=== PATIENT | male | born 1965 | race Caucasian/White ===

== ENCOUNTER → 2017-08-14 | Outpatient (REF) ==
[~2017-08-14] MED LIST: ALBU8.5H12 IH; AMO500 PO; ASPI-1471 PO; AUG875 PO; CHOL10005 PO; CIPR-214 PO; CLIN-75 PO; CLIN300C99 PO; GLY25 PO; GLY5 PO; LIDO20SO21 MM; LISI-362 PO; LISI5TAB25 PO; LOR5 PO; MET500 PO; METF-1 PO; NYST100040 PO; PEN250 PO; PENI-22 PO; SIMV-54 PO; SITA100T PO; SITA1TBM PO
--- NOTE | 2017-08-14 14:19 | RADIOLOGY IMAGING REPORT ---
FACILITY: PATIENT NAME: Leobardo Russell : 1965 MR: [id number] V: [id number] EXAM DATE: ORDERING PHYSICIAN: JOAQUÍN CAR TECHNOLOGIST: Location: [facility] - [place] Patient: Leobardo Russell : 1965 Visit/Account:[id number] Date of Sevice: 08/14/2017 Exam type: LUMBAR SPINE 2 OR 3 VIEW History: Low back pain Comparison: None. Findings: There are five nonrib-bearing lumbar-type vertebral bodies present. There is no evidence of acute fr acture or subluxation in the lumbar spine. The disc spaces are well-preserved. There is a very gent le levoconvex scoliosis with the curvature centered about L3-4. IMPRESSION: 1. There gentle levoconvex scoliosis of the lumbar spine Lumbar spine series otherwise appears unremarkable Report Dictated By: Keily Burch MD at 08/14/2017 2:14 PM Report E-Signed By: Keily Burch MD at 08/14/2017 2:15 PM WSN:[email or web address]
== END ==
LOC: RAD 11:25
PROVIDERS: ATTEND Orthopaedic Surgery Orthopaedic Surgery of the Spine
DX: M54.5 Low back pain (principal)
CPT/HCPCS: 72100

== ENCOUNTER 2017-08-19 14:48 | Inpatient (IN) | payer SELFPAY ==
[~2017-08-19] VITALS: Ht 152.4 cm; Wt 78.5 kg
--- NOTE | 2017-08-19 14:52 | ER Report ---
History and Physical Time Seen By MD: 14:51 Hx. of Stated Complaint: diabetic left foot ulcer HPI/ROS 51 year old with left foot ulcer x 1 month on 2 courses of abx . keflex and augmentin, worsening redness drainage red streak up left foot Allergies: Coded Allergies: No Known Allergies (Verified Allergy, Mild, 08/19/17) Home Meds Reported Medications Insulin Detemir (LEVEMIR) 100 Unit/Ml Injs, 70 UNIT SUBQ 08/19/17 Insulin Lispro (HUMALOG) 100 Unit/1 Ml Vial, 100 UNIT SQ, VIAL 08/19/17 Famotidine (FAMOTIDINE) 20 Mg Tablet, 20 MG PO QDAY, TAB 08/19/17 Hctz/Bisoprolol (ZIAC 10-6.25 MG TABLET) 1 Ea Tab, 25 MG PO QDAY, TAB 08/19/17 Amoxicillin/Potassium Clav (AUGMENTIN 250-62.5 MG/5 ML) 250 Mg/5 Ml Susp.recon, 1 TSP PO Q8H for 5 Days, ML 08/19/17 Aspirin (ASPIR 81) 81 Mg Tablet.dr, 81 MG PO QDAY, TAB 08/03/16 Cholecalciferol (Vitamin D3) (VITAMIN D3) 1,000 Unit Tablet, 1000 UNIT PO QDAY, TAB 08/03/16 Simvastatin (SIMVASTATIN) 40 Mg Tablet, PO HS, TAB 12/18/15 Metformin Hcl (GLUCOPHAGE) 500 Mg Tablet, 1 TAB PO BID, #60 With Food 01/17/13 Discontinued Reported Medications Sitagliptin Phosphate (JANUVIA) 100 Mg Tablet, 100 MG PO QDAY 08/03/16 Lisinopril (LISINOPRIL) 10 Mg Tablet, 10 MG PO QDAY, TAB 08/03/16 Past Medical/Surgical History History headaches, hypertension, asthma, type II diabetes, depression, Reviewed Nurses Notes: Yes Old Medical Records Reviewed: Yes Hx Smoking: No Smoking Status: Never Smoker Exposure to Second Hand Smoke?: No Hx Substance Use Disorder: No Hx Alcohol Use: Yes Constitutional Vital Sign - Last 24 Hours 08/19/17 14:55 Temp 98.0 Pulse 92 Resp 19 B/P (MAP) 132/101 Pulse Ox 95 O2 Delivery Room Air Physical Exam 51 year old male identifies as a female and asks to called she. alert anxious, cathy tm non reddened, throat non reddened mucous membranes dry, hrr, lungs cta, and soft, open ulcer left foot 3x2 medial side of great toe, 2 plus edema left leg, right foot dry pressure ulcer to the bottom of the foot , no edema right leg Medical Decision Making Data Points Result Diagram: 08/19/17 1520 08/19/17 1520 Laboratory Hematology Test 08/19/17 15:20 08/19/17 19:14 Red Blood Count 4.86 M/uL (4.00-5.60) Mean Corpuscular Volume 85.9 fL (80.0-96.0) Mean Corpuscular Hemoglobin 29.2 pg (26.0-33.0) Mean Corpuscular Hemoglobin Concent 34.0 g/dL (32.0-36.0) Red Cell Distribution Width 12.8 % (11.5-14.5) Mean Platelet Volume 8.1 fL (7.2-11.1) Neutrophils (%) (Auto) 81.8 % (39.4-72.5) Lymphocytes (%) (Auto) 8.7 % (17.6-49.6) Monocytes (%) (Auto) 8.3 % (4.1-12.4) Eosinophils (%) (Auto) 0.5 % (0.4-6.7) Basophils (%) (Auto) 0.7 % (0.3-1.4) Nucleated RBC Relative Count (auto) 0.1 /100WBC Neutrophils # (Auto) 9.8 K/uL (2.0-7.4) Lymphocytes # (Auto) 1.0 K/uL (1.3-3.6) Monocytes # (Auto) 1.0 K/uL (0.3-1.0) Eosinophils # (Auto) 0.1 K/uL (0.0-0.5) Basophils # (Auto) 0.1 K/uL (0.0-0.1) Nucleated RBC Absolute Count (auto) 0.01 K/uL Erythrocyte Sedimentation Rate 62 mm/HOUR (0-15) Prothrombin Time 12.7 seconds (12.0-14.4) Prothromb Time International Ratio 0.96 Activated Partial Thromboplast Time 26 seconds (23-35) D-Dimer Quantitative (PE/DVT) 0.87 ug/ml (0-0.50) Sodium Level 132 mmol/L (137-145) Potassium Level 5.7 mmol/L (3.5-5.0) Chloride Level 99 mmol/L (98-107) Carbon Dioxide Level 26 mmol/L (22-30) Blood Urea Nitrogen 45 mg/dl (9-21) Creatinine 2.60 mg/dl (0.66-1.25) Glomerular Filtration Rate Calc 26.4 Random Glucose 201 mg/dl (75-110) Lactate 1.5 mmol/L (0.7-2.1) Calcium Level 9.1 mg/dl (8.4-10.2) Magnesium Level 2.6 mg/dl (1.7-2.2) Total Bilirubin 0.6 mg/dl (0.2-1.3) Aspartate Amino Transf (AST/SGOT) 22 U/L (0-35) Alanine Aminotransferase (ALT/SGPT) 43 U/L (0-56) Alkaline Phosphatase 155 U/L (0-126) C-Reactive Protein 3.7 mg/dl (<1.0) Total Protein 7.6 gm/dl (6.3-8.2) Albumin 3.7 g/dl (3.5-5.0) Urine Color Yellow Urine Clarity Cloudy Urine pH 5.0 pH (4.8-9.5) Urine Specific [place] 1.017 Urine Protein 500 mg/dL (NEGATIVE) Urine Glucose (UA) 500 mg/dL (NEGATIVE) Urine Ketones Negative mg/dL (NEGATIVE) Urine Blood Small (NEGATIVE) Urine Nitrite Negative (NEGATIVE) Urine Bilirubin Negative (NEGATIVE) Urine Urobilinogen Negative mg/dL (0.2-1.9) Urine Leukocyte Esterase Negative (NEGATIVE) Urine RBC 25 /HPF (0-2/HPF) Urine WBC 2 /HPF (0-5/HPF) Urine Squamous Epithelial Cells Few /LPF (</=FEW) Urine Bacteria Negative /HPF (NONE-FEW) Urine Mucus Few /HPF (NONE-FEW) Chemistry Test 08/19/17 15:20 08/19/17 19:14 White Blood Count 11.9 k/uL (4.5-11.0) Red Blood Count 4.86 M/uL (4.00-5.60) Hemoglobin 14.2 g/dL (14.0-18.0) Hematocrit 41.7 % (42.0-52.0) Mean Corpuscular Volume 85.9 fL (80.0-96.0) Mean Corpuscular Hemoglobin 29.2 pg (26.0-33.0) Mean Corpuscular Hemoglobin Concent 34.0 g/dL (32.0-36.0) Red Cell Distribution Width 12.8 % (11.5-14.5) Platelet Count 298 K/uL (150-450) Mean Platelet Volume 8.1 fL (7.2-11.1) Neutrophils (%) (Auto) 81.8 % (39.4-72.5) Lymphocytes (%) (Auto) 8.7 % (17.6-49.6) Monocytes (%) (Auto) 8.3 % (4.1-12.4) Eosinophils (%) (Auto) 0.5 % (0.4-6.7) Basophils (%) (Auto) 0.7 % (0.3-1.4) Nucleated RBC Relative Count (auto) 0.1 /100WBC Neutrophils # (Auto) 9.8 K/uL (2.0-7.4) Lymphocytes # (Auto) 1.0 K/uL (1.3-3.6) Monocytes # (Auto) 1.0 K/uL (0.3-1.0) Eosinophils # (Auto) 0.1 K/uL (0.0-0.5) Basophils # (Auto) 0.1 K/uL (0.0-0.1) Nucleated RBC Absolute Count (auto) 0.01 K/uL Erythrocyte Sedimentation Rate 62 mm/HOUR (0-15) Prothrombin Time 12.7 seconds (12.0-14.4) Prothromb Time International Ratio 0.96 Activated Partial Thromboplast Time 26 seconds (23-35) D-Dimer Quantitative (PE/DVT) 0.87 ug/ml (0-0.50) Glomerular Filtration Rate Calc 26.4 Lactate 1.5 mmol/L (0.7-2.1) Calcium Level 9.1 mg/dl (8.4-10.2) Magnesium Level 2.6 mg/dl (1.7-2.2) Total Bilirubin 0.6 mg/dl (0.2-1.3) Aspartate Amino Transf (AST/SGOT) 22 U/L (0-35) Alanine Aminotransferase (ALT/SGPT) 43 U/L (0-56) Alkaline Phosphatase 155 U/L (0-126) C-Reactive Protein 3.7 mg/dl (<1.0) Total Protein 7.6 gm/dl (6.3-8.2) Albumin 3.7 g/dl (3.5-5.0) Urine Color Yellow Urine Clarity Cloudy Urine pH 5.0 pH (4.8-9.5) Urine Specific [place] 1.017 Urine Protein 500 mg/dL (NEGATIVE) Urine Glucose (UA) 500 mg/dL (NEGATIVE) Urine Ketones Negative mg/dL (NEGATIVE) Urine Blood Small (NEGATIVE) Urine Nitrite Negative (NEGATIVE) Urine Bilirubin Negative (NEGATIVE) Urine Urobilinogen Negative mg/dL (0.2-1.9) Urine Leukocyte Esterase Negative (NEGATIVE) Urine RBC 25 /HPF (0-2/HPF) Urine WBC 2 /HPF (0-5/HPF) Urine Squamous Epithelial Cells Few /LPF (</=FEW) Urine Bacteria Negative /HPF (NONE-FEW) Urine Mucus Few /HPF (NONE-FEW) Coagulation Test 08/19/17 15:20 Prothrombin Time 12.7 seconds Prothromb Time International Ratio 0.96 Activated Partial Thromboplast Time 26 seconds D-Dimer Quantitative (PE/DVT) 0.87 ug/ml Urinalysis Test 08/19/17 19:14 Urine Color Yellow Urine Clarity Cloudy Urine pH 5.0 pH (4.8-9.5) Urine Specific [place] 1.017 Urine Protein 500 mg/dL (NEGATIVE) Urine Glucose (UA) 500 mg/dL (NEGATIVE) Urine Ketones Negative mg/dL (NEGATIVE) Urine Blood Small (NEGATIVE) Urine Nitrite Negative (NEGATIVE) Urine Bilirubin Negative (NEGATIVE) Urine Urobilinogen Negative mg/dL (0.2-1.9) Urine Leukocyte Esterase Negative (NEGATIVE) Urine RBC 25 /HPF (0-2/HPF) Urine WBC 2 /HPF (0-5/HPF) Urine Squamous Epithelial Cells Few /LPF (</=FEW) Urine Bacteria Negative /HPF (NONE-FEW) Urine Mucus Few /HPF (NONE-FEW) EKG/Imaging Imaging FACILITY: [facility] PATIENT NAME: Leobardo Russell : 1965 MR: [id number] V: [id number] EXAM DATE: ORDERING PHYSICIAN: SHAHID DOWNING TECHNOLOGIST: Location: [facility] Patient: Leobardo Russell : 1965 Visit/Account:[id number] Date of Sevice: 08/19/2017 EXAMINATION: Left Lower Extremity Venous Ultrasound HISTORY: Left foot infection. TECHNIQUE: Ultrasound evaluation of the left lower extremity veins was performed with color and spectral Doppler and compression views. COMPARISON: None. FINDINGS: The left common femoral, femoral, proximal deep femoral, popliteal, and segmentally visualized deep calf veins are patent and compressible, without evidence of intraluminal thrombus. The visualized upper greater saphenous vein is patent. Mildly enlarged left inguinal lymph nodes are likely reactive. IMPRESSION: No evidence of DVT in the left leg. Report Dictated By: Mike Rajan MD at 08/19/2017 7:11 PM Report E-Signed By: Mike Rajan MD at 08/19/2017 7:14 PM WSN:[id number] ED Course/Re-evaluation ED Course Call from the radiologist MRI of his left foot is showing soft tissue edema and there is no abscess no osteomyelitis Re-evaluation Talk to Dr. Mary Ann Becerra she will admit patient for diabetic foot ulcer and cellulitis of the left foot we have started antibiotics of vancomycin in the emergency room she will add antibiotics upstairs Decision to Disposition Date: Aug 19, 2017 Decision to Disposition Time: 19:49 Depart Departure Latest Vital Signs Vital Signs Date Time Temp Pulse Resp B/P (MAP) Pulse Ox O2 Delivery O2 Flow Rate FiO2 08/19/17 14:55 98.0 92 19 132/101 95 Room Air Impression: Primary Impression: Diabetes Additional Impressions: Cellulitis of foot Diabetic ulcer of foot associated with diabetes mellitus due to underlying condition, limited to breakdown of skin Condition: Improved Disposition: Admitted from ER Problem Qualifiers SHAHID DOWNING APRN-C Aug 19, 2017 14:52
[2017-08-19] MEDS ORDERED: ZIA10 PO (15:07)
[2017-08-19] MEDS ORDERED: AMOX250S91 PO (15:07)
[2017-08-19] MEDS ORDERED: FAMO-67 PO (15:07)
[2017-08-19] MEDS ORDERED: INSU100V24 SQ (15:07)
[2017-08-19] MEDS ORDERED: LEVI SUBQ (15:07)
--- NOTE | 2017-08-19 15:25 | EKG ---
FACILITY: [facility] PATIENT NAME: JUAN F MCCABE : [id number] MR: [id number] V: [id number] EXAM DATE: ORDERING PHYSICIAN: SHAHID DOWNING TECHNOLOGIST: PRUDENCIO Meier Reason : FOOT INFECTION Blood Pressure : / mmHG Vent. Rate : 085 BPM Atrial Rate : 085 BPM P-R Int : 122 ms QRS Dur : 092 ms QT Int : 338 ms P-R-T Axes : 076 031 075 degrees QTc Int : 402 ms Normal sinus rhythm RSR' or QR pattern in V1 suggests right ventricular conduction delay Query right atrial enlargement. When compared with ECG of 03-AUG-2016 11:10, No significant change was found Confirmed by VIKTOR HARDING ([id number]) on 08/19/2017 5:32:55 PM Referred By: SALINA Confirmed By:VIKTOR HARDING
[2017-08-19 15:35] LABS: PLATELET COUNT, AUTOMATED 298 K/uL (150-450)
[2017-08-19 15:43] LABS: INR 0.96
--- NOTE | 2017-08-19 15:58 | RADIOLOGY IMAGING REPORT ---
FACILITY: [facility] [place] PATIENT NAME: Leobardo Russell : 1965 MR: [id number] V: [id number] EXAM DATE: ORDERING PHYSICIAN: SHAHID DOWNING TECHNOLOGIST: Location: [facility] Patient: Leobardo Russell : 1965 Visit/Account:[id number] Date of Sevice: 08/19/2017 CHEST SINGLE AP INDICATION: foot infection dm COMPARISON: August 03, 2016 FINDINGS: Heart size within normal limits. There is no focal infiltrate or lobar consolidation. There is no pneumothorax or pleural effusion. IMPRESSION: 1. No acute cardiopulmonary process. Report Dictated By: Iggy Winston at 08/19/2017 3:54 PM Report E-Signed By: Iggy Winston at 08/19/2017 3:54 PM WSN:[id number]
[2017-08-19] MEDS ORDERED: VANCOMYCIN 1 GM ADDVIAL 1 GM in NS(*) 0.9% 250 ML ADDVAN BAG 250 ML IVPB ONE (16:50)
--- NOTE | 2017-08-19 19:17 | RADIOLOGY IMAGING REPORT ---
FACILITY: [facility] - [place] PATIENT NAME: Leobardo Russell : 1965 MR: [id number] V: [id number] EXAM DATE: ORDERING PHYSICIAN: SHAHID DOWNING TECHNOLOGIST: Location: [facility] [place] Patient: Leobardo Russell : 1965 Visit/Account:[id number] Date of Sevice: 08/19/2017 EXAMINATION: Left Lower Extremity Venous Ultrasound HISTORY: Left foot infection. TECHNIQUE: Ultrasound evaluation of the left lower extremity veins was performed with color and spec tral Doppler and compression views. COMPARISON: None. FINDINGS: The left common femoral, femoral, proximal deep femoral, popliteal, and segmentally visualized deep c jail veins are patent and compressible, without evidence of intraluminal thrombus. The visualized upp er greater saphenous vein is patent. Mildly enlarged left inguinal lymph nodes are likely reactive. IMPRESSION: No evidence of DVT in the left leg. Report Dictated By: Mike Rajan MD at 08/19/2017 7:11 PM Report E-Signed By: Mike Rajan MD at 08/19/2017 7:14 PM WSN:[id number]
[2017-08-19] MEDS ORDERED: NS(*) 0.9% 1000 ML BAG 1,000 ML IV PRN (20:03)
[2017-08-19] MEDS ORDERED: ACETAMINOPHEN 325 MG TAB PO PRN (20:05)
[2017-08-19 20:41] VITALS: BP 186/122
[2017-08-19] MEDS ORDERED: AMOX-559 PO (20:47)
[2017-08-19] MEDS ORDERED: LISI20TA29 PO (20:49)
[2017-08-19] MEDS ORDERED: HYDR-2966 PO (20:49)
[2017-08-19] MEDS ORDERED: SIMV-49 PO (20:50)
[2017-08-19] MEDS ORDERED: AMPICILLIN/SULBACTAM 3 GM VIAL ONE (21:40)
[2017-08-19] MEDS ORDERED: NS(*) 0.9% 100 ML BAG 200 ML ONE (21:43)
--- NOTE | 2017-08-19 22:05 | History & Physical ---
History of Present Illness Chief Complaint Redness, swelling and drainage of L foot. History of Present Illness The patient is a 51 year old genetic male who identifies as a female. She goes by "Anabel". She notes that about 3 weeks ago she removed a "skin tag" from the medial aspect of the left foot. The foot became infected and she was seen at the [facility]. She was started on Keflex but did not take it right away. Wound care was performed and the area scabbed over. The patient states she pulled off the scab because it was "ready". The wound worsened and she was placed on Augmentin 875mg bid. She then developed a crescent shaped defect on the pad below the great toe. Today she noticed increased redness and drainage with red streaking up the foot to the lower leg. The left leg was also swollen. The patient denies fever or chills. She has diabetic neuropathy and has not had pain. She states she was hospitalized in 2012 with a similar infection. Her diabetes has not been well controlled. She has been on Levemir 70 u at midnight. Her sugars have been 200s to 300s with an occasional "crash". In the ER, MRI was done with report of no abscess and no osteomyelitis. Sed rate and CRP were elevated. WBC was also elevated to 11.9. The patient was recommended for admission for further evaluation and treatment. Blood cultures were performed in ER and the patient was given a dose of Vancomycin 1g. 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), managed as type 1 Status: Chronic (7) History of appendectomy (8) History of eye surgery Home Meds Reported Medications Simvastatin (SIMVASTATIN) 20 Mg Tablet, 20 MG PO HS, TAB 08/19/17 Hydrochlorothiazide (HYDROCHLOROTHIAZIDE) 25 Mg Tablet, 1 TAB PO BID, TAB 08/19/17 Lisinopril (LISINOPRIL) 20 Mg Tablet, 20 MG PO BID, TAB 08/19/17 Amoxicillin/Pot Clav 875-125 Mg Tab (AUGMENTIN 875-125 TABLET) 1 Each Tablet, 1 TAB PO Q12H, TAB 08/19/17 Insulin Detemir (LEVEMIR) 100 Unit/Ml Injs, 70 UNIT SUBQ 08/19/17 Insulin Lispro (HUMALOG) 100 Unit/1 Ml Vial, 100 UNIT SQ, VIAL 08/19/17 Famotidine (FAMOTIDINE) 20 Mg Tablet, 20 MG PO QDAY, TAB 08/19/17 Aspirin (ASPIR 81) 81 Mg Tablet.dr, 81 MG PO QDAY, TAB 08/03/16 Cholecalciferol (Vitamin D3) (VITAMIN D3) 1,000 Unit Tablet, 1000 UNIT PO QDAY, TAB 08/03/16 Metformin Hcl (GLUCOPHAGE) 500 Mg Tablet, 2 TAB PO BID, #60 With Food 01/17/13 Discontinued Reported Medications Sitagliptin Phosphate (JANUVIA) 100 Mg Tablet, 100 MG PO QDAY 08/03/16 Lisinopril (LISINOPRIL) 10 Mg Tablet, 10 MG PO QDAY, TAB 08/03/16 Allergies: Coded Allergies: No Known Allergies (Verified Allergy, Mild, 08/19/17) Patient History: Diabetes mellitus (DM) GM FH: lung cancer GM FHx: chronic disabling diseases BROTHER OR SISTER Other Social/Family Hx The patient lives alone in [place]. She has 2 cats. She works at [employer] and also for [employer]. Hx Smoking: No Smoking Status: Never Smoker Exposure to Second Hand Smoke?: No Caffeine Intake: Tea Hx Alcohol Use: Yes Alcohol Use: Occassional Hx Substance Use Disorder: Yes Social Drug Use: Former Social Drugs: Marijuana History of IV Drug Use: No Review of Systems Constitutional: No Fever, No Chills Neurological: Other (Occasional headache. Diabetic neuropathy with decreased sensation in his feet.) Eyes: No Vision Change ENT: Other (Most teeth are broken off at the gumline. No pain currently.), No Hearing Loss Cardiovascular: Chest Pain (Occasional chest pain.) Respiratory: No Shortness of Breath, No Cough Gastrointestinal: No Nausea, No Vomiting, Diarrhea (Intermittent bouts of diarrhea since the 1980s. Uses antidiarrheal medication at home prn.) Genitourinary: No Dysuria Musculoskeletal: Pain (Denies pain with his current ulcer, L foot.) Psychiatric: Depression (Hx of depression. Not on meds now.) Exam Vital Signs Vital Signs Date Time Temp Pulse Resp B/P (MAP) Pulse Ox O2 Delivery O2 Flow Rate FiO2 08/19/17 20:41 98.5 92 18 186/122 (143) 16 Room Air General Appearance: Alert, Awake, No Acute Distress, Afebrile, Other (Wearing a wig.) Neuro: No Gross deficits Eyes: PERRLA ENT: Other (All remaining teeth are broken off at the gum. Two teeth missing, R lower molars.) Neck: No Masses Cardiovascular: Regular Rate and Rhythm Respiratory: Clear to Auscultation GI: Abd Soft and Non-Tender, Other (Small ventral hernia.) Lymph: Cervical Nodes Benign Extremities: Warm, Perfused, Edema (Left leg swollen to the knee.) Integumentary: Other (L foot with swelling and redness top of foot with streaking up lower leg. Open wound on plantar surface below great toe with crescent shaped defect, some drainage and redness. R foot with callous on pad of foot.) Psych: Alert & Oriented X3, Appropriate Mood & Affect Medical Decision Making Data Points Result Diagram: 08/19/17 1520 08/19/17 1520 Item Value Date Time Erythrocyte Sedimentation Rate 62 mm/HOUR H 08/19/17 1520 Neutrophils (%) (Auto) 81.8 % H 08/19/17 1520 Prothrombin Time 12.7 seconds 08/19/17 1520 Prothromb Time International Ratio 0.96 08/19/17 1520 Activated Partial Thromboplast Time 26 seconds 08/19/17 1520 D-Dimer Quantitative (PE/DVT) 0.87 ug/ml H 08/19/17 1520 Random Glucose 201 mg/dl H 08/19/17 1520 Calcium Level 9.1 mg/dl 08/19/17 1520 Total Bilirubin 0.6 mg/dl 08/19/17 1520 Aspartate Amino Transf (AST/SGOT) 22 U/L 08/19/17 1520 Alanine Aminotransferase (ALT/SGPT) 43 U/L 08/19/17 1520 Alkaline Phosphatase 155 U/L H 08/19/17 1520 C-Reactive Protein 3.7 mg/dl H 08/19/17 1520 Total Protein 7.6 gm/dl 08/19/17 1520 Albumin 3.7 g/dl 08/19/17 1520 Magnesium Level 2.6 mg/dl H 08/19/17 1520 Lactate 1.5 mmol/L 08/19/17 1520 Urine Color Yellow 08/19/171913 Urine Clarity Cloudy 08/19/171913 Urine pH 5.0 pH 08/19/171913 Urine Specific Stewart 1.017 08/19/171913 Urine Protein 500 mg/dL 08/19/171913 Urine Glucose (UA) 500 mg/dL 08/19/171913 Urine Ketones Negative mg/dL 08/19/171913 Urine Blood Small 08/19/171913 Urine Nitrite Negative 08/19/171913 Urine Bilirubin Negative 08/19/171913 Urine Urobilinogen Negative mg/dL 08/19/171913 Urine Leukocyte Esterase Negative 08/19/171913 Urine RBC 25 /HPF 08/19/171913 Urine WBC 2 /HPF 08/19/171913 Urine Squamous Epithelial Cells Few /LPF 08/19/171913 Urine Bacteria Negative /HPF 08/19/171913 Urine Mucus Few /HPF 08/19/171913 Blood cultures pending. EKG / Imaging EKG Interpretation FACILITY: [facility] - [place] PATIENT NAME: JUAN F MCCABE : [id number] MR: [id number] V: [id number] EXAM DATE: ORDERING PHYSICIAN: SHAHID DOWNING TECHNOLOGIST: PRUDENCIO Meier Reason : FOOT INFECTION Blood Pressure : / mmHG Vent. Rate : 085 BPM Atrial Rate : 085 BPM P-R Int : 122 ms QRS Dur : 092 ms QT Int : 338 ms P-R-T Axes : 076 031 075 degrees QTc Int : 402 ms Normal sinus rhythm RSR' or QR pattern in V1 suggests right ventricular conduction delay Query right atrial enlargement. When compared with ECG of 03-AUG-2016 11:10, No significant change was found Confirmed by VIKTOR HARDING ([id number]) on 08/19/2017 5:32:55 PM Referred By: SALINA Confirmed By:VIKTOR HARDING 1515 T: JENNY/ Imaging FACILITY: [facility] [place] PATIENT NAME: Juan F Mccabe : 1965 MR: [id number] V: [id number] EXAM DATE: ORDERING PHYSICIAN: SHAHID DOWNING TECHNOLOGIST: [place] [facility] [place] Patient: Juan F Mccabe : 1965 Visit/Account:[id number] Date of Sevice: 08/19/2017 EXAMINATION: Left Lower Extremity Venous Ultrasound HISTORY: Left foot infection. TECHNIQUE: Ultrasound evaluation of the left lower extremity veins was performed with color and spectral Doppler and compression views. COMPARISON: None. FINDINGS: The left common femoral, femoral, proximal deep femoral, popliteal, and segmentally visualized deep calf veins are patent and compressible, without evidence of intraluminal thrombus. The visualized upper greater saphenous vein is patent. Mildly enlarged left inguinal lymph nodes are likely reactive. IMPRESSION: No evidence of DVT in the left leg. Report Dictated By: Mike Rajan MD at 08/19/2017 7:11 PM Report E-Signed By: Mike Rajan MD at 08/19/2017 7:14 PM WSN:[id number] FACILITY: [facility] [place] PATIENT NAME: Juan F Mccabe : 1965 MR: [id number] V: [id number] EXAM DATE: [id number] ORDERING PHYSICIAN: SHAHID DOWNING TECHNOLOGIST: [place] [facility] [place] Patient: Juan F Mccabe : 1965 Visit/Account:[id number] Date of Sevice: 08/19/2017 CHEST SINGLE AP INDICATION: foot infection dm COMPARISON: August 03, 2016 FINDINGS: Heart size within normal limits. There is no focal infiltrate or lobar consolidation. There is no pneumothorax or pleural effusion. IMPRESSION: 1. No acute cardiopulmonary process. Report Dictated By: Iggy Winston at 08/19/2017 3:54 PM Report E-Signed By: Iggy Winston at 08/19/2017 3:54 PM WSN:[id number] Pre-Admit Course ED Medications Vancomycin 1g. Medical Record Review: Yes Assessment and Plan Problems: (1) Cellulitis of foot Status: Acute Assessment & Plan: The patient has been on antibiotics through the [facility], first Keflex, then Augmentin 875 bid. Started on Vanco in ER at 1g q 24. Will continue and add Unasyn 3g IV q 6 hours. No dosage adjustment needed for Unasyn with CrCl greater than 30. The patient's CrCl is 38. PT wound care ordered. Follow CRP periodically. MRI negative for abscess or osteomyelitis per report from ER provider. Recheck WBC in am. Control blood sugars. (2) Diabetic foot ulcer Status: Acute Assessment & Plan: PT wound care ordered. IV antibiotics as above. (3) Acute renal failure Status: Acute Assessment & Plan: The patient has a creatinine of 2.7. The last creatinine was a year ago and was 2.0. Creatinine was normal in 2013. Will stop lisinopril and HCTZ and hydrate. BP very high. Suspect she likely has chronic renal failure as well due to uncontrolled HTN and DM. Will follow labs. (4) Hyperkalemia Status: Acute Assessment & Plan: Mild. Likely due to renal failure as above and MANAS-I. Stop lisinopril and HCTZ. Hydrate. Recheck labs in am. 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 Blood sugars have not been well controlled. She has also been on metformin 1000mg bid. She has significant renal failure. Will stop metformin and divide the Levemir into 35u bid. Monitor BS AC/HS and adjust dose as needed. HgA1c ordered. (6) Hyperlipidemia associated with type 2 diabetes mellitus Status: Chronic Assessment & Plan: Continue simvastatin 20mg at HS. (7) HTN (hypertension) Status: Chronic Assessment & Plan: Blood pressure is elevated here at 180s/120s. Stop lisinopril and HCTZ. Start metoprolol 25mg bid. Monitor BPs and adjust meds as needed. (8) GERD (gastroesophageal reflux disease) Status: Chronic Assessment & Plan: Continue famotidine 20mg daily. (9) Yyif-ac-nixyil transgender person Status: Chronic Time Spent on Plan of Care: < 30 min Copies to: [facility] Venous Thromboembolism VTE Risk Physician Assess for VTE Risk: Yes Patient's VTE Risk: Low VTE Diagnostic Test 2 Days Prior to Admit: Yes (US L leg negative for DVT) Antithrombotics Is Pt On Any Antithrombotics?: Yes Exam Sepsis Risk: No Definite Risk Problem Qualifiers (1) HTN (hypertension): Hypertension type: essential hypertension Qualified Codes: I10 - Essential ( primary) hypertension (2) GERD (gastroesophageal reflux disease): Esophagitis presence: esophagitis presence not specified Qualified Codes: K21.9 - Gastro-esophageal reflux disease without esophagitis MEAGAN PAK MD Aug 19, 2017 22:05
[2017-08-19] MEDS: METOPROLOL TART 50 MG TAB PO SCH (22:10)
[2017-08-19] MEDS: INSULIN DETEMIR 100 UN/ML VIAL SUBQ SCH (22:18)
[2017-08-19] MEDS: INSULIN HUM LISPRO 100 UN/ML 3 ML VIAL SUBQ PRN (22:19)
[2017-08-19] MEDS: NS(*) 0.9% 1000 ML BAG 1,000 ML IV PRN (22:24)
[2017-08-19] MEDS: AMPICILLIN/SULBACT (*) 3 GM VL 3 GM in NS(*) 0.9% 100 ML BAG 100 ML IVPB SCH (22:30)
[2017-08-19 22:39] VITALS: BP 185/95
[2017-08-20 00:16] VITALS: BP 177/82
[2017-08-20] MEDS: AMPICILLIN/SULBACT (*) 3 GM VL 3 GM in NS(*) 0.9% 100 ML BAG 100 ML IVPB SCH ×4 (03:56→21:48)
[2017-08-20 03:58] VITALS: BP 127/68
[2017-08-20] MEDS: NS(*) 0.9% 1000 ML BAG 1,000 ML IV PRN (06:20)
[2017-08-20 06:38] LABS: PLATELET COUNT, AUTOMATED 264 K/uL (150-450)
[2017-08-20 07:20] VITALS: BP 176/96
--- NOTE | 2017-08-20 08:18 | RADIOLOGY IMAGING REPORT ---
FACILITY: [facility] PATIENT NAME: Leobardo Russell : 1965 MR: [id number] V: [id number] EXAM DATE: ORDERING PHYSICIAN: SHAHID DOWNING TECHNOLOGIST: Location: [facility] [place] Patient: Leobardo Russell : 1965 Visit/Account:[id number] Date of Sevice: 08/19/2017 MRI LEFT FOOT W/O CONTRAST HISTORY: Cellulitis COMPARISON: None TECHNIQUE: Multiplanar/multisequence was obtained through the left foot without contrast. CONTRAST: None FINDINGS: Soft tissues: Diffuse soft tissue edema especially at the dorsum of the foot. No fluid collection. Fo cus of susceptibility within the soft tissues at the plantar aspect of the first metatarsal head whic h may be an ulcer. Bones: Minimal plantar bone marrow edema at the first metatarsal head without bone marrow replacement on T1-weighted images.. Joint effusion: Tiny effusion at the first MTP joint. Plantar fascia: Negative. Ligaments: Normal Tendons: Normal Sinus tarsi and hindfoot: Normal Lisfranc ligament: Normal Other findings: None significant IMPRESSION: 1. Probable plantar soft tissue ulcer at the first MTP joint. Diffuse soft tissue edema likely from c ellulitis. No fluid collection indicate abscess. No bone marrow replacement to indicate osteomyelitis . 2. Small effusion at the first MTP joint. Report Dictated By: Andres Hines MD at 08/20/2017 8:09 AM Report E-Signed By: Andres Hines MD at 08/20/2017 8:13 AM WSN:[id number]
[2017-08-20] MEDS ORDERED: NS(*) 0.9% 1000 ML BAG 1,000 ML IV PRN (09:30)
[2017-08-20] MEDS: ENOXAPARIN 30 MG/0.3 ML SYR SC SCH (09:44)
[2017-08-20] MEDS: METOPROLOL TART 50 MG TAB PO SCH ×2 (09:44→21:42)
[2017-08-20] MEDS: FAMOTIDINE 20 MG TAB PO SCH (09:44)
[2017-08-20] MEDS: INSULIN DETEMIR 100 UN/ML VIAL SUBQ SCH ×2 (09:45→21:42)
--- NOTE | 2017-08-20 10:50 | Hospitalist Progress Note ---
Subjective Progress Notes Subjective Patient reports improvement in symptoms. No fevers. Physical Exam Vital Signs Date Time Temp Pulse Resp B/P (MAP) Pulse Ox O2 Delivery O2 Flow Rate FiO2 08/20/17 07:45 95 08/20/17 07:45 Room Air 08/20/17 07:20 99.1 18 176/96 (122) 08/20/17 03:58 84 Intake and Output 08/21/17 07:00 Intake Total 100 ml Balance 100 ml Intake Oral 100 ml General Appearance: Alert, Awake Integumentary: Other (left foot with decreased erythema based on perimeter orozco/still some edema/open area fairly clean with minimal drainage) Result Diagram: 08/20/1755708/20/17557 Assessment and Plan Problems: (1) Cellulitis of foot Status: Acute Assessment & Plan: The patient has been on antibiotics through the [facility], first Keflex, then Augmentin. Started on Vancomycin in ER at 1gm [id number]. Will continue and add Unasyn 3gm IV q6 hours. PT wound care ordered. Follow CRP periodically. MRI negative for abscess or osteomyelitis. Control blood sugars. Watch labs. (2) Diabetic foot ulcer Status: Acute Assessment & Plan: PT wound care ordered. IV antibiotics as above. (3) Acute renal failure Status: Acute Assessment & Plan: Improved. The patient had an elevated creatinine at admission (2.6). We did stop lisinopril and HCTZ. Continue IV fluids. Suspect patient likely has chronic renal failure as well due to uncontrolled HTN and DM. Will follow labs. (4) Hyperkalemia Status: Acute Assessment & Plan: Improved. Mild (5.3). Likely due to renal failure as above and MANAS inhibitor. Stopped lisinopril and HCTZ. Continue IV fluids. Watch labs. 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 We did stop metformin and divided the Levemir into 35u BID. Monitor BS AC/HS and adjust dose as needed. HgA1c is 9.0. (6) Hyperlipidemia associated with type 2 diabetes mellitus Status: Chronic Assessment & Plan: Continue simvastatin 20mg at HS. (7) HTN (hypertension) Status: Chronic Assessment & Plan: Blood pressure is elevated. Stopped lisinopril and HCTZ. Started metoprolol 25mg BID. Monitor BPs and adjust meds as needed. (8) GERD (gastroesophageal reflux disease) Status: Chronic Assessment & Plan: Continue famotidine 20mg daily. (9) Ijtz-se-sepnga transgender person Status: Chronic Exam Sepsis Risk: No Definite Risk Problem Qualifiers (1) HTN (hypertension): Hypertension type: essential hypertension Qualified Codes: I10 - Essential ( primary) hypertension (2) GERD (gastroesophageal reflux disease): Esophagitis presence: esophagitis presence not specified Qualified Codes: K21.9 - Gastro-esophageal reflux disease without esophagitis BOBBY PAK MD Aug 20, 2017 10:50
[2017-08-20] MEDS: INSULIN HUM LISPRO 100 UN/ML 3 ML VIAL SUBQ PRN (12:02)
[2017-08-20 12:12] VITALS: BP 159/85
--- NOTE | 2017-08-20 14:42 | Medical Nutrition Therapy ---
Nutrition Anthropometrics Height (Inches): 60.00 Height (Calculated Centimeters: 152.063492 Weight (Pounds): 173 Weight (Calculated Kilograms): 78.471 Vickey Nutrition Score: Adequate Vickey Nutrition Risk Score: 20 Dietary Referral Nutrition Risk Factors: Nutrition Risk Comment: Physical Findings Physical Appearance: Obese BMI 30-39 Skin Appearance Skin Appearance: Edema Edema Location Modifier: Left Edema Location: Foot Type of Edema: Degree of Edema: 1+ Gastrointestinal Symptoms GI Symtoms: Tube Present: Bowel Sounds: Recent Bowel Pattern: Stool Characteristics: Nutritional Diagnosis Nutritional Acuity: 2-Moderate Nutrition Problem/Etiology/Sym: Inappropriate carb intake related to nutrition knowledge deficit as evidenced by diabetic foot ulcer. Energy Requirement: 2340 (30kcal/kg) Protein Requirement: 62 (.8g/kg) Fluid Requirement: 1950 (25mL/kg) Nutrition Intervention: Cont diet as ordered, Encourage intake Nutritional Education Nutrition Education Topic: Diabetic Nutrition Learning Readiness: Interested Teaching Methods: Discussion, Handout Teaching Recipient: Patient Nutrition Counseling: Provided pt with diabetes meal plan, tips for planning meals and how to read nutrition labels. Discussed carb counting. Discussed monitoring BS and appropriate food choices when they are high and low. Nutrition Monitoring & Eval Nutrition Goals: Eat 50-100% Meal RD Patient Assessment Time: [address] Assessment Type: RD Assessment Patient Nutrition Acuity: 2-Moderate Follow Up Date: Aug 23, 2017 Nutritional Comment: Pt admitted with cellulitis of foot, diabetic foot ulcer. Hx. acute renal failure, hyperkalemia, ZECHARIAH, hyperlipemia, HTN, GERD, [id number] transgendered person. Labs: BS 83, Na 131, K 5.3, BUN 40, Cre 2.20, Ca 7.8, Alb 2.5, A1C 9.Provided pt with diabetes meal plan, tips for planning meals and how to read nutrition labels. Discussed carb counting. Discussed monitoring BS and appropriate food choices when they are high and low. Monitor labs, weight, po intake NIEVES WHITAKER Aug 20, 2017 14:04
[2017-08-20] MEDS ORDERED: VANCOMYCIN 1 GM ADDVIAL 1 GM in NS(*) 0.9% 250 ML ADDVAN BAG 250 ML IVPB SCH (19:00)
[2017-08-20 19:30] VITALS: BP 166/92
[2017-08-20] MEDS ORDERED: SIMVASTATIN 20 MG TAB PO SCH (21:00)
[2017-08-20] MEDS ORDERED: AMPICILLIN/SULBACT (*) 3 GM VL 3 GM in NS(*) 0.9% 100 ML BAG 100 ML IVPB SCH (22:00)
[2017-08-21 00:57] VITALS: BP 170/93
[2017-08-21] MEDS: AMPICILLIN/SULBACT (*) 3 GM VL 3 GM in NS(*) 0.9% 100 ML BAG 100 ML IVPB SCH (03:53)
[2017-08-21 06:11] LABS: PLATELET COUNT, AUTOMATED 239 K/uL (150-450)
[2017-08-21 08:09] VITALS: BP 192/98
[2017-08-21] MEDS ORDERED: amLODIPine BESYL(*) 5 MG TAB PO ONE (08:25)
[2017-08-21] MEDS: FAMOTIDINE 20 MG TAB PO SCH (09:02)
[2017-08-21] MEDS: METOPROLOL TART 50 MG TAB PO SCH (09:02)
[2017-08-21] MEDS: ENOXAPARIN 30 MG/0.3 ML SYR SC SCH (09:04)
[2017-08-21] MEDS: INSULIN HUM LISPRO 100 UN/ML 3 ML VIAL SUBQ PRN ×2 (09:09→12:21)
[2017-08-21] MEDS ORDERED: INSULIN DETEMIR 100 U/ML 3 ML PEN SUBQ SCH (09:40)
[2017-08-21] MEDS ORDERED: INSU100I5 SUBQ (10:14)
--- NOTE | 2017-08-21 10:22 | Hospitalist Depart ---
Discharge Summary Reason for Hosp/Final Diag: (1) Cellulitis of foot Status: Acute Hospital Course & Plan: He was admitted for cellulitis of the left foot. His WBC was elevated at admission. He also had an elevated CRP. He was initially placed on empiric treatment with Unasyn and vancomycin. Blood cultures have been negative. He will convert back to oral Augmentin at discharge. (2) Diabetic foot ulcer Status: Acute Hospital Course & Plan: Physical therapy did evaluate the wound on his foot. They will place a dressing prior to discharge and will provide him with wound care instructions. (3) Acute renal failure Status: Acute Hospital Course & Plan: He did have an elevated creatinine at admission. It has improved with IV fluids and discontinuing his diuretic. However, it is still above normal and will require outpatient monitoring. (4) Hyperkalemia Status: Acute Hospital Course & Plan: Resolved after stopping his MANAS inhibitor. 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 We have discontinued his metformin and scheduled his Levemir dosing to twice daily. (6) HTN (hypertension) Status: Chronic Hospital Course & Plan: We did stop his chronic lisinopril and hydrochlorothiazide as above. He will discharge on amlodipine. (7) GERD (gastroesophageal reflux disease) Status: Chronic Hospital Course & Plan: He is on chronic treatment with famotidine. (8) [id number] transgender person Status: Chronic (9) Hyperlipidemia associated with type 2 diabetes mellitus Status: Chronic Hospital Course & Plan: He is on chronic treatment with simvastatin. Departure Latest Vital Signs Laboratory Tests Test 08/20/17 11:57 08/20/17 16:16 08/20/17 20:54 08/21/17 05:48 Whole Blood Glucose 151 mg/DL 94 mg/DL 148 mg/DL White Blood Count 9.1 k/uL Red Blood Count 4.02 M/uL Hemoglobin 12.0 g/dL Hematocrit 34.4 % Mean Corpuscular Volume 85.5 fL Mean Corpuscular Hemoglobin 29.8 pg Mean Corpuscular Hemoglobin Concent 34.9 g/dL Red Cell Distribution Width 12.6 % Platelet Count 239 K/uL Mean Platelet Volume 8.2 fL Neutrophils (%) (Auto) 73.1 % Lymphocytes (%) (Auto) 12.7 % Monocytes (%) (Auto) 11.7 % Eosinophils (%) (Auto) 1.6 % Basophils (%) (Auto) 0.9 % Nucleated RBC Relative Count (auto) 0.0 /100WBC Neutrophils # (Auto) 6.6 K/uL Lymphocytes # (Auto) 1.2 K/uL Monocytes # (Auto) 1.1 K/uL Eosinophils # (Auto) 0.1 K/uL Basophils # (Auto) 0.1 K/uL Nucleated RBC Absolute Count (auto) 0.00 K/uL Sodium Level 134 mmol/L Potassium Level 4.7 mmol/L Chloride Level 104 mmol/L Carbon Dioxide Level 22 mmol/L Blood Urea Nitrogen 31 mg/dl Creatinine 1.90 mg/dl Glomerular Filtration Rate Calc 37.9 Random Glucose 91 mg/dl Calcium Level 8.0 mg/dl Total Bilirubin 0.2 mg/dl Aspartate Amino Transf (AST/SGOT) 26 U/L Alanine Aminotransferase (ALT/SGPT) 41 U/L Alkaline Phosphatase 111 U/L Total Protein 5.3 gm/dl Albumin 2.4 g/dl Current Medications Medications (Trade) Dose Ordered Sig/Magen Route PRN Reason Start Time Stop Time Status Last Admin Dose Admin Vancomycin HCl 1 gm/Sodium Chloride 250 ml @ 250 mls/hr ONCE ONCE IVPB 08/19/17 16:50 08/19/17 17:49 DC 08/19/17 19:03 Insulin Human Lispro (HumaLOG 100 UN/ ML 3 ML VIAL (OR EQUIV)) 2-10 UNITS SS PRN SUBQ SLIDING SCALE INSULIN 08/19/17 20:05 09/18/17 20:04 08/20/17 12:02 Sodium Chloride 1,000 ml @ 100 mls/hr Q10H PRN IV RUN CONTINUOUSLY FOR HYDRATION 08/19/17 20:03 08/20/17 09:31 DC Acetaminophen (Tylenol(*)325 Mg Tab (Or Equiv)) 650 mg Q6H PRN PO PAIN OR FEVER 100 OR GREATER 08/19/17 20:05 09/18/17 20:04 Influenza Virus Vaccine (Flu Vac (1592-7018 Formula)) 0.5 ml ONCE ONCE IM ONLY 08/22/17 09:00 08/22/17 09:01 Vancomycin HCl 1 gm/Sodium Chloride 250 ml @ 250 mls/hr Q24H@1900 IVPB 08/20/17 19:00 09/03/17 18:59 08/20/17 19:37 Ampicillin Sodium/ Sulbactam Sodium 3 gm/Sodium Chloride 100 ml @ 200 mls/hr 0400,1000,1600,2200 IVPB 08/20/17 22:00 08/20/17 22:00 DC Sodium Chloride 1,000 ml @ 125 mls/hr Q8H PRN IV RUN CONTINUOUSLY FOR HYDRATION 08/19/17 20:25 08/20/17 17:30 DC 08/20/17 06:20 Metoprolol Tartrate (Lopressor(*) 50 Mg Tab (Or Equiv)) 25 mg BID PO 08/19/17 21:20 09/18/17 21:19 08/21/17 09:02 Insulin Detemir (Levemir 100 Un/ ml 1 ml Vial (Or Equiv)) 35 unit BID SUBQ 08/19/17 21:20 08/21/17 09:40 DC 08/20/17 21:42 Ampicillin Sodium/ Sulbactam Sodium (Unasyn(*) 3 Gm Vial (Or Equiv)) 6 gm STK-MED ONCE .ROUTE 08/19/17 21:40 08/19/17 21:42 DC Sodium Chloride 200 ml @ As Directed STK-MED ONCE .ROUTE 08/19/17 21:43 08/19/17 21:44 DC Ampicillin Sodium/ Sulbactam Sodium 3 gm/Sodium Chloride 100 ml @ 200 mls/hr 0400,1000,1600,2200 IVPB 08/19/17 22:00 08/21/17 08:23 DC 08/21/17 03:53 Famotidine (Pepcid(*) 20 Mg Tab (Or Equiv)) 20 mg QDAY PO 08/20/17 09:00 09/19/17 08:59 08/21/17 09:02 Simvastatin (Zocor 20 Mg Tab (Or Equiv)) 20 mg HS PO 08/20/17 21:00 09/19/17 20:59 08/20/17 21:42 Enoxaparin Sodium (Lovenox 30 Mg/ 0.3 ml Syr (Or Equiv)) 30 mg QDAY SC 08/20/17 09:00 09/19/17 08:59 08/21/17 09:04 Sodium Chloride 1,000 ml @ 50 mls/hr Q20H PRN IV RUN CONTINUOUSLY FOR HYDRATION 08/20/17 09:30 09/19/17 09:29 Amlodipine Besylate (Norvasc(*) 5 Mg Tab (Or Equiv)) 5 mg ONCE ONCE PO 08/21/17 08:25 08/21/17 08:28 DC 08/21/17 09:02 Insulin Detemir (Levemir Flextouch 100 U/ ml 3 ml Pen) 35 unit BID SUBQ 08/21/17 09:40 09/20/17 09:39 08/21/17 09:42 Weight (Pounds): 173 Result Diagram: 08/21/1754708/21/17547 Condition: Improved Discharge: Home, Self Care Discharge Instructions Home Meds Active Scripts Amlodipine Besylate (AMLODIPINE BESYLATE) 5 Mg Tablet, 1 TAB PO QDAY, #30 TAB Prov:JUAN F MCLEAN DO 08/21/17 Insulin Detemir (Levemir Flextouch) 100 Unit/1 Ml Insuln.pen, 35 UNIT SUBQ BID, #10 ML Prov:JUAN F MCLEAN DO 08/21/17 Reported Medications Simvastatin (SIMVASTATIN) 20 Mg Tablet, 20 MG PO HS, TAB 08/19/17 Amoxicillin/Pot Clav 875-125 Mg Tab (AUGMENTIN 875-125 TABLET) 1 Each Tablet, 1 TAB PO Q12H, TAB 08/19/17 Insulin Lispro (HUMALOG) 100 Unit/1 Ml Vial, 0 SQ per sliding scale, VIAL 1 unit for every 50 point increase in blood sugar above normal. 08/19/17 Famotidine (FAMOTIDINE) 20 Mg Tablet, 20 MG PO QDAY, TAB 08/19/17 Aspirin (ASPIR 81) 81 Mg Tablet.dr, 81 MG PO QDAY, TAB 08/03/16 Cholecalciferol (Vitamin D3) (VITAMIN D3) 1,000 Unit Tablet, 1000 UNIT PO QDAY, TAB 08/03/16 Discontinued Reported Medications Hydrochlorothiazide (HYDROCHLOROTHIAZIDE) 25 Mg Tablet, 1 TAB PO BID, TAB 08/19/17 Lisinopril (LISINOPRIL) 20 Mg Tablet, 20 MG PO BID, TAB 08/19/17 Insulin Detemir (LEVEMIR) 100 Unit/Ml Injs, 70 UNIT SUBQ QHS 08/19/17 Metformin Hcl (GLUCOPHAGE) 500 Mg Tablet, 2 TAB PO BID, #60 With Food 01/17/13 Sitagliptin Phosphate (JANUVIA) 100 Mg Tablet, 100 MG PO QDAY 08/03/16 Lisinopril (LISINOPRIL) 10 Mg Tablet, 10 MG PO QDAY, TAB 08/03/16 Diet: Diabetic Activity: As Tolerated Copies to: [facility] Venous Thromboembolism Antithrombotics Is Pt On Any Antithrombotics?: Yes Problem Qualifiers (1) HTN (hypertension): Hypertension type: essential hypertension Qualified Codes: I10 - Essential ( primary) hypertension (2) GERD (gastroesophageal reflux disease): Esophagitis presence: esophagitis presence not specified Qualified Codes: K21.9 - Gastro-esophageal reflux disease without esophagitis JUAN F MCLEAN DO Aug 21, 2017 10:22
[2017-08-21] MEDS ORDERED: AMLO-96 PO (10:23)
[2017-08-21 11:44] VITALS: BP 187/105
[2017-08-22] MEDS ORDERED: INFLUENZA VIRUS VAC 0.5 ML SYR IM ONLY ONE (09:00)
== END 2017-08-21 12:50 | disposition home or self-care (01) | DRG 603 ==
LOC: ER 14:53 → MED 19:59
PROVIDERS: ADMIT Internal Medicine; ATTEND Internal Medicine
DX: L03.116 Cellulitis of left lower limb (principal); N17.9 Acute kidney failure, unspecified; E11.621 Type 2 diabetes mellitus with foot ulcer; E87.5 Hyperkalemia; I10 Essential (primary) hypertension; K21.9 Gastro-esophageal reflux disease without esophagitis; T46.4X5A Adverse effect of angiotensin-converting-enzyme inhibitors, initial encounter; E78.4 Other hyperlipidemia; J45.909 Unspecified asthma, uncomplicated; F32.9 Major depressive disorder, single episode, unspecified; E11.40 Type 2 diabetes mellitus with diabetic neuropathy, unspecified; E11.65 Type 2 diabetes mellitus with hyperglycemia; F64.0 Transsexualism; Z79.4 Long term (current) use of insulin
CPT/HCPCS: 36415; 36416; 71045; 73718; 81001; 82040; 82247; 82310; 82374; 82435; 82565; 82947; 82948; 83036; 83605; 83735; 84075; 84132; 84155; 84295; 84443; 84450; 84460; 84520; 85025; 85379; 85610; 85651; 85730; 86140; 87040; 93005; 96365; 97162; 99285; J0295; J1650; J1815; J3370; J7030; J7050

== ENCOUNTER 2017-09-03 11:30 | Emergency (ER) | payer SELFPAY ==
[~2017-09-03 11:30] MED LIST changes: +AMLO-96 PO; +AMOX-559 PO; +AMOX250S91 PO; +FAMO-67 PO; +HYDR-2966 PO; +INSU100I5 SUBQ; +INSU100V24 SQ; +LEVI SUBQ; +LISI20TA29 PO; +SIMV-49 PO; +ZIA10 PO
--- NOTE | 2017-09-03 11:48 | ER Report ---
History and Physical Time Seen By MD: 11:44 HPI/ROS CHIEF COMPLAINT: Foot ulcer HISTORY OF PRESENT ILLNESS: 51-year-old male comes emergency Department again for evaluation of a foot ulcer he's been seen here before for this he was actually followed up at [facility] was managing as an outpatient presedation they can do for him recommending him to go to a wound care center patient went to an outpatient clinic today and referred in to the ER for possible transfer to her evaluation patient says his sugars been a 2-300 poorly controlled patient denies any trauma this is been going on for several months now patient has no additional complaints noted REVIEW OF SYSTEMS: Respiratory: No cough, no dyspnea. Cardiovascular: No chest pain, no palpitations. Gastrointestinal: No vomiting, no abdominal pain. Musculoskeletal: No back pain. Remainder of the 14 system rev: Yes Allergies: Coded Allergies: No Known Allergies (Verified Allergy, Mild, 08/19/17) Home Meds Active Scripts Amlodipine Besylate (AMLODIPINE BESYLATE) 5 Mg Tablet, 1 TAB PO QDAY, #30 TAB Prov:JUAN F MCLEAN DO 08/21/17 Reported Medications Insulin Detemir (LEVEMIR) 100 Unit/Ml Injs, 40 UNIT SUBQ TID 09/03/17 Simvastatin (SIMVASTATIN) 20 Mg Tablet, 20 MG PO HS, TAB 08/19/17 Amoxicillin/Pot Clav 875-125 Mg Tab (AUGMENTIN 875-125 TABLET) 1 Each Tablet, 1 TAB PO Q12H, TAB 08/19/17 Insulin Lispro (HUMALOG) 100 Unit/1 Ml Vial, 0 SQ per sliding scale, VIAL 1 unit for every 50 point increase in blood sugar above normal. 08/19/17 Famotidine (FAMOTIDINE) 20 Mg Tablet, 20 MG PO QDAY, TAB 08/19/17 Aspirin (ASPIR 81) 81 Mg Tablet.dr, 81 MG PO QDAY, TAB 08/03/16 Cholecalciferol (Vitamin D3) (VITAMIN D3) 1,000 Unit Tablet, 1000 UNIT PO QDAY, TAB 08/03/16 Discontinued Scripts Insulin Detemir (Levemir Flextouch) 100 Unit/1 Ml Insuln.pen, 35 UNIT SUBQ BID, #10 ML Prov:JUAN F MCLEAN DO 08/21/17 Reviewed Nurses Notes: Yes Old Medical Records Reviewed: Yes Hx Smoking: No Smoking Status: Never Smoker Exposure to Second Hand Smoke?: No Hx Substance Use Disorder: No Hx Alcohol Use: Yes Constitutional Vital Sign - Last 24 Hours 09/03/17 09/03/17 09/03/17 09/03/17 11:37 11:40 11:41 11:45 Temp 98.4 Pulse 97 88 91 Resp 20 B/P (MAP) 182/95 (124) 182/95 Pulse Ox 97 96 O2 Delivery Room Air 09/03/17 09/03/17 09/03/17 09/03/17 11:55 12:00 12:10 12:15 Pulse 91 90 86 B/P (MAP) 167/92 (117) Pulse Ox 97 97 97 96 09/03/17 09/03/17 12:30 12:45 Pulse 92 B/P (MAP) 181/107 (131) Pulse Ox 96 96 Physical Exam General Appearance: The patient is alert, has no immediate need for airway protection and no current signs of toxicity. [ ] Eyes: Pupils equal and round no injection. Respiratory: Chest is non tender, lungs are clear to auscultation. Cardiac: regular rate and rhythm [ ] Gastrointestinal: Abdomen is soft and non tender, no masses, bowel sounds normal. Musculoskeletal: Neck: Neck is supple and non tender. Extremities have full range of motion and are non tender. Skin: Examination of the left foot shows a stage II decubital pressure ulcer to the medial aspect of the 1st metatarsal with possible palpable bone involvement neurovascular intact he's had some redness swelling and erythema consistent with a probable waste chopper component to it and some lower 70+1+2 pitting edema [ ] DIFFERENTIAL DIAGNOSIS: After history and physical exam differential diagnosis was considered for cellulitis ulcer osteomyelitis Medical Decision Making Data Points Result Diagram: 09/03/17 1152 09/03/17 1152 Laboratory Hematology Test 09/03/17 11:52 Red Blood Count 4.44 M/uL (4.00-5.60) Mean Corpuscular Volume 86.3 fL (80.0-96.0) Mean Corpuscular Hemoglobin 29.5 pg (26.0-33.0) Mean Corpuscular Hemoglobin Concent 34.2 g/dL (32.0-36.0) Red Cell Distribution Width 13.0 % (11.5-14.5) Mean Platelet Volume 8.1 fL (7.2-11.1) Neutrophils (%) (Auto) 72.0 % (39.4-72.5) Lymphocytes (%) (Auto) 18.5 % (17.6-49.6) Monocytes (%) (Auto) 6.6 % (4.1-12.4) Eosinophils (%) (Auto) 1.9 % (0.4-6.7) Basophils (%) (Auto) 1.0 % (0.3-1.4) Nucleated RBC Relative Count (auto) 0.0 /100WBC Neutrophils # (Auto) 5.4 K/uL (2.0-7.4) Lymphocytes # (Auto) 1.4 K/uL (1.3-3.6) Monocytes # (Auto) 0.5 K/uL (0.3-1.0) Eosinophils # (Auto) 0.1 K/uL (0.0-0.5) Basophils # (Auto) 0.1 K/uL (0.0-0.1) Nucleated RBC Absolute Count (auto) 0.00 K/uL Prothrombin Time 12.3 seconds (12.0-14.4) Prothromb Time International Ratio 0.92 Activated Partial Thromboplast Time 27 seconds (23-35) Sodium Level 139 mmol/L (137-145) Potassium Level 5.6 mmol/L (3.5-5.0) Chloride Level 106 mmol/L (98-107) Carbon Dioxide Level 22 mmol/L (22-30) Blood Urea Nitrogen 31 mg/dl (9-21) Creatinine 2.10 mg/dl (0.66-1.25) Glomerular Filtration Rate Calc 33.7 Random Glucose 160 mg/dl (75-110) Calcium Level 8.9 mg/dl (8.4-10.2) Total Bilirubin 0.3 mg/dl (0.2-1.3) Aspartate Amino Transf (AST/SGOT) 72 U/L (0-35) Alanine Aminotransferase (ALT/SGPT) 76 U/L (0-56) Alkaline Phosphatase 160 U/L (0-126) Total Protein 7.3 gm/dl (6.3-8.2) Albumin 3.5 g/dl (3.5-5.0) Chemistry Test 09/03/17 11:52 White Blood Count 7.4 k/uL (4.5-11.0) Red Blood Count 4.44 M/uL (4.00-5.60) Hemoglobin 13.1 g/dL (14.0-18.0) Hematocrit 38.3 % (42.0-52.0) Mean Corpuscular Volume 86.3 fL (80.0-96.0) Mean Corpuscular Hemoglobin 29.5 pg (26.0-33.0) Mean Corpuscular Hemoglobin Concent 34.2 g/dL (32.0-36.0) Red Cell Distribution Width 13.0 % (11.5-14.5) Platelet Count 242 K/uL (150-450) Mean Platelet Volume 8.1 fL (7.2-11.1) Neutrophils (%) (Auto) 72.0 % (39.4-72.5) Lymphocytes (%) (Auto) 18.5 % (17.6-49.6) Monocytes (%) (Auto) 6.6 % (4.1-12.4) Eosinophils (%) (Auto) 1.9 % (0.4-6.7) Basophils (%) (Auto) 1.0 % (0.3-1.4) Nucleated RBC Relative Count (auto) 0.0 /100WBC Neutrophils # (Auto) 5.4 K/uL (2.0-7.4) Lymphocytes # (Auto) 1.4 K/uL (1.3-3.6) Monocytes # (Auto) 0.5 K/uL (0.3-1.0) Eosinophils # (Auto) 0.1 K/uL (0.0-0.5) Basophils # (Auto) 0.1 K/uL (0.0-0.1) Nucleated RBC Absolute Count (auto) 0.00 K/uL Prothrombin Time 12.3 seconds (12.0-14.4) Prothromb Time International Ratio 0.92 Activated Partial Thromboplast Time 27 seconds (23-35) Glomerular Filtration Rate Calc 33.7 Calcium Level 8.9 mg/dl (8.4-10.2) Total Bilirubin 0.3 mg/dl (0.2-1.3) Aspartate Amino Transf (AST/SGOT) 72 U/L (0-35) Alanine Aminotransferase (ALT/SGPT) 76 U/L (0-56) Alkaline Phosphatase 160 U/L (0-126) Total Protein 7.3 gm/dl (6.3-8.2) Albumin 3.5 g/dl (3.5-5.0) Coagulation Test 09/03/17 11:52 Prothrombin Time 12.3 seconds Prothromb Time International Ratio 0.92 Activated Partial Thromboplast Time 27 seconds ED Course/Re-evaluation ED Course Patient seen and evaluated bedside and Gen. surgery and wound care he'll be dressed with his wound evaluated and be referred back to our [facility]. we feel that this is appropriate patient's couple that plan Decision to Disposition Date: Sep 03, 2017 Decision to Disposition Time: 13:33 Depart Departure Latest Vital Signs Vital Signs Date Time Temp Pulse Resp B/P (MAP) Pulse Ox O2 Delivery O2 Flow Rate FiO2 09/03/17 12:45 96 09/03/17 12:30 92 181/107 (131) 09/03/17 11:41 98.4 20 Room Air Impression: Primary Impression: Diabetic foot ulcer Condition: Improved Disposition: HOME OR SELF-CARE Referrals: JUAN F PIRES MD 5 Days Patient Instructions: Acute Wound Care (DC) JOANN CROSS MD Sep 03, 2017 11:48
[2017-09-03] MEDS ORDERED: LEVI SUBQ (11:50)
[2017-09-03 12:05] LABS: PLATELET COUNT, AUTOMATED 242 K/uL (150-450)
[2017-09-03 12:10] LABS: INR 0.92
--- NOTE | 2017-09-03 12:23 | RADIOLOGY IMAGING REPORT ---
FACILITY: [facility] [place] PATIENT NAME: Leobardo Russell : 1965 MR: [id number] V: [id number] EXAM DATE: ORDERING PHYSICIAN: JOANN CROSS TECHNOLOGIST: Location: [facility] [place] Patient: Leobardo Russell : 1965 Visit/Account:[id number] Date of Sevice: 09/03/2017 Exam type: FOOT 3 VIEW LEFT History: Ulcer on the bottom medial aspect of the foot, patient diabetic Comparison: MR left foot August 19, 2017. Findings: There is a soft tissue ulceration seen along the medial plantar surface of the left foot adjacent to the distal left first metatarsal. Soft tissue swelling also noted about the left first MTP joint. N o bony erosion is seen. IMPRESSION: 1. Soft tissue ulceration identified along the medial plantar surface of the left foot adjacent to t he distal left first metatarsal although no bony erosion seen Soft tissue swelling about the left first MTP joint Report Dictated By: Keily Burch MD at 09/03/2017 12:17 PM Report E-Signed By: Keily Burch MD at 09/03/2017 12:19 PM WSN:[email or web address]
[2017-09-03 12:30] VITALS: BP 181/107
--- NOTE | 2017-09-03 16:23 | General Surgery Consultation ---
History of Present Illness Requesting Physician Dr. Metz, emergency room Reason for Consult Diabetic left foot ulcer Chief Complaint Same as above History of Present Illness 51-year-old diabetic reports having an ulcer on the medial aspect of his left foot over the MTP joint that's been present for several months. He has had recurring episodes of cellulitis treated with various antibiotics. He even required a hospitalization a couple weeks ago. He was due to follow up with me next week but apparently was sent into the emergency room because there was concern of worsening infection. The patient has no sensation in this area. No fevers or chills. 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), managed as type 1 Status: Chronic (4) Hyperlipidemia associated with type 2 diabetes mellitus Status: Chronic (5) History of eye surgery (6) History of appendectomy (7) Gcin-fi-eiucgh transgender person Status: Chronic Home Meds Active Scripts Amlodipine Besylate (AMLODIPINE BESYLATE) 5 Mg Tablet, 1 TAB PO QDAY, #30 TAB Prov:JUAN F MCLEAN DO 08/21/17 Reported Medications Insulin Detemir (LEVEMIR) 100 Unit/Ml Injs, 40 UNIT SUBQ TID 09/03/17 Simvastatin (SIMVASTATIN) 20 Mg Tablet, 20 MG PO HS, TAB 08/19/17 Amoxicillin/Pot Clav 875-125 Mg Tab (AUGMENTIN 875-125 TABLET) 1 Each Tablet, 1 TAB PO Q12H, TAB 08/19/17 Insulin Lispro (HUMALOG) 100 Unit/1 Ml Vial, 0 SQ per sliding scale, VIAL 1 unit for every 50 point increase in blood sugar above normal. 08/19/17 Famotidine (FAMOTIDINE) 20 Mg Tablet, 20 MG PO QDAY, TAB 08/19/17 Aspirin (ASPIR 81) 81 Mg Tablet.dr, 81 MG PO QDAY, TAB 08/03/16 Cholecalciferol (Vitamin D3) (VITAMIN D3) 1,000 Unit Tablet, 1000 UNIT PO QDAY, TAB 08/03/16 Discontinued Scripts Insulin Detemir (Levemir Flextouch) 100 Unit/1 Ml Insuln.pen, 35 UNIT SUBQ BID, #10 ML Prov:JUAN F MCLEAN DO 08/21/17 Allergies: Coded Allergies: No Known Allergies (Verified Allergy, Mild, 08/19/17) Family History: Diabetes mellitus (DM) GM FH: lung cancer GM FHx: chronic disabling diseases BROTHER OR SISTER Review of Systems All Systems Reviewed/Normal: Yes, Except as Noted Exam Vital Signs Vital Signs Date Time Temp Pulse Resp B/P (MAP) Pulse Ox O2 Delivery O2 Flow Rate FiO2 09/03/17 12:45 96 09/03/17 12:30 92 181/107 (131) 09/03/17 11:41 98.4 20 Room Air General Appearance: Alert, Awake, No Acute Distress, Afebrile Extremities: Other (on his left foot, on the medial aspect over the MTP joint, is a 2 and a centimeter long by 1-1/2 cm wide full thickness ulcer with several tracts tunneling down deeper in one is tunneling more proximally on the foot for several millimeters. I do not feel any exposed bone. There is some edema in his foot. There is mild erythema immediately around the ulcer.) Medical Decision Making Data Points Result Diagram: 09/03/17 1152 09/03/17 1152 Assessment and Plan Problems: (1) Diabetic foot ulcer Status: Acute Assessment & Plan: I have contacted the wound care team and Alisia came over and dress the wound. We set up a wound clinic follow-up for Friday. I have an appointment scheduled to see him back this next week in my office. We will continue wound care and monitor for infection. I will get an MRI of his foot to rule out osteomyelitis. He is agreeable with this plan. Condition Stable Time Spent: < 30 min Venous Thromboembolism VTE Risk Physician Assess for VTE Risk: Yes Patient's VTE Risk: Low VTE Diagnostic Test 2 Days Prior to Admit: No Antithrombotics Is Pt On Any Antithrombotics?: No Problem Qualifiers (1) Diabetic foot ulcer: Diabetic foot ulcer location: midfoot Diabetes mellitus type: type 2 Laterality: left Non-pressure ulcer stage: with necrosis of muscle Qualified Codes: E11.621 - Type 2 diabetes mellitus with foot ulcer; L97.423 - Non-pressure chronic ulcer of left heel and midfoot with necrosis of muscle JUAN F PIRES MD Sep 03, 2017 16:23
== END 2017-09-03 13:40 | disposition home or self-care (01) ==
LOC: ER 11:39
DX: E11.621 Type 2 diabetes mellitus with foot ulcer (principal)
CPT/HCPCS: 36415; 82040; 82247; 82310; 82374; 82435; 82565; 82947; 84075; 84132; 84155; 84295; 84450; 84460; 84520; 85025; 85610; 85730; 97161; 99284

== ENCOUNTER → 2017-09-05 | Outpatient (REF) ==
--- NOTE | 2017-09-05 19:28 | PT INITIAL EVALUATION ---
MEDICAL DIAGNOSIS: L) Great toe; medial aspect of MTP joint- neuropathic, diabetic ulcer TREATMENT DIAGNOSIS: same DATE OF ONSET: SUBJECTIVE: Pt familiar to this PT from previous hospital admission for IV antibiotics related to this wound. Pt notes that she did not take the oral antibiotics originally as prescribed due to concern regarding a "stomach ulcer ". Upon today's visit, pt notes appropriate use of medication. Staff member from [facility] is present for today's visit and discusses blood sugar management as an adjunct to improved wound healing. Pt is apparently taking this medication now in a way that was not prescribed and this will be addressed by [facility] staff. Dressing from previous ER visit, when pt was seen by Dr. Salgado, is still intact. Outer sock was slightly wet from walking in the snow, however, the dressing was still dry. REHAB PROBLEM LIST: Open wound and inconsistent compliance with medications PREVIOUS MEDICAL HISTORY: Diabetes OBJECTIVE: Wound located at L) foot, medial aspect of great toe MTP joint, extending towards plantar surface, measures: 1.4cm L x 4.8cm W x 0.7cm D with an additional pit at 6 o'clock that measures 0.4cm in depth. ASSESSMENT: Pt has demonstrated non-compliance with medication management in the past and currently is working with [facility] to ensure closer management of infection and blood sugars. Pt notes that walking is a primary mode of travel and is unlikely to modify that activity. Pt arrived in dress shoes, despite deep, heavy, wet snow today and notes no snow shoes available, and socks were wet. Pt was instructed that dressing can not get wet, as this will compromise the wound healing. Pt states that tub bathing with the leg hanging over the edge of the tub will be effective and declines to obtain a cast sleeve for showers. [facility] staff member might be able to address more appropriate foot wear. Pt would benefit from further PT to address debridement of non-viable tissue and moisture management with advanced wound care products to optimize wound healing to decrease risk of further infection. Short Term Goals 1. Pt to maintain a clean, dry and intact dressing between visits 2. Wound bed to granulate in with no sinus tracts palpable. 3. Edges of wound bed to gradually migrate inward with total epithelialization over healthy wound bed. 4. No further signs or symptoms of infection to be noted. Patient's Goals Wound to close without significant change in functional activities. PLAN: Patient to be seen for non-excisional debridement to address slough and non-viable tissue as indicated, in conjunction with selection of advanced wound care products to optimize drainage management and facilitate efficient wound healing to reduce risk of further infection. 2x/Week for up to 3 months Thank you for this referral. If you have any questions, comments, or concerns about this report or plan, please contact me at . H. Nancy Platt, PT, MPT [facility]
== END ==
LOC: PT 11:15
PROVIDERS: ATTEND Surgery
DX: L97.521 Non-pressure chronic ulcer of other part of left foot limited to breakdown of skin (principal); E11.9 Type 2 diabetes mellitus without complications
CPT/HCPCS: 97162

== ENCOUNTER → 2017-09-08 | Outpatient (REF) | LOC: PT 08:25 | PROVIDERS: ATTEND Surgery | DX: L97.521 Non-pressure chronic ulcer of other part of left foot limited to breakdown of skin (principal); E11.9 Type 2 diabetes mellitus without complications; Z91.14 Patient's other noncompliance with medication regimen ==

== ENCOUNTER → 2017-09-11 | Outpatient (REF) | LOC: PT 10:30 | PROVIDERS: ATTEND Surgery | DX: L97.521 Non-pressure chronic ulcer of other part of left foot limited to breakdown of skin (principal) ==

== ENCOUNTER → 2017-09-15 | Outpatient (REF) | LOC: PT 10:10 | PROVIDERS: ATTEND Surgery | DX: L97.521 Non-pressure chronic ulcer of other part of left foot limited to breakdown of skin (principal) ==

== ENCOUNTER → 2017-09-18 | Outpatient (REF) | LOC: PT 10:22 | PROVIDERS: ATTEND Surgery | DX: L97.521 Non-pressure chronic ulcer of other part of left foot limited to breakdown of skin (principal) ==

== ENCOUNTER → 2017-09-22 | Outpatient (REF) | LOC: PT 10:11 | PROVIDERS: ATTEND Surgery | DX: L97.521 Non-pressure chronic ulcer of other part of left foot limited to breakdown of skin (principal) ==

== ENCOUNTER → 2017-09-25 | Outpatient (REF) | LOC: PT 10:24 | PROVIDERS: ATTEND Surgery | DX: L97.521 Non-pressure chronic ulcer of other part of left foot limited to breakdown of skin (principal) ==

== ENCOUNTER → 2017-09-29 | Outpatient (REF) | LOC: PT 11:02 | PROVIDERS: ATTEND Surgery | DX: L97.521 Non-pressure chronic ulcer of other part of left foot limited to breakdown of skin (principal) ==

== ENCOUNTER → 2017-10-02 | Outpatient (REF) | LOC: PT 10:14 | PROVIDERS: ATTEND Surgery | DX: L97.521 Non-pressure chronic ulcer of other part of left foot limited to breakdown of skin (principal) ==

== ENCOUNTER → 2017-10-06 | Outpatient (REF) | LOC: PT 09:00 | PROVIDERS: ATTEND Surgery | DX: L97.521 Non-pressure chronic ulcer of other part of left foot limited to breakdown of skin (principal) | CPT/HCPCS: 97161 ==

== ENCOUNTER 2017-10-08 11:11 | Inpatient (IN) | payer SELFPAY ==
[~2017-10-08] VITALS: Ht 175.3 cm; Wt 85.7 kg
[~2017-10-08 11:11] MED LIST changes: -LOPE-147 PO
[2017-10-08] MEDS ORDERED: LISI20TA29 PO (11:22)
--- NOTE | 2017-10-08 11:35 | ER Report ---
History and Physical Time Seen By MD: 11:35 Hx. of Stated Complaint: POST OP FOOT INFECTION HPI/ROS CHIEF COMPLAINT: Wound to left foot HISTORY OF PRESENT ILLNESS: 51-year-old female patient presents to emergency room with complaint of wound to her left foot. Patient states that she was going to see physical therapy. She went today, they noted that the discharge and wound appeared to be worse than previously. I did refer her to the emergency room for further evaluation. Patient states that she was told that she had a fever of 101 in the physical therapy. Patient denies feeling febrile, however has noted that she has felt chilled. She denies taking any medications for this. She states that she's not had any nausea or vomiting. Patient states that she is unable to feel any pain in that foot secondary to diabetic neuropathy. REVIEW OF SYSTEMS: Respiratory: No cough, no dyspnea. Cardiovascular: No chest pain, no palpitations. Gastrointestinal: No vomiting, no abdominal pain. Musculoskeletal: No back pain. Allergies: Coded Allergies: No Known Allergies (Verified Allergy, Mild, 10/08/17) Home Meds Active Scripts Amlodipine Besylate (AMLODIPINE BESYLATE) 5 Mg Tablet, 1 TAB PO QDAY, #30 TAB Prov:JUAN F MCLEAN DO 08/21/17 Reported Medications Lisinopril (LISINOPRIL) 20 Mg Tablet, 20 MG PO QDAY, TAB 10/08/17 Insulin Detemir (LEVEMIR) 100 Unit/Ml Injs, 40 UNIT SUBQ TID 09/03/17 Simvastatin (SIMVASTATIN) 20 Mg Tablet, 20 MG PO HS, TAB 08/19/17 Insulin Lispro 100 Un/Ml Vial (HUMALOG 100 U/ML VIAL) 100 Unit/1 Ml Vial, 0 SQ per sliding scale, VIAL 1 unit for every 50 point increase in blood sugar above normal. 08/19/17 Famotidine (FAMOTIDINE) 20 Mg Tablet, 20 MG PO QDAY, TAB 08/19/17 Aspirin (ASPIR 81) 81 Mg Tablet.dr, 81 MG PO QDAY, TAB 08/03/16 Cholecalciferol (Vitamin D3) (VITAMIN D3) 1,000 Unit Tablet, 1000 UNIT PO QDAY, TAB 08/03/16 Discontinued Reported Medications Amoxicillin/Pot Clav 875-125 Mg Tab (AUGMENTIN 875-125 TABLET) 1 Each Tablet, 1 TAB PO Q12H, TAB 08/19/17 Past Medical/Surgical History Patient has past medical history of migraines, hypertension, hyperlipidemia, asthma, type 2 diabetes, depression, alcohol use. Patient has surgical history of appendectomy, eye surgery as a child. Reviewed Nurses Notes: Yes Hx Smoking: No Smoking Status: Never Smoker Exposure to Second Hand Smoke?: No Hx Substance Use Disorder: No Hx Alcohol Use: Yes Constitutional Vital Sign - Last 24 Hours 10/08/17 10/08/17 10/08/17 10/08/17 11:11 11:17 11:18 11:26 Temp 98.7 Pulse ??? 96 90 Resp 16 B/P (MAP) 186/93 (124) 186/93 Pulse Ox 93 92 O2 Delivery Room Air 10/08/17 10/08/17 10/08/17 10/08/17 11:30 11:41 11:56 12:00 Pulse 90 90 B/P (MAP) 167/90 (115) 157/93 (114) Pulse Ox 90 90 10/08/17 10/08/17 10/08/17 10/08/17 12:11 12:26 12:30 12:41 Pulse 89 93 92 B/P (MAP) ???/??? (9305) Pulse Ox 92 90 94 10/08/17 10/08/17 10/08/17 10/08/17 12:46 13:00 13:01 13:16 Pulse 95 95 88 B/P (MAP) ???/??? (2085) Pulse Ox 91 94 92 10/08/17 10/08/17 10/08/17 10/08/17 13:30 13:31 13:46 13:51 Pulse 84 88 88 B/P (MAP) ???/??? (4125) Pulse Ox 87 94 89 10/08/17 10/08/17 14:06 14:21 Pulse 93 95 Pulse Ox 92 95 Physical Exam General Appearance: The patient is alert, has no immediate need for airway protection and no current signs of toxicity Respiratory: Chest is non tender, lungs are clear to auscultation. Cardiac: regular rate and rhythm Gastrointestinal: Abdomen is soft and non tender, no masses, bowel sounds normal. Musculoskeletal: Neck: Neck is supple and non tender. Extremities have full range of motion and are non tender. Skin: No rashes or lesions. Patient has large to the left medial foot, there is some erythema around it, a serous discharge. Is nontender to palpation. DIFFERENTIAL DIAGNOSIS: After history and physical exam differential diagnosis was considered for osteomyelitis, abscess, Medical Decision Making Data Points Result Diagram: 10/08/17 1240 10/08/17 1240 Laboratory Hematology Test 10/08/17 12:40 Red Blood Count 4.18 M/uL (4.00-5.60) Mean Corpuscular Volume 85.1 fL (80.0-96.0) Mean Corpuscular Hemoglobin 29.4 pg (26.0-33.0) Mean Corpuscular Hemoglobin Concent 34.6 g/dL (32.0-36.0) Red Cell Distribution Width 13.5 % (11.5-14.5) Mean Platelet Volume 8.7 fL (7.2-11.1) Neutrophils (%) (Auto) 85.2 % (39.4-72.5) Lymphocytes (%) (Auto) 3.9 % (17.6-49.6) Monocytes (%) (Auto) 10.3 % (4.1-12.4) Eosinophils (%) (Auto) 0.3 % (0.4-6.7) Basophils (%) (Auto) 0.3 % (0.3-1.4) Nucleated RBC Relative Count (auto) 0.0 /100WBC Neutrophils # (Auto) 12.2 K/uL (2.0-7.4) Lymphocytes # (Auto) 0.6 K/uL (1.3-3.6) Monocytes # (Auto) 1.5 K/uL (0.3-1.0) Eosinophils # (Auto) 0.0 K/uL (0.0-0.5) Basophils # (Auto) 0.0 K/uL (0.0-0.1) Nucleated RBC Absolute Count (auto) 0.00 K/uL Erythrocyte Sedimentation Rate 91 mm/HOUR (0-15) Sodium Level 131 mmol/L (137-145) Potassium Level 5.7 mmol/L (3.5-5.0) Chloride Level 100 mmol/L (98-107) Carbon Dioxide Level 20 mmol/L (22-30) Blood Urea Nitrogen 39 mg/dl (9-21) Creatinine 2.50 mg/dl (0.66-1.25) Glomerular Filtration Rate Calc 27.6 Random Glucose 174 mg/dl (75-110) Lactate 0.9 mmol/L (0.7-2.1) Calcium Level 8.4 mg/dl (8.4-10.2) Total Bilirubin 1.0 mg/dl (0.2-1.3) Aspartate Amino Transf (AST/SGOT) 26 U/L (0-35) Alanine Aminotransferase (ALT/SGPT) 33 U/L (0-56) Alkaline Phosphatase 199 U/L (0-126) C-Reactive Protein > 9.0 mg/dl (<1.0) Total Protein 6.4 gm/dl (6.3-8.2) Albumin 3.0 g/dl (3.5-5.0) Chemistry Test 10/08/17 12:40 White Blood Count 14.3 k/uL (4.5-11.0) Red Blood Count 4.18 M/uL (4.00-5.60) Hemoglobin 12.3 g/dL (14.0-18.0) Hematocrit 35.5 % (42.0-52.0) Mean Corpuscular Volume 85.1 fL (80.0-96.0) Mean Corpuscular Hemoglobin 29.4 pg (26.0-33.0) Mean Corpuscular Hemoglobin Concent 34.6 g/dL (32.0-36.0) Red Cell Distribution Width 13.5 % (11.5-14.5) Platelet Count 243 K/uL (150-450) Mean Platelet Volume 8.7 fL (7.2-11.1) Neutrophils (%) (Auto) 85.2 % (39.4-72.5) Lymphocytes (%) (Auto) 3.9 % (17.6-49.6) Monocytes (%) (Auto) 10.3 % (4.1-12.4) Eosinophils (%) (Auto) 0.3 % (0.4-6.7) Basophils (%) (Auto) 0.3 % (0.3-1.4) Nucleated RBC Relative Count (auto) 0.0 /100WBC Neutrophils # (Auto) 12.2 K/uL (2.0-7.4) Lymphocytes # (Auto) 0.6 K/uL (1.3-3.6) Monocytes # (Auto) 1.5 K/uL (0.3-1.0) Eosinophils # (Auto) 0.0 K/uL (0.0-0.5) Basophils # (Auto) 0.0 K/uL (0.0-0.1) Nucleated RBC Absolute Count (auto) 0.00 K/uL Erythrocyte Sedimentation Rate 91 mm/HOUR (0-15) Glomerular Filtration Rate Calc 27.6 Lactate 0.9 mmol/L (0.7-2.1) Calcium Level 8.4 mg/dl (8.4-10.2) Total Bilirubin 1.0 mg/dl (0.2-1.3) Aspartate Amino Transf (AST/SGOT) 26 U/L (0-35) Alanine Aminotransferase (ALT/SGPT) 33 U/L (0-56) Alkaline Phosphatase 199 U/L (0-126) C-Reactive Protein > 9.0 mg/dl (<1.0) Total Protein 6.4 gm/dl (6.3-8.2) Albumin 3.0 g/dl (3.5-5.0) EKG/Imaging Imaging Study: FOOT 3 VIEW LEFT Indication: Left foot wound Comparison study: September 03, 2017 Findings: AP lateral and oblique views of the left foot demonstrates the presence of soft tissue disruption medial to the first metatarsal phalangeal joint. The soft tissue disruption is worsened as compared to the previous study. There is no evidence of gas within the subcutaneous soft tissues. There is no evidence of adjacent bony abnormality. There is no evidence of acute fracture. The phalanges, metatarsals, and tarsal bones are unremarkable. The visualized joint spaces are unremarkable. IMPRESSION: Soft tissue disruption medial to the first metatarsal phalangeal joint. There is no evidence of acute bony abnormality. Report Dictated By: Lanre Garber at 10/08/2017 12:35 PM Report E-Signed By: Lanre Garber at 10/08/2017 12:37 PM ED Course/Re-evaluation ED Course Patient was admitted to exam room, history and physical for pain. Differential diagnoses were considered. On examination patient has a large wound to the medial aspect of the left foot, patient has erythema across the top of his foot , he has have a serous drainage coming from it. And x-rays done of the foot, a CBC, CMP, CRP, ESR were done. Patient did have poor kidney function, with a GFR of 22, creatinine of 2.5. CBC was elevated at 14,000 with left shift. Looking at previous labs the highest that it gotten was 11.5. CRP was greater than 9 and ESR was 92. I discussed the case with Dr. Salgado, general surgeon. His recommendation was to admit to the hospitalist and he would consult. I then spoke with Dr. Bolivar, hospitalist, who came down and evaluate the patient. He did agree to accept the patient for admission with cellulitis. He anticipates doing an MRI of the foot. I discussed the plan to admit with the patient who verbalized understanding and agreement with plan. Decision to Disposition Date: Oct 08, 2017 Decision to Disposition Time: 15:03 Depart Departure Latest Vital Signs Vital Signs Date Time Temp Pulse Resp B/P (MAP) Pulse Ox O2 Delivery O2 Flow Rate FiO2 10/08/17 14:21 95 95 10/08/17 13:30 ???/??? (1665) 10/08/17 11:18 98.7 16 Room Air Impression: Primary Impression: Cellulitis of foot Additional Impression: Acute renal failure Condition: Condition Unchanged Disposition: Admitted from ER Referrals: LETI DIMAS (PCP) Problem Qualifiers Additional Impression: Acute renal failure Acute renal failure type: unspecified Qualified Codes: N17.9 - Acute kidney failure, unspecified LISA TERRELL Oct 08, 2017 11:35
--- NOTE | 2017-10-08 12:41 | RADIOLOGY IMAGING REPORT ---
FACILITY: [facility] PATIENT NAME: Leobardo Russell : 1965 MR: [id number] V: [id number] EXAM DATE: ORDERING PHYSICIAN: LISA TERRELL TECHNOLOGIST: Location: [facility] [place] Patient: Leobardo Russell : 1965 Visit/Account:[id number] Date of Sevice: 10/08/2017 Study: FOOT 3 VIEW LEFT Indication: Left foot wound Comparison study: September 03, 2017 Findings: AP lateral and oblique views of the left foot demonstrates the presence of soft tissue disr uption medial to the first metatarsal phalangeal joint. The soft tissue disruption is worsened as co mpared to the previous study. There is no evidence of gas within the subcutaneous soft tissues. There is no evidence of adjacent bony abnormality. There is no evidence of acute fracture. The phalanges, metatarsals, and tarsal bones are unremarkabl e. The visualized joint spaces are unremarkable. IMPRESSION: Soft tissue disruption medial to the first metatarsal phalangeal joint. There is no evid ence of acute bony abnormality. Report Dictated By: Lanre Garber at 10/08/2017 12:35 PM Report E-Signed By: Lanre Garber at 10/08/2017 12:37 PM WSN:[id number]
[2017-10-08 13:06] LABS: PLATELET COUNT, AUTOMATED 243 K/uL (150-450)
[2017-10-08 15:32] VITALS: BP 163/78
[2017-10-08] MEDS ORDERED: LOPE-147 PO (15:56)
--- NOTE | 2017-10-08 16:14 | History & Physical ---
History of Present Illness History of Present Illness 51yo male with a h/o T2DM and chronic diabetic foot ulcer on the left MTP who was sent to the ER for concern of cellulitis involving the ulcer. He was seen 2 days prior to admission by Dr. Pires who noted some surrounding erythema of the ulcer and some edema in the same foot. Today, he was told to go to the ER by PT wound care because it looked worse. He denies an new diarrhea, nausea. He did have chills today. He noted more tooth pain in the left upper molars a week ago, but that seems to be improving. He was given a liter of fluid in the ER. History Problems: (1) T2DM (type 2 diabetes mellitus) Status: Chronic (2) CKD (chronic kidney disease) stage 3, GFR 30-59 ml/min Status: Chronic (3) Dental caries Status: Acute (4) Diabetic ulcer of foot associated with diabetes mellitus due to underlying condition, limited to breakdown of skin Status: Acute (5) Depression (6) GERD (gastroesophageal reflux disease) Status: Chronic (7) HTN (hypertension) Status: Chronic (8) History of appendectomy (9) History of eye surgery (10) [id number] transgender person Status: Chronic Home Meds Active Scripts Amlodipine Besylate (AMLODIPINE BESYLATE) 5 Mg Tablet, 1 TAB PO QDAY, #30 TAB Prov:JUAN F MCLEAN DO 08/21/17 Reported Medications Lisinopril (LISINOPRIL) 20 Mg Tablet, 20 MG PO QDAY, TAB 10/08/17 Insulin Detemir (LEVEMIR) 100 Unit/Ml Injs, 40 UNIT SUBQ TID 09/03/17 Simvastatin (SIMVASTATIN) 20 Mg Tablet, 20 MG PO HS, TAB 08/19/17 Insulin Lispro 100 Un/Ml Vial (HUMALOG 100 U/ML VIAL) 100 Unit/1 Ml Vial, 0 SQ per sliding scale, VIAL 1 unit for every 50 point increase in blood sugar above normal. 08/19/17 Famotidine (FAMOTIDINE) 20 Mg Tablet, 20 MG PO QDAY, TAB 08/19/17 Aspirin (ASPIR 81) 81 Mg Tablet.dr 81 MG PO QDAY, TAB 08/03/16 Cholecalciferol (Vitamin D3) (VITAMIN D3) 1,000 Unit Tablet, 1000 UNIT PO QDAY, TAB 08/03/16 Discontinued Reported Medications Amoxicillin/Pot Clav 875-125 Mg Tab (AUGMENTIN 875-125 TABLET) 1 Each Tablet, 1 TAB PO Q12H, TAB 08/19/17 Allergies: Coded Allergies: No Known Allergies (Verified Allergy, Mild, 10/08/17) Patient History: Diabetes mellitus (DM) GM FH: lung cancer GM FHx: chronic disabling diseases BROTHER OR SISTER Hx Smoking: No Smoking Status: Never Smoker Exposure to Second Hand Smoke?: No Caffeine Intake: Tea Hx Alcohol Use: Yes Hx Substance Use Disorder: Yes Social Drugs: Marijuana Review of Systems All Systems Reviewed/Normal: Yes, Except as Noted Exam Vital Signs Vital Signs Date Time Temp Pulse Resp B/P (MAP) Pulse Ox O2 Delivery O2 Flow Rate FiO2 10/08/17 15:32 98.3 92 12 163/78 (106) 94 10/08/17 11:18 Room Air General Appearance: Alert, Awake, No Acute Distress Neuro: No Gross deficits Eyes: PERRLA ENT: Moist Mucous Membranes Cardiovascular: Regular Rate and Rhythm Respiratory: Clear to Auscultation GI: Abd Soft and Non-Tender Extremities: Other (Left foot has more swelling compared to the right. There is erythema on the distal foot extending into the toes 1-3 and involving the plantar aspect of the foot. The wound on the medical MTP joint is about 2x3 cm with a serous drainage.) Medical Decision Making Data Points Result Diagram: 10/08/17 1240 10/08/17 1240 Item Value Date Time Neutrophils (%) (Auto) 85.2 % H 10/08/17 1240 Lymphocytes (%) (Auto) 3.9 % L 10/08/17 1240 Monocytes (%) (Auto) 10.3 % 10/08/17 1240 Eosinophils (%) (Auto) 0.3 % L 10/08/17 1240 Basophils (%) (Auto) 0.3 % 10/08/17 1240 Nucleated RBC Relative Count (auto) 0.0 /100WBC 10/08/17 1240 Prothromb Time International Ratio 0.92 09/03/17 1152 Creatinine 1.90 mg/dl H 08/21/17 0548 Creatinine 2.10 mg/dl H 09/03/17 1152 Creatinine 2.50 mg/dl H 10/08/17 1240 Potassium Level 5.7 mmol/L H 10/08/17 1240 Potassium Level 5.6 mmol/L H 09/03/17 1152 Potassium Level 4.7 mmol/L 08/21/17 0548 Sodium Level 139 mmol/L 09/03/17 1152 Sodium Level 131 mmol/L L 10/08/17 1240 Total Bilirubin 1.0 mg/dl 10/08/17 1240 Aspartate Amino Transf (AST/SGOT) 26 U/L 10/08/17 1240 Alanine Aminotransferase (ALT/SGPT) 33 U/L 10/08/17 1240 Alkaline Phosphatase 199 U/L H 10/08/17 1240 C-Reactive Protein > 9.0 mg/dl H 10/08/17 1240 Random Glucose 174 mg/dl H 10/08/17 1240 Erythrocyte Sedimentation Rate 91 mm/HOUR H 10/08/17 1240 Erythrocyte Sedimentation Rate 62 mm/HOUR H 08/19/17 1520 C-Reactive Protein 3.7 mg/dl H 08/19/17 1520 EKG / Imaging Imaging Foot Xray - Soft tissue disruption medial to the first metatarsal phalangeal joint. There is no evidence of acute bony abnormality. Assessment and Plan Problems: (1) Cellulitis of foot Status: Acute Assessment & Plan: She presented with 2 days of worsening erythema and swelling. It is on the left foot surrounding the diabetic foot ulcer. BP and P are stable and she is afebrile. The WBC is elevated with neutrophilia and CRP /ESR are increased from July. Will start Unasyn and Vancomycin (will give a loading dose and then check a random in 12 hours). MRI of the foot. Wound care to see. Dr. Pires is aware that the patient has been admitted. He has been following the ulcer as an outpatient. (2) Diabetic foot ulcer Status: Chronic Assessment & Plan: See above. (3) Acute renal failure Status: Acute Assessment & Plan: Acute on chronic. Secondary to illness and exacerbated by lisinopril. Will hydrate, hold lisinopril and follow closely. (4) Hyperkalemia Status: Acute Assessment & Plan: Mild. Stable for the last month. Secondary to ARF and lisinopril. See above. (5) T2DM (type 2 diabetes mellitus) Status: Chronic Assessment & Plan: Continue Levemir and give SSI to cover. There is a work up ongoing for latent autoimmune diabetes. (6) CKD (chronic kidney disease) stage 3, GFR 30-59 ml/min Status: Chronic Assessment & Plan: Baseline Cr is about 1.9-2.2. See above. (7) HTN (hypertension) Status: Chronic Assessment & Plan: She is chronically on amlodipine and lisinopril. Lisinopril to be held for now. (8) GERD (gastroesophageal reflux disease) Status: Chronic Assessment & Plan: Continue famotidine. Copies to: [facility]; JUAN F PIRES MD Venous Thromboembolism Antithrombotics Is Pt On Any Antithrombotics?: No Exam Sepsis Risk: No Definite Risk Problem Qualifiers (1) Acute renal failure: Acute renal failure type: unspecified Qualified Codes: N17.9 - Acute kidney failure, unspecified ATTILA KNOWLES MD Oct 08, 2017 16:14
[2017-10-08] MEDS: AMPICILLIN/SULBACT (*) 3 GM VL 3 GM in NS(*) 0.9% 100 ML BAG 100 ML IVPB SCH ×2 (16:54→21:23)
[2017-10-08] MEDS: LACTOBACILLUS ACIDOPHILUS TAB PO SCH (16:54)
[2017-10-08] MEDS: NS(*) 0.9% 1000 ML BAG 1,000 ML IV PRN (16:56)
[2017-10-08] MEDS ORDERED: VANCOMYCIN(*) 1 GM VIAL 2.25 GM in NS(*) 0.9% 250 ML BAG 250 ML IVPB ONE (17:00)
[2017-10-08] MEDS: INSULIN HUM LISPRO 100 UN/ML 3 ML VIAL SUBQ PRN ×2 (17:48→21:22)
--- NOTE | 2017-10-08 18:00 | General Surgery Consultation ---
History of Present Illness Requesting Physician Dr. Simone Bolivar, hospitalist service Reason for Consult Left foot diabetic ulcer with worsening infection Chief Complaint Fever History of Present Illness 51-year-old male who identifies as a female who has diabetes and who has been under my care as well as the wound care clinic for a left foot diabetic ulcer over the medial aspect of his 1st MTP joint was undergoing wound care today in physical therapy when it was noted that he had a temperature of 101F and it was felt that his foot was looking worse and more infected. He was sent to the emergency department and then admitted to the hospitalist service and I have been asked to consult to help manage the wound. I just saw the patient in the office 2 days ago. He has no new complaints today other than the fever. 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), managed as type 1 Status: Chronic (2) Hyperlipidemia associated with type 2 diabetes mellitus Status: Chronic (3) GERD (gastroesophageal reflux disease) Status: Chronic (4) HTN (hypertension) Status: Chronic (5) Diabetic foot ulcer Status: Chronic (6) CKD (chronic kidney disease) stage 3, GFR 30-59 ml/min Status: Chronic (7) T2DM (type 2 diabetes mellitus) Status: Chronic (8) History of appendectomy Status: Chronic (9) History of eye surgery Status: Chronic (10) Itzb-hq-waukew transgender person Status: Chronic Home Meds Active Scripts Amlodipine Besylate (AMLODIPINE BESYLATE) 5 Mg Tablet, 1 TAB PO QDAY, #30 TAB Prov:JUAN F MCLEAN DO 08/21/17 Reported Medications Loperamide Hcl (ANTI-DIARRHEA) 2 Mg Tablet, 2 MG PO Y for DIARRHEA 10/08/17 Lisinopril (LISINOPRIL) 20 Mg Tablet, 20 MG PO QDAY, TAB 10/08/17 Insulin Detemir (LEVEMIR) 100 Unit/Ml Injs, 70 UNIT SUBQ BID 09/03/17 Simvastatin (SIMVASTATIN) 20 Mg Tablet, 20 MG PO HS, TAB 08/19/17 Insulin Lispro 100 Un/Ml Vial (HUMALOG 100 U/ML VIAL) 100 Unit/1 Ml Vial, 0 SQ per sliding scale, VIAL 1 unit for every 50 point increase in blood sugar above normal. 08/19/17 Famotidine (FAMOTIDINE) 20 Mg Tablet, 20 MG PO QDAY, TAB 08/19/17 Aspirin (ASPIR 81) 81 Mg Tablet.dr, 81 MG PO QDAY, TAB 08/03/16 Cholecalciferol (Vitamin D3) (VITAMIN D3) 1,000 Unit Tablet, 1000 UNIT PO QDAY, TAB 08/03/16 Discontinued Reported Medications Amoxicillin/Pot Clav 875-125 Mg Tab (AUGMENTIN 875-125 TABLET) 1 Each Tablet, 1 TAB PO Q12H, TAB 08/19/17 Allergies: Coded Allergies: No Known Allergies (Verified Allergy, Mild, 10/08/17) Family History: Diabetes mellitus (DM) GM FH: lung cancer GM FHx: chronic disabling diseases BROTHER OR SISTER Review of Systems All Systems Reviewed/Normal: Yes, Except as Noted Constitutional: Fever Exam Vital Signs Vital Signs Date Time Temp Pulse Resp B/P (MAP) Pulse Ox O2 Delivery O2 Flow Rate FiO2 10/08/17 15:32 98.3 92 12 163/78 (106) 94 10/08/17 11:18 Room Air General Appearance: Alert, Awake, No Acute Distress, Afebrile Eyes: PERRLA Extremities: Warm, Perfused, Other (his left foot has edema throughout basically the entire foot and there is some erythema surrounding the ulcer. The ulcer looks much the same as it did when I saw 2 days ago. There is some fibrinous exudate on the base of the ulcer.) Medical Decision Making Data Points Result Diagram: 10/08/17 1240 10/08/17 1240 Assessment and Plan Problems: (1) Diabetic foot ulcer Status: Chronic Assessment & Plan: 10/08/17: Patient is admitted to the hospitalist control and they are managing his diabetes and hypertension. Wound care consult has been placed. X-ray of his foot in the emergency room did not reveal any bony involvement. An MRI of his left foot is ordered for tomorrow morning. He is on vancomycin and Unasyn for antibiotic broad-spectrum coverage. I agree with the current plan and will follow along. He may require surgical debridement in the operating room. Will check the MRI after its completed to see if there is any evidence of osteomyelitis. We'll otherwise continue with local wound care as per the wound care team's regimen. (2) Cellulitis of foot Status: Acute (3) T2DM (type 2 diabetes mellitus) Status: Chronic Condition Stable Time Spent: < 30 min Venous Thromboembolism Antithrombotics Is Pt On Any Antithrombotics?: No Problem Qualifiers (1) Diabetic foot ulcer: Diabetic foot ulcer location: midfoot Diabetes mellitus type: type 2 Laterality: left Non-pressure ulcer stage: with necrosis of muscle Qualified Codes: E11.621 - Type 2 diabetes mellitus with foot ulcer; L97.423 - Non-pressure chronic ulcer of left heel and midfoot with necrosis of muscle (2) T2DM (type 2 diabetes mellitus): Diabetes mellitus complication status: with skin complications Diabetes mellitus complication detail: with foot ulcer JUAN F PIRES MD Oct 08, 2017 18:00
[2017-10-08 18:44] VITALS: BP 152/81
[2017-10-08] MEDS ORDERED: INSULIN DETEMIR 100 U/ML 3 ML PEN SUBQ SCH (21:00)
[2017-10-08] MEDS: FAMOTIDINE 20 MG TAB PO SCH (21:22)
[2017-10-08] MEDS: SIMVASTATIN 20 MG TAB PO SCH (21:22)
[2017-10-08] MEDS ORDERED: LOPERAMIDE HCL 2 MG CAP PO PRN (22:05)
[2017-10-08] MEDS: INSULIN DETEMIR 100 U/ML 3 ML PEN SUBQ SCH (22:12)
[2017-10-08 22:33] VITALS: BP 159/86
[2017-10-09 02:59] VITALS: BP 126/68
[2017-10-09] MEDS: AMPICILLIN/SULBACT (*) 3 GM VL 3 GM in NS(*) 0.9% 100 ML BAG 100 ML IVPB SCH ×2 (03:23→10:00)
[2017-10-09 05:50] LABS: PLATELET COUNT, AUTOMATED 219 K/uL (150-450)
[2017-10-09] MEDS: NS(*) 0.9% 1000 ML BAG 1,000 ML IV PRN (06:54)
[2017-10-09 06:55] VITALS: BP 135/81
[2017-10-09 07:53] VITALS: Ht 175.3 cm; Wt 85.7 kg
[2017-10-09] MEDS: amLODIPine BESYL(*) 5 MG TAB PO SCH (08:48)
[2017-10-09] MEDS: LACTOBACILLUS ACIDOPHILUS TAB PO SCH ×2 (08:48→16:36)
[2017-10-09] MEDS: ASPIRIN 81 MG ENTERIC COATED PO SCH (08:48)
[2017-10-09] MEDS: FAMOTIDINE 20 MG TAB PO SCH ×2 (08:48→20:37)
[2017-10-09] MEDS: INSULIN DETEMIR 100 U/ML 3 ML PEN SUBQ SCH ×2 (08:49→20:37)
--- NOTE | 2017-10-09 10:01 | RADIOLOGY IMAGING REPORT ---
FACILITY: [facility] [place] PATIENT NAME: Leobardo Russell : 1965 MR: [id number] V: [id number] EXAM DATE: ORDERING PHYSICIAN: ATTILA KNOWLES TECHNOLOGIST: [place] [facility] [place] Leobardo [place] : 1965 Visit/Account:[id number] Date of Sevice: 10/08/2017 MRI left foot Indication: Soft tissue ulcer. Cellulitis. Comparison: Plain films 10/08/2017 and prior MRI August 19, 2017 are reviewed. Technique: Sagittal STIR, coronal long axis T1-weighted and T2-weighted fat saturated, short axis axi al T2-weighted fat-saturated images were obtained through the left foot. Findings: There is a deep soft tissue ulcer along the medial margin of the first metatarsal head. This is more pronounced than on the previous study. Deep to the ulcer, there is extensive edema within the subcuta neous tissues. This extends to involve nearly the entire forefoot as well as the dorsal midfoot. Ther e is diffuse muscle edema as well. On today's study, there is lobulated T2 signal seen interposed bet ween the distal shaft of the first metatarsal and the flexor hallucis longus tendon. This is a new fi nding since the previous study. This likely tracks from the wound and is concerning for an evolving s oft tissue abscess. This measures 1.4 x 0.9 cm in cross-section and measures 1.3 cm from proximal to distal. No other fluid collection is seen. Since the previous exam, there has been development of sandra rly extensive, abnormal marrow edema within the first metatarsal head and neck. This is in close prox imity to the ulcer. Appearance would favor osteomyelitis. Subtle edema seen within the base of the pr oximal phalanx of the great toe. Early changes of osteomyelitis here cannot be excluded. There is lob ulated T2 signal within the first metatarsophalangeal joint space. Given the proximity of the joint s pace to the ulcer and the marrow edema about the joint space, an evolving septic arthropathy must be considered. The remaining metatarsals and the midfoot have a normal marrow pattern. The other included phalanges of the toes have a normal marrow pattern. There is skin thickening associated with the ulcer extending to the dorsum of the foot. This would be consistent with a history of cellulitis. IMPRESSION: 1. Deep soft tissue ulcer along the medial margin of the left first metatarsal head and first metatar sophalangeal joint. Since the prior MRI, there are new changes consistent with osteomyelitis involvin g the first metatarsal head and neck and likely the most proximal base of the proximal phalanx of the great toe. Concern is for septic arthropathy given this marrow pattern and the proximity of the ulce r to the joint space. 2. Lobulated collection of T2 signal interposed between the distal shaft of the first metatarsal and the flexor hallucis longus tendon. Given the additional findings, differential would strongly favor a n evolving soft tissue abscess. 3. Extensive forefoot and midfoot subcutaneous edema, intramuscular edema and skin thickening. Report Dictated By: Jaime Kellogg at 10/09/2017 9:41 AM Report E-Signed By: Jaime Kellogg at 10/09/2017 9:57 AM WSN:[id number]
[2017-10-09 10:51] VITALS: BP 152/87
[2017-10-09] MEDS ORDERED: VANCOMYCIN(*) 1 GM VIAL 1 GM, VANCOMYCIN (*) 0.5 GM VIAL 0.5 GM in NS(*) 0.9% 250 ML BA... IVPB SCH (11:00)
[2017-10-09] MEDS: IMIPENEM/CILASTA(*) 500MG VIAL 300 MG in NS(*) 0.9% 100 ML BAG 100 ML IVPB SCH ×2 (13:07→18:27)
--- NOTE | 2017-10-09 13:21 | Hospitalist Progress Note ---
Subjective Progress Notes Subjective He has no complaints this morning. Patient Complains of: Cardiovascular: No: Chest Pain Respiratory: No: Shortness of Breath Physical Exam Vital Signs Date Time Temp Pulse Resp B/P (MAP) Pulse Ox O2 Delivery O2 Flow Rate FiO2 10/09/17 10:51 99.1 88 16 152/87 (108) 90 Room Air Intake and Output 10/10/17 07:00 Intake Total 0 ml Balance 0 ml Intake Oral 0 ml # Voids 1 General Appearance: Alert, Awake, No Acute Distress, Afebrile Neuro: No Gross deficits Cardiovascular: Regular Rate and Rhythm Respiratory: No Respiratory Distress, Clear to Auscultation Integumentary: Other (redness extending up the great toe metatarsal past borders from yesterday, hot to the touch) Psych: Alert & Oriented X3, Appropriate Mood & Affect Result Diagram: 10/09/1752610/09/17526 Assessment and Plan Problems: (1) Cellulitis of foot Status: Acute Assessment & Plan: He presented with 2 days of worsening erythema and swelling to the left foot surrounding the diabetic foot ulcer. BP and P are stable and He is afebrile. The WBC was elevated with neutrophilia and CRP/ESR are increased from July. Will change him to Primaxin and Vancomycin to cover pseudomonas, since patient was treated two months ago with same antibiotics. MRI of the foot today shows osteomyelitis. Wound care to see patient. Dr. Salgado will be consulted about MRI results and the possible need for surgery. (2) Diabetic foot ulcer Status: Chronic Assessment & Plan: See above. (3) Acute renal failure Status: Acute Assessment & Plan: Acute on chronic. Secondary to illness and exacerbated by lisinopril. Will hydrate, hold lisinopril and follow closely. (4) Hyperkalemia Status: Acute Assessment & Plan: Mild. Stable for the last month. Secondary to ARF and lisinopril. See above. (5) T2DM (type 2 diabetes mellitus) Status: Chronic Assessment & Plan: Continue Levemir and give SSI to cover. There is a work up ongoing for latent autoimmune diabetes. (6) CKD (chronic kidney disease) stage 3, GFR 30-59 ml/min Status: Chronic Assessment & Plan: Baseline Cr is about 1.9-2.2. See above. (7) HTN (hypertension) Status: Chronic Assessment & Plan: She is chronically on amlodipine and lisinopril. Lisinopril to be held for now. (8) GERD (gastroesophageal reflux disease) Status: Chronic Assessment & Plan: Continue famotidine. Exam Sepsis Risk: No Definite Risk Problem Qualifiers (1) Diabetic foot ulcer: Diabetic foot ulcer location: midfoot Diabetes mellitus type: type 2 Laterality: left Non-pressure ulcer stage: with necrosis of muscle Qualified Codes: E11.621 - Type 2 diabetes mellitus with foot ulcer; L97.423 - Non-pressure chronic ulcer of left heel and midfoot with necrosis of muscle (2) Acute renal failure: Acute renal failure type: unspecified Qualified Codes: N17.9 - Acute kidney failure, unspecified (3) T2DM (type 2 diabetes mellitus): Diabetes mellitus complication status: with skin complications Diabetes mellitus complication detail: with foot ulcer SHARIF MAIN SENIOR TRAINING AND DEVELOPMENT REP Oct 09, 2017 13:21
[2017-10-09 14:58] VITALS: BP 163/89
[2017-10-09 20:05] VITALS: BP 177/89
[2017-10-09] MEDS: SIMVASTATIN 20 MG TAB PO SCH (20:37)
[2017-10-10 01:12] VITALS: BP 185/92
[2017-10-10] MEDS: IMIPENEM/CILASTA(*) 500MG VIAL 300 MG in NS(*) 0.9% 100 ML BAG 100 ML IVPB SCH ×4 (01:20→20:52)
[2017-10-10 06:08] LABS: PLATELET COUNT, AUTOMATED 263 K/uL (150-450)
[2017-10-10 07:18] VITALS: BP 185/89
--- NOTE | 2017-10-10 08:38 | RADIOLOGY IMAGING REPORT ---
[place] [facility] [place]IENT NAME: Juan F Russell : 1965 MR: [id number] V: [id number] EXAM DATE: ORDERING PHYSICIAN: JUAN F PIRES TECHNOLOG[place] [facility] [place] Juan F [place] : 1965 Visit/Account:[id number] Date of Sevice: 10/10/2017 Exam type: ARTERIAL LOWER EXT LEFT History: Chronic diabetic left foot ulcer, assess vascular inflo Comparison: None. Findings: Incidental note of numerous left inguinal lymph nodes largest measuring approximately 2 cm Vascular evaluation of the left lower extremity arterial tree is as follows: Common femoral artery demonstrates a triphasic waveform with a peak systolic velocity of 137 cm/s Profunda femoral artery demonstrates a triphasic waveform and a peak systolic velocity of 71.4 cm/s Proximal SFA demonstrates a triphasic waveform and a peak systolic velocity of 161 cm/s Mid SFA demonstrates a triphasic waveform and a peak systolic velocity 117 cm/s Distal SFA demonstrates a triphasic waveform and a peak systolic velocity of 120 cm/s Proximal popliteal artery demonstrates a biphasic waveform and a peak systolic velocity of 218 cm/s. Also noted is a moderate amount of plaque in the proximal left popliteal artery Distal popliteal artery demonstrates a biphasic waveform and a peak systolic velocity 157 cm/s Posterior tibial artery demonstrates a biphasic waveform and a peak systolic velocity 153 cm/s Peroneal artery biphasic waveform and a peak systolic velocity of 68 cm/s Anterior tibial artery biphasic waveform and a peak systolic velocity 144 cm/s. Dorsalis pedis artery biphasic waveform and a peak systolic velocity of 160 cm/s IMPRESSION: 1. There is triphasic waveform from the left common femoral artery to the distal left SFA. There is a pressure gradient of 98 between the distal left SFA in the proximal left popliteal artery. Also noted is a moderate amount of plaque in the proximal left popliteal artery Biphasic waveform is seen from the proximal left popliteal artery through the dorsalis pedis artery Report Dictated By: Keily Burch MD at 10/10/2017 8:27 AM Report E-Signed By: Keily Burch MD at 10/10/2017 8:34 AM WSN:[id number]
[2017-10-10] MEDS: FAMOTIDINE 20 MG TAB PO SCH ×2 (09:18→20:44)
[2017-10-10] MEDS: amLODIPine BESYL(*) 5 MG TAB PO SCH (09:19)
[2017-10-10] MEDS: LACTOBACILLUS ACIDOPHILUS TAB PO SCH ×2 (09:19→17:32)
[2017-10-10] MEDS: ASPIRIN 81 MG ENTERIC COATED PO SCH (09:19)
[2017-10-10] MEDS: INSULIN DETEMIR 100 U/ML 3 ML PEN SUBQ SCH ×2 (09:21→21:00)
--- NOTE | 2017-10-10 09:52 | Hospitalist Progress Note ---
Subjective Progress Notes Subjective He has no complaints this morning. Patient Complains of: Cardiovascular: No: Chest Pain Respiratory: No: Shortness of Breath Physical Exam Vital Signs Date Time Temp Pulse Resp B/P (MAP) Pulse Ox O2 Delivery O2 Flow Rate FiO2 10/10/17 07:20 94 Room Air 10/10/17 07:18 98.4 94 20 185/89 (121) 10/10/17 01:30 0.5 General Appearance: Alert, Awake, No Acute Distress, Afebrile Neuro: No Gross deficits Cardiovascular: Regular Rate and Rhythm Respiratory: No Respiratory Distress, Clear to Auscultation Extremities: Edema (left lower extremity has 2+ pitting edema) Integumentary: Other (Redness has decreased to the left lower extremity) Psych: Alert & Oriented X3, Appropriate Mood & Affect Result Diagram: 10/10/1754810/10/17548 Assessment and Plan Problems: (1) Cellulitis of foot Status: Acute Assessment & Plan: He presented with 2 days of worsening erythema and swelling to the left foot surrounding the diabetic foot ulcer. BP and P are stable and He is afebrile. The WBC was elevated with neutrophilia and CRP/ESR are increased from July. He is on Primaxin and Vancomycin. MRI of the foot shows osteomyelitis. PT is consulted for wound care. Dr. Salgado was consulted about MRI results and he will go to surgery this weekend for amputation. He does have increased swelling to the left lower extremity today. I will order a Venous Doppler of the left leg to assess for DVT. (2) Diabetic foot ulcer Status: Chronic Assessment & Plan: See above. (3) Acute renal failure Status: Acute Assessment & Plan: Acute on chronic. Secondary to illness and exacerbated by lisinopril. Will hydrate, hold lisinopril and follow closely. (4) Hyperkalemia Status: Acute Assessment & Plan: Mild. Stable for the last month. Secondary to ARF and lisinopril. See above. (5) T2DM (type 2 diabetes mellitus) Status: Chronic Assessment & Plan: Continue Levemir and give SSI to cover. He glucose dropped overnight into the 40's. His Levemir was decreased to 35units BID, instead of 70 units BID. There is a work up ongoing for latent autoimmune diabetes. (6) CKD (chronic kidney disease) stage 3, GFR 30-59 ml/min Status: Chronic Assessment & Plan: Baseline Cr is about 1.9-2.2. See above. (7) HTN (hypertension) Status: Chronic Assessment & Plan: He is chronically on amlodipine and lisinopril. Lisinopril to be held for now. (8) GERD (gastroesophageal reflux disease) Status: Chronic Assessment & Plan: Continue famotidine. Exam Sepsis Risk: No Definite Risk Problem Qualifiers (1) Diabetic foot ulcer: Diabetic foot ulcer location: midfoot Diabetes mellitus type: type 2 Laterality: left Non-pressure ulcer stage: with necrosis of muscle Qualified Codes: E11.621 - Type 2 diabetes mellitus with foot ulcer; L97.423 - Non-pressure chronic ulcer of left heel and midfoot with necrosis of muscle (2) Acute renal failure: Acute renal failure type: unspecified Qualified Codes: N17.9 - Acute kidney failure, unspecified (3) T2DM (type 2 diabetes mellitus): Diabetes mellitus complication status: with skin complications Diabetes mellitus complication detail: with foot ulcer SHARIF MAIN Oct 10, 2017 09:52
--- NOTE | 2017-10-10 10:01 | RADIOLOGY IMAGING REPORT ---
FACILITY: [facility] [place] PATIENT NAME: Leobardo Russell : 1965 MR: [id number] V: [id number] EXAM DATE: ORDERING PHYSICIAN: SHARIF MAIN TECHNOLOGIST: Location: [facility] [place] Patient: Leobardo Russell : 1965 Visit/Account:[id number] Date of Sevice: 10/10/2017 Exam type: VENOUS DOPP LOW LEFT EXTREMITY History: left lower extremity swelling Comparison: August 19, 2017. Findings: Left lower extremity veins were imaged including the left common femoral vein greater saphenous vein superficial femoral vein popliteal vein posterior tibial vein peroneal vein anterior tibial vein reve aling no evidence of intraluminal thrombi. The veins were compressible and demonstrated augmentation . IMPRESSION: 1. No sonographic evidence DVT involving the left lower extremity veins Report Dictated By: Keily Burch MD at 10/10/2017 9:55 AM Report E-Signed By: Keily Burch MD at 10/10/2017 9:58 AM WSN:[email or web address]
--- NOTE | 2017-10-10 11:05 | Medical Nutrition Therapy ---
Nutrition Anthropometrics Height (Inches): 69.00 Height (Calculated Centimeters: 175.273030 Weight (Pounds): 189 Weight (Calculated Kilograms): 85.729 BMI Calculated: 27.91 Vickey Nutrition Score: Adequate Vickey Nutrition Risk Score: 17 Dietary Referral Nutrition Risk Factors: Stg 2-4 Press Ulcer, Non-Healing Wound Nutrition Risk Comment: Physical Findings Physical Appearance: Overweight BMI 25-29 Skin Appearance Skin Appearance: Edema Edema Location Modifier: Both Edema Location: Lower Extremity Type of Edema: Degree of Edema: 1+ Gastrointestinal Symptoms GI Symtoms: Tube Present: Bowel Sounds: Recent Bowel Pattern: Stool Characteristics: Nutrition/Food History Non-compliant W/Diet Pt does not follow a diabetic diet at home and consumes only one meal per d Good Skipped Meals: Yes Breakfast: Skips- to busy during the day Lunch: Skips- to busy during the day Dinner: "anything and everything but I try to stay away from bread" at 6-9PM Nutritional Diagnosis Nutritional Risk Acuity 1: Acute/ES Renal Nutritional Risk Acuity 2: Abcess/Non-Healing Wound Past Medical History: T2DM, CKD stage III, GERD, HTN, depression, appendectomy, [id number] transgender person Nutritional Acuity: 1-High Nutrition Diagnosis: Increased Nutrient Needs Nutrition Etiology: Physiological Causes Nutrition Problem/Etiology/Sym: non healing diabetic foot ulcer with cellulitis. Energy Requirement: 2260 (kcal/day (26 poly/kg)- [address] [address] Tain RMR (1052) AF 1.2 IF 1.1) Protein Requirement: 134 (g/day (2.0 g/kg of IBW)) Fluid Requirement: 2140 (mL/day (25 mL/kg)) Diet Type: Diabetic Nutrition Intervention: Cont diet as ordered, Encourage intake Diet Comment To RSA: PREFERS TO BE CALLED ANABEL. OFFER SAÚL AT LUNCH AND DINNER Nutrition Monitoring & Eval Nutrition Goals: Eat 50-100% Meal RD Patient Assessment Time: [address] Assessment Type: RD Assessment Patient Nutrition Acuity: 1-High Follow Up Date: Oct 11, 2017 Nutritional Comment: 10/09 Pt admitted for cellulitis of foot, diabetic food ulcer and acute renal failure who prefers to be referenced as "Anabel". Pt on a diabetic diet order with no intakes recorded at this time. Pt wt at last visit 78.4 kg on 08/19/17 and is now 85.7 kg, a 16 lb increase. Pt reports poor PO intake typically consuming 1 meal per day around 6-9 PM. Physician Office Specialist encouraged pt to have more consistent intake of carbs at breakfast, lunch and dinner to help control blood glucose. Pt was preocupied with taking blood glucose and reports that he takes his blood glucose hourly at home. Pt expressed that he has never been provided information regarding consistent carbohydrate intake though pt's EMR references pt provided diabetic diet education at last visit on 08/19/17. Physician Office Specialist to provide pt with diet education when appropriate. Pt recieving Saúl nutrition supplement with lunch and dinner to encourage wound healing. Creat 2.5, BUN 39. Monitor appropriatness for diet education pending plan for surgery. Monitor intake and pt progress. BRUCE MAE Oct 09, 2017 08:10
[2017-10-10] MEDS ORDERED: LIDOCAINE/SOD BICARB 8.4% SYR ONE (11:56)
[2017-10-10] MEDS ORDERED: VANCOMYCIN(*) 1 GM VIAL 1 GM, VANCOMYCIN (*) 0.5 GM VIAL 0.5 GM in NS(*) 0.9% 250 ML BA... IVPB SCH (12:00)
[2017-10-10 12:02] VITALS: BP 181/92
[2017-10-10] MEDS: VANCOMYCIN(*) 1 GM VIAL 1 GM, VANCOMYCIN (*) 0.5 GM VIAL 0.5 GM in NS(*) 0.9% 250 ML BA... IVPB SCH (12:17)
[2017-10-10 15:00] VITALS: BP 175/92
--- NOTE | 2017-10-10 15:50 | Medical Nutrition Therapy ---
Nutritional Education Nutrition Education Topic: Diabetic Nutrition Learning Barriers: Hx Of Non-Compliance Learning Readiness: Little Interest Teaching Methods: Discussion, Handout Response to Teaching: Verbalize understanding Teaching Recipient: Patient Nutrition Counseling: Pt provided handout on My Food Plan for diabetes. Pt provided education on consuming 60 g of carbs at each meal, what foods contain carbohydrates and which did not. Pt reported understanding and expressed no questions or concerns. Nutrition Monitoring & Eval Nutrition Goals: Eat 50-100% Meal Nutrition Follow-Up: Good Intake RD Patient Assessment Time: [address] Assessment Type: RD Re-Assessment Patient Nutrition Acuity: 1-High Follow Up Date: Oct 11, 2017 Nutritional Comment: 10/09 Pt admitted for cellulitis of foot, diabetic food ulcer and acute renal failure who prefers to be referenced as "Anabel". Pt on a diabetic diet order with no intakes recorded at this time. Pt wt at last visit 78.4 kg on 08/19/17 and is now 85.7 kg, a 16 lb increase. Pt reports poor PO intake typically consuming 1 meal per day around 6-9 PM. Room Service Food Service Attendant encouraged pt to have more consistent intake of carbs at breakfast, lunch and dinner to help control blood glucose. Pt was preocupied with taking blood glucose and reports that he takes his blood glucose hourly at home. Pt expressed that he has never been provided information regarding consistent carbohydrate intake though pt's EMR references pt provided diabetic diet education at last visit on 08/19/17. Room Service Food Service Attendant to provide pt with diet education when appropriate. Pt recieving Michael nutrition supplement with lunch and dinner to encourage wound healing. Creat 2.5, BUN 39. Monitor appropriatness for diet education pending plan for surgery. Monitor intake and pt progress. 10/10 Room Service Food Service Attendant provided pt with diabetic diet education. Pt showed little interest in diet ed. Room Service Food Service Attendant encouraged pt to have more consistent intake consuming 60 g of carbs with breakfast, lunch and dinner. Pt reported understanding and expressed no questions or concerns. At time of visit, pt stated that she would like to get down to the cafe to get another pitcher of lemonade. Pt unable to report if lemonade was diet or regular lemonade. Room Service Food Service Attendant expressed concern to pt that lemonade would be inappropriate for pt diabetic diet order. Room Service Food Service Attendant ammenable to pt having light lemonade. Room Service Food Service Attendant provided pt with a 32 oz cup of light lemonade. Room Service Food Service Attendant remains available PRN if pt expressed interest further diet ed. Continue monitoring pt progress and intake. BRUCE MAE Oct 10, 2017 14:27
--- NOTE | 2017-10-10 16:05 | PT PLAN OF CARE ---
Physician: Dr. Salgado Patient is being seen: Leobardo Russell, patient goes by "Anabel" Therapist: Alisia Rubio Medical Diagnosis: Neuropathic ulcer of L) great toe, MTP joint Treatment Diagnosis: Neuropathic ulcer of L) great toe, MTP joint Date of Onset: Date of Initial Evaluation: 09/05/17 Date patient was last seen: 10/08/17 Number of treatments: 11 INTERVENTIONS: The patient was seen for PT conservative sharps debridement as well as advanced wound care product selection and application for 2-3x/week. The patient was fairly non-compliant with recommendations for offloading the area as well as with management of DMII. The patient is discharged from outpatient wound care d/t admission to [facility] medical/surgical floor for L) foot wound infection. The patient was last seen on 10/08/17 and referred to ER d/t s/ s of worsening infection, please see notes for details. Short Term Goals (not met) 1. Pt to maintain a clean, dry and intact dressing between visits 2. Wound bed to granulate in with no sinus tracts palpable. 3. Edges of wound bed to gradually migrate inward with total epithelialization over healthy wound bed. 4. No further signs or symptoms of infection to be noted. Patient's Goals (not met) Wound to close without significant change in functional activities. Patient Compliance: overall poor Prognosis: poor Reasons for continuing therapy: None at this time as the patient is admitted to [facility] for acute medical care for L) foot wound infection MTDD
[2017-10-10] MEDS ORDERED: IMIPENEM/CILASTA(*) 500MG VIAL 300 MG in NS(*) 0.9% 100 ML BAG 100 ML IVPB SCH (20:00)
[2017-10-10 20:40] VITALS: BP 175/89
[2017-10-10] MEDS: SIMVASTATIN 20 MG TAB PO SCH (20:45)
[2017-10-11 00:36] VITALS: BP 190/99
[2017-10-11] MEDS: IMIPENEM/CILASTA(*) 500MG VIAL 300 MG in NS(*) 0.9% 100 ML BAG 100 ML IVPB SCH ×4 (02:28→20:35)
[2017-10-11 08:04] VITALS: BP 161/90
[2017-10-11] MEDS: amLODIPine BESYL(*) 5 MG TAB PO SCH (08:20)
[2017-10-11] MEDS: ASPIRIN 81 MG ENTERIC COATED PO SCH (08:20)
[2017-10-11] MEDS: LACTOBACILLUS ACIDOPHILUS TAB PO SCH ×2 (08:20→17:00)
[2017-10-11] MEDS: FAMOTIDINE 20 MG TAB PO SCH ×2 (08:20→20:35)
[2017-10-11] MEDS ORDERED: INFLUENZA VIRUS VAC 0.5 ML SYR IM ONLY ONE (09:00)
[2017-10-11] MEDS: INSULIN DETEMIR 100 U/ML 3 ML PEN SUBQ SCH ×2 (09:14→20:46)
--- NOTE | 2017-10-11 10:32 | General Surgery Progress Note ---
Subjective Progress Notes Subjective No new complaints. Physical Exam Vital Signs Date Time Temp Pulse Resp B/P (MAP) Pulse Ox O2 Delivery O2 Flow Rate FiO2 10/11/17 08:04 98.6 86 16 161/90 (113) 90 Room Air 10/10/17 01:30 0.5 Intake and Output 10/12/17 07:00 Output Total 600 ml Balance -600 ml Output Urine Total 600 ml # Voids 1 General Appearance: Alert, Awake, No Acute Distress, Afebrile Extremities: Other (swelling and erythema are decreased on left foot. The ulcer on the medial aspect of his 1st MTP joint is essentially unchanged. It is about 2-1/2 cm in diameter.) Result Diagram: 10/10/17 0549 10/10/17 0549 Assessment and Plan Problems: (1) Diabetic foot ulcer Status: Chronic Assessment & Plan: 10/08/17: Patient is admitted to the hospitalist control and they are managing his diabetes and hypertension. Wound care consult has been placed. X-ray of his foot in the emergency room did not reveal any bony involvement. An MRI of his left foot is ordered for tomorrow morning. He is on vancomycin and Unasyn for antibiotic broad-spectrum coverage. I agree with the current plan and will follow along. He may require surgical debridement in the operating room. Will check the MRI after its completed to see if there is any evidence of osteomyelitis. We'll otherwise continue with local wound care as per the wound care team's regimen. 10/09/17: The ulcer is essentially unchanged. His foot is still edematous with erythema. Continue wound care. 10/10/17: MRI of his left foot is consistent with osteomyelitis in the distal 1st metatarsal bone and proximal portion of the proximal 1st phalanx. We'll need to proceed with surgical debridement in the next couple of days. Will continue antibiotics and let the edema and cellulitic component improved. Will have him keep his leg elevated and wrap his foot and ankle and an Alnre wrap to decrease swelling. I have explained these results and the plan to the patient to is obviously disturbed but admits that he is not completely surprised. 10/11/17: The wound looks essentially the same. The edema and erythema are improving. We'll plan on left foot 1st digit and partial metatarsal resection. I have explained the surgery to him in detail as well as the alternatives and the risks. I have emphasized the risks that the surgical wound may become infected or also exhibited poor wound healing and fall apart. I may not be able to get the whole wound closed due to the size of the ulcer. The alford will be to trim the bone back so that there is no exposed bone and then he will require continued wound care. He can have issues with instability of his foot since I am removing the ball of his foot and making his foot more narrow which can increase the risk of problems ambulating or new ulcers due to changes in gait dynamics. He could also require further amputation such as a transmetatarsal amputation or even below knee amputation if he fails to heal after this surgery. He indicates his understanding of this discussion and his questions been answered. He indicates that he would like to proceed with this procedure tomorrow morning. (2) Cellulitis of foot Status: Acute (3) T2DM (type 2 diabetes mellitus) Status: Chronic Condition Stable. Time Spent: < 30 min Exam Sepsis Risk: No Definite Risk Problem Qualifiers (1) Diabetic foot ulcer: Diabetic foot ulcer location: midfoot Diabetes mellitus type: type 2 Laterality: left Non-pressure ulcer stage: with necrosis of muscle Qualified Codes: E11.621 - Type 2 diabetes mellitus with foot ulcer; L97.423 - Non-pressure chronic ulcer of left heel and midfoot with necrosis of muscle (2) T2DM (type 2 diabetes mellitus): Diabetes mellitus complication status: with skin complications Diabetes mellitus complication detail: with foot ulcer JUAN F PIRES MD Oct 11, 2017 10:32
[2017-10-11] MEDS: VANCOMYCIN(*) 1 GM VIAL 1 GM, VANCOMYCIN (*) 0.5 GM VIAL 0.5 GM in NS(*) 0.9% 250 ML BA... IVPB SCH (11:17)
[2017-10-11] MEDS: LISINOPRIL 20 MG TAB PO SCH (11:24)
[2017-10-11 11:25] VITALS: BP 136/105
--- NOTE | 2017-10-11 11:32 | Medical Nutrition Therapy ---
Nutrition Anthropometrics Height (Inches): 69.00 Height (Calculated Centimeters: 175.424408 Weight (Pounds): 189 Weight (Calculated Kilograms): 85.729 BMI Calculated: 27.91 Vickey Nutrition Score: Adequate Vickey Nutrition Risk Score: 18 Dietary Referral Nutrition Risk Factors: Stg 2-4 Press Ulcer, Non-Healing Wound Nutrition Risk Comment: Physical Findings Physical Appearance: Overweight BMI 25-29 Skin Appearance Skin Appearance: Edema Edema Location Modifier: Both Edema Location: Lower Extremity Type of Edema: Degree of Edema: 2+ Gastrointestinal Symptoms GI Symtoms: Tube Present: Bowel Sounds: Recent Bowel Pattern: Stool Characteristics: Nutritional Diagnosis Nutritional Risk Acuity 1: Acute/ES Renal Nutritional Risk Acuity 2: Abcess/Non-Healing Wound Past Medical History: T2DM, CKD stage III, GERD, HTN, depression, appendectomy, [id number] transgender person Nutritional Acuity: 1-High Nutrition Diagnosis: Increased Nutrient Needs Nutrition Etiology: Physiological Causes Nutrition Problem/Etiology/Sym: non healing diabetic foot ulcer with cellulitis. Energy Requirement: 2260 (kcal/day (26 poly/kg)- [place] [address]. Jeor RMR (1712) AF 1.2 IF 1.1) Protein Requirement: 134 (g/day (2.0 g/kg of IBW)) Fluid Requirement: 2140 (mL/day (25 mL/kg)) Diet Type: Diabetic Nutrition Intervention: Cont diet as ordered, Encourage intake Diet Comment To RSA: PREFERS TO BE CALLED ANABEL. OFFER SA[employer] AT [employer] DIN[employer] Nutrition Monitoring & Eval RD Patient Assessment Time: [address] Assessment Type: RD Re-Assessment Patient Nutrition Acuity: 1-High Follow Up Date: Oct 14, 2017 Nutritional Comment: 10/09 Pt admitted for cellulitis of foot, diabetic food ulcer and acute renal failure who prefers to be referenced as "Anabel". Pt on a diabetic diet order with no intakes recorded at this time. Pt wt at last visit 78.4 kg on 08/19/17 and is now 85.7 kg, a 16 lb increase. Pt reports poor PO intake typically consuming 1 meal per day around 6-9 PM. Test Deck Supervisor encouraged pt to have more consistent intake of carbs at breakfast, lunch and dinner to help control blood glucose. Pt was preocupied with taking blood glucose and reports that he takes his blood glucose hourly at home. Pt expressed that he has never been provided information regarding consistent carbohydrate intake though pt's EMR references pt provided diabetic diet education at last visit on 08/19/17. Test Deck Supervisor to provide pt with diet education when appropriate. Pt recieving Sa[employer]l nutrition supplement with lunch and dinner to encourage wound healing. Creat 2.5, BUN 39. Monitor appropriatness for diet education pending plan for surgery. Monitor intake and pt progress. 10/10 Test Deck Supervisor provided pt with diabetic diet education. Pt showed little interest in diet ed. Test Deck Supervisor encouraged pt to have more consistent intake consuming 60 g of carbs with breakfast, lunch and dinner. Pt reported understanding and expressed no questions or concerns. At time of visit, pt stated that she would like to get down to the cafe to get another pitcher of lemonade. Pt unable to report if lemonade was diet or regular lemonade. Test Deck Supervisor expressed concern to pt that lemonade would be inappropriate for pt diabetic diet order. Test Deck Supervisor ammenable to pt having light lemonade. Test Deck Supervisor provided pt with a 32 oz cup of light lemonade. Test Deck Supervisor remains available PRN if pt expressed interest further diet ed. Continue monitoring pt progress and intake. 10/11 Pt consuming 75-100% of ADA diet and will be npo for surgery tomorrow. Notable labs include glc 88, Na 132, BUN 40, creatinine 2.3, alk [id number], tot pro 5.4 and alb 2.5. Will cont to monitor and encourage intake. UDAY MOORE Oct 11, 2017 11:32
--- NOTE | 2017-10-11 12:55 | Hospitalist Progress Note ---
Subjective Progress Notes Subjective Mr. Russell is a 51yo male with PMH of HTN, DM-II, CKD-III, GERD, Depression and chronic diabetic foot ulcer. He has been seen by Dr. Pires who noted some surrounding erythema of the ulcer and some edema in the same foot. He was admitted for osteomyelitis of his Toe and possible amputation. He is currently on Vancomycin and Imipenem. He is scheduled to have surgical procedure in am and I have discussed the case with Dr. Pires. Patient is afebrile with WBC 10.4, hemodynamically stable and c/o swelling of his legs. Patient Complains of: Neurological: No: Confusion, Weakness, Dizziness Cardiovascular: No: Chest Pain, Palpitations Respiratory: No: Cough, Congestion, Shortness of Breath Gastrointestinal: No Nausea, No Vomiting, No Flatus Genitourinary: No Dysuria, No Hematuria Musculoskeletal: Other (leg edema), No: Pain, Sprain, Strain Physical Exam Vital Signs Date Time Temp Pulse Resp B/P (MAP) Pulse Ox O2 Delivery O2 Flow Rate FiO2 10/11/17 11:25 98.0 93 16 136/105 (115) 92 Room Air 10/10/17 01:30 0.5 Intake and Output 10/12/17 07:00 Intake Total 360 ml Output Total 600 ml Balance -240 ml Intake Oral 360 ml Output Urine Total 600 ml # Voids 1 General Appearance: Alert, Awake, No Acute Distress, Afebrile Neuro: No Gross deficits Eyes: PERRLA ENT: Normal Cardiovascular: Normal Rhythm & Peripheral Pulses Respiratory: No Respiratory Distress GI: Soft and Non-Tender : Normal Extremities: Edema Psych: Alert & Oriented X3 Result Diagram: 10/10/17 0549 10/10/17 0549 Assessment and Plan Problems: (1) Cellulitis of foot Status: Acute Assessment & Plan: He presented with 2 days of worsening erythema and swelling to the left foot surrounding the diabetic foot ulcer. BP and P are stable and He is afebrile. The WBC was elevated with neutrophilia and CRP/ESR are increased from July. He is on Primaxin and Vancomycin. MRI of the foot shows osteomyelitis. PT is consulted for wound care. Dr. Pires was consulted about MRI results and he will go to surgery this weekend for amputation. He does have increased swelling to the left lower extremity today. I will order a Venous Doppler of the left leg to assess for DVT. 10/11: He is scheduled to have amputation in am by Dr. Pires. I will continue his present antibiotics. (2) Diabetic foot ulcer Status: Chronic Assessment & Plan: See above. (3) Acute renal failure Status: Acute Assessment & Plan: Acute on chronic. Secondary to illness and exacerbated by lisinopril. Will hydrate, hold lisinopril and follow closely. 10/11: His renal function has been fluctuating between GFR 30 to 40ml/min. I will restart his Lisinopril and watch his K level (4) Hyperkalemia Status: Resolved Assessment & Plan: Mild. Stable for the last month. Secondary to ARF and lisinopril. See above. (5) T2DM (type 2 diabetes mellitus) Status: Chronic Assessment & Plan: Continue Levemir and give SSI to cover. He glucose dropped overnight into the 40's. His Levemir was decreased to 35units BID, instead of 70 units BID. There is a work up ongoing for latent autoimmune diabetes. 10/11: His BS has been adequate after adjusting his Insulin dose. He is currently on Lantus 35units bid. Hold AM Lantus dose before surgery and use sliding scale with coverage. (6) CKD (chronic kidney disease) stage 3, GFR 30-59 ml/min Status: Chronic Assessment & Plan: Baseline Cr is about 1.9-2.2. See above. 10/11: His GFR is low 30ml/h and BUN/Cr is 40/2.3. His BP has been high and I will start him on Lisinopril 20mg po qd. I will send U/A to evaluate proteinuria (7) HTN (hypertension) Status: Chronic Assessment & Plan: He is chronically on amlodipine and lisinopril. Lisinopril to be held for now. 10/11: His BP has been high and I will start him Lisinopril 20mg po qd (8) GERD (gastroesophageal reflux disease) Status: Chronic Assessment & Plan: Continue famotidine. Condition stable Time Spent on Plan of Care: < 30 min Copies to: LETI DIMAS; JUAN F PIRES MD Exam Sepsis Risk: No Definite Risk Problem Qualifiers (1) Diabetic foot ulcer: Diabetic foot ulcer location: midfoot Diabetes mellitus type: type 2 Laterality: left Non-pressure ulcer stage: with necrosis of muscle Qualified Codes: E11.621 - Type 2 diabetes mellitus with foot ulcer; L97.423 - Non-pressure chronic ulcer of left heel and midfoot with necrosis of muscle (2) Acute renal failure: Acute renal failure type: unspecified Qualified Codes: N17.9 - Acute kidney failure, unspecified (3) T2DM (type 2 diabetes mellitus): Diabetes mellitus complication status: with skin complications Diabetes mellitus complication detail: with foot ulcer SEBASTIAN CAMACHO MD Oct 11, 2017 12:55
[2017-10-11 17:02] VITALS: BP 177/100
[2017-10-11] MEDS: ACETAMINOPHEN 325 MG TAB PO PRN (17:51)
[2017-10-11 20:34] VITALS: BP 186/100
[2017-10-11] MEDS: SIMVASTATIN 20 MG TAB PO SCH (20:35)
[2017-10-11] MEDS ORDERED: amLODIPine BESYL(*) 5 MG TAB PO ONE (21:00)
[2017-10-11 23:39] VITALS: BP 190/89
[2017-10-12] VITALS (14 sets, daily range): BP systolic 128–175; BP diastolic 61–98
[2017-10-12] MEDS: IMIPENEM/CILASTA(*) 500MG VIAL 300 MG in NS(*) 0.9% 100 ML BAG 100 ML IVPB SCH ×4 (03:53→20:03)
[2017-10-12 04:59] LABS: PLATELET COUNT, AUTOMATED 311 K/uL (150-450)
[2017-10-12] MEDS ORDERED: DEXTROSE 50% 50 ML SYR IVP ONE (05:15)
[2017-10-12] MEDS ORDERED: NORMOSOL R SOLN(*) 1000 ML BAG 1,000 ML IV ONE (05:47)
[2017-10-12] MEDS: amLODIPine BESYL(*) 5 MG TAB PO SCH (07:42)
[2017-10-12] MEDS: FAMOTIDINE 20 MG TAB PO SCH ×2 (07:42→20:45)
[2017-10-12] MEDS: LISINOPRIL 20 MG TAB PO SCH (07:42)
[2017-10-12] MEDS: LACTOBACILLUS ACIDOPHILUS TAB PO SCH ×2 (08:00→17:17)
[2017-10-12] MEDS ORDERED: BACITRACIN OINT 15 GM TUBE TP ONE (08:03)
[2017-10-12] MEDS ORDERED: ROPIVACAINE 0.5% 20 ML VIAL ONE (08:18)
[2017-10-12] MEDS ORDERED: NEOMYCIN/POLYMYX/BACITR 30 GM TP ONE (08:18)
[2017-10-12] MEDS ORDERED: fentaNYL CITR 250 MCG/5 ML AMP ONE (08:34)
[2017-10-12] MEDS ORDERED: LIDOCAINE 2% IV 100 MG/5ML SYR ONE (08:36)
[2017-10-12] MEDS ORDERED: PROPOFOL EMUL(*) 10MG/ML 20 ML 20 ML ONE (08:36)
--- NOTE | 2017-10-12 08:49 | General Surgery Progress Note ---
Subjective Progress Notes Subjective No new complaints. Physical Exam Vital Signs Date Time Temp Pulse Resp B/P (MAP) Pulse Ox O2 Delivery O2 Flow Rate FiO2 10/12/17 07:17 97.6 83 20 162/98 (119) 93 Room Air 10/10/17 01:30 0.5 General Appearance: Alert, Awake, No Acute Distress, Afebrile Extremities: Other (Dressing/LANRE wrap in place, I didn't remove this since he' s going to OR.) Result Diagram: 10/12/17 0452 10/12/17 0452 Assessment and Plan Problems: (1) Diabetic foot ulcer Status: Chronic Assessment & Plan: 10/08/17: Patient is admitted to the hospitalist [facility] and they are managing his diabetes and hypertension. Wound care consult has been placed. X-ray of his foot in the emergency room did not reveal any bony involvement. An MRI of his left foot is ordered for tomorrow morning. He is on vancomycin and Unasyn for antibiotic broad-spectrum coverage. I agree with the current plan and will follow along. He may require surgical debridement in the operating room. Will check the MRI after its completed to see if there is any evidence of osteomyelitis. We'll otherwise continue with local wound care as per the wound care team's regimen. 10/09/17: The ulcer is essentially unchanged. His foot is still edematous with erythema. Continue wound care. 10/10/17: MRI of his left foot is consistent with osteomyelitis in the distal 1st metatarsal bone and proximal portion of the proximal 1st phalanx. We'll need to proceed with surgical debridement in the next couple of days. Will continue antibiotics and let the edema and cellulitic component improved. Will have him keep his leg elevated and wrap his foot and ankle and an Lanre wrap to decrease swelling. I have explained these results and the plan to the patient to is obviously disturbed but admits that he is not completely surprised. 10/11/17: The wound looks essentially the same. The edema and erythema are improving. We'll plan on left foot 1st digit and partial metatarsal resection. I have explained the surgery to him in detail as well as the alternatives and the risks. I have emphasized the risks that the surgical wound may become infected or also exhibited poor wound healing and fall apart. I may not be able to get the whole wound closed due to the size of the ulcer. The alford will be to trim the bone back so that there is no exposed bone and then he will require continued wound care. He can have issues with instability of his foot since I am removing the ball of his foot and making his foot more narrow which can increase the risk of problems ambulating or new ulcers due to changes in gait dynamics. He could also require further amputation such as a transmetatarsal amputation or even below knee amputation if he fails to heal after this surgery. He indicates his understanding of this discussion and his questions been answered. He indicates that he would like to proceed with this procedure tomorrow morning. 10/12/17: To OR today for surgical debridement of left foot which will include amputation of left great toe and distal metatarsal bone. Pt agrees with proceeding with surgery. (2) Cellulitis of foot Status: Acute (3) T2DM (type 2 diabetes mellitus) Status: Chronic Condition Stable. Time Spent: < 30 min Exam Sepsis Risk: No Definite Risk Problem Qualifiers (1) Diabetic foot ulcer: Diabetic foot ulcer location: midfoot Diabetes mellitus type: type 2 Laterality: left Non-pressure ulcer stage: with necrosis of muscle Qualified Codes: E11.621 - Type 2 diabetes mellitus with foot ulcer; L97.423 - Non-pressure chronic ulcer of left heel and midfoot with necrosis of muscle (2) T2DM (type 2 diabetes mellitus): Diabetes mellitus complication status: with skin complications Diabetes mellitus complication detail: with foot ulcer JUAN F PIRES MD Oct 12, 2017 08:49
[2017-10-12] MEDS: INSULIN DETEMIR 100 U/ML 3 ML PEN SUBQ SCH ×2 (09:00→20:48)
[2017-10-12] MEDS ORDERED: ONDANSETRON 4 MG/2 ML VIAL ONE (09:15)
--- NOTE | 2017-10-12 10:26 | Post Operative Progress Note ---
Post Operative Progress Note Date: Oct 12, 2017 Time: 10:13 Surgeon: Naomi Dictation number: [id number] Anesthesia: LMA by Dr. Gould Pre-Op Diagnosis: Left foot diabetic ulcer with osteomyelitis affecting proximal phalanx and distal end of 1st metatarsal Post-Op Diagnosis: DWIGHT Findings: C/W dx Procedure(s): left partial foot amputation including great toe and distal 1/2 of 1st metatarsal bone Specimen Removed:(May be N/A): 1) left great toe 2) left 1st distal metatarsal bone Complications: None Total Tourniquet Time: 21 minutes Fluids: See anesthesia record Estimated Blood Loss: Minimal Date OP Note Dictated: Oct 12, 2017 Time OP Note Dictated: 10:15 JUAN F PIRES MD Oct 12, 2017 10:26
--- NOTE | 2017-10-12 11:09 | Hospitalist Progress Note ---
Subjective Progress Notes Subjective Mr. Russell is a 51yo male with PMH of HTN, DM-II, CKD-III, GERD, Depression and chronic diabetic foot ulcer. He has been seen by Dr. Pires who noted some surrounding erythema of the ulcer and some edema in the same foot. He was admitted for osteomyelitis of his Toe and possible amputation. He is currently on Vancomycin and Imipenem. He is scheduled to have surgical procedure in am and I have discussed the case with Dr. Pires. Patient is afebrile with WBC 10.4, hemodynamically stable and c/o swelling of his legs. 10/12: Patient is scheduled to have surgical procedure today by Dr. Pires. His BS was low this am and I held his Lantus this am and gave D50% 1 amp. Patient Complains of: Neurological: No: Confusion, Weakness, Dizziness Cardiovascular: No: Chest Pain, Palpitations Respiratory: No: Cough, Congestion, Shortness of Breath Gastrointestinal: No Nausea, No Vomiting Genitourinary: No Dysuria, No Hematuria Musculoskeletal: Impaired Mobility, No: Pain, Sprain, Strain Physical Exam Vital Signs Date Time Temp Pulse Resp B/P (MAP) Pulse Ox O2 Delivery O2 Flow Rate FiO2 10/12/17 10:30 72 20 97 10/12/17 07:30 Room Air 10/12/17 07:17 97.6 162/98 (119) 10/10/17 01:30 0.5 Intake and Output 10/13/17 07:00 Intake Total 550 ml Balance 550 ml IV Total 550 ml General Appearance: Alert, Awake, No Acute Distress, Afebrile Neuro: No Gross deficits Eyes: PERRLA Cardiovascular: Normal Rhythm & Peripheral Pulses GI: Soft and Non-Tender Extremities: Edema Psych: Alert & Oriented X3 Result Diagram: 10/12/17 0452 10/12/17 0452 Assessment and Plan Problems: (1) Cellulitis of foot Status: Acute Assessment & Plan: He presented with 2 days of worsening erythema and swelling to the left foot surrounding the diabetic foot ulcer. BP and P are stable and He is afebrile. The WBC was elevated with neutrophilia and CRP/ESR are increased from July. He is on Primaxin and Vancomycin. MRI of the foot shows osteomyelitis. PT is consulted for wound care. Dr. Pires was consulted about MRI results and he will go to surgery this weekend for amputation. He does have increased swelling to the left lower extremity today. I will order a Venous Doppler of the left leg to assess for DVT. 10/11: Mr. Russell is a 51yo male with PMH of HTN, DM-II, CKD-III, GERD, Depression and chronic diabetic foot ulcer. He has been seen by Dr. Pires who noted some surrounding erythema of the ulcer and some edema in the same foot. He was admitted for osteomyelitis of his Toe and possible amputation. He is currently on Vancomycin and Imipenem. He is scheduled to have surgical procedure in am and I have discussed the case with Dr. Pires. Patient is afebrile with WBC 10.4, hemodynamically stable and c/o swelling of his legs. He is scheduled to have amputation in am by Dr. Pires. I will continue his present antibiotics. 10/12: I discussed the case with anesthesiologist. Currently patient is in surgery by Dr. Pires. (2) Diabetic foot ulcer Status: Chronic Assessment & Plan: See above. (3) Acute renal failure Status: Acute Assessment & Plan: Acute on chronic. Secondary to illness and exacerbated by lisinopril. Will hydrate, hold lisinopril and follow closely. 10/11: His renal function has been fluctuating between GFR 30 to 40ml/min. I will restart his Lisinopril and watch his K level 10/12: No sig. change in his kidney function. I will continue his current management (4) Hyperkalemia Status: Resolved Assessment & Plan: Mild. Stable for the last month. Secondary to ARF and lisinopril. See above. (5) T2DM (type 2 diabetes mellitus) Status: Chronic Assessment & Plan: Continue Levemir and give SSI to cover. He glucose dropped overnight into the 40's. His Levemir was decreased to 35units BID, instead of 70 units BID. There is a work up ongoing for latent autoimmune diabetes. 10/11: His BS has been adequate after adjusting his Insulin dose. He is currently on Lantus 35units bid. Hold AM Lantus dose before surgery and use sliding scale with coverage. (6) CKD (chronic kidney disease) stage 3, GFR 30-59 ml/min Status: Chronic Assessment & Plan: Baseline Cr is about 1.9-2.2. See above. 10/11: His GFR is low 30ml/h and BUN/Cr is 40/2.3. His BP has been high and I will start him on Lisinopril 20mg po qd. I will send U/A to evaluate proteinuria (7) HTN (hypertension) Status: Chronic Assessment & Plan: He is chronically on amlodipine and lisinopril. Lisinopril to be held for now. 10/11: His BP has been high and I will start him Lisinopril 20mg po qd (8) GERD (gastroesophageal reflux disease) Status: Chronic Assessment & Plan: Continue famotidine. Condition stable Time Spent on Plan of Care: < 30 min Copies to: LETI DIMAS; JUAN F PIRES MD Exam Sepsis Risk: No Definite Risk Problem Qualifiers (1) Diabetic foot ulcer: Diabetic foot ulcer location: midfoot Diabetes mellitus type: type 2 Laterality: left Non-pressure ulcer stage: with necrosis of muscle Qualified Codes: E11.621 - Type 2 diabetes mellitus with foot ulcer; L97.423 - Non-pressure chronic ulcer of left heel and midfoot with necrosis of muscle (2) Acute renal failure: Acute renal failure type: unspecified Qualified Codes: N17.9 - Acute kidney failure, unspecified (3) T2DM (type 2 diabetes mellitus): Diabetes mellitus complication status: with skin complications Diabetes mellitus complication detail: with foot ulcer SEBASTIAN CAMACHO MD Oct 12, 2017 11:09
[2017-10-12] MEDS: VANCOMYCIN(*) 1 GM VIAL 1 GM, VANCOMYCIN (*) 0.5 GM VIAL 0.5 GM in NS(*) 0.9% 250 ML BA... IVPB SCH (11:13)
[2017-10-12] MEDS: ACETAMINOPHEN 325 MG TAB PO PRN (12:19)
[2017-10-12] MEDS: ASPIRIN 81 MG ENTERIC COATED PO SCH (12:19)
[2017-10-12] MEDS: INSULIN HUM LISPRO 100 UN/ML 3 ML VIAL SUBQ PRN ×2 (17:17→20:50)
[2017-10-12] MEDS: SIMVASTATIN 20 MG TAB PO SCH (20:45)
[2017-10-13] MEDS: IMIPENEM/CILASTA(*) 500MG VIAL 300 MG in NS(*) 0.9% 100 ML BAG 100 ML IVPB SCH ×4 (01:52→20:48)
[2017-10-13 01:53] VITALS: BP 153/82
[2017-10-13 05:54] VITALS: BP 161/104
[2017-10-13 05:54] LABS: PLATELET COUNT, AUTOMATED 328 K/uL (150-450)
--- NOTE | 2017-10-13 06:25 | OPERATIVE REPORT 1 ---
EVENT DATE: October 12, 2017 SURGEON: Leobardo Salgado MD ANESTHESIOLOGIST: Jose Gould MD ANESTHESIA: LMA PREOPERATIVE DIAGNOSIS Chronic left foot diabetic ulcer with underlying osteomyelitis involving the proximal phalanx of the first toe and the distal first metatarsal bone. POSTOPERATIVE DIAGNOSIS Chronic left foot diabetic ulcer with underlying osteomyelitis involving the proximal phalanx of the first toe and the distal first metatarsal bone. PROCEDURE PERFORMED Partial left foot amputation including the left first toe and distal half of the first metatarsal bone. COMPLICATIONS None. CONDITION Stable. BLOOD LOSS Minimal. INDICATIONS This is a 51-year-old gentleman who has poorly controlled diabetes and who was admitted to the hospital with a worsening left foot diabetic foot ulcer on the medial aspect of the first MTP joint, and an MRI has revealed osteomyelitis involving the distal first metatarsal bone and the proximal portion of the proximal first phalanx. I was consulted and patient was started on antibiotics , and the cellulitic component was improving, so he provided consent for amputation of his first toe and distal first metatarsal bone to get rid of the infected bone. DESCRIPTION OF PROCEDURE The patient was brought into the operating room, placed supine on the operating table. LMA anesthesia was administered, and his left foot and ankle were prepped and draped in sterile fashion. Time out was completed, and I placed an Esmarch wrap over his foot and ankle to squeeze the blood out, and then inflated the tourniquet on his left calf. The Esmarch wrap was removed, and I marked the skin overlying the proximal portion of the great toe and up onto the mid foot medially just anterior to the ulcer. I then injected 0.5% ropivacaine plain along the entire portion of the skin that I had marked, and then started the surgery with an incision around proximal portion of the great toe, all the way through all of the soft tissues down to the bone. I then made the incision up the medial aspect of the left foot all the way down to bone through all of the soft tissues. I then used a combination of periosteal elevator and sharp dissection to separate all soft tissues away from the proximal portion of the proximal phalanx as well as the distal two-thirds of the first metatarsal bone circumferentially. I then used a Gigli saw to saw through the shaft of the first metatarsal bone, and then remove the first toe and metatarsal bone and block and passed these off the field. I then used a rongeur and trimmed the distal portion of divided bone in the midshaft of the metatarsal bone and smoothed it out, and then I used a file and filed the bone down so there were no sharp edges. At this point, the tourniquet was let down after 21 minutes of tourniquet time, and there were small oozers, but revealed good bleeding tissue. I then trimmed around the ulcer and removed all necrotic tissue, soft tissues from the ulcer on the medial aspect where the MTP joint was. I then used the pulse lavage and cleaned out the entire wound, and was very conservative in stopping any oozing so that I did not sacrifice blood flow which would be so crucial to healing. I then used interrupted 3-0 Vicryl sutures to reapproximate the soft tissues in the wound and to cover up the distal portion of the metatarsal bone. The skin was closed with interrupted 2- 0 nylon sutures. The skin was cleaned, dried and I applied copious amounts of bacitracin antibiotic ointment over the incision followed by Xeroform gauze, 4x4 gauze, and then wrapped his foot and ankle in Kerlix and an Lanre wrap. He was awakened and the LMA removed. He was transported to the recovery room in stable condition, having tolerated the procedure without any apparent problems. ORLY
--- NOTE | 2017-10-13 07:57 | General Surgery Progress Note ---
Subjective Progress Notes Subjective No complaints. Reportedly being noncompliant and is walking on his left foot. Instructions are NWB left foot. Physical Exam Vital Signs Date Time Temp Pulse Resp B/P (MAP) Pulse Ox O2 Delivery O2 Flow Rate FiO2 10/13/17 05:54 98.4 91 16 161/104 (123) 92 Nasal Cannula 1.0 General Appearance: Alert, Awake, No Acute Distress, Afebrile Extremities: Other (LANRE wrap and dressings are in place and intact) Result Diagram: 10/13/17 0542 10/13/17 0542 Assessment and Plan Problems: (1) Diabetic foot ulcer Status: Chronic Assessment & Plan: 10/08/17: Patient is admitted to the hospitalist [facility] and they are managing his diabetes and hypertension. Wound care consult has been placed. X-ray of his foot in the emergency room did not reveal any bony involvement. An MRI of his left foot is ordered for tomorrow morning. He is on vancomycin and Unasyn for antibiotic broad-spectrum coverage. I agree with the current plan and will follow along. He may require surgical debridement in the operating room. Will check the MRI after its completed to see if there is any evidence of osteomyelitis. We'll otherwise continue with local wound care as per the wound care team's regimen. 10/09/17: The ulcer is essentially unchanged. His foot is still edematous with erythema. Continue wound care. 10/10/17: MRI of his left foot is consistent with osteomyelitis in the distal 1st metatarsal bone and proximal portion of the proximal 1st phalanx. We'll need to proceed with surgical debridement in the next couple of days. Will continue antibiotics and let the edema and cellulitic component improved. Will have him keep his leg elevated and wrap his foot and ankle and an Lanre wrap to decrease swelling. I have explained these results and the plan to the patient to is obviously disturbed but admits that he is not completely surprised. 10/11/17: The wound looks essentially the same. The edema and erythema are improving. We'll plan on left foot 1st digit and partial metatarsal resection. I have explained the surgery to him in detail as well as the alternatives and the risks. I have emphasized the risks that the surgical wound may become infected or also exhibited poor wound healing and fall apart. I may not be able to get the whole wound closed due to the size of the ulcer. The alford will be to trim the bone back so that there is no exposed bone and then he will require continued wound care. He can have issues with instability of his foot since I am removing the ball of his foot and making his foot more narrow which can increase the risk of problems ambulating or new ulcers due to changes in gait dynamics. He could also require further amputation such as a transmetatarsal amputation or even below knee amputation if he fails to heal after this surgery. He indicates his understanding of this discussion and his questions been answered. He indicates that he would like to proceed with this procedure tomorrow morning. 10/12/17: To OR today for surgical debridement of left foot which will include amputation of left great toe and distal metatarsal bone. Pt agrees with proceeding with surgery. 10/13/17: POD#1 s/p left foot great toe/distal MTP amputation. No complaints. Reinforced to patient that he should be not weight bearing on left foot to allow surgical incision to heal. Will ask PT to provide crutch training today. Will remove LANRE wrap and dressings tomorrow and inspect surgical site. (2) Cellulitis of foot Status: Acute (3) T2DM (type 2 diabetes mellitus) Status: Chronic Condition Stable. Time Spent: < 30 min Exam Sepsis Risk: No Definite Risk Problem Qualifiers (1) Diabetic foot ulcer: Diabetic foot ulcer location: midfoot Diabetes mellitus type: type 2 Laterality: left Non-pressure ulcer stage: with necrosis of muscle Qualified Codes: E11.621 - Type 2 diabetes mellitus with foot ulcer; L97.423 - Non-pressure chronic ulcer of left heel and midfoot with necrosis of muscle (2) T2DM (type 2 diabetes mellitus): Diabetes mellitus complication status: with skin complications Diabetes mellitus complication detail: with foot ulcer JUAN F PIRES MD Oct 13, 2017 07:57
[2017-10-13 07:59] VITALS: BP 192/104
[2017-10-13] MEDS: INSULIN HUM LISPRO 100 UN/ML 3 ML VIAL SUBQ PRN (08:13)
[2017-10-13] MEDS: amLODIPine BESYL(*) 5 MG TAB PO SCH (08:43)
[2017-10-13] MEDS: ASPIRIN 81 MG ENTERIC COATED PO SCH (08:43)
[2017-10-13] MEDS: FAMOTIDINE 20 MG TAB PO SCH ×2 (08:43→20:48)
[2017-10-13] MEDS: LACTOBACILLUS ACIDOPHILUS TAB PO SCH ×2 (09:06→16:53)
[2017-10-13] MEDS: INSULIN DETEMIR 100 U/ML 3 ML PEN SUBQ SCH ×2 (09:06→20:48)
[2017-10-13] MEDS ORDERED: cloNIDine HCL 0.1 MG TAB PO ONE (09:10)
[2017-10-13] MEDS: VANCOMYCIN(*) 1 GM VIAL 1 GM, VANCOMYCIN (*) 0.5 GM VIAL 0.5 GM in NS(*) 0.9% 250 ML BA... IVPB SCH (11:02)
--- NOTE | 2017-10-13 11:54 | Hospitalist Progress Note ---
Subjective Progress Notes Subjective He has no complaints this morning. Patient Complains of: Cardiovascular: No: Chest Pain Respiratory: No: Shortness of Breath Physical Exam Vital Signs Date Time Temp Pulse Resp B/P (MAP) Pulse Ox O2 Delivery O2 Flow Rate FiO2 10/13/17 08:00 90 Nasal Cannula 1.0 10/13/17 07:59 98.3 94 16 192/104 (133) Intake and Output 10/14/17 07:00 # Voids 2 General Appearance: Alert, Awake, No Acute Distress, Afebrile Cardiovascular: Regular Rate and Rhythm Respiratory: No Respiratory Distress, Clear to Auscultation Psych: Alert & Oriented X3, Appropriate Mood & Affect Result Diagram: 10/13/1754110/13/17541 Assessment and Plan Problems: (1) Cellulitis of foot Status: Acute Assessment & Plan: He presented with 2 days of worsening erythema and swelling to the left foot surrounding the diabetic foot ulcer. The WBC was elevated with neutrophilia and CRP/ESR are increased from July. He is on Primaxin and Vancomycin. MRI of the foot shows osteomyelitis. Dr. Salgado performed amputation. We will continue antibiotics. (2) Diabetic foot ulcer Status: Chronic Assessment & Plan: See above. (3) Acute renal failure Status: Acute Assessment & Plan: Acute on chronic. Secondary to illness and exacerbated by lisinopril. He was hydrated, we will hold lisinopril and follow closely. (4) Hyperkalemia Status: Resolved Assessment & Plan: Mild. Stable for the last month. Secondary to ARF and lisinopril. See above. (5) T2DM (type 2 diabetes mellitus) Status: Chronic Assessment & Plan: Continue Levemir and give SSI to cover. He glucose were decreased into the 40's. His Levemir was decreased to 35units BID, instead of 70 units BID. (6) CKD (chronic kidney disease) stage 3, GFR 30-59 ml/min Status: Chronic Assessment & Plan: Baseline Cr is about 1.9-2.2. See above. (7) HTN (hypertension) Status: Chronic Assessment & Plan: He is chronically on amlodipine and lisinopril. Lisinopril to be held for now. His blood pressures have been elevated, we will start Clonidine as needed with parameters for better control. (8) GERD (gastroesophageal reflux disease) Status: Chronic Assessment & Plan: Continue famotidine. Exam Sepsis Risk: No Definite Risk Problem Qualifiers (1) Diabetic foot ulcer: Diabetic foot ulcer location: midfoot Diabetes mellitus type: type 2 Laterality: left Non-pressure ulcer stage: with necrosis of muscle Qualified Codes: E11.621 - Type 2 diabetes mellitus with foot ulcer; L97.423 - Non-pressure chronic ulcer of left heel and midfoot with necrosis of muscle (2) Acute renal failure: Acute renal failure type: unspecified Qualified Codes: N17.9 - Acute kidney failure, unspecified (3) T2DM (type 2 diabetes mellitus): Diabetes mellitus complication status: with skin complications Diabetes mellitus complication detail: with foot ulcer SHARIF MAIN [employer] SE[employer]ER Oct 13, 2017 11:54
[2017-10-13 12:11] VITALS: BP 147/85
[2017-10-13 16:55] VITALS: BP 162/93
[2017-10-13 19:30] VITALS: BP 179/95
[2017-10-13] MEDS: SIMVASTATIN 20 MG TAB PO SCH (20:48)
[2017-10-14] VITALS (8 sets, daily range): BP systolic 140–204; BP diastolic 82–105
[2017-10-14] MEDS: IMIPENEM/CILASTA(*) 500MG VIAL 300 MG in NS(*) 0.9% 100 ML BAG 100 ML IVPB SCH ×4 (02:34→20:47)
--- NOTE | 2017-10-14 07:28 | General Surgery Progress Note ---
Subjective Progress Notes Subjective No complaints. Physical Exam Vital Signs Date Time Temp Pulse Resp B/P (MAP) Pulse Ox O2 Delivery O2 Flow Rate FiO2 10/14/17 05:55 140/82 (101) 10/14/17 00:21 97.6 79 16 96 Room Air 10/13/17 08:00 1.0 General Appearance: Alert, Awake, No Acute Distress, Afebrile Extremities: Other (LANRE wrap and dressings removed, foot cleaned. Incision looks good. It's clean and dry. Redressed with 4x4 guaze, kerlix, and new LANRE wrap.) Result Diagram: 10/13/17 0542 10/13/17 0542 Assessment and Plan Problems: (1) Diabetic foot ulcer Status: Chronic Assessment & Plan: 10/08/17: Patient is admitted to the hospitalist [facility] and they are managing his diabetes and hypertension. Wound care consult has been placed. X-ray of his foot in the emergency room did not reveal any bony involvement. An MRI of his left foot is ordered for tomorrow morning. He is on vancomycin and Unasyn for antibiotic broad-spectrum coverage. I agree with the current plan and will follow along. He may require surgical debridement in the operating room. Will check the MRI after its completed to see if there is any evidence of osteomyelitis. We'll otherwise continue with local wound care as per the wound care team's regimen. 10/09/17: The ulcer is essentially unchanged. His foot is still edematous with erythema. Continue wound care. 10/10/17: MRI of his left foot is consistent with osteomyelitis in the distal 1st metatarsal bone and proximal portion of the proximal 1st phalanx. We'll need to proceed with surgical debridement in the next couple of days. Will continue antibiotics and let the edema and cellulitic component improved. Will have him keep his leg elevated and wrap his foot and ankle and an Lanre wrap to decrease swelling. I have explained these results and the plan to the patient to is obviously disturbed but admits that he is not completely surprised. 10/11/17: The wound looks essentially the same. The edema and erythema are improving. We'll plan on left foot 1st digit and partial metatarsal resection. I have explained the surgery to him in detail as well as the alternatives and the risks. I have emphasized the risks that the surgical wound may become infected or also exhibited poor wound healing and fall apart. I may not be able to get the whole wound closed due to the size of the ulcer. The alford will be to trim the bone back so that there is no exposed bone and then he will require continued wound care. He can have issues with instability of his foot since I am removing the ball of his foot and making his foot more narrow which can increase the risk of problems ambulating or new ulcers due to changes in gait dynamics. He could also require further amputation such as a transmetatarsal amputation or even below knee amputation if he fails to heal after this surgery. He indicates his understanding of this discussion and his questions been answered. He indicates that he would like to proceed with this procedure tomorrow morning. 10/12/17: To OR today for surgical debridement of left foot which will include amputation of left great toe and distal metatarsal bone. Pt agrees with proceeding with surgery. 10/13/17: POD#1 s/p left foot great toe/distal MTP amputation. No complaints. Reinforced to patient that he should be not weight bearing on left foot to allow surgical incision to heal. Will ask PT to provide crutch training today. Will remove LANRE wrap and dressings tomorrow and inspect surgical site. 10/14/17: POD#2. Doing well. Surgical site looks good. Will change dressing daily until completely dry without any drainage then will leave open to air. Pt now looking at possibility of not working for the first couple of weeks to allow his foot to heal based on my recommendation yesterday. Last evening, he was insistent that he needs to return to work this weekend. Will talk to case management about resources for him. Will continue inpatient care for him, possibly look at [facility] for ongoing PT/OT and wound care in the next day or two. (2) Cellulitis of foot Status: Acute (3) T2DM (type 2 diabetes mellitus) Status: Chronic Condition Stable. Time Spent: < 30 min Exam Sepsis Risk: No Definite Risk Problem Qualifiers (1) Diabetic foot ulcer: Diabetic foot ulcer location: midfoot Diabetes mellitus type: type 2 Laterality: left Non-pressure ulcer stage: with necrosis of muscle Qualified Codes: E11.621 - Type 2 diabetes mellitus with foot ulcer; L97.423 - Non-pressure chronic ulcer of left heel and midfoot with necrosis of muscle (2) T2DM (type 2 diabetes mellitus): Diabetes mellitus complication status: with skin complications Diabetes mellitus complication detail: with foot ulcer JUAN F PIRES MD Oct 14, 2017 07:28
[2017-10-14] MEDS: LACTOBACILLUS ACIDOPHILUS TAB PO SCH ×2 (07:46→17:04)
[2017-10-14] MEDS: cloNIDine HCL 0.1 MG TAB PO PRN ×2 (07:47→20:47)
[2017-10-14] MEDS: FAMOTIDINE 20 MG TAB PO SCH ×2 (08:33→20:47)
[2017-10-14] MEDS: ASPIRIN 81 MG ENTERIC COATED PO SCH (08:33)
[2017-10-14] MEDS: amLODIPine BESYL(*) 5 MG TAB PO SCH (08:33)
[2017-10-14] MEDS: INSULIN DETEMIR 100 U/ML 3 ML PEN SUBQ SCH ×2 (08:41→20:47)
--- NOTE | 2017-10-14 09:19 | Hospitalist Progress Note ---
Subjective Progress Notes Subjective He has no complaints this morning. Patient Complains of: Cardiovascular: No: Chest Pain Respiratory: No: Shortness of Breath Physical Exam Vital Signs Date Time Temp Pulse Resp B/P (MAP) Pulse Ox O2 Delivery O2 Flow Rate FiO2 10/14/17 08:41 185/94 (124) 10/14/17 08:04 92 Room Air 10/14/17 07:38 98.1 90 16 10/13/17 08:00 1.0 Intake and Output 10/15/17 07:00 Output Total 550 ml Balance -550 ml Output Urine Total 550 ml General Appearance: Alert, Awake, No Acute Distress, Afebrile Neuro: No Gross deficits Cardiovascular: Regular Rate and Rhythm Respiratory: No Respiratory Distress, Clear to Auscultation GI: Soft and Non-Tender Psych: Alert & Oriented X3, Appropriate Mood & Affect Result Diagram: 10/13/1754110/13/17541 Assessment and Plan Problems: (1) Cellulitis of foot Status: Acute Assessment & Plan: He presented with 2 days of worsening erythema and swelling to the left foot surrounding the diabetic foot ulcer. The WBC was elevated with neutrophilia and CRP/ESR are increased from July. He is on Primaxin and Vancomycin. MRI of the foot showed osteomyelitis. Dr. Salgado performed amputation of his left great toe and distal metatarsal. We will continue antibiotics. He will continue to work with physical therapy. (2) Diabetic foot ulcer Status: Chronic Assessment & Plan: See above. (3) Acute renal failure Status: Acute Assessment & Plan: Acute on chronic. Secondary to illness and exacerbated by lisinopril. He was hydrated, we will hold lisinopril and follow closely. (4) Hyperkalemia Status: Resolved Assessment & Plan: Mild. Stable for the last month. Secondary to ARF and lisinopril. See above. (5) T2DM (type 2 diabetes mellitus) Status: Chronic Assessment & Plan: Continue Levemir and give SS Insulin to cover his glucoses. He glucose were decreased into the 40's. His Levemir was decreased to 35units BID. (6) CKD (chronic kidney disease) stage 3, GFR 30-59 ml/min Status: Chronic Assessment & Plan: Baseline Cr is about 1.9-2.2. See above. (7) HTN (hypertension) Status: Chronic Assessment & Plan: He is chronically on amlodipine and lisinopril. Lisinopril to be held for now. His blood pressures have been elevated, we will start Clonidine as needed with parameters for better control. (8) GERD (gastroesophageal reflux disease) Status: Chronic Assessment & Plan: Continue famotidine. Exam Sepsis Risk: No Definite Risk Problem Qualifiers (1) Diabetic foot ulcer: Diabetic foot ulcer location: midfoot Diabetes mellitus type: type 2 Laterality: left Non-pressure ulcer stage: with necrosis of muscle Qualified Codes: E11.621 - Type 2 diabetes mellitus with foot ulcer; L97.423 - Non-pressure chronic ulcer of left heel and midfoot with necrosis of muscle (2) Acute renal failure: Acute renal failure type: unspecified Qualified Codes: N17.9 - Acute kidney failure, unspecified (3) T2DM (type 2 diabetes mellitus): Diabetes mellitus complication status: with skin complications Diabetes mellitus complication detail: with foot ulcer SHARIF MAIN Oct 14, 2017 09:19
[2017-10-14] MEDS: VANCOMYCIN(*) 1 GM VIAL 1 GM, VANCOMYCIN (*) 0.5 GM VIAL 0.5 GM in NS(*) 0.9% 250 ML BA... IVPB SCH (11:26)
--- NOTE | 2017-10-14 13:13 | Medical Nutrition Therapy ---
Nutritional Diagnosis Nutritional Risk Acuity 1: Acute/ES Renal Nutritional Risk Acuity 2: Abcess/Non-Healing Wound Past Medical History: T2DM, CKD stage III, GERD, HTN, depression, appendectomy, [id number] transgender person Nutritional Acuity: 1-High Nutrition Diagnosis: Increased Nutrient Needs Nutrition Etiology: Physiological Causes Nutrition Problem/Etiology/Sym: non healing diabetic foot ulcer with cellulitis. Energy Requirement: 2260 (kcal/day (26 poly/kg)- [facility] RMR (1712) AF 1.2 IF 1.1) Protein Requirement: 134 (g/day (2.0 g/kg of IBW)) Fluid Requirement: 2140 (mL/day (25 mL/kg)) Diet Type: Diabetic Nutrition Intervention: Cont diet as ordered, Encourage intake Diet Comment To RSA: PREFERS TO BE CALLED ANABEL. OFFER SAÚL AT LUNCH AND DINNER Nutrition Monitoring & Eval Nutrition Goals: Eat 50-100% Meal Nutrition Follow-Up: Good Intake RD Patient Assessment Time: [address] Assessment Type: RD Re-Assessment Patient Nutrition Acuity: 1-High Follow Up Date: Oct 17, 2017 Nutritional Comment: 10/09 Pt admitted for cellulitis of foot, diabetic food ulcer and acute renal failure who prefers to be referenced as "Anabel". Pt on a diabetic diet order with no intakes recorded at this time. Pt wt at last visit 78.4 kg on 08/19/17 and is now 85.7 kg, a 16 lb increase. Pt reports poor PO intake typically consuming 1 meal per day around 6-9 PM. Plan Nurse encouraged pt to have more consistent intake of carbs at breakfast, lunch and dinner to help control blood glucose. Pt was preocupied with taking blood glucose and reports that he takes his blood glucose hourly at home. Pt expressed that he has never been provided information regarding consistent carbohydrate intake though pt's EMR references pt provided diabetic diet education at last visit on 08/19/17. Plan Nurse to provide pt with diet education when appropriate. Pt recieving Sa[employer]l nutrition supplement with lunch and dinner to encourage wound healing. Creat 2.5, BUN 39. Monitor appropriatness for diet education pending plan for surgery. Monitor intake and pt progress. 10/10 Plan Nurse provided pt with diabetic diet education. Pt showed little interest in diet ed. Plan Nurse encouraged pt to have more consistent intake consuming 60 g of carbs with breakfast, lunch and dinner. Pt reported understanding and expressed no questions or concerns. At time of visit, pt stated that she would like to get down to the cafe to get another pitcher of lemonade. Pt unable to report if lemonade was diet or regular lemonade. Plan Nurse expressed concern to pt that lemonade would be inappropriate for pt diabetic diet order. Plan Nurse ammenable to pt having light lemonade. Plan Nurse provided pt with a 32 oz cup of light lemonade. Plan Nurse remains available PRN if pt expressed interest further diet ed. Continue monitoring pt progress and intake. 10/11 Pt consuming 75-100% of ADA diet and will be npo for surgery tomorrow. Notable labs include glc 88, Na 132, BUN 40, creatinine 2.3, alk [id number], tot pro 5.4 and alb 2.5. Will cont to monitor and encourage intake. 10/14 Pt s/p surgical debridement of left fod with amputation of left great toe and distal metatarsal bone. Pt on a diabetic diet order consuming 100% of most meals. Pt blood sugar becoming better controlled during admit compared to pt record of blood sugars. Plan Nurse remains available PRN. Will continue to monitor pt intake and progress. BRUCE MAE Oct 14, 2017 12:13
[2017-10-14] MEDS: SIMVASTATIN 20 MG TAB PO SCH (20:47)
[2017-10-14] MEDS: INSULIN HUM LISPRO 100 UN/ML 3 ML VIAL SUBQ PRN (20:55)
[2017-10-15 01:35] VITALS: BP 165/86
[2017-10-15] MEDS: IMIPENEM/CILASTA(*) 500MG VIAL 300 MG in NS(*) 0.9% 100 ML BAG 100 ML IVPB SCH ×2 (02:08→09:22)
--- NOTE | 2017-10-15 05:43 | General Surgery Progress Note ---
Subjective Progress Notes Subjective No complaints this morning. Physical Exam Vital Signs Date Time Temp Pulse Resp B/P (MAP) Pulse Ox O2 Delivery O2 Flow Rate FiO2 10/15/17 01:35 98.0 75 18 165/86 (112) 96 Room Air 10/14/17 08:15 1.0 General Appearance: No Acute Distress, Afebrile, Other (Sleeping, easily arousable) Extremities: Other (Left foot dressing is in place and intact. I didn't remove the dressing due to time of rounds and patient sleeping) Result Diagram: 10/13/17 0542 10/15/17 0155 Assessment and Plan Problems: (1) Diabetic foot ulcer Status: Chronic Assessment & Plan: 10/08/17: Patient is admitted to the hospitalist control and they are managing his diabetes and hypertension. Wound care consult has been placed. X-ray of his foot in the emergency room did not reveal any bony involvement. An MRI of his left foot is ordered for tomorrow morning. He is on vancomycin and Unasyn for antibiotic broad-spectrum coverage. I agree with the current plan and will follow along. He may require surgical debridement in the operating room. Will check the MRI after its completed to see if there is any evidence of osteomyelitis. We'll otherwise continue with local wound care as per the wound care team's regimen. 10/09/17: The ulcer is essentially unchanged. His foot is still edematous with erythema. Continue wound care. 10/10/17: MRI of his left foot is consistent with osteomyelitis in the distal 1st metatarsal bone and proximal portion of the proximal 1st phalanx. We'll need to proceed with surgical debridement in the next couple of days. Will continue antibiotics and let the edema and cellulitic component improved. Will have him keep his leg elevated and wrap his foot and ankle and an Lanre wrap to decrease swelling. I have explained these results and the plan to the patient to is obviously disturbed but admits that he is not completely surprised. 10/11/17: The wound looks essentially the same. The edema and erythema are improving. We'll plan on left foot 1st digit and partial metatarsal resection. I have explained the surgery to him in detail as well as the alternatives and the risks. I have emphasized the risks that the surgical wound may become infected or also exhibited poor wound healing and fall apart. I may not be able to get the whole wound closed due to the size of the ulcer. The alford will be to trim the bone back so that there is no exposed bone and then he will require continued wound care. He can have issues with instability of his foot since I am removing the ball of his foot and making his foot more narrow which can increase the risk of problems ambulating or new ulcers due to changes in gait dynamics. He could also require further amputation such as a transmetatarsal amputation or even below knee amputation if he fails to heal after this surgery. He indicates his understanding of this discussion and his questions been answered. He indicates that he would like to proceed with this procedure tomorrow morning. 10/12/17: To OR today for surgical debridement of left foot which will include amputation of left great toe and distal metatarsal bone. Pt agrees with proceeding with surgery. 10/13/17: POD#1 s/p left foot great toe/distal MTP amputation. No complaints. Reinforced to patient that he should be not weight bearing on left foot to allow surgical incision to heal. Will ask PT to provide crutch training today. Will remove LANRE wrap and dressings tomorrow and inspect surgical site. 10/14/17: POD#2. Doing well. Surgical site looks good. Will change dressing daily until completely dry without any drainage then will leave open to air. Pt now looking at possibility of not working for the first couple of weeks to allow his foot to heal based on my recommendation yesterday. Last evening, he was insistent that he needs to return to work this weekend. Will talk to case management about resources for him. Will continue inpatient care for him, possibly look at [facility] for ongoing PT/OT and wound care in the next day or two. 10/15/17: POD#3. Doing well. Will change dressing later today. Possibly to [facility] today if approved; pt is agreeable at this point and he notes that he has his bills taken care of for the next month and so is no longer insisting on going back to work this weekend; he is willing to give this the time it needs to heal. Continue non-wt bearing on his left foot to allow his surgical wound to heal, continue daily dressing changes until the incision is dry without any drainage. Continue abx. (2) Cellulitis of foot Status: Resolved (3) T2DM (type 2 diabetes mellitus) Status: Chronic Condition Stable. Time Spent: < 30 min Exam Sepsis Risk: No Definite Risk Problem Qualifiers (1) Diabetic foot ulcer: Diabetic foot ulcer location: midfoot Diabetes mellitus type: type 2 Laterality: left Non-pressure ulcer stage: with necrosis of muscle Qualified Codes: E11.621 - Type 2 diabetes mellitus with foot ulcer; L97.423 - Non-pressure chronic ulcer of left heel and midfoot with necrosis of muscle (2) T2DM (type 2 diabetes mellitus): Diabetes mellitus complication status: with skin complications Diabetes mellitus complication detail: with foot ulcer JUAN F PIRES MD Oct 15, 2017 05:43
[2017-10-15 07:20] VITALS: BP 174/98
[2017-10-15] MEDS ORDERED: INSULIN DETEMIR 100 U/ML 3 ML PEN SUBQ SCH ×2 (09:00→21:00)
[2017-10-15 09:05] LABS: PLATELET COUNT, AUTOMATED 376 K/uL (150-450)
[2017-10-15] MEDS: amLODIPine BESYL(*) 5 MG TAB PO SCH (09:21)
[2017-10-15] MEDS: LACTOBACILLUS ACIDOPHILUS TAB PO SCH (09:21)
[2017-10-15] MEDS: ASPIRIN 81 MG ENTERIC COATED PO SCH (09:22)
[2017-10-15] MEDS: FAMOTIDINE 20 MG TAB PO SCH (09:24)
--- NOTE | 2017-10-15 09:41 | Antimicrobial Stewardship ---
Antimicrobial Time Out Antimicrobial Stewardship MD Service: Hospitalist Indications: Other (Osteomyelitis) Antimicrobial Used 10/10/17--10/15/17: Primaxin + Vancomycin (10/15/17- day 6 of IV antibiotics) 10/15/17: Switch to PO antibiotics: Levofloxacin + Augmentin Start Date: Oct 10, 2017 Culture Results: Yes (Foot Cx: Morganella morganii, Enterobacter cloacae, MSSA ) Eligible for PO Conversion Eligable for PO Conversion: Yes (Afebrile, normal WBCs, s/p metatarsal resection) Reviewed with Provider Reviewed w/ Provider on Rounds: Yes Date Reviewed w/ Provider: Oct 15, 2017 Comments Comments Antibiotics started on 10/10/17 for diabetic foot infection on 10/10/17, s/p resection. Afebrile, no leukocytosis. Antibiotics: Primaxin + Vancomycin (started on 10/10/17- 10/15/17), recommend de- escalation and switching to po antibiotics: Levofloxacin 750mg po q48h -- to complete a total of 10-14 days of antibiotics Augmentin 875mg po Q12h -- to complete a total of 10-14 days of antibiotics Kimberly Miller, PharmD, OP KIMBERLY MILLER Oct 15, 2017 09:41
--- NOTE | 2017-10-15 12:36 | Hospitalist Depart ---
Discharge Summary Reason for Hosp/Final Diag: (1) Cellulitis of foot Status: Resolved Hospital Course & Plan: He presented with 2 days of worsening erythema and swelling to the left foot surrounding the diabetic foot ulcer. The WBC was elevated with neutrophilia and CRP/ESR are increased from July. He was on Primaxin and Vancomycin for one week. MRI of the foot showed osteomyelitis. Dr. Salgado performed amputation of his left great toe and distal metatarsal. We will continue oral antibiotics with Augmentin and Levaquin per pharmacy recommendations based on culture results. He will continue to work with physical therapy on ECF. (2) Diabetic foot ulcer Status: Chronic Hospital Course & Plan: See above. (3) Acute renal failure Status: Acute Hospital Course & Plan: Acute on chronic. Secondary to illness and exacerbated by lisinopril. He was hydrated, we will stop lisinopril. (4) Hyperkalemia Status: Resolved Hospital Course & Plan: Mild. Stable for the last month. Secondary to ARF and lisinopril. See above. (5) T2DM (type 2 diabetes mellitus) Status: Chronic Hospital Course & Plan: Continue Levemir and give SS Insulin to cover his glucoses. His glucose levels were decreased into the 40's overnight. His Levemir was decreased to 30 units in the morning, and we discontinued his night Levemir. I spoke with the patient at length to assure he is not dosing himself with his own insulin and he has stated he is not dosing himself while admitted. (6) CKD (chronic kidney disease) stage 3, GFR 30-59 ml/min Status: Chronic Hospital Course & Plan: Baseline Cr is about 1.9-2.2. See above. (7) HTN (hypertension) Status: Chronic Hospital Course & Plan: He is chronically on amlodipine and lisinopril. Lisinopril to be held for now. His blood pressures have been elevated, we will start Clonidine as needed with parameters for better control. (8) GERD (gastroesophageal reflux disease) Status: Chronic Hospital Course & Plan: Continue famotidine. Departure Latest Vital Signs Vital Signs 10/14/17 10/15/17 10/15/17 08:15 07:20 08:34 Temp 98.0 Pulse 78 Resp 16 B/P (MAP) 174/98 (123) Pulse Ox 95 O2 Delivery Room Air O2 Flow Rate 1.0 Weight (Pounds): 189 Result Diagram: 10/15/17 0840 10/15/17 0840 Condition: Improved Discharge: H ECF Discharge Instructions Home Meds Active Scripts Amlodipine Besylate (AMLODIPINE BESYLATE) 5 Mg Tablet, 1 TAB PO QDAY, #30 TAB Prov:JUAN F MCLEAN DO 08/21/17 Reported Medications Loperamide Hcl (ANTI-DIARRHEA) 2 Mg Tablet, 2 MG PO Y for DIARRHEA 10/08/17 Lisinopril (LISINOPRIL) 20 Mg Tablet, 20 MG PO QDAY, TAB 10/08/17 Insulin Detemir (LEVEMIR) 100 Unit/Ml Injs, 70 UNIT SUBQ BID 09/03/17 Simvastatin (SIMVASTATIN) 20 Mg Tablet, 20 MG PO HS, TAB 08/19/17 Insulin Lispro 100 Un/Ml Vial (HUMALOG 100 U/ML VIAL) 100 Unit/1 Ml Vial, 0 SQ per sliding scale, VIAL 1 unit for every 50 point increase in blood sugar above normal. 08/19/17 Famotidine (FAMOTIDINE) 20 Mg Tablet, 20 MG PO QDAY, TAB 08/19/17 Aspirin (ASPIR 81) 81 Mg Tablet.dr, 81 MG PO QDAY, TAB 08/03/16 Cholecalciferol (Vitamin D3) (VITAMIN D3) 1,000 Unit Tablet, 1000 UNIT PO QDAY, TAB 08/03/16 Discontinued Reported Medications Amoxicillin/Pot Clav 875-125 Mg Tab (AUGMENTIN 875-125 TABLET) 1 Each Tablet, 1 TAB PO Q12H, TAB 08/19/17 Diet: Diabetic Special Instructions: Copies to: LETI DIMAS Venous Thromboembolism Antithrombotics Is Pt On Any Antithrombotics?: No Problem Qualifiers (1) Diabetic foot ulcer: Diabetic foot ulcer location: midfoot Diabetes mellitus type: type 2 Laterality: left Non-pressure ulcer stage: with necrosis of muscle Qualified Codes: E11.621 - Type 2 diabetes mellitus with foot ulcer; L97.423 - Non-pressure chronic ulcer of left heel and midfoot with necrosis of muscle (2) Acute renal failure: Acute renal failure type: unspecified Qualified Codes: N17.9 - Acute kidney failure, unspecified (3) T2DM (type 2 diabetes mellitus): Diabetes mellitus complication status: with skin complications Diabetes mellitus complication detail: with foot ulcer SHARIF [facility]IN [facility] Oct 15, 2017 12:36
--- NOTE | 2017-10-15 12:39 | ECF H&P BLANK ---
ECF H&P UPDATE Patient Name: Juan F Russell Unit Number: [id number] Date of : 1965 Patient Status: Discharged Inpatient Attending Doctor: Simone Bolivar MD Discharge Summary/Follow-Up Discharge Summary Reason for Hosp/Final Diag: (1) Cellulitis of foot Status: Resolved Hospital Course & Plan: He presented with 2 days of worsening erythema and swelling to the left foot surrounding the diabetic foot ulcer. The WBC was elevated with neutrophilia and CRP/ESR are increased from July. He was on Primaxin and Vancomycin for one week. MRI of the foot showed osteomyelitis. Dr. Salgado performed amputation of his left great toe and distal metatarsal. We will continue oral antibiotics with Augmentin and Levaquin per pharmacy recommendations based on culture results. He will continue to work with physical therapy on ECF. (2) Diabetic foot ulcer Status: Chronic Hospital Course & Plan: See above. (3) Acute renal failure Status: Acute Hospital Course & Plan: Acute on chronic. Secondary to illness and exacerbated by lisinopril. He was hydrated, we will stop lisinopril. (4) Hyperkalemia Status: Resolved Hospital Course & Plan: Mild. Stable for the last month. Secondary to ARF and lisinopril. See above. (5) T2DM (type 2 diabetes mellitus) Status: Chronic Hospital Course & Plan: Continue Levemir and give SS Insulin to cover his glucoses. His glucose levels were decreased into the 40's overnight. His Levemir was decreased to 30 units in the morning, and we discontinued his night Levemir. I spoke with the patient at length to assure he is not dosing himself with his own insulin and he has stated he is not dosing himself while admitted. (6) CKD (chronic kidney disease) stage 3, GFR 30-59 ml/min Status: Chronic Hospital Course & Plan: Baseline Cr is about 1.9-2.2. See above. (7) HTN (hypertension) Status: Chronic Hospital Course & Plan: He is chronically on amlodipine and lisinopril. Lisinopril to be held for now. His blood pressures have been elevated, we will start Clonidine as needed with parameters for better control. (8) GERD (gastroesophageal reflux disease) Status: Chronic Hospital Course & Plan: Continue famotidine. Departure Latest Vital Signs Vital Signs 10/14/17 10/15/17 10/15/17 08:15 07:20 08:34 Temp 98.0 Pulse 78 Resp 16 B/P (MAP) 174/98 (123) Pulse Ox 95 O2 Delivery Room Air O2 Flow Rate 1.0 Weight (Pounds): 189 Result Diagram: 10/15/17 0840 10/15/17 0840 Condition: Improved Discharge: H ECF Discharge Instructions Home Meds Active Scripts Amlodipine Besylate (AMLODIPINE BESYLATE) 5 Mg Tablet, 1 TAB PO QDAY, #30 TAB Prov:JUAN F MCLEAN DO 08/21/17 Reported Medications Loperamide Hcl (ANTI-DIARRHEA) 2 Mg Tablet, 2 MG PO Y for DIARRHEA 10/08/17 Lisinopril (LISINOPRIL) 20 Mg Tablet, 20 MG PO QDAY, TAB 10/08/17 Insulin Detemir (LEVEMIR) 100 Unit/Ml Injs, 70 UNIT SUBQ BID 09/03/17 Simvastatin (SIMVASTATIN) 20 Mg Tablet, 20 MG PO HS, TAB 08/19/17 Insulin Lispro 100 Un/Ml Vial (HUMALOG 100 U/ML VIAL) 100 Unit/1 Ml Vial, 0 SQ per sliding scale, VIAL 1 unit for every 50 point increase in blood sugar above normal. 08/19/17 Famotidine (FAMOTIDINE) 20 Mg Tablet, 20 MG PO QDAY, TAB 08/19/17 Aspirin (ASPIR 81) 81 Mg Tablet.dr, 81 MG PO QDAY, TAB 08/03/16 Cholecalciferol (Vitamin D3) (VITAMIN D3) 1,000 Unit Tablet, 1000 UNIT PO QDAY, TAB 08/03/16 Discontinued Reported Medications Amoxicillin/Pot Clav 875-125 Mg Tab (AUGMENTIN 875-125 TABLET) 1 Each Tablet, 1 TAB PO Q12H, TAB 08/19/17 Diet: Diabetic Special Instructions: Copies to: LETI DIMAS VTE Venous Thromboembolism Antithrombotics Is Pt On Any Antithrombotics?: No CVA Documentation CVA Documentation Heart Failure Documentation Heart Failure [id number] Certification Problem Qualifiers (1) Diabetic foot ulcer: Diabetic foot ulcer location: midfoot Diabetes mellitus type: type 2 Laterality: left Non-pressure ulcer stage: with necrosis of muscle Qualified Codes: E11.621 - Type 2 diabetes mellitus with foot ulcer; L97.423 - Non-pressure chronic ulcer of left heel and midfoot with necrosis of muscle (2) Acute renal failure: Acute renal failure type: unspecified Qualified Codes: N17.9 - Acute kidney failure, unspecified (3) T2DM (type 2 diabetes mellitus): Diabetes mellitus complication status: with skin complications Diabetes mellitus complication detail: with foot ulcer [facility] Oct 15, 2017 12:36 SH[facility] Oct 15, 2017 12:39
== END 2017-10-15 10:40 | DRG 617 ==
LOC: ER 11:28 → MED 15:07
PROVIDERS: ADMIT Internal Medicine; ATTEND Internal Medicine
PROC: 0JDR3ZZ Extraction of Left Foot Subcutaneous Tissue and Fascia, Percutaneous Approach (ICD-10-PCS; 2017-10-08)
PROC: 0Y6N0Z9 Detachment at Left Foot, Partial 1st Ray, Open Approach (ICD-10-PCS; principal; 2017-10-12 08:52)
DX: E11.628 Type 2 diabetes mellitus with other skin complications (principal); L03.116 Cellulitis of left lower limb; L97.423 Non-pressure chronic ulcer of left heel and midfoot with necrosis of muscle; M86.9 Osteomyelitis, unspecified; N17.9 Acute kidney failure, unspecified; E11.69 Type 2 diabetes mellitus with other specified complication; E11.621 Type 2 diabetes mellitus with foot ulcer; T46.4X5A Adverse effect of angiotensin-converting-enzyme inhibitors, initial encounter; E87.5 Hyperkalemia; K21.9 Gastro-esophageal reflux disease without esophagitis; E11.22 Type 2 diabetes mellitus with diabetic chronic kidney disease; I12.9 Hypertensive chronic kidney disease with stage 1 through stage 4 chronic kidney disease, or unspecified chronic kidney disease; N18.3 Chronic kidney disease, stage 3 (moderate); K02.9 Dental caries, unspecified; F32.9 Major depressive disorder, single episode, unspecified; E11.40 Type 2 diabetes mellitus with diabetic neuropathy, unspecified; E78.5 Hyperlipidemia, unspecified; J45.909 Unspecified asthma, uncomplicated; E11.65 Type 2 diabetes mellitus with hyperglycemia; Z79.4 Long term (current) use of insulin
CPT/HCPCS: 36415; 36416; 80202; 81001; 82040; 82247; 82310; 82374; 82435; 82565; 82570; 82947; 82948; 83605; 84075; 84132; 84155; 84156; 84295; 84450; 84460; 84520; 85025; 85651; 86140; 87040; 87070; 87073; 87077; 87186; 88305; 97161; 99285; J0295; J0743; J1815; J2001; J2405; J2704; J2795; J3010; J3370; J7030; J7050

== ENCOUNTER → 2017-10-08 | Outpatient (REF) ==
[~2017-10-08] MED LIST changes: +LOPE-147 PO
== END ==
LOC: PT 10:27
PROVIDERS: ATTEND Surgery
DX: L97.521 Non-pressure chronic ulcer of other part of left foot limited to breakdown of skin (principal)

== ENCOUNTER 2017-10-15 10:40 | Inpatient (IN) | payer SELFPAY ==
[2017-10-09 07:53] VITALS: Ht 175.3 cm; Wt 84.8 kg
[~2017-10-15] VITALS: Ht 175.3 cm; Wt 84.8 kg
[~2017-10-15 10:40] MED LIST changes: +LOPE-147 PO
[2017-10-15 11:24] VITALS: BP 190/91
[2017-10-15] MEDS ORDERED: cloNIDine HCL 0.1 MG TAB PO PRN (11:45)
[2017-10-15] MEDS ORDERED: amLODIPine BESYL(*) 5 MG TAB PO SCH (11:45)
[2017-10-15] MEDS: LEVOFLOXACIN 750 MG TAB PO SCH (14:28)
--- NOTE | 2017-10-15 15:17 | Consultant Pharmacy Review ---
Manager Imaging Review Medication Review Do All Mecications have a Diag: Yes Beers Criteria Medication 2014 Central Alpha Blockers: Clonidine (Patient takes 0.1 mg po as needed for SBP > 180 or DBP >100. Monitor for Orthostatic hypotension) Sliding Scale Insulin: Slidin Scale Insulin (patient on sliding scale level 2. Monitor for increased risk of hypoglycemia) Other General Cautions Loperamide, Levaquin,, and famotidine have some risks at increasing QT interval. Monitor. Pneumococcal Vaccine HX Pneumo Vac ([id number]): No HX Pneumo Vac (Pneumovax): No KHURRAM BLANKENSHIP V Oct 15, 2017 15:17
--- NOTE | 2017-10-15 15:28 | OT ECF NOTE ---
Type of Note: Initial Eval/ Discharge Note Primary Medical Diagnosis: Left great toe amputation Occupational Therapy Evaluation Date: 10-15-17 SUBJECTIVE: Prior Hospitalization: [facility] medical floor Prior Level of Function: Independent Prior Living Status: Apartment Community Services: Support adequate Home Accessibility: Stairs with rails Tub/shower combination Equipment Owned: None(PT to address acquiring DME). Medical Complications/Past Medical History: Please refer to chart for details. 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 Pain Scale (0-10): None stated at time of evaluation OBJECTIVE: Strength: WFL MMT: Right Left Shoulder Flexion [*] [*] Elbow Flexion [*] [*] Wrist Extension [*] [*] Mushroom Growing Supervisor [*] [*] (5= normal, 4= good, 3= fair, 2= poor, 1= trace) ROM: Both upper extremities WFL Functional Transfer: Assistive Device: FWW Transfer Ability: [facility] ADL: Upper body dressing: Assistive device: Upper body dressing ability: Independent Lower body dressing: Assistive device: Lower body dressing ability: Independent Toileting: Assistive device: Raised toilet seat Toileting ability: SBA Grooming/hygiene: Standing Assistive device: Grooming ability: Independent Bathing: Assistive device: Bathing ability: Pt. participated in tub/shower transfer with no DME with [facility]. Pt. states that she feels comfortable completing this transfer at home independently in order to take bathes at home. PLAN: Pt. is ready for d/c to home when cleared medically and by PT services. Pt. does not need OT services at this time due to her level of independence in ADL activities. Thank you for this referral. If you have any questions, concerns, or comments about this report or plan, please contact me at . Tiffani Bolivar, OTR/L Occupational Therapist ORLY
[2017-10-15 15:55] VITALS: BP 170/88
[2017-10-15] MEDS: LACTOBACILLUS ACIDOPHILUS TAB PO SCH (17:17)
[2017-10-15] MEDS: AMOX/CLAV 875 MG TAB PO SCH (17:17)
--- NOTE | 2017-10-15 18:16 | General Surgery Progress Note ---
Subjective Progress Notes Subjective Patient without complaints today. He moved up to the [facility] from [facility] today. Physical Exam Vital Signs Date Time Temp Pulse Resp B/P (MAP) Pulse Ox O2 Delivery O2 Flow Rate FiO2 10/15/17 11:24 98.1 85 84 190/91 (124) 95 Intake and Output 10/16/17 07:00 Intake Total 240 ml Balance 240 ml Intake Oral 240 ml # Voids 1 General Appearance: Alert, Awake, No Acute Distress, Afebrile Extremities: Other (removed the Lanre wrap and dressing from his left foot and inspected the surgical incision. It is intact without erythema. There is some serosanguineous drainage on the dressing but no active drainage during my exam.) Assessment and Plan Problems: (1) Amputated great toe of left foot Status: Acute Assessment & Plan: 10/15/17: Patient seems to be healing well so far. We'll continue changing the dressing daily until it is completely dry and show signs that the skin edges will remain approximated and are healing. (2) T2DM (type 2 diabetes mellitus) Status: Chronic Condition Stable Time Spent: < 30 min Problem Qualifiers (1) T2DM (type 2 diabetes mellitus): Diabetes mellitus salvage determiner insulin use: with half-way use Diabetes mellitus complication status: with neurologic complications Diabetes mellitus complication detail: with unspecified neuropathy Qualified Codes: E11.40 - Type 2 diabetes mellitus with diabetic neuropathy, unspecified; Z79.4 - manager intermediate (current) use of insulin JUAN F PIRES MD Oct 15, 2017 18:16
[2017-10-15] MEDS: SIMVASTATIN 20 MG TAB PO SCH (21:05)
[2017-10-15] MEDS: FAMOTIDINE 20 MG TAB PO SCH (21:05)
[2017-10-16 08:00] VITALS: BP 164/94
[2017-10-16] MEDS: ASPIRIN 81 MG ENTERIC COATED PO SCH (09:10)
[2017-10-16] MEDS: AMOX/CLAV 875 MG TAB PO SCH ×2 (09:10→16:42)
[2017-10-16] MEDS: FAMOTIDINE 20 MG TAB PO SCH ×2 (09:11→20:52)
[2017-10-16] MEDS: LACTOBACILLUS ACIDOPHILUS TAB PO SCH ×2 (09:11→16:42)
[2017-10-16] MEDS: amLODIPine BESYL(*) 5 MG TAB PO SCH (09:11)
[2017-10-16] MEDS: ENOXAPARIN 30 MG/0.3 ML SYR SC SCH (09:11)
[2017-10-16] MEDS: INSULIN DETEMIR 100 U/ML 3 ML PEN SUBQ SCH (09:12)
--- NOTE | 2017-10-16 13:04 | Medical Nutrition Therapy ---
Nutrition Anthropometrics Weight (Pounds): 193 Weight (Calculated Kilograms): 87.713 BMI Calculated: 27.91 Vickey Nutrition Score: Probably Inadequate Vickey Nutrition Risk Score: 16 Dietary Referral Nutrition Risk Factors: Non-Healing Wound Nutrition Risk Comment: Nutritional Diagnosis Nutritional Risk Acuity 4: Good Appetite, Modified Diet Past Medical History: T2DM, CKD stage III, GERD, HTN, depression, appendectomy, [id number] transgender person Nutritional Acuity: 3-Mild (amputation of left great toe/wound healing) Nutrition Diagnosis: Increased Nutrient Needs Nutrition Etiology: Physiological Causes Nutrition Problem/Etiology/Sym: Increased nutrient need related to increased need for healing as evidence by left great toe amputation/ wound. Energy Requirement: 2260 (kcal/day (26 kcal/kg)- Sac St Jeor RMR (8282) AF 1.2 IF 1.1) Protein Requirement: 105 (g/day (1.2 g/kg)) Fluid Requirement: 2140 (mL/day (25 mL/kg)) Diet Type: Diabetic Nutrition Intervention: Cont diet as ordered Diet Comment To RSA: PREFERS TO BE CALLED MARIA [facility]. PROTEIN IN APPROPRIATE FOODS. Nutrition Monitoring & Eval Nutrition Goals: Eat 50-100% Meal Nutrition Follow-Up: Good Intake RD Patient Assessment Time: [address] Assessment Type: RD Assessment Patient Nutrition Acuity: 3-Mild Follow Up Date: October 22, 2017 Nutritional Comment: 10/16 Pt admitted for amputated great toe of left food with T2DM. Pt currently on a diabetic diet order consuming 100% of all meals since admit. Pt is consuming more carbs with each meal than recommended by diabetic diet order. RD provided pt with explanation of carb count and benefit of staying within dietary parameters. Pt given the opportunity to make dietary decision about amount of carbs consumed at each meal. Pt consumed 0% x 2 Michael. Blood glucose within normal limits. Monitor pt intake and progress. BRUCE MAE Oct 16, 2017 12:35
--- NOTE | 2017-10-16 14:31 | HISTORY AND PHYSICAL ---
ECF H&P UPDATE Patient Name: Juan F Russell Unit Number: [id number] Date of : 1965 Patient Status: Discharged Inpatient Attending Doctor: Simone Bolivar MD Discharge Summary/Follow-Up Discharge Summary Reason for Hosp/Final Diag: (1) Cellulitis of foot Status: Resolved Hospital Course & Plan: He presented with 2 days of worsening erythema and swelling to the left foot surrounding the diabetic foot ulcer. The WBC was elevated with neutrophilia and CRP/ESR are increased from July. He was on Primaxin and Vancomycin for one week. MRI of the foot showed osteomyelitis. Dr. Salgado performed amputation of his left great toe and distal metatarsal. We will continue oral antibiotics with Augmentin and Levaquin per pharmacy recommendations based on culture results. He will continue to work with physical therapy on ECF. (2) Diabetic foot ulcer Status: Chronic Hospital Course & Plan: See above. (3) Acute renal failure Status: Acute Hospital Course & Plan: Acute on chronic. Secondary to illness and exacerbated by lisinopril. He was hydrated, we will stop lisinopril. (4) Hyperkalemia Status: Resolved Hospital Course & Plan: Mild. Stable for the last month. Secondary to ARF and lisinopril. See above. (5) T2DM (type 2 diabetes mellitus) Status: Chronic Hospital Course & Plan: Continue Levemir and give SS Insulin to cover his glucoses. His glucose levels were decreased into the 40's overnight. His Levemir was decreased to 30 units in the morning, and we discontinued his night Levemir. I spoke with the patient at length to assure he is not dosing himself with his own insulin and he has stated he is not dosing himself while admitted. (6) CKD (chronic kidney disease) stage 3, GFR 30-59 ml/min Status: Chronic Hospital Course & Plan: Baseline Cr is about 1.9-2.2. See above. (7) HTN (hypertension) Status: Chronic Hospital Course & Plan: He is chronically on amlodipine and lisinopril. Lisinopril to be held for now. His blood pressures have been elevated, we will start Clonidine as needed with parameters for better control. (8) GERD (gastroesophageal reflux disease) Status: Chronic Hospital Course & Plan: Continue famotidine. Departure Latest Vital Signs Vital Signs 10/14/17 10/15/17 10/15/17 08:15 07:20 08:34 Temp 98.0 Pulse 78 Resp 16 B/P (MAP) 174/98 (123) Pulse Ox 95 O2 Delivery Room Air O2 Flow Rate 1.0 Weight (Pounds): 189 Result Diagram: 10/15/17 0840 10/15/17 0840 Condition: Improved Discharge: H ECF Discharge Instructions Home Meds Active Scripts Amlodipine Besylate (AMLODIPINE BESYLATE) 5 Mg Tablet, 1 TAB PO QDAY, #30 TAB Prov:JUAN F MCLEAN DO 08/21/17 Reported Medications Loperamide Hcl (ANTI-DIARRHEA) 2 Mg Tablet, 2 MG PO Y for DIARRHEA 10/08/17 Lisinopril (LISINOPRIL) 20 Mg Tablet, 20 MG PO QDAY, TAB 10/08/17 Insulin Detemir (LEVEMIR) 100 Unit/Ml Injs, 70 UNIT SUBQ BID 09/03/17 Simvastatin (SIMVASTATIN) 20 Mg Tablet, 20 MG PO HS, TAB 08/19/17 Insulin Lispro 100 Un/Ml Vial (HUMALOG 100 U/ML VIAL) 100 Unit/1 Ml Vial, 0 SQ per sliding scale, VIAL 1 unit for every 50 point increase in blood sugar above normal. 08/19/17 Famotidine (FAMOTIDINE) 20 Mg Tablet, 20 MG PO QDAY, TAB 08/19/17 Aspirin (ASPIR 81) 81 Mg Tablet.dr, 81 MG PO QDAY, TAB 08/03/16 Cholecalciferol (Vitamin D3) (VITAMIN D3) 1,000 Unit Tablet, 1000 UNIT PO QDAY, TAB 08/03/16 Discontinued Reported Medications Amoxicillin/Pot Clav 875-125 Mg Tab (AUGMENTIN 875-125 TABLET) 1 Each Tablet, 1 TAB PO Q12H, TAB 08/19/17 Diet: Diabetic Special Instructions: Copies to: LETI DIMAS VTE Venous Thromboembolism Antithrombotics Is Pt On Any Antithrombotics?: No CVA Documentation CVA Documentation Heart Failure Documentation Heart Failure [id number]-gu-[id number] [id number]-[id number] Certification Problem Qualifiers (1) Diabetic foot ulcer: Diabetic foot ulcer location: midfoot Diabetes mellitus type: type 2 Laterality: left Non-pressure ulcer stage: with necrosis of muscle Qualified Codes: E11.621 - Type 2 diabetes mellitus with foot ulcer; L97.423 - Non-pressure chronic ulcer of left heel and midfoot with necrosis of muscle (2) Acute renal failure: Acute renal failure type: unspecified Qualified Codes: N17.9 - Acute kidney failure, unspecified (3) T2DM (type 2 diabetes mellitus): Diabetes mellitus complication status: with skin complications Diabetes mellitus complication detail: with foot ulcer SHARIF MAIN Oct 15, 2017 12:36 SHARIF MAIN Oct 15, 2017 12:39 <Electronically signed by DANII AHUMADA> D/ [id number] VAMSI/ALEXIS CC: ORLY
[2017-10-16 16:40] VITALS: BP 158/89
[2017-10-16] MEDS: SIMVASTATIN 20 MG TAB PO SCH (20:52)
[2017-10-16] MEDS: INSULIN HUM LISPRO 100 UN/ML 3 ML VIAL SUBQ PRN (20:53)
--- NOTE | 2017-10-17 07:13 | General Surgery Progress Note ---
Subjective Progress Notes Subjective No complaints. Physical Exam Vital Signs Date Time Temp Pulse Resp B/P (MAP) Pulse Ox O2 Delivery O2 Flow Rate FiO2 10/17/17 01:20 Room Air 10/16/17 16:40 97.0 83 12 158/89 (112) 94 General Appearance: Alert, Awake, No Acute Distress, Afebrile Extremities: Other (Left foot amputation site appears to be healing well. No erythema. Decreasing drainage.) Assessment and Plan Problems: (1) Amputated great toe of left foot Status: Acute Assessment & Plan: 10/15/17: Patient seems to be healing well so far. We'll continue changing the dressing daily until it is completely dry and show signs that the skin edges will remain approximated and are healing. 10/17/17: Doing well. Continue dressings changes. Continue to keep foot elevated. He can go home when he can either ambulate with crutches and avoid putting weight on the operative site or it's healed adequately that he can start putting weight on it; no sooner than 2 weeks after surgery; the week of October 27. (2) T2DM (type 2 diabetes mellitus) Status: Chronic Condition Stable. Time Spent: < 30 min Problem Qualifiers (1) T2DM (type 2 diabetes mellitus): Diabetes mellitus watermaster insulin use: with watermaster use Diabetes mellitus complication status: with neurologic complications Diabetes mellitus complication detail: with unspecified neuropathy Qualified Codes: E11.40 - Type 2 diabetes mellitus with diabetic neuropathy, unspecified; Z79.4 - residential (current) use of insulin JUAN F PIRES MD Oct 17, 2017 07:13
[2017-10-17 08:00] VITALS: BP 183/92
[2017-10-17] MEDS: ASPIRIN 81 MG ENTERIC COATED PO SCH (08:50)
[2017-10-17] MEDS: FAMOTIDINE 20 MG TAB PO SCH ×2 (08:50→20:36)
[2017-10-17] MEDS: amLODIPine BESYL(*) 5 MG TAB PO SCH (08:50)
[2017-10-17] MEDS: ENOXAPARIN 30 MG/0.3 ML SYR SC SCH (08:50)
[2017-10-17] MEDS: LACTOBACILLUS ACIDOPHILUS TAB PO SCH ×2 (08:50→17:46)
[2017-10-17] MEDS: LEVOFLOXACIN 750 MG TAB PO SCH (08:50)
[2017-10-17] MEDS: INSULIN DETEMIR 100 U/ML 3 ML PEN SUBQ SCH (08:50)
[2017-10-17] MEDS: AMOX/CLAV 875 MG TAB PO SCH ×2 (08:50→17:46)
[2017-10-17] MEDS: INSULIN HUM LISPRO 100 UN/ML 3 ML VIAL SUBQ PRN ×2 (12:24→20:41)
[2017-10-17 17:30] VITALS: BP 154/84
--- NOTE | 2017-10-17 18:18 | PT ECF NOTE ---
Type of Note: Initial Note Primary Medical Diagnosis: Great toe and 1/2 of 1st metatarsal resected with amputation on 10/12/17 Physical Therapy Evaluation Date: 10/15/17 SUBJECTIVE: Prior Hospitalization: 10/08/17-10/15/17 Prior Level of Function: Pt was indep in home environment and was ambulating to/from bus stop for transportation, despite being instructed to minimize weight bearing while previous wound was healing. Pt will need increased support for transportation to/from work after this surgery. Prior Living Status: Apartment on lower level of building. 2 steps to enter building and then 6 steps down with rail to apartment. Community Services: Pt will need increased assistance for transportation to avoid excessive weight bearing through foot. Pt will also need financial assistance for diabetic shoes to fit properly and prevent further skin breakdown. Home Accessibility: Stairs with rails; Tub/shower combination Equipment Owned: None Medical Complications/Past Medical History: Pt has had unstable blood sugars with poor management. Pt is being seen through [facility] for care and also through out pt wound care with minimal progress prior to this significant exacerbation and infection. 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 Assistive device: Bed rail Transfers: Minimum assistance, Verbal cues, SBA, CGA Assistive Device: Front wheeled walker Gait: Minimum assistance, Verbal cues, SBA, CGA Assistive device: Front wheeled walker Stairs: Maximum assistance; Total assistance Assistive device: Right railing/Left Railing Timed Up and Go (>12 seconds indicated increased risk for falls): 24 seconds with impulsive and unsafe pattern with FWW 10 meter walk test (0.6m/second cannot function independently): N/A Other Objective Measures: n/a ASSESSMENT: Pt demos non-compliance with maintaining NWB status through L) LE and requires repeated reminders regarding the importance of maintaining NWB while wound is healing. While ambulating initially, pt was stepping on lateral border of the foot and assumed this was not placing weight through the wound. Pt has been counseled repeatedly regarding avoidance of weight bearing through foot while scooting up in bed. Pt has also been encouraged to sit for toileting for safety. Pt chooses to stand and places weight through heel during this activity for safety with balance. Problem List/Current Limitations: Decreased WB, Decreased activity james, Decreased strength, Generalized weakness, Poor safety awareness Decreased problem solving, decreased awareness of NWB application for all ADL's Short Term Goals: 1. Pt to be safe with FWW ambulation x 150' and compliant with NWB on L) LE, with SBA/Modified indep 2. Pt to demo safe indep with bed mobility, not using L) LE to push up in bed and indep with supine to/from sit transfers 3. Pt to demo indep with sit to/from stand transfers from a variety of surfaces 4. Pt to james up/down stairs with rail and least restrictive device with appropriate weight bearing per orders. 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 Patient Goals: Pt to return to work and prior level of mobility without restrictions. Rehabilitation Prognosis: Fair Barriers for Discharge: Pt's level of understanding and application of NWB orders to all ADL's and IADL's; pt's level of compliance for BS management. PLAN: The patient will benefit from skilled physical therapy services 5 times per week for 2 weeks including: Therapeutic Exercise, Therapeutic Activities Transfer Training, Gait Training, Stair Training, ADL's, Safety Training, Pt/ Caregiver Training, Bed Mobility Thank you for this referral. If you have any questions, concerns, or comments about this report or plan, please contact me at . H. Nancy Platt, PT, MPT MTDD
[2017-10-17] MEDS: SIMVASTATIN 20 MG TAB PO SCH (20:36)
[2017-10-18 07:25] VITALS: BP 160/96
[2017-10-18] MEDS: amLODIPine BESYL(*) 5 MG TAB PO SCH (08:32)
[2017-10-18] MEDS: LACTOBACILLUS ACIDOPHILUS TAB PO SCH ×2 (08:32→17:39)
[2017-10-18] MEDS: AMOX/CLAV 875 MG TAB PO SCH ×2 (08:32→17:39)
[2017-10-18] MEDS: ASPIRIN 81 MG ENTERIC COATED PO SCH (08:33)
[2017-10-18] MEDS: FAMOTIDINE 20 MG TAB PO SCH ×2 (08:33→20:49)
[2017-10-18] MEDS: INSULIN DETEMIR 100 U/ML 3 ML PEN SUBQ SCH (08:34)
[2017-10-18] MEDS: ENOXAPARIN 30 MG/0.3 ML SYR SC SCH (08:34)
[2017-10-18 17:00] VITALS: BP 167/91
[2017-10-18] MEDS: INSULIN HUM LISPRO 100 UN/ML 3 ML VIAL SUBQ PRN (17:40)
[2017-10-18] MEDS: SIMVASTATIN 20 MG TAB PO SCH (20:49)
[2017-10-19 08:30] VITALS: BP 170/92
[2017-10-19] MEDS: LACTOBACILLUS ACIDOPHILUS TAB PO SCH ×2 (08:33→17:37)
[2017-10-19] MEDS: AMOX/CLAV 875 MG TAB PO SCH ×2 (08:33→17:38)
[2017-10-19] MEDS: ASPIRIN 81 MG ENTERIC COATED PO SCH (08:35)
[2017-10-19] MEDS: amLODIPine BESYL(*) 5 MG TAB PO SCH (08:35)
[2017-10-19] MEDS: LEVOFLOXACIN 750 MG TAB PO SCH (08:35)
[2017-10-19] MEDS: FAMOTIDINE 20 MG TAB PO SCH ×2 (08:35→21:44)
[2017-10-19] MEDS: ENOXAPARIN 30 MG/0.3 ML SYR SC SCH (08:36)
[2017-10-19] MEDS: INSULIN DETEMIR 100 U/ML 3 ML PEN SUBQ SCH (08:39)
[2017-10-19] MEDS: LOPERAMIDE HCL 2 MG CAP PO PRN (08:47)
[2017-10-19 16:00] VITALS: BP 166/85
[2017-10-19] MEDS: SIMVASTATIN 20 MG TAB PO SCH (21:44)
[2017-10-19] MEDS: INSULIN HUM LISPRO 100 UN/ML 3 ML VIAL SUBQ PRN (21:48)
[2017-10-20] MEDS: LOPERAMIDE HCL 2 MG CAP PO PRN ×4 (02:27→21:14)
[2017-10-20 07:40] VITALS: BP 149/79
[2017-10-20] MEDS: ASPIRIN 81 MG ENTERIC COATED PO SCH (08:35)
[2017-10-20] MEDS: FAMOTIDINE 20 MG TAB PO SCH ×2 (08:36→21:04)
[2017-10-20] MEDS: amLODIPine BESYL(*) 5 MG TAB PO SCH (08:36)
[2017-10-20] MEDS: ENOXAPARIN 30 MG/0.3 ML SYR SC SCH (08:36)
[2017-10-20] MEDS: AMOX/CLAV 875 MG TAB PO SCH ×2 (08:36→17:48)
[2017-10-20] MEDS: LACTOBACILLUS ACIDOPHILUS TAB PO SCH ×2 (08:36→17:48)
[2017-10-20] MEDS: INSULIN DETEMIR 100 U/ML 3 ML PEN SUBQ SCH (08:37)
--- NOTE | 2017-10-20 15:54 | General Surgery Progress Note ---
Subjective Progress Notes Subjective No complaints. Physical Exam Vital Signs Date Time Temp Pulse Resp B/P (MAP) Pulse Ox O2 Delivery O2 Flow Rate FiO2 10/20/17 07:40 98.8 72 15 149/79 (102) 93 Room Air Intake and Output 10/21/17 07:00 Intake Total 480 ml Balance 480 ml Intake Oral 480 ml # Voids 4 # Bowel Movements 2 General Appearance: Alert, Awake, No Acute Distress, Afebrile Extremities: Other (Left foot dressing removed and incision inspected. Sutures removed from central portion of incision as they weren't doing any good at this point. Minimal drainage. No erythema.) Assessment and Plan Problems: (1) Amputated great toe of left foot Status: Acute Assessment & Plan: 10/15/17: Patient seems to be healing well so far. We'll continue changing the dressing daily until it is completely dry and show signs that the skin edges will remain approximated and are healing. 10/17/17: Doing well. Continue dressings changes. Continue to keep foot elevated. He can go home when he can either ambulate with crutches and avoid putting weight on the operative site or it's healed adequately that he can start putting weight on it; no sooner than 2 weeks after surgery; the week of October 27. 10/20/17: Doing well. Continue dressing changes. Avoid pressure on left foot. Will reinspect later this week and if continues to do well will let him start ambulating on his left foot. (2) T2DM (type 2 diabetes mellitus) Status: Chronic Condition Stable. 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
[2017-10-20 16:55] VITALS: BP 149/78
[2017-10-20] MEDS: SIMVASTATIN 20 MG TAB PO SCH (21:04)
[2017-10-21] MEDS: LOPERAMIDE HCL 2 MG CAP PO PRN ×3 (02:17→05:04)
[2017-10-21] MEDS: ACETAMINOPHEN 325 MG TAB PO PRN ×3 (02:43→21:23)
[2017-10-21 07:40] VITALS: BP 156/85
--- NOTE | 2017-10-21 08:40 | Medical Nutrition Therapy ---
Nutrition Anthropometrics Height (Inches): 69 (from med unit) Weight (Pounds): 193 Weight (Calculated Kilograms): 87.713 BMI Calculated: 27.91 Vickey Nutrition Score: Probably Inadequate Vickey Nutrition Risk Score: 16 Dietary Referral Nutrition Risk Factors: Non-Healing Wound Nutrition Risk Comment: Nutritional Diagnosis Nutritional Risk Acuity 4: Good Appetite, Modified Diet Past Medical History: T2DM, CKD stage III, GERD, HTN, depression, appendectomy, [id number] transgender person Nutritional Acuity: 3-Mild (amputation of left great toe/wound healing) Nutrition Diagnosis: Increased Nutrient Needs Nutrition Etiology: Physiological Causes Nutrition Problem/Etiology/Sym: Increased nutrient need related to increased need for healing as evidence by left great toe amputation/ wound. Energy Requirement: 2260 (kcal/day (26 kcal/kg)- [place] St Jeor RMR (171) AF 1.2 IF 1.1) Protein Requirement: 105 (g/day (1.2 g/kg)) Fluid Requirement: 2140 (mL/day (25 mL/kg)) Diet Type: Diabetic Nutrition Intervention: Cont diet as ordered, Encourage intake, HS snack Food Likes: minute maid lemon aid light ok Additional Diet Restrictions: PROTEIN POWDER IN APPROPRIATE FOODS. Diet Comment To [facility]: PREFERS TO BE CALLED MARIA LUZ. Nutrition Monitoring & Eval Nutrition Goals: Eat 75-100% Meal RD Patient Assessment Time: [address] Assessment Type: RD Re-Assessment Patient Nutrition Acuity: 3-Mild Follow Up Date: October 28, 2017 Nutritional Comment: 10/16 Pt admitted for amputated great toe of left food with T2DM. Pt currently on a diabetic diet order consuming 100% of all meals since admit. Pt is consuming more carbs with each meal than recommended by diabetic diet order. RD provided pt with explanation of carb count and benefit of staying within dietary parameters. Pt given the opportunity to make dietary decision about amount of carbs consumed at each meal. Pt consumed 0% x 2 Michael. Blood glucose within normal limits. Monitor pt intake and progress. NIGEL 10/21 Pt on diabetic diet and eaitng 100% of meals. Pt refused Michael. Will cont to put protein powder in appropriate foods to encouragage high protein intake. BG mildly elevated up to 150 with occasional spikes to 200. Pt occasionally orders more CHO than recommended on his current diet order. Pt also keeps additional servings of fruit in his room. Pt has been reminded when he orders more CHO but is given the right to have items upon his informed consent. No new wt. Will cont to monitor and encourage healthy intake. RJ GARCIA October 21, 2017 08:40
[2017-10-21] MEDS: ASPIRIN 81 MG ENTERIC COATED PO SCH (08:55)
[2017-10-21] MEDS: FAMOTIDINE 20 MG TAB PO SCH ×2 (08:55→21:23)
[2017-10-21] MEDS: LEVOFLOXACIN 750 MG TAB PO SCH (08:56)
[2017-10-21] MEDS: amLODIPine BESYL(*) 5 MG TAB PO SCH (08:56)
[2017-10-21] MEDS: ENOXAPARIN 30 MG/0.3 ML SYR SC SCH (08:56)
[2017-10-21] MEDS: INSULIN DETEMIR 100 U/ML 3 ML PEN SUBQ SCH (08:56)
[2017-10-21] MEDS: AMOX/CLAV 875 MG TAB PO SCH ×2 (08:57→17:15)
[2017-10-21] MEDS: LACTOBACILLUS ACIDOPHILUS TAB PO SCH ×2 (08:57→17:15)
[2017-10-21 16:45] VITALS: BP 174/88
[2017-10-21] MEDS: SIMVASTATIN 20 MG TAB PO SCH (21:23)
[2017-10-22] MEDS: LOPERAMIDE HCL 2 MG CAP PO PRN (01:42)
[2017-10-22 08:00] VITALS: BP 139/85
[2017-10-22] MEDS: amLODIPine BESYL(*) 5 MG TAB PO SCH (08:45)
[2017-10-22] MEDS: LACTOBACILLUS ACIDOPHILUS TAB PO SCH ×2 (08:45→16:55)
[2017-10-22] MEDS: AMOX/CLAV 875 MG TAB PO SCH ×2 (08:45→16:55)
[2017-10-22] MEDS: ASPIRIN 81 MG ENTERIC COATED PO SCH (08:45)
[2017-10-22] MEDS: FAMOTIDINE 20 MG TAB PO SCH ×2 (08:45→20:21)
[2017-10-22] MEDS: ENOXAPARIN 30 MG/0.3 ML SYR SC SCH (08:46)
[2017-10-22] MEDS: INSULIN DETEMIR 100 U/ML 3 ML PEN SUBQ SCH (08:47)
[2017-10-22] MEDS: ACETAMINOPHEN 325 MG TAB PO PRN (08:57)
--- NOTE | 2017-10-22 15:48 | Hospitalist Progress Note ---
Subjective Progress Notes Subjective She has no complaints today. Patient Complains of: Cardiovascular: No: Chest Pain Respiratory: No: Shortness of Breath Physical Exam Vital Signs Date Time Temp Pulse Resp B/P (MAP) Pulse Ox O2 Delivery O2 Flow Rate FiO2 10/22/17 11:35 92 Room Air 10/22/17 08:00 98.0 83 18 139/85 (103) Intake and Output 10/23/17 07:00 Intake Total 360 ml Balance 360 ml Intake Oral 360 ml # Voids 1 General Appearance: Alert, Awake, No Acute Distress, Afebrile Neuro: No Gross deficits Cardiovascular: Regular Rate and Rhythm Respiratory: No Respiratory Distress, Clear to Auscultation GI: Soft and Non-Tender Psych: Alert & Oriented X3, Appropriate Mood & Affect Assessment and Plan Problems: (1) Amputated great toe of left foot Status: Acute Assessment & Plan: He presented with worsening erythema and swelling to the left foot surrounding the diabetic foot ulcer. The WBC was elevated with neutrophilia and CRP/ESR are increased from July. He was on Primaxin and Vancomycin for one week. MRI of the foot showed osteomyelitis. Dr. Salgado performed amputation of his left great toe and distal metatarsal. We will continue oral antibiotics with Augmentin and Levaquin per pharmacy recommendations based on culture results. He will continue to work with physical therapy on ECF. (2) CKD (chronic kidney disease) stage 3, GFR 30-59 ml/min Status: Chronic Assessment & Plan: Baseline Cr is about 1.9-2.2. We will check CMP tomorrow. Medications have been renally dosed. (3) HTN (hypertension) Status: Chronic Assessment & Plan: He is on chronic treatment with Amlodipine. Lisinopril was stopped secondary to hyperkalemia. He prefers he be started on Verapamil if further medication is required, because the [facility] carries this medication. (4) GERD (gastroesophageal reflux disease) Status: Chronic Assessment & Plan: He is on chronic treatment with Famotidine. (5) T2DM (type 2 diabetes mellitus) Status: Chronic Assessment & Plan: Continue Levemir and give SS Insulin to cover his glucoses. AC/HS blood glucoses. Problem Qualifiers (1) T2DM (type 2 diabetes mellitus): Diabetes mellitus snf insulin use: with manager long term care use Diabetes mellitus complication status: with neurologic complications Diabetes mellitus complication detail: with unspecified neuropathy Qualified Codes: E11.40 - Type 2 diabetes mellitus with diabetic neuropathy, unspecified; Z79.4 - skilled nursing (current) use of insulin SHARIF MAIN October 22, 2017 15:48
[2017-10-22 16:05] VITALS: BP 143/85
[2017-10-22] MEDS: INSULIN HUM LISPRO 100 UN/ML 3 ML VIAL SUBQ PRN (20:20)
[2017-10-22] MEDS: SIMVASTATIN 20 MG TAB PO SCH (20:21)
[2017-10-23] MEDS: ACETAMINOPHEN 325 MG TAB PO PRN ×2 (05:25→22:33)
[2017-10-23 06:03] LABS: PLATELET COUNT, AUTOMATED 263 K/uL (150-450)
[2017-10-23 08:00] VITALS: BP 143/86
[2017-10-23] MEDS: amLODIPine BESYL(*) 5 MG TAB PO SCH (08:25)
[2017-10-23] MEDS: FAMOTIDINE 20 MG TAB PO SCH ×2 (08:25→20:42)
[2017-10-23] MEDS: LACTOBACILLUS ACIDOPHILUS TAB PO SCH ×2 (08:25→16:45)
[2017-10-23] MEDS: LEVOFLOXACIN 750 MG TAB PO SCH (08:25)
[2017-10-23] MEDS: ASPIRIN 81 MG ENTERIC COATED PO SCH (08:25)
[2017-10-23] MEDS: AMOX/CLAV 875 MG TAB PO SCH (08:25)
[2017-10-23] MEDS: INSULIN DETEMIR 100 U/ML 3 ML PEN SUBQ SCH (08:26)
[2017-10-23] MEDS: ENOXAPARIN 30 MG/0.3 ML SYR SC SCH (08:26)
[2017-10-23] MEDS: INSULIN HUM LISPRO 100 UN/ML 3 ML VIAL SUBQ PRN (08:27)
[2017-10-23] MEDS ORDERED: SODIUM POLYST SULF 15 GM/60 ML PO ONE (08:30)
[2017-10-23 16:20] VITALS: BP_SYST 137; BP_SYST 164; BP_DIAS 68; BP_DIAS 83
[2017-10-23] MEDS: SIMVASTATIN 20 MG TAB PO SCH (20:42)
[2017-10-24 08:18] VITALS: BP 167/83
--- NOTE | 2017-10-24 08:18 | General Surgery Progress Note ---
Subjective Progress Notes Subjective No complaints. Physical Exam Vital Signs Date Time Temp Pulse Resp B/P (MAP) Pulse Ox O2 Delivery O2 Flow Rate FiO2 10/24/17 03:19 Room Air 10/23/17 16:20 97.6 85 20 164/83 (110) 94 2.0 General Appearance: Alert, Awake, No Acute Distress, Afebrile Extremities: Other (Left foot surgical site is healing fairly well. There is some dry necrotic skin. Sutures removed. Minimal drainage. No erythema or purulence.) Result Diagram: 10/23/17 0530 10/24/17 0610 Assessment and Plan Problems: (1) Amputated great toe of left foot Status: Acute Assessment & Plan: 10/15/17: Patient seems to be healing well so far. We'll continue changing the dressing daily until it is completely dry and show signs that the skin edges will remain approximated and are healing. 10/17/17: Doing well. Continue dressings changes. Continue to keep foot elevated. He can go home when he can either ambulate with crutches and avoid putting weight on the operative site or it's healed adequately that he can start putting weight on it; no sooner than 2 weeks after surgery; the week of October 27. 10/20/17: Doing well. Continue dressing changes. Avoid pressure on left foot. Will reinspect later this week and if continues to do well will let him start ambulating on his left foot. 10/24/17: Doing well. Sutures removed. Will have to keep an eye on the incision. I am hopeful that as new skin grows in under the eschar that it will slough off. Will start increasing mobilization, WBAT, will keep the incision open to air at this point and will reapply MANAS wraps if his foot edema returns. Possible d/c to home next week. (2) T2DM (type 2 diabetes mellitus) Status: Chronic Condition Stable. 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
[2017-10-24] MEDS: NS(*) 0.9% 1000 ML BAG 1,000 ML IV PRN (08:23)
[2017-10-24] MEDS: ENOXAPARIN 30 MG/0.3 ML SYR SC SCH (08:24)
[2017-10-24] MEDS: INSULIN DETEMIR 100 U/ML 3 ML PEN SUBQ SCH (08:24)
[2017-10-24] MEDS: amLODIPine BESYL(*) 5 MG TAB PO SCH (08:24)
[2017-10-24] MEDS: ASPIRIN 81 MG ENTERIC COATED PO SCH (08:24)
[2017-10-24] MEDS: FAMOTIDINE 20 MG TAB PO SCH ×2 (08:24→20:41)
[2017-10-24] MEDS: LACTOBACILLUS ACIDOPHILUS TAB PO SCH ×2 (08:24→16:29)
[2017-10-24 16:33] VITALS: BP 151/82
[2017-10-24] MEDS: SIMVASTATIN 20 MG TAB PO SCH (20:41)
[2017-10-24] MEDS: INSULIN HUM LISPRO 100 UN/ML 3 ML VIAL SUBQ PRN (20:42)
[2017-10-25] MEDS: NS(*) 0.9% 1000 ML BAG 1,000 ML IV PRN (01:30)
[2017-10-25 07:57] VITALS: BP 129/77
[2017-10-25] MEDS: ENOXAPARIN 30 MG/0.3 ML SYR SC SCH (08:30)
[2017-10-25] MEDS: LACTOBACILLUS ACIDOPHILUS TAB PO SCH ×2 (08:30→17:23)
[2017-10-25] MEDS: amLODIPine BESYL(*) 5 MG TAB PO SCH (08:31)
[2017-10-25] MEDS: FAMOTIDINE 20 MG TAB PO SCH ×2 (08:31→21:39)
[2017-10-25] MEDS: ASPIRIN 81 MG ENTERIC COATED PO SCH (08:31)
[2017-10-25] MEDS: INSULIN DETEMIR 100 U/ML 3 ML PEN SUBQ SCH (08:31)
[2017-10-25 17:00] VITALS: BP 137/68
[2017-10-25] MEDS: INSULIN HUM LISPRO 100 UN/ML 3 ML VIAL SUBQ PRN ×2 (17:30→21:40)
[2017-10-25] MEDS: SIMVASTATIN 20 MG TAB PO SCH (21:39)
[2017-10-26 08:29] VITALS: BP 139/80
[2017-10-26] MEDS: ASPIRIN 81 MG ENTERIC COATED PO SCH (08:36)
[2017-10-26] MEDS: FAMOTIDINE 20 MG TAB PO SCH ×2 (08:36→21:10)
[2017-10-26] MEDS: LACTOBACILLUS ACIDOPHILUS TAB PO SCH ×2 (08:37→17:21)
[2017-10-26] MEDS: INSULIN DETEMIR 100 U/ML 3 ML PEN SUBQ SCH (08:37)
[2017-10-26] MEDS: amLODIPine BESYL(*) 5 MG TAB PO SCH (08:37)
[2017-10-26] MEDS: ENOXAPARIN 30 MG/0.3 ML SYR SC SCH (08:37)
[2017-10-26] MEDS: INSULIN HUM LISPRO 100 UN/ML 3 ML VIAL SUBQ PRN ×2 (17:21→21:11)
[2017-10-26 17:25] VITALS: BP 154/85
[2017-10-26] MEDS: SIMVASTATIN 20 MG TAB PO SCH (21:10)
[2017-10-27 07:45] VITALS: BP 169/85
[2017-10-27] MEDS: ACETAMINOPHEN 325 MG TAB PO PRN (07:55)
[2017-10-27] MEDS: LACTOBACILLUS ACIDOPHILUS TAB PO SCH ×2 (07:55→17:10)
[2017-10-27] MEDS: INSULIN HUM LISPRO 100 UN/ML 3 ML VIAL SUBQ PRN ×4 (07:56→20:47)
[2017-10-27] MEDS: ENOXAPARIN 30 MG/0.3 ML SYR SC SCH (08:53)
[2017-10-27] MEDS: ASPIRIN 81 MG ENTERIC COATED PO SCH (08:53)
[2017-10-27] MEDS: amLODIPine BESYL(*) 5 MG TAB PO SCH (08:53)
[2017-10-27] MEDS: FAMOTIDINE 20 MG TAB PO SCH ×2 (08:53→20:43)
[2017-10-27] MEDS: INSULIN DETEMIR 100 U/ML 3 ML PEN SUBQ SCH (08:53)
--- NOTE | 2017-10-27 09:03 | General Surgery Progress Note ---
Subjective Progress Notes Subjective No complaints. Physical Exam Vital Signs Date Time Temp Pulse Resp B/P (MAP) Pulse Ox O2 Delivery O2 Flow Rate FiO2 10/26/17 21:10 92 Room Air 10/26/17 17:25 97.0 76 20 154/85 (108) 10/23/17 16:20 2.0 General Appearance: Alert, Awake, No Acute Distress, Afebrile Extremities: Other (Left foot amputation site is healing well for the most part. There is a superficial wound on the medial aspect but not tracts going deeper. No erythema but small amount of serous drainage.) Result Diagram: 10/23/17 0530 10/26/17 0530 Assessment and Plan Problems: (1) Amputated great toe of left foot Status: Acute Assessment & Plan: 10/15/17: Patient seems to be healing well so far. We'll continue changing the dressing daily until it is completely dry and show signs that the skin edges will remain approximated and are healing. 10/17/17: Doing well. Continue dressings changes. Continue to keep foot elevated. He can go home when he can either ambulate with crutches and avoid putting weight on the operative site or it's healed adequately that he can start putting weight on it; no sooner than 2 weeks after surgery; the week of October 27. 10/20/17: Doing well. Continue dressing changes. Avoid pressure on left foot. Will reinspect later this week and if continues to do well will let him start ambulating on his left foot. 10/24/17: Doing well. Sutures removed. Will have to keep an eye on the incision. I am hopeful that as new skin grows in under the eschar that it will slough off. Will start increasing mobilization, WBAT, will keep the incision open to air at this point and will reapply MANAS wraps if his foot edema returns. Possible d/c to home next week. 10/27/17: Doing well. Removed some dry skin and eschar to reveal healing tissue underneath. Will ask Wound Care Service to dress superficial wound with moisture regulating dressing. Continue wound care. Will d/c when wound is healing and pt able to ambulate without problems. (2) T2DM (type 2 diabetes mellitus) Status: Chronic Condition Stable. 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
[2017-10-27 15:17] VITALS: BP 164/91
[2017-10-27] MEDS: SIMVASTATIN 20 MG TAB PO SCH (20:43)
[2017-10-28 07:05] VITALS: BP 135/77
[2017-10-28] MEDS: LACTOBACILLUS ACIDOPHILUS TAB PO SCH ×2 (08:23→16:21)
[2017-10-28] MEDS: FAMOTIDINE 20 MG TAB PO SCH ×2 (08:23→20:47)
[2017-10-28] MEDS: ENOXAPARIN 30 MG/0.3 ML SYR SC SCH (08:23)
[2017-10-28] MEDS: INSULIN DETEMIR 100 U/ML 3 ML PEN SUBQ SCH (08:23)
[2017-10-28] MEDS: ASPIRIN 81 MG ENTERIC COATED PO SCH (08:24)
[2017-10-28] MEDS: amLODIPine BESYL(*) 5 MG TAB PO SCH (08:24)
[2017-10-28 16:15] VITALS: BP 140/80
[2017-10-28] MEDS: INSULIN HUM LISPRO 100 UN/ML 3 ML VIAL SUBQ PRN (16:24)
[2017-10-28] MEDS: SIMVASTATIN 20 MG TAB PO SCH (20:46)
[2017-10-29 07:25] VITALS: BP 129/79
--- NOTE | 2017-10-29 07:55 | Hospitalist Progress Note ---
Subjective Progress Notes Subjective This patient was admitted for a wound on the foot. There have been no significant changes over the last several days. Patient Complains of: Cardiovascular: No: Chest Pain Respiratory: No: Shortness of Breath Physical Exam Vital Signs Date Time Temp Pulse Resp B/P (MAP) Pulse Ox O2 Delivery O2 Flow Rate FiO2 10/29/17 07:25 97.9 72 12 129/79 (96) 94 Room Air Cardiovascular: Regular Rate and Rhythm Respiratory: Clear to Auscultation Result Diagram: 10/26/17 0530 Assessment and Plan Problems: (1) Amputated great toe of left foot Status: Acute Assessment & Plan: He presented with worsening erythema and swelling to the left foot surrounding the diabetic foot ulcer. The WBC was elevated with neutrophilia and CRP/ESR are increased from July. He was on Primaxin and Vancomycin for one week. MRI of the foot showed osteomyelitis. Dr. Salgado performed amputation of his left great toe and distal metatarsal. He has now completed all antibiotics. Dr. Salgado has recommended further observation of his wound prior to discharge. (2) CKD (chronic kidney disease) stage 3, GFR 30-59 ml/min Status: Chronic Assessment & Plan: A chemistry has been ordered for later this week. (3) HTN (hypertension) Status: Chronic Assessment & Plan: He is on chronic treatment with Amlodipine. Lisinopril was stopped secondary to hyperkalemia. He prefers he be started on Verapamil if further medication is required, because the [facility] carries this medication. (4) GERD (gastroesophageal reflux disease) Status: Chronic Assessment & Plan: He is on chronic treatment with Famotidine. (5) T2DM (type 2 diabetes mellitus) Status: Chronic Assessment & Plan: Continue Levemir and give SS Insulin to cover his glucoses. AC/HS blood glucoses. Problem Qualifiers (1) T2DM (type 2 diabetes mellitus): Diabetes mellitus intermediate insulin use: with intermediate use Diabetes mellitus complication status: with neurologic complications Diabetes mellitus complication detail: with unspecified neuropathy Qualified Codes: E11.40 - Type 2 diabetes mellitus with diabetic neuropathy, unspecified; Z79.4 - [facility] (current) use of insulin JUAN F MCLEAN DO October 29, 2017 07:55
[2017-10-29 08:17] VITALS: BP 157/87
[2017-10-29] MEDS: FAMOTIDINE 20 MG TAB PO SCH ×2 (08:23→20:35)
[2017-10-29] MEDS: LACTOBACILLUS ACIDOPHILUS TAB PO SCH ×2 (08:23→16:49)
[2017-10-29] MEDS: ACETAMINOPHEN 325 MG TAB PO PRN (08:24)
[2017-10-29] MEDS: ASPIRIN 81 MG ENTERIC COATED PO SCH (08:24)
[2017-10-29] MEDS: ENOXAPARIN 30 MG/0.3 ML SYR SC SCH (08:24)
[2017-10-29] MEDS: amLODIPine BESYL(*) 5 MG TAB PO SCH (08:24)
[2017-10-29] MEDS: INSULIN DETEMIR 100 U/ML 3 ML PEN SUBQ SCH (08:25)
--- NOTE | 2017-10-29 11:02 | Medical Nutrition Therapy ---
Nutrition Anthropometrics Height (Inches): 69 (from med unit) Weight (Pounds): 187 Weight (Calculated Kilograms): 85.162 BMI Calculated: 27.91 Vickey Nutrition Score: Probably Inadequate Vickey Nutrition Risk Score: 16 Dietary Referral Nutrition Risk Factors: Non-Healing Wound Nutrition Risk Comment: Nutritional Diagnosis Nutritional Risk Acuity 2: Chronic Renal Failure Nutritional Risk Acuity 4: Good Appetite, Modified Diet Past Medical History: T2DM, CKD stage III, GERD, HTN, depression, appendectomy, [id number] transgender person Nutritional Acuity: 2-Moderate Nutrition Diagnosis: Increased Nutrient Needs, Decreased Nutrient Needs Nutrition Etiology: Physiological Causes Nutrition Problem/Etiology/Sym: Increased nutrient need related to increased need for healing as evidence by left great toe amputation/ wound. Decreased K+, phos, Na, protein r/t CKD- satage 2 AEB creatinine 2.3. Energy Requirement: 2260 (kcal/day (26 kcal/kg)- [place] St Jeor RMR (1712) AF 1.2 IF 1.1) Protein Requirement: 105 (g/day (1.2 g/kg)) Fluid Requirement: 2140 (mL/day (25 mL/kg)) Diet Type: Diabetic, High Potassium (High K) Nutrition Intervention: Cont diet as ordered, Encourage intake, HS snack Food Likes: minute maid lemon aid light ok Additional Diet Restrictions: NO POTATOES, ORANGES, TOMATOES, MELON PER K+- UNLESS PT INFORMED CONSENT Diet Comment To RSA: PREFERS TO BE CALLED MARIA LUZ. Nutritional Education Nutrition Education Topic: Diabetic Nutrition (with low K+) Learning Readiness: Little Interest, Not Ready Teaching Methods: Discussion, Handout Response to Teaching: Verbalize understanding Teaching Recipient: Patient Nutrition Counseling: Pt has been keeping record of his BG readings. Discussed with pt his elevated BGs. Pt states he only looks at A1C. Pt states he has brougth his A1c down to 8 from 14. Pt is admitted for toe amputation possibly r/t elevated BG. Pt also has stage 3B CKD with calculated GFR earlier in the stage 4 range with elevated K+. Curretnly K+ is WNR however pt cont on low K+ diet. Discussed this with pt and provided handout of high, med and low K+ foods. Pt stated he wasn't aware he had decreased renal function. Explained how disease progression it is silent until kidneys reach a point where they are not able to efficently process waste products of digestion. Pt does order CHO in excess of his recommended CHO allowance and also asks for high K+ foods. This is given to pt per his right after he is informed that it is not recommended on diet. Encouraged pt to keep within his K+ and CHO allowance to help with better BG control and preserve kidney function. Will f/u with pt for answer any further questions or concerns. Nutrition Monitoring & Eval Nutrition Goals: Eat 75-100% Meal Nutrition Follow-Up: Good Intake RD Patient Assessment Time: [address] Assessment Type: RD Education Patient Nutrition Acuity: 2-Moderate Follow Up Date: November 03, 2017 Nutritional Comment: 10/16 Pt admitted for amputated great toe of left food with T2DM. Pt currently on a diabetic diet order consuming 100% of all meals since admit. Pt is consuming more carbs with each meal than recommended by diabetic diet order. RD provided pt with explanation of carb count and benefit of staying within dietary parameters. Pt given the opportunity to make dietary decision about amount of carbs consumed at each meal. Pt consumed 0% x 2 Michael. Blood glucose within normal limits. Monitor pt intake and progress. NIGEL 10/21 Pt on diabetic diet and eaitng 100% of meals. Pt refused Michael. Will cont to put protein powder in appropriate foods to encouragage high protein intake. BG mildly elevated up to 150 with occasional spikes to 200. Pt occasionally orders more CHO than recommended on his current diet order. Pt also keeps additional servings of fruit in his room. Pt has been reminded when he orders more CHO but is given the right to have items upon his informed consent. No new wt. Will cont to monitor and encourage healthy intake. TARIK 10/28 Provided education on diabetic and low K+ diet. Reviewed action of kidneys and encourage compliance with diet however pt is given foods not recommended per his right. Pt is eating 75- 100% of meal. BG consistently elevated up to 200's. K+ curretnly WNR at 4.7 was elevated us to 5.6. GFR currently 30, was down to 26. Wt is up to 187# (3%). Will cont to monitor and encoautge intake. RJ GARCIA October 28, 2017 12:37
[2017-10-29] MEDS: INSULIN HUM LISPRO 100 UN/ML 3 ML VIAL SUBQ PRN ×2 (12:37→20:35)
[2017-10-29 16:30] VITALS: BP 140/80
[2017-10-29] MEDS: SIMVASTATIN 20 MG TAB PO SCH (20:35)
[2017-10-30 07:59] VITALS: BP 157/82
[2017-10-30] MEDS: amLODIPine BESYL(*) 5 MG TAB PO SCH (08:26)
[2017-10-30] MEDS: LACTOBACILLUS ACIDOPHILUS TAB PO SCH ×2 (08:26→17:02)
[2017-10-30] MEDS: FAMOTIDINE 20 MG TAB PO SCH ×2 (08:27→20:28)
[2017-10-30] MEDS: INSULIN HUM LISPRO 100 UN/ML 3 ML VIAL SUBQ PRN ×2 (08:27→20:28)
[2017-10-30] MEDS: ASPIRIN 81 MG ENTERIC COATED PO SCH (08:27)
[2017-10-30] MEDS: ACETAMINOPHEN 325 MG TAB PO PRN (08:27)
[2017-10-30] MEDS: ENOXAPARIN 30 MG/0.3 ML SYR SC SCH (08:27)
[2017-10-30] MEDS: INSULIN DETEMIR 100 U/ML 3 ML PEN SUBQ SCH (08:28)
--- NOTE | 2017-10-30 09:44 | PT ECF NOTE ---
Type of Note: 2 week progress Note Primary Medical Diagnosis: Great toe and 1/2 of 1st metatarsal resected with amputation on 10/12/17 Physical Therapy Evaluation Date: 10/15/17 SUBJECTIVE: Prior Hospitalization: 10/08/17-10/15/17 Prior Level of Function: Pt was indep in home environment and was ambulating to/from bus stop for transportation, despite being instructed to minimize weight bearing while previous wound was healing. Pt will need increased support for transportation to/from work after this surgery. Prior Living Status: Apartment on lower level of building. 2 steps to enter building and then 6 steps down with rail to apartment. Community Services: Pt will need increased assistance for transportation to avoid excessive weight bearing through foot. Pt will also need financial assistance for diabetic shoes to fit properly and prevent further skin breakdown. Consult with [facility] scheduled for Friday10/31/17 and coordination of documentation with [facility] to gain reimbursement for this necessary equipment of diabetic shoes. Home Accessibility: Stairs with rails; Tub/shower combination Equipment Owned: None Medical Complications/Past Medical History: Pt has had unstable blood sugars with poor management. [facility] and also through out pt wound care with minimal progress prior to this significant exacerbation and infection. 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 Bed Mobility: Indep Assistive device: None Transfers: Indep Assistive Device: Front wheeled walker Gait: Indep for short distances in room; VC's still required for off loading during greater distance ambulation. Assistive device: Front wheeled walker Stairs: Modified indep with use of single rail and cues to prevent excessive pressure at ball of foot going up with the good and down with the bad. Assistive device: Right railing Timed Up and Go (>12 seconds indicated increased risk for falls): 20 seconds with cues for off loading of foot during turns 10 meter walk test (0.6m/second cannot function independently): N/A Other Objective Measures: n/a ASSESSMENT: Pt is progressing well with mobility and is now released for WBAT to facilitate safer stair mobility. Pt is encouraged to continue to protect wound during healing and off load as much as possible, including avoiding toe- off during gait and performing stairs with a step-to pattern. Pt has been allowed to be indep with short distance ambulation within the room, but continues to required verbal cues to maintain a safer off-loading gait during longer distance ambulation. PT now involved for wound care as well, due to increased drainage and slight dehiscence of wound with increase in activity. Wound will be closely monitored in conjunction with activity and pt to have consult visit with [facility] on Friday10/31/17 for diabetic shoes. Problem List/Current Limitations: Decreased WB, Decreased activity james, Decreased strength, Generalized weakness, Poor safety awareness; Decreased problem solving, Short Term Goals: 1. Pt to be safe with FWW ambulation x 150' and compliant with NWB on L) LE, with SBA/Modified indep- Met 2. Pt to demo safe indep with bed mobility, not using L) LE to push up in bed and indep with supine to/from sit transfers- Met 3. Pt to demo indep with sit to/from stand transfers from a variety of surfaces- Met 4. Pt to james up/down stairs with rail and least restrictive device with appropriate weight bearing per orders. 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 Patient Goals: Pt to return to work and prior level of mobility without restrictions.- Ongoing Rehabilitation Prognosis: Fair Barriers for Discharge: Proper foot wear to protect healing wound and prevent excessive pressure through dehisced post-op site. Pt's level of compliance for BS management. PLAN: The patient will benefit from skilled physical therapy services 5 times per week for 2 weeks including: Therapeutic Exercise, Therapeutic Activities, Transfer Training, Gait Training, Stair Training, ADL's, Safety Training, Pt/ Caregiver Training, Bed Mobility Thank you for this referral. If you have any questions, concerns, or comments about this report or plan, please contact me at . h. Nancy Platt, PT, MPT MTDD
[2017-10-30 15:55] VITALS: BP 171/92
[2017-10-30] MEDS: SIMVASTATIN 20 MG TAB PO SCH (20:28)
[2017-10-31 05:18] LABS: PLATELET COUNT, AUTOMATED 208 K/uL (150-450)
[2017-10-31 07:52] VITALS: BP 172/103
[2017-10-31] MEDS: ASPIRIN 81 MG ENTERIC COATED PO SCH (08:19)
[2017-10-31] MEDS: LACTOBACILLUS ACIDOPHILUS TAB PO SCH ×2 (08:19→16:46)
[2017-10-31] MEDS: amLODIPine BESYL(*) 5 MG TAB PO SCH (08:20)
[2017-10-31] MEDS: ENOXAPARIN 30 MG/0.3 ML SYR SC SCH (08:20)
[2017-10-31] MEDS: FAMOTIDINE 20 MG TAB PO SCH ×2 (08:20→20:52)
[2017-10-31] MEDS: INSULIN DETEMIR 100 U/ML 3 ML PEN SUBQ SCH (08:22)
[2017-10-31 09:18] VITALS: BP 179/85
[2017-10-31 13:06] VITALS: BP 165/81
[2017-10-31 15:05] VITALS: BP 166/88
[2017-10-31] MEDS: SIMVASTATIN 20 MG TAB PO SCH (20:52)
[2017-11-01 07:25] VITALS: BP 138/83
[2017-11-01] MEDS: LACTOBACILLUS ACIDOPHILUS TAB PO SCH ×2 (08:20→18:00)
[2017-11-01] MEDS: ACETAMINOPHEN 325 MG TAB PO PRN (08:20)
[2017-11-01] MEDS: amLODIPine BESYL(*) 5 MG TAB PO SCH (08:20)
[2017-11-01] MEDS: ASPIRIN 81 MG ENTERIC COATED PO SCH (08:20)
[2017-11-01] MEDS: FAMOTIDINE 20 MG TAB PO SCH ×2 (08:20→21:16)
[2017-11-01] MEDS: INSULIN DETEMIR 100 U/ML 3 ML PEN SUBQ SCH (08:21)
[2017-11-01] MEDS: ENOXAPARIN 30 MG/0.3 ML SYR SC SCH (08:21)
[2017-11-01] MEDS: INSULIN HUM LISPRO 100 UN/ML 3 ML VIAL SUBQ PRN ×3 (08:21→21:16)
[2017-11-01 15:00] VITALS: BP 158/88
[2017-11-01] MEDS: SIMVASTATIN 20 MG TAB PO SCH (21:16)
[2017-11-02 07:15] VITALS: BP 174/93
[2017-11-02] MEDS: LACTOBACILLUS ACIDOPHILUS TAB PO SCH ×2 (08:29→17:03)
[2017-11-02] MEDS: INSULIN DETEMIR 100 U/ML 3 ML PEN SUBQ SCH (08:29)
[2017-11-02] MEDS: ASPIRIN 81 MG ENTERIC COATED PO SCH (08:29)
[2017-11-02] MEDS: FAMOTIDINE 20 MG TAB PO SCH ×2 (08:29→20:32)
[2017-11-02] MEDS: ENOXAPARIN 30 MG/0.3 ML SYR SC SCH (08:29)
[2017-11-02] MEDS: amLODIPine BESYL(*) 5 MG TAB PO SCH (08:30)
[2017-11-02 15:16] VITALS: BP 140/78
[2017-11-02] MEDS: INSULIN HUM LISPRO 100 UN/ML 3 ML VIAL SUBQ PRN (17:03)
[2017-11-02] MEDS: SIMVASTATIN 20 MG TAB PO SCH (20:32)
[2017-11-03 07:25] VITALS: BP 154/83
[2017-11-03] MEDS: INSULIN DETEMIR 100 U/ML 3 ML PEN SUBQ SCH (08:30)
[2017-11-03] MEDS: ASPIRIN 81 MG ENTERIC COATED PO SCH (08:30)
[2017-11-03] MEDS: FAMOTIDINE 20 MG TAB PO SCH ×2 (08:30→21:43)
[2017-11-03] MEDS: ENOXAPARIN 30 MG/0.3 ML SYR SC SCH (08:30)
[2017-11-03] MEDS: LACTOBACILLUS ACIDOPHILUS TAB PO SCH ×2 (08:30→17:02)
[2017-11-03] MEDS: amLODIPine BESYL(*) 5 MG TAB PO SCH (08:31)
--- NOTE | 2017-11-03 14:07 | Medical Nutrition Therapy ---
Nutrition Anthropometrics Height (Inches): 69 (from med unit) Weight (Pounds): 187 Weight (Calculated Kilograms): 85.162 BMI Calculated: 27.91 Vickey Nutrition Score: Adequate Vickey Nutrition Risk Score: 17 Dietary Referral Nutrition Risk Factors: Non-Healing Wound Nutrition Risk Comment: Physical Findings Physical Appearance: Overweight BMI 25-29 Skin Appearance Skin Appearance: Edema Edema Location Modifier: Both Edema Location: Lower Extremity Type of Edema: Degree of Edema: 1+ Gastrointestinal Symptoms GI Symtoms: Change in Bowel Pattern Tube Present: Bowel Sounds: Recent Bowel Pattern: Stool Characteristics: Nutritional Diagnosis Nutritional Risk Acuity 2: Chronic Renal Failure Nutritional Risk Acuity 4: Good Appetite, Modified Diet Past Medical History: T2DM, CKD stage III, GERD, HTN, depression, appendectomy, [id number] transgender person Nutritional Acuity: 2-Moderate Nutrition Diagnosis: Excessive Food Intake, Increased Nutrient Needs Nutrition Etiology: Physiological Causes, Inappropriate Food Choice Nutrition Problem/Etiology/Sym: Increased nutrient need related to increased need for healing as evidence by left great toe amputation/ wound. Excessive food intake related to inapppropriate food choices AEB elevated whole blood glucose 103. Energy Requirement: 2260 (kcal/day (26 kcal/kg)- [place] St Jeor RMR (1712) AF 1.2 IF 1.1) Protein Requirement: 105 (g/day (1.2 g/kg)) Fluid Requirement: 2140 (mL/day (25 mL/kg)) Diet Type: Diabetic, Low Potassium (Low K) Nutrition Intervention: Cont diet as ordered, Encourage intake, HS snack Food Likes: minute maid lemon aid light ok Additional Diet Restrictions: NO POTATOES, ORANGES, TOMATOES, MELON PER K+- UNLESS PT INFORMED CONSENT Diet Comment To RSA: PREFERS TO BE CALLED MARIA LUZ. Nutrition Monitoring & Eval Nutrition Goals: Eat 75-100% Meal RD Patient Assessment Time: [address] Assessment Type: RD Re-Assessment Patient Nutrition Acuity: 2-Moderate Follow Up Date: November 05, 2017 Nutritional Comment: 10/16 Pt admitted for amputated great toe of left food with T2DM. Pt currently on a diabetic diet order consuming 100% of all meals since admit. Pt is consuming more carbs with each meal than recommended by diabetic diet order. RD provided pt with explanation of carb count and benefit of staying within dietary parameters. Pt given the opportunity to make dietary decision about amount of carbs consumed at each meal. Pt consumed 0% x 2 Michael. Blood glucose within normal limits. Monitor pt intake and progress. JA 10/21 Pt on diabetic diet and eaitng 100% of meals. Pt refused Michael. Will cont to put protein powder in appropriate foods to encouragage high protein intake. BG mildly elevated up to 150 with occasional spikes to 200. Pt occasionally orders more CHO than recommended on his current diet order. Pt also keeps additional servings of fruit in his room. Pt has been reminded when he orders more CHO but is given the right to have items upon his informed consent. No new wt. Will cont to monitor and encourage healthy intake. BK 10/28 Provided education on diabetic and low K+ diet. Reviewed action of kidneys and encourage compliance with diet however pt is given foods not recommended per his right. Pt is eating 75- 100% of meal. BG consistently elevated up to 200's. K+ curretnly WNR at 4.7 was elevated us to 5.6. GFR currently 30, was down to 26. Wt is up to 187# (3%). Will cont to monitor and encoautge intake. BK 11/03 Pt continues on ADA and low K+ diet. Pt is consuming 100% of her meal intake. Pt continues to choose foods that are higher in CHO, this morning she asked 4 ww toast, which can potentially continue to increase her blood glucose. Pt has educated on CHO counting and recommened CHO choice and serving sizes by Milena MEJIA, along with following a low K+ diet. Pt has verbally stated that she is aware of the consequences continuing old eating habits. There are no other lab values documented at this time. Continue to montior pt progress. CARLOS ALBERTO HANNAH RIDLEY November 03, 2017 10:29
[2017-11-03 16:40] VITALS: BP 149/77
[2017-11-03] MEDS: SIMVASTATIN 20 MG TAB PO SCH (21:43)
[2017-11-03] MEDS: INSULIN HUM LISPRO 100 UN/ML 3 ML VIAL SUBQ PRN (21:44)
[2017-11-04 07:30] VITALS: BP 164/90
[2017-11-04] MEDS: LACTOBACILLUS ACIDOPHILUS TAB PO SCH ×2 (08:24→17:00)
[2017-11-04] MEDS: FAMOTIDINE 20 MG TAB PO SCH ×2 (08:24→20:37)
[2017-11-04] MEDS: ASPIRIN 81 MG ENTERIC COATED PO SCH (08:24)
[2017-11-04] MEDS: amLODIPine BESYL(*) 5 MG TAB PO SCH (08:24)
[2017-11-04] MEDS: ENOXAPARIN 30 MG/0.3 ML SYR SC SCH (08:24)
[2017-11-04] MEDS: INSULIN DETEMIR 100 U/ML 3 ML PEN SUBQ SCH (08:24)
--- NOTE | 2017-11-04 08:28 | General Surgery Progress Note ---
Subjective Progress Notes Subjective Patient without complaints. Physical Exam Vital Signs Date Time Temp Pulse Resp B/P (MAP) Pulse Ox O2 Delivery O2 Flow Rate FiO2 11/03/17 21:43 93 Room Air 11/03/17 16:40 97.8 76 20 149/77 (101) General Appearance: Alert, Awake, No Acute Distress, Afebrile Extremities: Other (dressing removed. The amputation site is without signs of infection. There are 2 areas of skin breakdown, one on the medial aspect and one on the anterior aspect. There are no tunnels tracking more deeply. I debrided some necrotic subcutaneous fat from the anterior portion, less than a square centimeter.) Result Diagram: 10/31/17 0507 10/31/17 0507 Assessment and Plan Problems: (1) Amputated great toe of left foot Status: Acute Assessment & Plan: 10/15/17: Patient seems to be healing well so far. We'll continue changing the dressing daily until it is completely dry and show signs that the skin edges will remain approximated and are healing. 10/17/17: Doing well. Continue dressings changes. Continue to keep foot elevated. He can go home when he can either ambulate with crutches and avoid putting weight on the operative site or it's healed adequately that he can start putting weight on it; no sooner than 2 weeks after surgery; the week of October 27. 10/20/17: Doing well. Continue dressing changes. Avoid pressure on left foot. Will reinspect later this week and if continues to do well will let him start ambulating on his left foot. 10/24/17: Doing well. Sutures removed. Will have to keep an eye on the incision. I am hopeful that as new skin grows in under the eschar that it will slough off. Will start increasing mobilization, WBAT, will keep the incision open to air at this point and will reapply MANAS wraps if his foot edema returns. Possible d/c to home next week. 10/27/17: Doing well. Removed some dry skin and eschar to reveal healing tissue underneath. Will ask Wound Care Service to dress superficial wound with moisture regulating dressing. Continue wound care. Will d/c when wound is healing and pt able to ambulate without problems. 10/31/17: Doing well. Debrided some more dry skin and eschar revealing an area of breakdown on the anterior portion of the amputation site. There is no signs of infection and no deeper tunneling. Continue wound care. Possibly ready for DC next week. 11/04/17: Doing well. Debrided a small amount of necrotic subcutaneous tissue today. Otherwise looks very good. No tracking or signs of infection. Continue wound care. He can go home in the next day or 2 when we have suitable shoes, and outpatient wound care plan, and a plan for transportation between home and work to minimize his need for ambulation. (2) T2DM (type 2 diabetes mellitus) Status: Chronic Condition Stable Time Spent: < 30 min Problem Qualifiers (1) T2DM (type 2 diabetes mellitus): Diabetes mellitus fci insulin use: with long term care pharmacist use Diabetes mellitus complication status: with neurologic complications Diabetes mellitus complication detail: with unspecified neuropathy Qualified Codes: E11.40 - Type 2 diabetes mellitus with diabetic neuropathy, unspecified; Z79.4 - termite control servicer (current) use of insulin JUAN F PIRES MD November 04, 2017 08:28
--- NOTE | 2017-11-04 12:05 | Medical Nutrition Therapy ---
Nutrition Monitoring & Eval RD Patient Assessment Time: [address] Assessment Type: RD Re-Assessment Patient Nutrition Acuity: 2-Moderate Follow Up Date: November 11, 2017 Nutritional Comment: 10/16 Pt admitted for amputated great toe of left food with T2DM. Pt currently on a diabetic diet order consuming 100% of all meals since admit. Pt is consuming more carbs with each meal than recommended by diabetic diet order. RD provided pt with explanation of carb count and benefit of staying within dietary parameters. Pt given the opportunity to make dietary decision about amount of carbs consumed at each meal. Pt consumed 0% x 2 Michael. Blood glucose within normal limits. Monitor pt intake and progress. NIGEL 10/21 Pt on diabetic diet and eaitng 100% of meals. Pt refused Michael. Will cont to put protein powder in appropriate foods to encouragage high protein intake. BG mildly elevated up to 150 with occasional spikes to 200. Pt occasionally orders more CHO than recommended on his current diet order. Pt also keeps additional servings of fruit in his room. Pt has been reminded when he orders more CHO but is given the right to have items upon his informed consent. No new wt. Will cont to monitor and encourage healthy intake. BK 10/28 Provided education on diabetic and low K+ diet. Reviewed action of kidneys and encourage compliance with diet however pt is given foods not recommended per his right. Pt is eating 75- 100% of meal. BG consistently elevated up to 200's. K+ curretnly WNR at 4.7 was elevated us to 5.6. GFR currently 30, was down to 26. Wt is up to 187# (3%). Will cont to monitor and encoautge intake. BK 11/03 Pt continues on ADA and low K+ diet. Pt is consuming 100% of her meal intake. Pt continues to choose foods that are higher in CHO, this morning she asked 4 ww toast, which can potentially continue to increase her blood glucose. Pt has educated on CHO counting and recommened CHO choice and serving sizes by Rj MEJIA, along with following a low K+ diet. Pt has verbally stated that she is aware of the consequences continuing old eating habits. There are no other lab values documented at this time. Continue to montior pt progress. CARLOS ALBERTO BAILEYNIRRJ November 04, 2017 12:05
[2017-11-04 16:10] VITALS: BP 140/77
[2017-11-04] MEDS: INSULIN HUM LISPRO 100 UN/ML 3 ML VIAL SUBQ PRN (17:06)
[2017-11-04] MEDS: SIMVASTATIN 20 MG TAB PO SCH (20:37)
[2017-11-05 08:00] VITALS: BP 180/96
[2017-11-05] MEDS: INSULIN DETEMIR 100 U/ML 3 ML PEN SUBQ SCH (08:45)
[2017-11-05] MEDS: FAMOTIDINE 20 MG TAB PO SCH (08:45)
[2017-11-05] MEDS: amLODIPine BESYL(*) 5 MG TAB PO SCH (08:45)
[2017-11-05] MEDS: ASPIRIN 81 MG ENTERIC COATED PO SCH (08:45)
[2017-11-05] MEDS: LACTOBACILLUS ACIDOPHILUS TAB PO SCH (08:45)
[2017-11-05] MEDS: ENOXAPARIN 30 MG/0.3 ML SYR SC SCH (08:45)
[2017-11-05] MEDS ORDERED: INSU100I5 SUBQ (09:00)
[2017-11-05] MEDS ORDERED: AMLO-99 PO (09:00)
--- NOTE | 2017-11-05 09:04 | Hospitalist Depart ---
Discharge Summary Reason for Hosp/Final Diag: (1) Amputated great toe of left foot Status: Acute Hospital Course & Plan: He presented with worsening erythema and swelling to the left foot surrounding the diabetic foot ulcer. His WBC was elevated with neutrophilia and CRP/ESR are increased from July. He was on Primaxin and Vancomycin for one week. MRI of the foot showed osteomyelitis. Dr. Salgado performed amputation of his left great toe and distal metatarsal. He completed all antibiotics. Dr. Salgado recommended further observation of his wound prior to discharge and the patient was transferred to [facility] for rehabilitation and monitoring of his wound. (2) CKD (chronic kidney disease) stage 3, GFR 30-59 ml/min Status: Chronic Hospital Course & Plan: Creatinine remained elevated between 2.3 and 2.5. At the time of discharge his creatinine was 2.4. (3) HTN (hypertension) Status: Chronic Hospital Course & Plan: He is on chronic treatment with Amlodipine. Lisinopril was stopped secondary to hyperkalemia. He would prefer be started on Verapamil if further medication is required, because the [facility] carries this medication. (4) GERD (gastroesophageal reflux disease) Status: Chronic Hospital Course & Plan: He was continued on chronic treatment with Famotidine. (5) T2DM (type 2 diabetes mellitus) Status: Chronic Hospital Course & Plan: His Levemir dose was 30u daily while on ECF with additional SSI as needed. Departure Weight (Pounds): 187 Weight (Ounces): 12.0 Result Diagram: 10/31/17 0507 10/31/17 0507 Condition: Improved Discharge: Home, Self Care Time Spent: < 30 min Discharge Instructions Home Meds Active Scripts Insulin Detemir 100 UN/ML PEN (Levemir Flextouch) 100 Unit/1 Ml Insuln.pen, 30 UNIT SUBQ QDAY, #5 UNIT Prov:MEAGAN PAK MD 11/05/17 Amlodipine Besylate (AMLODIPINE BESYLATE) 10 Mg Tablet, 1 TAB PO QDAY, #30 TAB Prov:MEAGAN PAK MD 11/05/17 Reported Medications Loperamide Hcl (ANTI-DIARRHEA) 2 Mg Tablet, 2 MG PO Y for DIARRHEA 10/08/17 Simvastatin (SIMVASTATIN) 20 Mg Tablet, 20 MG PO HS, TAB 08/19/17 Insulin Lispro 100 Un/Ml Vial (HUMALOG 100 U/ML VIAL) 100 Unit/1 Ml Vial, 0 SQ per sliding scale, VIAL 1 unit for every 50 point increase in blood sugar above normal. 08/19/17 Famotidine (FAMOTIDINE) 20 Mg Tablet, 20 MG PO QDAY, TAB 08/19/17 Aspirin (ASPIR 81) 81 Mg Tablet.dr, 81 MG PO QDAY, TAB 08/03/16 Cholecalciferol (Vitamin D3) (VITAMIN D3) 1,000 Unit Tablet, 1000 UNIT PO QDAY, TAB 08/03/16 Discontinued Reported Medications Lisinopril (LISINOPRIL) 20 Mg Tablet, 20 MG PO QDAY, TAB 10/08/17 Insulin Detemir (LEVEMIR) 100 Unit/Ml Injs, 70 UNIT SUBQ BID 09/03/17 Discontinued Scripts Amlodipine Besylate (AMLODIPINE BESYLATE) 5 Mg Tablet, 1 TAB PO QDAY, #30 TAB Prov:JUAN F MCLEAN DO 08/21/17 Follow up Referrals: Other Referral - In One Week @ [facility] Diet: Diabetic Activity: As Tolerated Copies to: [facility] Venous Thromboembolism VTE Risk Patient's VTE Risk: Low VTE Diagnostic Test 2 Days Prior to Admit: No Antithrombotics Is Pt On Any Antithrombotics?: Yes Problem Qualifiers (1) T2DM (type 2 diabetes mellitus): Diabetes mellitus penitentiary insulin use: with penitentiary use Diabetes mellitus complication status: with neurologic complications Diabetes mellitus complication detail: with unspecified neuropathy Qualified Codes: E11.40 - Type 2 diabetes mellitus with diabetic neuropathy, unspecified; Z79.4 - residential (current) use of insulin MEAGAN PAK MD November 05, 2017 09:04
--- NOTE | 2017-11-06 18:29 | PT ECF NOTE ---
Type of Note: Discharge Note Primary Medical Diagnosis: Great toe and 1/2 of 1st metatarsal resected with amputation on 10/12/17 Physical Therapy Evaluation Date: 10/15/17 SUBJECTIVE: Prior Hospitalization: 10/08/17-10/15/17 Prior Level of Function: Pt was indep in home environment and was ambulating to/from bus stop for transportation, despite being instructed to minimize weight bearing while previous wound was healing. Pt will need increased support for transportation to/from work after this surgery. Prior Living Status: Apartment on lower level of building. 2 steps to enter building and then 6 steps down with rail to apartment. Community Services: Pt will need increased assistance for transportation to avoid excessive weight bearing through foot. Pt will also need financial assistance for diabetic shoes to fit properly and prevent further skin breakdown. Consult with [facility] scheduled for Friday10/31/17 and coordination of documentation with [facility] to gain reimbursement for this necessary equipment of diabetic shoes. Home Accessibility: Stairs with rails; Tub/shower combination Equipment Owned: None Medical Complications/Past Medical History: Pt has had unstable blood sugars with poor management. Pt is being seen through [facility] for care and also through out pt wound care with minimal progress prior to this significant exacerbation and infection. 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 Bed Mobility: Indep Assistive device: None Transfers: Indep Assistive Device: Single axillary crutch Gait: Indep with use of single axillary crutch to continue to allow for some off loading during ambulation and support during stairs. Assistive device: Single axillary crutch at R) UE Stairs: Indep with use of single rail and axillary crutch to prevent excessive pressure at ball of foot going up with the good and down with the bad. Assistive device: Right railing and single axillary crutch Timed Up and Go (>12 seconds indicated increased risk for falls): 20 seconds with cues for off loading of foot during turns 10 meter walk test (0.6m/second cannot function independently): N/A Other Objective Measures: n/a ASSESSMENT: Pt is encouraged to continue to protect wound during healing and off load as much as possible, including avoiding toe-off during gait while using axillary crutch of bear some weight, and performing stairs with a step-to pattern. Consult visit with [facility] completed on Friday10/31/17 for diabetic shoes to prevent future breakdown and allow for more efficient wound healing by off loading surgical site. Problem List/Current Limitations: Decreased WB, Decreased activity james, Decreased strength, Generalized weakness, Poor safety awareness; Decreased problem solving, Short Term Goals: 1. Pt to be safe with FWW ambulation x 150' and compliant with NWB on L) LE, with SBA/Modified indep- Met 2. Pt to demo safe indep with bed mobility, not using L) LE to push up in bed and indep with supine to/from sit transfers- Met 3. Pt to demo indep with sit to/from stand transfers from a variety of surfaces- Met 4. Pt to james up/down stairs with rail and least restrictive device with appropriate weight bearing per orders. 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 Rehabilitation Prognosis: Fair Barriers for Discharge: Proper foot wear to protect healing wound and prevent excessive pressure through dehisced post-op site. Pt has obtain an adequate pair of shoes for home use and to allow for access to out pt appointments while we await the optimal diabetic shoe option. PLAN: Discharge home with assist from supportive friends and community services as before. Pt to follow up with out pt wound care on Friday11/07/17 and follow up with surgeon as scheduled. Thank you for this referral. If you have any questions, concerns, or comments about this report or plan, please contact me at . H. Nancy Platt, PT, MPT MTDD
== END 2017-11-05 11:25 | disposition home or self-care (01) | DRG 638 ==
LOC: SWB 10:40
PROVIDERS: ADMIT Specialist; ATTEND Specialist
PROC: 0JDR3ZZ Extraction of Left Foot Subcutaneous Tissue and Fascia, Percutaneous Approach (ICD-10-PCS; 2017-10-28)
PROC: 0JDR3ZZ Extraction of Left Foot Subcutaneous Tissue and Fascia, Percutaneous Approach (ICD-10-PCS; 2017-10-31)
PROC: 0JDR3ZZ Extraction of Left Foot Subcutaneous Tissue and Fascia, Percutaneous Approach (ICD-10-PCS; principal; 2017-11-04)
PROC: 0JDR3ZZ Extraction of Left Foot Subcutaneous Tissue and Fascia, Percutaneous Approach (ICD-10-PCS; 2017-11-04)
DX: E11.621 Type 2 diabetes mellitus with foot ulcer (principal); L03.116 Cellulitis of left lower limb; E11.40 Type 2 diabetes mellitus with diabetic neuropathy, unspecified; E11.22 Type 2 diabetes mellitus with diabetic chronic kidney disease; E11.65 Type 2 diabetes mellitus with hyperglycemia; I12.9 Hypertensive chronic kidney disease with stage 1 through stage 4 chronic kidney disease, or unspecified chronic kidney disease; N18.3 Chronic kidney disease, stage 3 (moderate); L97.529 Non-pressure chronic ulcer of other part of left foot with unspecified severity; K21.9 Gastro-esophageal reflux disease without esophagitis; Z79.4 Long term (current) use of insulin; Z89.422 Acquired absence of other left toe(s)
CPT/HCPCS: 11042; 36415; 36416; 82040; 82247; 82310; 82374; 82435; 82565; 82947; 82948; 84075; 84132; 84155; 84295; 84450; 84460; 84520; 85025; 97161; 97165; J1650; J1815; J7030

== ENCOUNTER → 2017-11-07 | Outpatient (REF) ==
[2017-10-09 07:53] VITALS: BMI 27.9
[~2017-11-07] MED LIST changes: +AMLO-99 PO; +DOCU-416 PO; +MELO-205 PO
--- NOTE | 2017-11-07 15:02 | PT INITIAL EVALUATION ---
MEDICAL DIAGNOSIS: Dehisced Incision, s/p amputation of L) great toe and 1st MT TREATMENT DIAGNOSIS: Dehisced Incision, s/p amputation of L) great toe and 1st MT DATE OF ONSET: 10/12/17 (date of amputation of L) great toe and 1st MTP) SUBJECTIVE: The patient was previously seen for PT wound care for a neuropathic ulcer on the plantar surface of the L) foot (evaluation completed 09/05/17). The patient was discharged from PT wound care on 10/08/17 d/t s&s of worsening infection and was subsequently admitted to [facility]. Dr. Salgado performed an amputation of the L) great toe and 1/2 of the 1st MT on . The patient was NWB at that time and was transferred to [facility] for continued skilled care (10/15/17-11/05/17). The patient was evaluated by PT wound care team after dehiscence of the surgical incision, and treated with moist wound healing strategies. The patient was discharged on 11/[address] and instruction to maintain LE compression stockings in place to assist with LE edema. While on ECF the patient was fit for diabetic shoes from [facility]. The patient is WBAT of the L) LE with use of a single axillary crutch to assist with offloading the area. The patient presents today with dressing in place but compression stockings removed. 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 Pt presents with two wounds along surgical incision of amputated great toe on the L) foot. Entire L) LE and foot demonstrates edema without use of compression stockings. Wound bases with moderate amount of slough with evidence of granulation tissue present at wound borders. PT completed conservative, selective debridement of non-viable tissue and slough with tweezers to the depth of the subcutaneous tissue. Wound bed filled with collagen with silver, followed by xeroform gauze and a speciality absorptive pad , held in place with medipore tape. Pt's compression stockings demonstrate large amounts of cat hair on the outside surface, with inside surface relatively clean. PT requested that the pt I)ly maribel the compression stockings, the patient initially refused. PT educated pt on the importance of learning to I )ly maribel/doff stockings so that when removed at home for a shower or laundering , the patient will be able to replace stockings and prevent exacerbation of LE edema. PT demonstrated and donned L) compression stocking and then the patient donned the R) compression stocking with encouragement. PT encouraged the patient to launder stockings and re-maribel as soon as possible. The patient will benefit from further skilled PT wound care in order to facilitate wound healing , provide patient education and decrease risk of further complications. Short Term Goals 1) Pt to maintain clean, dry and intact dressing in between wound care visits. 2) Pt to independently maribel/doff compression stockings and demonstrate compliance with continued use. 3) Pt to obtain and wear diabetic shoes to prevent further complications and skin breakdown. 4) Wound to demonstrate 100% granulation tissue with no further s&s of infection 5) Wound to gradually epithelialize from the edges inward and demonstrate 100% closure. Patient's Goals: Wound healing PLAN: Patient to be seen for skilled PT wound care to include sharps debridement as well as advanced wound care product selection and application 2x/Week for up to 90 days . The patient will benefit from continued education and a multi-disciplinary approach to address co-morbidities and pt non -compliance. Thank you for this referral. If you have any questions, comments, or concerns about this report or plan, please contact me at . Alisia Pastor, PT, DPT MTDD
== END ==
LOC: PT 10:49
PROVIDERS: ATTEND Surgery
DX: T81.31XS Disruption of external operation (surgical) wound, not elsewhere classified, sequela (principal); E11.40 Type 2 diabetes mellitus with diabetic neuropathy, unspecified; Z89.422 Acquired absence of other left toe(s)
CPT/HCPCS: 97161

== ENCOUNTER 2017-11-10 06:46 | Emergency (ER) | payer SELFPAY ==
[2017-10-09 07:53] VITALS: Wt 85.2 kg
[~2017-11-10 06:46] MED LIST changes: -DOCU-416 PO; -MELO-205 PO
--- NOTE | 2017-11-10 07:07 | ER Report ---
History and Physical Time Seen By MD: 07:06 Hx. of Stated Complaint: PT REPORTS NEW MID LOWER ABDOMINAL PAIN "IT'S THE GERD"; AND LOW MID BACK PAIN THAT HE'S HAD SINCE 2007 HPI/ROS CHIEF COMPLAINT: Lower back pain, periumbilical abdominal pain. HISTORY OF PRESENT ILLNESS: Patient is a 52-year-old male who was recently hospitalized for cellulitis and subsequent amputation of his left great digit in and of September beginning of October. Patient states that he is now walking with a cane notes some lower back pain that he attributes to sleeping on a soft mattress instead of sleeping on a hard bed which she had been doing in the hospital. Also notes some periumbilical abdominal pain which is been present for years and is diagnosed with GERD for which he currently takes famotidine. Eyes any fevers or chills. He reports some nausea but no vomiting. He does report constipation with last bowel movement on Friday but denies any blood or mucus in the stools. Patient is eating well. While in the hospital patient's blood sugars were running between 100 and 150 mg/dL but since leaving the hospital he reports blood sugars running in the 250 range. Patient denies any saddle anesthesia. He is able to ambulate. Denies any incontinence of stool or urine. Denies any urinary or stool retention. REVIEW OF SYSTEMS: Constitutional: No fever, no chills. Eyes: No discharge. ENT: No sore throat. Cardiovascular: No chest pain, no palpitations. Respiratory: No cough, no shortness of breath. Gastrointestinal: Periumbilical abdominal pain, nausea without vomiting no diarrhea does report constipation. Genitourinary: No hematuria. Musculoskeletal: Lumbar and lower thoracic back pain Skin: No rashes. Neurological: No headache. Allergies: Coded Allergies: No Known Allergies (Verified Allergy, Mild, 10/08/17) Home Meds Active Scripts Docusate Sodium (COLACE) 100 Mg Capsule, 100 MG PO QDAY for 30 Days, #30 CAPSULE Prov:MABLE POTTER MD 11/10/17 Insulin Detemir 100 UN/ML PEN (Levemir Flextouch) 100 Unit/1 Ml Insuln.pen, 30 UNIT SUBQ QDAY, #5 UNIT Prov:MEAGAN PAK MD 11/05/17 Amlodipine Besylate (AMLODIPINE BESYLATE) 10 Mg Tablet, 1 TAB PO QDAY, #30 TAB Prov:MEAGAN PAK MD 11/05/17 Reported Medications Loperamide Hcl (ANTI-DIARRHEA) 2 Mg Tablet, 2 MG PO Y for DIARRHEA 10/08/17 Simvastatin (SIMVASTATIN) 20 Mg Tablet, 20 MG PO HS, TAB 08/19/17 Insulin Lispro 100 Un/Ml Vial (HUMALOG 100 U/ML VIAL) 100 Unit/1 Ml Vial, 0 SQ per sliding scale, VIAL 1 unit for every 50 point increase in blood sugar above normal. 08/19/17 Famotidine (FAMOTIDINE) 20 Mg Tablet, 20 MG PO QDAY, TAB 08/19/17 Aspirin (ASPIR 81) 81 Mg Tablet.dr, 81 MG PO QDAY, TAB 08/03/16 Cholecalciferol (Vitamin D3) (VITAMIN D3) 1,000 Unit Tablet, 1000 UNIT PO QDAY, TAB 08/03/16 Discontinued Reported Medications Lisinopril (LISINOPRIL) 20 Mg Tablet, 20 MG PO QDAY, TAB 10/08/17 Insulin Detemir (LEVEMIR) 100 Unit/Ml Injs, 70 UNIT SUBQ BID 09/03/17 Discontinued Scripts Amlodipine Besylate (AMLODIPINE BESYLATE) 5 Mg Tablet, 1 TAB PO QDAY, #30 TAB Prov:JUAN F MCLEAN DO 08/21/17 Past Medical/Surgical History Past medical history significant for GERD, history of hypercholesterolemia, history of insulin-dependent diabetes, history of hypertension. 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 History of appendectomy Hx Smoking: No Smoking Status: Never Smoker Exposure to Second Hand Smoke?: No Hx Substance Use Disorder: No Hx Alcohol Use: No Constitutional Vital Sign - Last 24 Hours 11/10/17 11/10/17 11/10/17 11/10/17 06:46 06:50 06:51 07:00 Temp 97.8 Pulse ??? 91 Resp 18 B/P (MAP) 205/97 205/97 (133) 202/100 (134) Pulse Ox 96 O2 Delivery Room Air 11/10/17 11/10/17 11/10/17 11/10/17 07:01 07:30 07:31 07:33 Pulse ??? 89 89 Resp 17 B/P (MAP) 208/108 (141) Pulse Ox 95 11/10/17 08:54 O2 Flow Rate 1.0 Physical Exam General/Constitutional: Patient is awake, alert, nontoxic and in no acute respiratory distress. Head: Normocephalic and atraumatic. Eyes: Conjunctival clear, Pupils are equal and reactive to light. Extraocular muscles are intact and symmetrical. Sclera are clear and anicteric.. Nares: No rhinorrhea or bleeding. Oropharyngeal: Mucous membranes are moist. Neck: Supple, no adenopathy. Cardiovascular: Heart is regular rate and rhythm without audible murmurs, rubs or gallops. Pulmonary: Lungs are clear to auscultation bilaterally. There are no wheezes, rales, or rhonchi. Chest rise is symmetrical Abdomen: Soft, nontender, no guarding or peritoneal signs. Extremities: No gross deformities, No peripheral cyanosis. Able to move all 4 extremities. Neuro: Alert and oriented X3, Skin: No rashes, skin is warm dry and well perfused. Amputation of Left great toe Medical Decision Making Data Points Result Diagram: 11/10/17 0737 11/10/17 0737 Laboratory Hematology Test 11/10/17 07:37 11/10/17 07:55 Red Blood Count 4.63 M/uL (4.00-5.60) Mean Corpuscular Volume 82.6 fL (80.0-96.0) Mean Corpuscular Hemoglobin 28.6 pg (26.0-33.0) Mean Corpuscular Hemoglobin Concent 34.7 g/dL (32.0-36.0) Red Cell Distribution Width 14.4 % (11.5-14.5) Mean Platelet Volume 7.6 fL (7.2-11.1) Neutrophils (%) (Auto) 72.8 % (39.4-72.5) Lymphocytes (%) (Auto) 15.4 % (17.6-49.6) Monocytes (%) (Auto) 8.0 % (4.1-12.4) Eosinophils (%) (Auto) 2.7 % (0.4-6.7) Basophils (%) (Auto) 1.1 % (0.3-1.4) Nucleated RBC Relative Count (auto) 0.1 /100WBC Neutrophils # (Auto) 4.2 K/uL (2.0-7.4) Lymphocytes # (Auto) 0.9 K/uL (1.3-3.6) Monocytes # (Auto) 0.5 K/uL (0.3-1.0) Eosinophils # (Auto) 0.2 K/uL (0.0-0.5) Basophils # (Auto) 0.1 K/uL (0.0-0.1) Nucleated RBC Absolute Count (auto) 0.00 K/uL Sodium Level 137 mmol/L (137-145) Potassium Level 4.8 mmol/L (3.5-5.0) Chloride Level 105 mmol/L (98-107) Carbon Dioxide Level 23 mmol/L (22-30) Blood Urea Nitrogen 30 mg/dl (9-21) Creatinine 2.00 mg/dl (0.66-1.25) Glomerular Filtration Rate Calc 35.5 Random Glucose 211 mg/dl (75-110) Calcium Level 9.3 mg/dl (8.4-10.2) Total Bilirubin 0.6 mg/dl (0.2-1.3) Aspartate Amino Transf (AST/SGOT) 23 U/L (0-35) Alanine Aminotransferase (ALT/SGPT) 32 U/L (0-56) Alkaline Phosphatase 140 U/L (0-126) Total Protein 6.6 gm/dl (6.3-8.2) Albumin 3.3 g/dl (3.5-5.0) Lipase 130 U/L (23-300) Urine Color Yellow Urine Clarity Slightly-cloudy Urine pH 5.0 pH (4.8-9.5) Urine Specific [place] 1.017 Urine Protein 500 mg/dL (NEGATIVE) Urine Glucose (UA) 500 mg/dL (NEGATIVE) Urine Ketones Negative mg/dL (NEGATIVE) Urine Blood Small (NEGATIVE) Urine Nitrite Negative (NEGATIVE) Urine Bilirubin Negative (NEGATIVE) Urine Urobilinogen Negative mg/dL (0.2-1.9) Urine Leukocyte Esterase Negative (NEGATIVE) Urine RBC 8 /HPF (0-2/HPF) Urine WBC 3 /HPF (0-5/HPF) Urine Squamous Epithelial Cells Few /LPF (</=FEW) Urine Bacteria Negative /HPF (NONE-FEW) Urine Hyaline Casts Few /LPF (NONE-FEW) Urine Mucus Few /HPF (NONE-FEW) Chemistry Test 11/10/17 07:37 11/10/17 07:55 White Blood Count 5.7 k/uL (4.5-11.0) Red Blood Count 4.63 M/uL (4.00-5.60) Hemoglobin 13.3 g/dL (14.0-18.0) Hematocrit 38.3 % (42.0-52.0) Mean Corpuscular Volume 82.6 fL (80.0-96.0) Mean Corpuscular Hemoglobin 28.6 pg (26.0-33.0) Mean Corpuscular Hemoglobin Concent 34.7 g/dL (32.0-36.0) Red Cell Distribution Width 14.4 % (11.5-14.5) Platelet Count 213 K/uL (150-450) Mean Platelet Volume 7.6 fL (7.2-11.1) Neutrophils (%) (Auto) 72.8 % (39.4-72.5) Lymphocytes (%) (Auto) 15.4 % (17.6-49.6) Monocytes (%) (Auto) 8.0 % (4.1-12.4) Eosinophils (%) (Auto) 2.7 % (0.4-6.7) Basophils (%) (Auto) 1.1 % (0.3-1.4) Nucleated RBC Relative Count (auto) 0.1 /100WBC Neutrophils # (Auto) 4.2 K/uL (2.0-7.4) Lymphocytes # (Auto) 0.9 K/uL (1.3-3.6) Monocytes # (Auto) 0.5 K/uL (0.3-1.0) Eosinophils # (Auto) 0.2 K/uL (0.0-0.5) Basophils # (Auto) 0.1 K/uL (0.0-0.1) Nucleated RBC Absolute Count (auto) 0.00 K/uL Glomerular Filtration Rate Calc 35.5 Calcium Level 9.3 mg/dl (8.4-10.2) Total Bilirubin 0.6 mg/dl (0.2-1.3) Aspartate Amino Transf (AST/SGOT) 23 U/L (0-35) Alanine Aminotransferase (ALT/SGPT) 32 U/L (0-56) Alkaline Phosphatase 140 U/L (0-126) Total Protein 6.6 gm/dl (6.3-8.2) Albumin 3.3 g/dl (3.5-5.0) Lipase 130 U/L (23-300) Urine Color Yellow Urine Clarity Slightly-cloudy Urine pH 5.0 pH (4.8-9.5) Urine Specific [place] 1.017 Urine Protein 500 mg/dL (NEGATIVE) Urine Glucose (UA) 500 mg/dL (NEGATIVE) Urine Ketones Negative mg/dL (NEGATIVE) Urine Blood Small (NEGATIVE) Urine Nitrite Negative (NEGATIVE) Urine Bilirubin Negative (NEGATIVE) Urine Urobilinogen Negative mg/dL (0.2-1.9) Urine Leukocyte Esterase Negative (NEGATIVE) Urine RBC 8 /HPF (0-2/HPF) Urine WBC 3 /HPF (0-5/HPF) Urine Squamous Epithelial Cells Few /LPF (</=FEW) Urine Bacteria Negative /HPF (NONE-FEW) Urine Hyaline Casts Few /LPF (NONE-FEW) Urine Mucus Few /HPF (NONE-FEW) Urinalysis Test 11/10/17 07:55 Urine Color Yellow Urine Clarity Slightly-cloudy Urine pH 5.0 pH (4.8-9.5) Urine Specific [place] 1.017 Urine Protein 500 mg/dL (NEGATIVE) Urine Glucose (UA) 500 mg/dL (NEGATIVE) Urine Ketones Negative mg/dL (NEGATIVE) Urine Blood Small (NEGATIVE) Urine Nitrite Negative (NEGATIVE) Urine Bilirubin Negative (NEGATIVE) Urine Urobilinogen Negative mg/dL (0.2-1.9) Urine Leukocyte Esterase Negative (NEGATIVE) Urine RBC 8 /HPF (0-2/HPF) Urine WBC 3 /HPF (0-5/HPF) Urine Squamous Epithelial Cells Few /LPF (</=FEW) Urine Bacteria Negative /HPF (NONE-FEW) Urine Hyaline Casts Few /LPF (NONE-FEW) Urine Mucus Few /HPF (NONE-FEW) EKG/Imaging Imaging 11/10/2017 7:19:26 am bedside ultrasound of the abdominal aorta was performed from the xiphoid to the bifurcation. The aorta has normal taper and is under 2 cm in diameter. No obvious aortic aneurysm dilatation noted. 11/10/2017 9:10:51 am FACILITY: [facility] [place] PATIENT NAME: Juan F Russell : 1965 MR: [id number] V: [id number] EXAM DATE: ORDERING PHYSICIAN: MABLE POTTER TECHNOLOGIST: Location: [facility] [place] Patient: Juan F Russell : 1965 Visit/Account:[id number] Date of Sevice: 11/10/2017 ABDOMEN/PELVIS W/O CONTRAST HISTORY:periumbilical pain TECHNIQUE: CT abdomen and pelvis without intravenous contrast. Contiguous axial images of the abdomen and pelvis was performed from the lung bases to the symphysis pubis. One of the following dose optimization techniques was utilized in the performance of this exam: Automated exposure control; adjustment of the mA and/ or kV according to the patient's size; or use of an iterative reconstruction technique. Specific details can be referenced in the facility's radiology CT exam operational policy. CONTRAST: None. COMPARISON: None. FINDINGS: Visualized lung bases: Negative. Hepatobiliary: Negative. Spleen: Negative. Adrenals: Negative. Kidneys/: No visible radiopaque renal or ureteral stones. Pancreas: Negative. GI: Patient is mildly constipated. No evidence for bowel obstruction or focal inflammation. Appendix is not visualized but there are no inflammatory changes around cecum. Vessels/spaces/nodes: Mild atherosclerotic calcification is noted. There is also calcification of the vas deferens glands. Bones/soft tissues: Subcutaneous air along the ventral abdominal wall is presumably from subcutaneous injections. Degenerative changes are noted the SI joints. Small subcutaneous nodule along the ventral abdominal wall the pelvis image 132 is likely a sebaceous cyst. IMPRESSION: 1. No acute pathology in the abdomen or pelvis. There is mild constipation but no bowel obstruction or focal inflammation. Appendix is not visualized but there are no inflammatory changes around cecum. 2. Other chronic findings are described above. Report Dictated By: Grupo Fabian MD at 11/10/2017 8:54 AM Report E-Signed By: Grupo Fabian MD at 11/10/2017 9:00 AM WSN:[id number] ED Course/Re-evaluation Clinical Indication for ER IV: IV Access ED Course 11/10/2017 7:20:08 am patient with epigastric and periumbilical abdominal pain. No focal findings on physical exam abdominal aorta was imaged with bedside ultrasound no obvious aneurysm was identified. Patient also with lumbar lower thoracic back discomfort. No obvious bony step-offs no point tenderness to any of the thoracic or lumbar vertebrae. Patient appears to have normal range of motion. Plan at this time will be to check CBC lipase and come prance metabolic panel along with urinalysis. We'll perform an IV contrast enhanced CT scan of the abdomen and pelvis we'll give some IV fluids and IV toradol as well as Protonix. 11/10/2017 8:01:29 am Review the electronic medical record says the patient's baseline creatinine is between 2 and 2.6. Creatinine today is 2.0 so we will change the CT to noncontrast study at this time Re-evaluation 11/10/2017 9:15:43 am patient feeling improved at this time blood work is unremarkable creatinine is at the better" baseline. CT scan reveals no acute process but may be some mild constipation which would be consistent with patient 's history and physical exam findings. We will place the patient on meloxicam have him continue his Pepcid and also start him on once a day Colace. Patient had no questions or concerns at time of disposition. Decision to Disposition Date: November 10, 2017 Decision to Disposition Time: 09:16 Depart Departure Latest Vital Signs Vital Signs Date Time Temp Pulse Resp B/P (MAP) Pulse Ox O2 Delivery O2 Flow Rate FiO2 11/10/17 08:54 1.0 11/10/17 07:33 89 11/10/17 07:31 17 95 11/10/17 07:30 208/108 (141) 11/10/17 06:50 97.8 Room Air Impression: Primary Impression: Back pain Additional Impression: Constipation Condition: Improved Disposition: HOME OR SELF-CARE Referrals: LETI DIMAS (PCP) 2 Days if symptoms persist New Scripts Meloxicam (MELOXICAM) 7.5 Mg Tablet 7.5 MG PO QDAY for PAIN, #30 TAB 0 Refills Prov: MABLE POTTER MD 11/10/17 Docusate Sodium (COLACE) 100 Mg Capsule 100 MG PO QDAY for 30 Days, #30 CAPSULE Prov: MABLE POTTER MD 11/10/17 Patient Instructions: Back Pain (ED), Constipation (GEN) Additional Instructions: Continue all your outpatient medications including the famotidine as directed Problem Qualifiers Primary Impression: Back pain Back pain location: low back pain Chronicity: acute Back pain laterality: bilateral Sciatica presence: without sciatica Qualified Codes: M54.5 - Low back pain Additional Impression: Constipation Constipation type: slow transit constipation Qualified Codes: K59.01 - Slow transit constipation MABLE POTTER MD November 10, 2017 07:07
[2017-11-10 07:45] LABS: PLATELET COUNT, AUTOMATED 213 K/uL (150-450)
[2017-11-10] MEDS ORDERED: ONDANSETRON 4 MG/2 ML VIAL IVP ONE (07:50)
[2017-11-10] MEDS ORDERED: IOPAMIDOL 76% 75 ML INFUS BTL 0 ML ONE (07:53)
[2017-11-10] MEDS ORDERED: NS(*) 0.9% 1000 ML BAG 1,000 ML IV ONE (08:00)
[2017-11-10] MEDS ORDERED: KETOROLAC 30 MG/ML VIAL IVP ONE (08:05)
[2017-11-10] MEDS ORDERED: PANTOPRAZOLE SOD 40 MG IV VIAL IVP ONE (08:05)
[2017-11-10 09:00] VITALS: BP 186/91
--- NOTE | 2017-11-10 09:06 | RADIOLOGY IMAGING REPORT ---
[place] [facility] [place] Leobardo Russell : 1965 MR: [id number] V: [id number] EXAM DATE: ORDERING PHYSICIAN: MABLE POTTER TECHNOLOGIST: Location: [facility] Patient: Leobardo Russell : 1965 Visit/Account:[id number] Date of Sevice: 11/10/2017 ABDOMEN/PELVIS W/O CONTRAST HISTORY:periumbilical pain TECHNIQUE: CT abdomen and pelvis without intravenous contrast. Contiguous axial images of the abdom en and pelvis was performed from the lung bases to the symphysis pubis. One of the following dose optimization techniques was utilized in the performance of this exam: Autom ated exposure control; adjustment of the mA and/or kV according to the patient's size; or use of an i terative reconstruction technique. Specific details can be referenced in the facility's radiology C T exam operational policy. CONTRAST: None. COMPARISON: None. FINDINGS: Visualized lung bases: Negative. Hepatobiliary: Negative. Spleen: Negative. Adrenals: Negative. Kidneys/: No visible radiopaque renal or ureteral stones. Pancreas: Negative. GI: Patient is mildly constipated. No evidence for bowel obstruction or focal inflammation. Append ix is not visualized but there are no inflammatory changes around cecum. Vessels/spaces/nodes: Mild atherosclerotic calcification is noted. There is also calcification of t he vas deferens glands. Bones/soft tissues: Subcutaneous air along the ventral abdominal wall is presumably from subcutaneou s injections. Degenerative changes are noted the SI joints. Small subcutaneous nodule along the ambika tral abdominal wall the pelvis image 132 is likely a sebaceous cyst. IMPRESSION: 1. No acute pathology in the abdomen or pelvis. There is mild constipation but no bowel obstruction or focal inflammation. Appendix is not visualized but there are no inflammatory changes around cecu m. 2. Other chronic findings are described above. Report Dictated By: Grupo Fabian MD at 11/10/2017 8:54 AM Report E-Signed By: Grupo Fabian MD at 11/10/2017 9:00 AM WSN:[id number]
[2017-11-10] MEDS ORDERED: DOCU-416 PO (09:12)
[2017-11-10] MEDS ORDERED: MELO-205 PO (09:15)
== END 2017-11-10 09:55 | disposition home or self-care (01) ==
LOC: ER 06:52
DX: K59.01 Slow transit constipation (principal); M54.5 Low back pain
CPT/HCPCS: 74176; 81001; 83690; 85025; 96361; 96374; 96375; 99284; C9113; J1885; J2405; J7030; 82040; 82247; 82310; 82374; 82435; 82565; 82947; 84075; 84132; 84155; 84295; 84450; 84460; 84520; Q9967

== ENCOUNTER → 2017-11-10 | Outpatient (CLI) | payer SELFPAY ==
[2017-10-09 07:53] VITALS: BMI 27.9
== END ==
LOC: AMB 06:37
PROVIDERS: ATTEND Nurse Practitioner
DX: R10.9 Unspecified abdominal pain (principal); M54.9 Dorsalgia, unspecified
CPT/HCPCS: A0425; A0427

== ENCOUNTER → 2017-11-11 | Outpatient (REF) ==
[2017-10-09 07:53] VITALS: BMI 27.9
[~2017-11-11] MED LIST changes: +DOCU-416 PO; +MELO-205 PO
== END ==
LOC: PT 11:19
PROVIDERS: ATTEND Surgery
DX: T81.30XS Disruption of wound, unspecified, sequela (principal); E11.40 Type 2 diabetes mellitus with diabetic neuropathy, unspecified; Z89.422 Acquired absence of other left toe(s)

== ENCOUNTER → 2017-11-14 | Outpatient (REF) ==
[2017-10-09 07:53] VITALS: BMI 27.9
== END ==
LOC: PT 10:47
PROVIDERS: ATTEND Surgery
DX: T81.30XS Disruption of wound, unspecified, sequela (principal); E11.40 Type 2 diabetes mellitus with diabetic neuropathy, unspecified; Z89.422 Acquired absence of other left toe(s)

== ENCOUNTER → 2017-11-18 | Outpatient (REF) ==
[2017-10-09 07:53] VITALS: BMI 27.9
== END ==
LOC: PT 10:49
PROVIDERS: ATTEND Surgery
DX: T81.30XS Disruption of wound, unspecified, sequela (principal); E11.40 Type 2 diabetes mellitus with diabetic neuropathy, unspecified; Z89.422 Acquired absence of other left toe(s)

== ENCOUNTER → 2017-11-21 | Outpatient (REF) ==
[2017-10-09 07:53] VITALS: BMI 27.9
== END ==
LOC: PT 10:41
PROVIDERS: ATTEND Surgery
DX: T81.30XS Disruption of wound, unspecified, sequela (principal); E11.40 Type 2 diabetes mellitus with diabetic neuropathy, unspecified; Z89.422 Acquired absence of other left toe(s)

== ENCOUNTER → 2017-11-25 | Outpatient (REF) ==
[2017-10-09 07:53] VITALS: BMI 27.9
== END ==
LOC: PT 11:05
PROVIDERS: ATTEND Surgery
DX: T81.30XS Disruption of wound, unspecified, sequela (principal); E11.40 Type 2 diabetes mellitus with diabetic neuropathy, unspecified; Z89.422 Acquired absence of other left toe(s)

== ENCOUNTER → 2017-11-28 | Outpatient (REF) ==
[2017-10-09 07:53] VITALS: BMI 27.9
[~2017-11-28] MED LIST changes: +VERA120T14 PO
== END ==
LOC: PT 11:14
PROVIDERS: ATTEND Surgery
DX: T81.30XS Disruption of wound, unspecified, sequela (principal); E11.40 Type 2 diabetes mellitus with diabetic neuropathy, unspecified; Z89.422 Acquired absence of other left toe(s)

== ENCOUNTER → 2017-12-05 | Outpatient (REF) ==
[2017-10-09 07:53] VITALS: BMI 27.9
== END ==
LOC: PT 11:04
PROVIDERS: ATTEND Surgery
DX: T81.30XS Disruption of wound, unspecified, sequela (principal); E11.40 Type 2 diabetes mellitus with diabetic neuropathy, unspecified; Z89.422 Acquired absence of other left toe(s)

== ENCOUNTER → 2017-12-09 | Outpatient (REF) ==
[2017-10-09 07:53] VITALS: BMI 27.9
== END ==
LOC: PT 11:17
PROVIDERS: ATTEND Surgery
DX: T81.30XS Disruption of wound, unspecified, sequela (principal); E11.40 Type 2 diabetes mellitus with diabetic neuropathy, unspecified; Z89.422 Acquired absence of other left toe(s)

== ENCOUNTER → 2017-12-12 | Outpatient (REF) ==
[2017-10-09 07:53] VITALS: BMI 27.9
== END ==
LOC: PT 11:04
PROVIDERS: ATTEND Surgery
DX: T81.30XS Disruption of wound, unspecified, sequela (principal); E11.40 Type 2 diabetes mellitus with diabetic neuropathy, unspecified; Z89.422 Acquired absence of other left toe(s)

== ENCOUNTER → 2017-12-16 | Outpatient (REF) ==
[2017-10-09 07:53] VITALS: BMI 27.9
== END ==
LOC: PT 11:07
PROVIDERS: ATTEND Surgery
DX: Z89.412 Acquired absence of left great toe (principal)

== ENCOUNTER → 2017-12-19 | Outpatient (REF) ==
[2017-10-09 07:53] VITALS: BMI 27.9
== END ==
LOC: PT 11:20
PROVIDERS: ATTEND Surgery
DX: T81.30XS Disruption of wound, unspecified, sequela (principal); E11.40 Type 2 diabetes mellitus with diabetic neuropathy, unspecified; Z89.422 Acquired absence of other left toe(s)

== ENCOUNTER → 2017-12-25 | Outpatient (REF) ==
[2017-10-09 07:53] VITALS: BMI 27.9
== END ==
LOC: PT 14:26
PROVIDERS: ATTEND Surgery
DX: T81.30XS Disruption of wound, unspecified, sequela (principal); E11.40 Type 2 diabetes mellitus with diabetic neuropathy, unspecified; Z89.412 Acquired absence of left great toe

== ENCOUNTER → 2017-12-30 | Outpatient (REF) ==
[2017-10-09 07:53] VITALS: BMI 27.9
== END ==
LOC: PT 10:50
PROVIDERS: ATTEND Surgery
DX: T81.30XS Disruption of wound, unspecified, sequela (principal); E11.40 Type 2 diabetes mellitus with diabetic neuropathy, unspecified; Z89.422 Acquired absence of other left toe(s)

== ENCOUNTER → 2018-01-02 | Outpatient (REF) ==
[2017-10-09 07:53] VITALS: BMI 27.9
== END ==
LOC: PT 10:50
PROVIDERS: ATTEND Surgery
DX: T81.30XS Disruption of wound, unspecified, sequela (principal); E11.40 Type 2 diabetes mellitus with diabetic neuropathy, unspecified; Z89.422 Acquired absence of other left toe(s)

== ENCOUNTER → 2018-01-05 | Outpatient (REF) ==
[2017-10-09 07:53] VITALS: BMI 27.9
== END ==
LOC: PT 10:49
PROVIDERS: ATTEND Surgery
DX: T81.30XS Disruption of wound, unspecified, sequela (principal); E11.40 Type 2 diabetes mellitus with diabetic neuropathy, unspecified; Z89.412 Acquired absence of left great toe

== ENCOUNTER → 2018-01-09 | Outpatient (REF) ==
[2017-10-09 07:53] VITALS: BMI 27.9
== END ==
LOC: PT 11:03
PROVIDERS: ATTEND Surgery
DX: T81.30XS Disruption of wound, unspecified, sequela (principal); E11.40 Type 2 diabetes mellitus with diabetic neuropathy, unspecified; Z89.422 Acquired absence of other left toe(s)

== ENCOUNTER → 2018-01-16 | Outpatient (REF) | payer SELFPAY ==
[2017-10-09 07:53] VITALS: BMI 27.9
== END ==
LOC: PT 01-13 10:35
PROVIDERS: ATTEND Surgery
DX: T81.30XS Disruption of wound, unspecified, sequela (principal); E11.40 Type 2 diabetes mellitus with diabetic neuropathy, unspecified; Z89.422 Acquired absence of other left toe(s)

== ENCOUNTER → 2018-01-16 | Outpatient (REF) ==
[2017-10-09 07:53] VITALS: BMI 27.9
--- NOTE | 2018-01-16 13:32 | RADIOLOGY IMAGING REPORT ---
FACILITY: [facility] PATIENT NAME: Leobardo Russell : 1965 MR: [id number] V: [id number] EXAM DATE: ORDERING PHYSICIAN: LETI DIMAS TECHNOLOGIST: Location: [facility] Patient: Leobardo Russell : 1965 Visit/Account:[id number] Date of Sevice: 01/16/2018 Renal ultrasound Indication: CKD III Comparison: CT examination from November 10, 2017 Findings: Right kidney measures 11.6 x 7.0 x 6.7 cm in cc, AP, and transverse dimensions respectively. Left kidney measures 12.1 x 6.7 x 6.7 cm in cc, AP, and transverse dimensions respectively. RI: 0.68 and 0.68 on the right and left respectively. There is normal echogenicity of the bilateral kidneys. No evidence of hydronephrosis or nephrolithiasis. Bilateral ureteral jets were seen. Urinary bladder imaging was negative and there is no significant post-void residual. Visualized abdominal aorta and IVC are unremarkable. Incidental note is made of several circular, well demarcated echogenic foci in the right lobe of the liver. These measure 1.9 and 1.7 cm. The findings are nonspecific but most consistent with hepatic hemangiomas. IMPRESSION: 1. Unremarkable renal ultrasound 2. Two, well demarcated small hepatic lesions are incidentally noted within the right lobe. The fin dings are nonspecific but the ultrasound characteristics are most consistent with a hemangiomas. Onl y recommend further evaluation with a three-phase liver study if the patient has underlying hepatic d isease or history of neoplasm Report Dictated By: Mayo Cherry MD at 01/16/2018 1:23 PM Report E-Signed By: Mayo Cherry MD at 01/16/2018 1:28 PM [id number]
== END ==
LOC: US 00:35
PROVIDERS: ATTEND Nurse Practitioner
DX: K76.89 Other specified diseases of liver (principal)
CPT/HCPCS: 76705

== ENCOUNTER → 2018-01-20 | Outpatient (REF) ==
[2017-10-09 07:53] VITALS: BMI 27.9
== END ==
LOC: PT 11:03
PROVIDERS: ATTEND Surgery
DX: S91.102A Unspecified open wound of left great toe without damage to nail, initial encounter (principal)

== ENCOUNTER → 2018-01-23 | Outpatient (REF) ==
[2017-10-09 07:53] VITALS: BMI 27.9
== END ==
LOC: PT 10:55
PROVIDERS: ATTEND Surgery
DX: T81.30XS Disruption of wound, unspecified, sequela (principal); E11.40 Type 2 diabetes mellitus with diabetic neuropathy, unspecified; Z89.422 Acquired absence of other left toe(s)

== ENCOUNTER → 2018-01-27 | Outpatient (REF) ==
[2017-10-09 07:53] VITALS: BMI 27.9
== END ==
LOC: PT 10:55
PROVIDERS: ATTEND Surgery
DX: T81.30XS Disruption of wound, unspecified, sequela (principal); E11.40 Type 2 diabetes mellitus with diabetic neuropathy, unspecified; Z89.422 Acquired absence of other left toe(s)

== ENCOUNTER → 2018-01-30 | Outpatient (REF) ==
[2017-10-09 07:53] VITALS: BMI 27.9
== END ==
LOC: PT 10:26
PROVIDERS: ATTEND Surgery
DX: T81.30XS Disruption of wound, unspecified, sequela (principal); E11.40 Type 2 diabetes mellitus with diabetic neuropathy, unspecified; Z89.422 Acquired absence of other left toe(s)

== ENCOUNTER 2018-02-02 14:32 | Emergency (ER) | payer SELFPAY ==
[2017-10-09 07:53] VITALS: Wt 85.2 kg
[~2018-02-02 14:32] MED LIST changes: +AMLO-111 PO; +AMLO-113 PO; -AMLO-96 PO; -AMLO-99 PO; -ROSU10TA5 PO
[2018-02-02] MEDS ORDERED: NS(*) 0.9% 1000 ML BAG 1,000 ML IV ONE ×2 (14:50→16:35)
[2018-02-02 14:54] LABS: PLATELET COUNT, AUTOMATED 303 K/uL (150-450)
--- NOTE | 2018-02-02 17:57 | RADIOLOGY IMAGING REPORT ---
FACILITY: [facility] PATIENT NAME: Leobardo Russell : 1965 MR: [id number] V: [id number] EXAM DATE: ORDERING PHYSICIAN: MABLE MAST TECHNOLOGIST: Location: [facility] Patient: Leobardo Russell : 1965 Visit/Account:[id number] Date of Sevice: 02/02/2018 ABDOMEN/PELVIS W/O CONTRAST HISTORY: llq abdominal pain, renal insufficiency TECHNIQUE: Axial images acquired through the abdomen/pelvis. Coronal and sagittal reformatting also performed. No IV contrast administered. Dose Lowering Technique One of the following dose optimization techniques was utilized in the performance of this exam: Autom ated exposure control; adjustment of the mA and/or kV according to the patient's size; or use of an i terative reconstruction technique. Specific details can be referenced in the facility's radiology C T exam operational policy. COMPARISON: November 10, 2017 FINDINGS: Visualized lung bases: Negative. Hepatobiliary: The liver is not ideally evaluated due to lack of contrast. The left lobe appears sl ightly heterogeneous this could represent an area of focal fatty infiltration although mass lesion ca nnot be entirely ruled out. Spleen: Borderline enlarged but unchanged Adrenals: Negative. Pancreas: Negative. Kidneys ureters and bladder: There is mild perinephric stranding bilaterally. No evidence of hydrone phrosis hydroureter or urolithiasis . Bladder is mildly distended Genitalia: Negative. GI: Negative. Vessels/spaces/nodes: There is no enlarged left external iliac lymph node measuring 2.3 x 1.5 cm. T here are multiple prominent left inguinal lymph nodes also present a customer development representative node is 1.5 x 1.3 cm. Bones/soft tissues: There is a small periumbilical hernia containing fat Additional findings: None pertinent. IMPRESSION: There is no enlarged left external iliac lymph node and multiple enlarged left inguinal lymph nodes. These may be reactive although clinical correlation needed Mild perinephric stranding bilaterally although no evidence of hydronephrosis or urolithiasis Borderline splenomegaly Left lobe of the liver appears heterogeneous although was not ideally evaluated due to lack of contra st. This could represent an area of focal fatty infiltration although mass lesion cannot be totally ruled out. If further diagnostic imaging is desired ultrasound or MR may be helpful depending upon t he degree of clinical concern Report Dictated By: Keily Burch MD at 02/02/2018 5:41 PM Report E-Signed By: Keily Burch MD at 02/02/2018 5:52 PM RACHELN:ANGELIQUE
[2018-02-02 18:22] VITALS: BP 211/105
--- NOTE | 2018-03-02 14:26 | ER Report ---
History and Physical Time Seen By MD: 14:29 (GOVIND MAST MD) Allergies: Coded Allergies: No Known Allergies (Verified Allergy, Mild, 02/02/18) Home Meds Active Scripts Insulin Detemir 100 UN/ML PEN (Levemir Flextouch) 100 Unit/1 Ml Insuln.pen, 20 UNIT SUBQ BID, #5 UNIT Prov:ATTILA KNOWLES MD 02/06/18 Reported Medications Rosuvastatin Calcium (Rosuvastatin Calcium) 10 Mg Tablet, 10 MG PO HS 02/06/18 Verapamil Hcl (VERAPAMIL ER) 120 Mg Tablet.er, 120 MG PO BID 12/02/17 Insulin Lispro 100 Un/Ml Vial (HUMALOG 100 U/ML VIAL) 100 Unit/1 Ml Vial, 0 SQ per sliding scale, VIAL 1 unit for every 50 point increase in blood sugar above normal. 08/19/17 Famotidine (FAMOTIDINE) 20 Mg Tablet, 20 MG PO BID, TAB 08/19/17 Aspirin (ASPIR 81) 81 Mg Tablet.dr, 81 MG PO QDAY, TAB 08/03/16 Cholecalciferol (Vitamin D3) (VITAMIN D3) 1,000 Unit Tablet, 1000 UNIT PO QDAY, TAB 08/03/16 Hx Smoking: No Smoking Status: Never Smoker Exposure to Second Hand Smoke?: No Hx Substance Use Disorder: No Hx Alcohol Use: No (GOVIND MAST MD) Constitutional Vital Sign - Last 24 Hours 02/02/18 02/02/18 02/02/18 02/02/18 14:32 14:36 14:39 14:47 Temp 98.9 Pulse ??? 93 89 Resp 16 B/P (MAP) 162/99 162/99 (120) Pulse Ox 95 89 O2 Delivery Room Air 02/02/18 02/02/18 02/02/18 02/02/18 15:00 15:02 15:17 15:30 Pulse 88 84 B/P (MAP) 187/96 (126) 196/96 (129) Pulse Ox 91 95 02/02/18 02/02/18 02/02/18 02/02/18 15:32 15:47 15:52 16:00 Pulse 86 86 88 B/P (MAP) 218/107 (144) Pulse Ox 94 95 95 02/02/18 02/02/18 02/02/18 02/02/18 16:07 16:22 16:30 16:37 Pulse 85 91 83 B/P (MAP) 200/101 (134) Pulse Ox 95 98 94 02/02/18 02/02/18 02/02/18 02/02/18 16:42 16:57 17:00 17:12 Pulse 85 93 89 B/P (MAP) 214/108 (143) Pulse Ox 93 95 93 02/02/18 02/02/18 02/02/18 02/02/18 17:27 17:30 17:42 17:57 Pulse 87 82 85 B/P (MAP) 202/103 (136) Pulse Ox 94 93 Intake and Output 02/02/18 02/02/18 02/03/18 14:59 22:59 06:59 Intake Total 1000 ml Balance 1000 ml (MABLE MAST MD) Medical Decision Making Data Points Laboratory Hematology Test 02/02/18 14:32 02/02/18 15:46 Red Blood Count 4.93 M/uL (4.00-5.60) Mean Corpuscular Volume 81.7 fL (80.0-96.0) Mean Corpuscular Hemoglobin 28.8 pg (26.0-33.0) Mean Corpuscular Hemoglobin Concent 35.3 g/dL (32.0-36.0) Red Cell Distribution Width 14.0 % (11.5-14.5) Mean Platelet Volume 8.7 fL (7.2-11.1) Neutrophils (%) (Auto) 86.8 % (39.4-72.5) Lymphocytes (%) (Auto) 4.4 % (17.6-49.6) Monocytes (%) (Auto) 7.7 % (4.1-12.4) Eosinophils (%) (Auto) 0.6 % (0.4-6.7) Basophils (%) (Auto) 0.5 % (0.3-1.4) Nucleated RBC Relative Count (auto) 0.0 /100WBC Neutrophils # (Auto) 14.1 K/uL (2.0-7.4) Lymphocytes # (Auto) 0.7 K/uL (1.3-3.6) Monocytes # (Auto) 1.2 K/uL (0.3-1.0) Eosinophils # (Auto) 0.1 K/uL (0.0-0.5) Basophils # (Auto) 0.1 K/uL (0.0-0.1) Nucleated RBC Absolute Count (auto) 0.00 K/uL Sodium Level 130 mmol/L (137-145) Potassium Level 4.3 mmol/L (3.5-5.0) Chloride Level 93 mmol/L (98-107) Carbon Dioxide Level 25 mmol/L (22-30) Blood Urea Nitrogen 36 mg/dl (9-21) Creatinine 2.90 mg/dl (0.66-1.25) Glomerular Filtration Rate Calc 23.1 Random Glucose 321 mg/dl (75-110) Calcium Level 8.7 mg/dl (8.4-10.2) Total Bilirubin 1.1 mg/dl (0.2-1.3) Aspartate Amino Transf (AST/SGOT) 14 U/L (0-35) Alanine Aminotransferase (ALT/SGPT) 18 U/L (0-56) Alkaline Phosphatase 148 U/L (0-126) Total Protein 7.4 g/dl (6.3-8.2) Albumin 3.6 g/dl (3.5-5.0) Urine Color Laure Urine Clarity Cloudy Urine pH 5.0 pH (4.8-9.5) Urine Specific Hus[place] 1.018 Urine Protein 500 mg/dL (NEGATIVE) Urine Glucose (UA) 500 mg/dL (NEGATIVE) Urine Ketones Trace mg/dL (NEGATIVE) Urine Blood Small (NEGATIVE) Urine Nitrite Negative (NEGATIVE) Urine Bilirubin Negative (NEGATIVE) Urine Urobilinogen Negative mg/dL (0.2-1.9) Urine Leukocyte Esterase Negative (NEGATIVE) Urine RBC 19 /HPF (0-2/HPF) Urine WBC 9 /HPF (0-5/HPF) Urine Squamous Epithelial Cells Many /LPF (</=FEW) Urine Bacteria Few /HPF (NONE-FEW) Urine Hyaline Casts Many /LPF (NONE-FEW) Urine Granular Casts Many /LPF (NONE) Urine Mucus Few /HPF (NONE-FEW) Chemistry Test 02/02/18 14:32 02/02/18 15:46 White Blood Count 16.3 k/uL (4.5-11.0) Red Blood Count 4.93 M/uL (4.00-5.60) Hemoglobin 14.2 g/dL (14.0-18.0) Hematocrit 40.3 % (42.0-52.0) Mean Corpuscular Volume 81.7 fL (80.0-96.0) Mean Corpuscular Hemoglobin 28.8 pg (26.0-33.0) Mean Corpuscular Hemoglobin Concent 35.3 g/dL (32.0-36.0) Red Cell Distribution Width 14.0 % (11.5-14.5) Platelet Count 303 K/uL (150-450) Mean Platelet Volume 8.7 fL (7.2-11.1) Neutrophils (%) (Auto) 86.8 % (39.4-72.5) Lymphocytes (%) (Auto) 4.4 % (17.6-49.6) Monocytes (%) (Auto) 7.7 % (4.1-12.4) Eosinophils (%) (Auto) 0.6 % (0.4-6.7) Basophils (%) (Auto) 0.5 % (0.3-1.4) Nucleated RBC Relative Count (auto) 0.0 /100WBC Neutrophils # (Auto) 14.1 K/uL (2.0-7.4) Lymphocytes # (Auto) 0.7 K/uL (1.3-3.6) Monocytes # (Auto) 1.2 K/uL (0.3-1.0) Eosinophils # (Auto) 0.1 K/uL (0.0-0.5) Basophils # (Auto) 0.1 K/uL (0.0-0.1) Nucleated RBC Absolute Count (auto) 0.00 K/uL Glomerular Filtration Rate Calc 23.1 Calcium Level 8.7 mg/dl (8.4-10.2) Total Bilirubin 1.1 mg/dl (0.2-1.3) Aspartate Amino Transf (AST/SGOT) 14 U/L (0-35) Alanine Aminotransferase (ALT/SGPT) 18 U/L (0-56) Alkaline Phosphatase 148 U/L (0-126) Total Protein 7.4 g/dl (6.3-8.2) Albumin 3.6 g/dl (3.5-5.0) Urine Color Laure Urine Clarity Cloudy Urine pH 5.0 pH (4.8-9.5) Urine Specific Hus[place] 1.018 Urine Protein 500 mg/dL (NEGATIVE) Urine Glucose (UA) 500 mg/dL (NEGATIVE) Urine Ketones Trace mg/dL (NEGATIVE) Urine Blood Small (NEGATIVE) Urine Nitrite Negative (NEGATIVE) Urine Bilirubin Negative (NEGATIVE) Urine Urobilinogen Negative mg/dL (0.2-1.9) Urine Leukocyte Esterase Negative (NEGATIVE) Urine RBC 19 /HPF (0-2/HPF) Urine WBC 9 /HPF (0-5/HPF) Urine Squamous Epithelial Cells Many /LPF (</=FEW) Urine Bacteria Few /HPF (NONE-FEW) Urine Hyaline Casts Many /LPF (NONE-FEW) Urine Granular Casts Many /LPF (NONE) Urine Mucus Few /HPF (NONE-FEW) Urinalysis Test 02/02/18 15:46 Urine Color Laure Urine Clarity Cloudy Urine pH 5.0 pH (4.8-9.5) Urine Specific [place] 1.018 Urine Protein 500 mg/dL (NEGATIVE) Urine Glucose (UA) 500 mg/dL (NEGATIVE) Urine Ketones Trace mg/dL (NEGATIVE) Urine Blood Small (NEGATIVE) Urine Nitrite Negative (NEGATIVE) Urine Bilirubin Negative (NEGATIVE) Urine Urobilinogen Negative mg/dL (0.2-1.9) Urine Leukocyte Esterase Negative (NEGATIVE) Urine RBC 19 /HPF (0-2/HPF) Urine WBC 9 /HPF (0-5/HPF) Urine Squamous Epithelial Cells Many /LPF (</=FEW) Urine Bacteria Few /HPF (NONE-FEW) Urine Hyaline Casts Many /LPF (NONE-FEW) Urine Granular Casts Many /LPF (NONE) Urine Mucus Few /HPF (NONE-FEW) (MABLE MAST MD) ED Course/Re-evaluation Decision to Disposition Date: Feb 02, 2018 Decision to Disposition Time: 17:59 (MABLE MAST MD) Depart Departure Latest Vital Signs Vital Signs Date Time Temp Pulse Resp B/P (MAP) Pulse Ox O2 Delivery O2 Flow Rate FiO2 02/02/18 17:57 85 93 02/02/18 17:30 202/103 (136) 02/02/18 14:36 98.9 16 Room Air (MABLE MAST MD) Impression: Primary Impression: Hyperglycemia Additional Impression: Uncontrolled hypertension Condition: Improved Disposition: HOME OR SELF-CARE Referrals: [facility] (PCP) Additional Instructions: As we discussed, it is imperative you take your blood pressure medications and diabetic mediations as prescribed. Follow up with your planned follow up tomorrow for your wound recheck but as you state this is not worse today, it is unlikely the cause of your white blood cell count. Please review the results of your CT with your primary physician; there are no findings that are clearly associated with your visit today, but lymph nodes and liver findings that should be followed up on with focused imaging. Please return if worse or for any concerns. Problem Qualifiers GOVIND MAST MD Feb 02, 2018 14:29 MABLE MAST MD Feb 02, 2018 18:02 D/T: D/T: D/T: 1429 1429 ABHIJEET/DB MTDMaia
--- NOTE | 2018-03-13 07:48 | ER Report ---
History and Physical Time Seen By MD: 13:55 Hx. of Stated Complaint: WEAK, NOT EATING/DRINKING FOR A COUPLE DAYS, BS 302, STAGE 3 RENAL DISEASE (NO DIALASYS) HPI/ROS CHIEF COMPLAINT:weakness, fatigue HISTORY OF PRESENT ILLNESS: Pt presents by ambulance with complaint of generalized weakness. This has been gradually progressive, ongoing x 2 days, moderately severe. Has had previously. No new/different symptoms than previously. Notes decreased intake. Notes chills but no fever. Has ongoing foot wound but feels this is improving and has follow up appointment tomorrow. Has not been taking his insulin. Slightly less urine output REVIEW OF SYSTEMS: Constitutional: No fever, Eyes: No discharge. ENT: No sore throat. Cardiovascular: No chest pain, no palpitations. Respiratory: No cough, no shortness of breath. Gastrointestinal: No abdominal pain, no vomiting. Genitourinary: No hematuria. Musculoskeletal: No back pain. Skin: no new/different rashes Neurological: No headache. Remainder of the 14 system rev: Yes Allergies: Coded Allergies: No Known Allergies (Verified Allergy, Mild, 02/02/18) Home Meds Active Scripts Insulin Detemir 100 UN/ML PEN (Levemir Flextouch) 100 Unit/1 Ml Insuln.pen, 20 UNIT SUBQ BID, #5 UNIT Prov:ATTILA KNOWLES MD 02/06/18 Reported Medications Rosuvastatin Calcium (Rosuvastatin Calcium) 10 Mg Tablet, 10 MG PO HS 02/06/18 Verapamil Hcl (VERAPAMIL ER) 120 Mg Tablet.er, 120 MG PO BID 12/02/17 Insulin Lispro 100 Un/Ml Vial (HUMALOG 100 U/ML VIAL) 100 Unit/1 Ml Vial, 0 SQ per sliding scale, VIAL 1 unit for every 50 point increase in blood sugar above normal. 08/19/17 Famotidine (FAMOTIDINE) 20 Mg Tablet, 20 MG PO BID, TAB 08/19/17 Aspirin (ASPIR 81) 81 Mg Tablet.dr, 81 MG PO QDAY, TAB 08/03/16 Cholecalciferol (Vitamin D3) (VITAMIN D3) 1,000 Unit Tablet, 1000 UNIT PO QDAY, TAB 08/03/16 Reviewed Nurses Notes: Yes Old Medical Records Reviewed: Yes Hx Smoking: No Smoking Status: Never Smoker Exposure to Second Hand Smoke?: No Hx Substance Use Disorder: No Hx Alcohol Use: No Constitutional Vital Signs Date Time Temp Pulse Resp B/P (MAP) Pulse Ox O2 Delivery O2 Flow Rate FiO2 02/02/18 17:57 85 93 02/02/18 17:30 202/103 (136) 02/02/18 14:36 98.9 16 Room Air Physical Exam General Appearance: The patient is alert, has no immediate need for airway protection and no signs of toxicity. [ ] Eyes: Pupils equal and round no pallor or injection. ENT, Mouth: Mucous membranes are slightly dry Respiratory: There are no retractions, lungs are clear to auscultation. Cardiovascular: Regular rate and rhythm. Gastrointestinal: Abdomen is soft and non tender, no masses, bowel sounds normal. Neurological: alert, oriented, moves all extremities Skin: Warm and dry, no rashes. Foot wound evaluated, no purulent drainage, mild erythema and mild ttp but slighly improved from prior per pt. Wound redressed Musculoskeletal: Neck is supple non tender. Extremities are nontender, nonswollen and have full range of motion. DIFFERENTIAL DIAGNOSIS: After history and physical exam differential diagnosis was considered for hyperglycemia/dka/hnnk, sepsis/infection, severe dehydration, other acute cardio/neuro/id/endocrine disease Medical Decision Making Data Points Laboratory Hematology Test 02/02/18 14:32 02/02/18 15:46 Red Blood Count 4.93 M/uL (4.00-5.60) Mean Corpuscular Volume 81.7 fL (80.0-96.0) Mean Corpuscular Hemoglobin 28.8 pg (26.0-33.0) Mean Corpuscular Hemoglobin Concent 35.3 g/dL (32.0-36.0) Red Cell Distribution Width 14.0 % (11.5-14.5) Mean Platelet Volume 8.7 fL (7.2-11.1) Neutrophils (%) (Auto) 86.8 % (39.4-72.5) Lymphocytes (%) (Auto) 4.4 % (17.6-49.6) Monocytes (%) (Auto) 7.7 % (4.1-12.4) Eosinophils (%) (Auto) 0.6 % (0.4-6.7) Basophils (%) (Auto) 0.5 % (0.3-1.4) Nucleated RBC Relative Count (auto) 0.0 /100WBC Neutrophils # (Auto) 14.1 K/uL (2.0-7.4) Lymphocytes # (Auto) 0.7 K/uL (1.3-3.6) Monocytes # (Auto) 1.2 K/uL (0.3-1.0) Eosinophils # (Auto) 0.1 K/uL (0.0-0.5) Basophils # (Auto) 0.1 K/uL (0.0-0.1) Nucleated RBC Absolute Count (auto) 0.00 K/uL Sodium Level 130 mmol/L (137-145) Potassium Level 4.3 mmol/L (3.5-5.0) Chloride Level 93 mmol/L (98-107) Carbon Dioxide Level 25 mmol/L (22-30) Blood Urea Nitrogen 36 mg/dl (9-21) Creatinine 2.90 mg/dl (0.66-1.25) Glomerular Filtration Rate Calc 23.1 Random Glucose 321 mg/dl (75-110) Calcium Level 8.7 mg/dl (8.4-10.2) Total Bilirubin 1.1 mg/dl (0.2-1.3) Aspartate Amino Transf (AST/SGOT) 14 U/L (0-35) Alanine Aminotransferase (ALT/SGPT) 18 U/L (0-56) Alkaline Phosphatase 148 U/L (0-126) Total Protein 7.4 g/dl (6.3-8.2) Albumin 3.6 g/dl (3.5-5.0) Urine Color Laure Urine Clarity Cloudy Urine pH 5.0 pH (4.8-9.5) Urine Specific [place] 1.018 Urine Protein 500 mg/dL (NEGATIVE) Urine Glucose (UA) 500 mg/dL (NEGATIVE) Urine Ketones Trace mg/dL (NEGATIVE) Urine Blood Small (NEGATIVE) Urine Nitrite Negative (NEGATIVE) Urine Bilirubin Negative (NEGATIVE) Urine Urobilinogen Negative mg/dL (0.2-1.9) Urine Leukocyte Esterase Negative (NEGATIVE) Urine RBC 19 /HPF (0-2/HPF) Urine WBC 9 /HPF (0-5/HPF) Urine Squamous Epithelial Cells Many /LPF (</=FEW) Urine Bacteria Few /HPF (NONE-FEW) Urine Hyaline Casts Many /LPF (NONE-FEW) Urine Granular Casts Many /LPF (NONE) Urine Mucus Few /HPF (NONE-FEW) Chemistry Test 02/02/18 14:32 02/02/18 15:46 White Blood Count 16.3 k/uL (4.5-11.0) Red Blood Count 4.93 M/uL (4.00-5.60) Hemoglobin 14.2 g/dL (14.0-18.0) Hematocrit 40.3 % (42.0-52.0) Mean Corpuscular Volume 81.7 fL (80.0-96.0) Mean Corpuscular Hemoglobin 28.8 pg (26.0-33.0) Mean Corpuscular Hemoglobin Concent 35.3 g/dL (32.0-36.0) Red Cell Distribution Width 14.0 % (11.5-14.5) Platelet Count 303 K/uL (150-450) Mean Platelet Volume 8.7 fL (7.2-11.1) Neutrophils (%) (Auto) 86.8 % (39.4-72.5) Lymphocytes (%) (Auto) 4.4 % (17.6-49.6) Monocytes (%) (Auto) 7.7 % (4.1-12.4) Eosinophils (%) (Auto) 0.6 % (0.4-6.7) Basophils (%) (Auto) 0.5 % (0.3-1.4) Nucleated RBC Relative Count (auto) 0.0 /100WBC Neutrophils # (Auto) 14.1 K/uL (2.0-7.4) Lymphocytes # (Auto) 0.7 K/uL (1.3-3.6) Monocytes # (Auto) 1.2 K/uL (0.3-1.0) Eosinophils # (Auto) 0.1 K/uL (0.0-0.5) Basophils # (Auto) 0.1 K/uL (0.0-0.1) Nucleated RBC Absolute Count (auto) 0.00 K/uL Glomerular Filtration Rate Calc 23.1 Calcium Level 8.7 mg/dl (8.4-10.2) Total Bilirubin 1.1 mg/dl (0.2-1.3) Aspartate Amino Transf (AST/SGOT) 14 U/L (0-35) Alanine Aminotransferase (ALT/SGPT) 18 U/L (0-56) Alkaline Phosphatase 148 U/L (0-126) Total Protein 7.4 g/dl (6.3-8.2) Albumin 3.6 g/dl (3.5-5.0) Urine Color Laure Urine Clarity Cloudy Urine pH 5.0 pH (4.8-9.5) Urine Specific [place] 1.018 Urine Protein 500 mg/dL (NEGATIVE) Urine Glucose (UA) 500 mg/dL (NEGATIVE) Urine Ketones Trace mg/dL (NEGATIVE) Urine Blood Small (NEGATIVE) Urine Nitrite Negative (NEGATIVE) Urine Bilirubin Negative (NEGATIVE) Urine Urobilinogen Negative mg/dL (0.2-1.9) Urine Leukocyte Esterase Negative (NEGATIVE) Urine RBC 19 /HPF (0-2/HPF) Urine WBC 9 /HPF (0-5/HPF) Urine Squamous Epithelial Cells Many /LPF (</=FEW) Urine Bacteria Few /HPF (NONE-FEW) Urine Hyaline Casts Many /LPF (NONE-FEW) Urine Granular Casts Many /LPF (NONE) Urine Mucus Few /HPF (NONE-FEW) Urinalysis Test 02/02/18 15:46 Urine Color Laure Urine Clarity Cloudy Urine pH 5.0 pH (4.8-9.5) Urine Specific [place]ax 1.018 Urine Protein 500 mg/dL (NEGATIVE) Urine Glucose (UA) 500 mg/dL (NEGATIVE) Urine Ketones Trace mg/dL (NEGATIVE) Urine Blood Small (NEGATIVE) Urine Nitrite Negative (NEGATIVE) Urine Bilirubin Negative (NEGATIVE) Urine Urobilinogen Negative mg/dL (0.2-1.9) Urine Leukocyte Esterase Negative (NEGATIVE) Urine RBC 19 /HPF (0-2/HPF) Urine WBC 9 /HPF (0-5/HPF) Urine Squamous Epithelial Cells Many /LPF (</=FEW) Urine Bacteria Few /HPF (NONE-FEW) Urine Hyaline Casts Many /LPF (NONE-FEW) Urine Granular Casts Many /LPF (NONE) Urine Mucus Few /HPF (NONE-FEW) ED Course/Re-evaluation ED Course Pt noted to have hyperglycemia without e/o dka, dehydration; responds well to IVF. Hyperglycemia significantly improves. Leukocytosis noted but thorough evaluation does not show e/o acute bacterial illness/sepsis. Noted wound though this appears better per pt. Pt informed of le ukocytosis and will monitor for symptoms. Pt feels comfortable to return home at d/c and has f/u tomorrow. Htn noted without e/o acute end organ damage. Pt admits to med noncompliance. Discussed with and understands ptoential for acute and chronic complications Decision to Disposition Date: Feb 02, 2018 Decision to Disposition Time: 17:59 Depart Departure Impression: Primary Impression: Hyperglycemia Additional Impression: Uncontrolled hypertension Condition: Improved Disposition: HOME OR SELF-CARE Referrals: LETI DIMAS (PCP) Departure Forms: Medications Reconciliation, Patient Portal Information, ER Transition Record Additional Instructions: As we discussed, it is imperative you take your blood pressure medications and diabetic mediations as prescribed. Follow up with your planned follow up tomorrow for your wound recheck but as you state this is not worse today, it is unlikely the cause of your white blood cell count. Please review the results of your CT with your primary physician; there are no findings that are clearly associated with your visit today, but lymph nodes and liver findings that should be followed up on with focused imaging. Please return if worse or for any concerns. Problem Qualifiers MABLE MAST MD Mar 13, 2018 07:48
== END 2018-02-02 18:28 | disposition home or self-care (01) ==
LOC: ER 14:39
DX: E11.65 Type 2 diabetes mellitus with hyperglycemia (principal); I10 Essential (primary) hypertension
CPT/HCPCS: 74176; 81001; 85025; 96360; 99284; J7030; 82040; 82247; 82310; 82374; 82435; 82565; 82947; 84075; 84132; 84155; 84295; 84450; 84460; 84520

== ENCOUNTER → 2018-02-02 | Outpatient (CLI) | payer SELFPAY ==
[2017-10-09 07:53] VITALS: BMI 27.9
[~2018-02-02] MED LIST changes: +ROSU10TA5 PO
== END ==
LOC: AMB 14:14
PROVIDERS: ATTEND Nurse Practitioner
DX: E11.649 Type 2 diabetes mellitus with hypoglycemia without coma (principal); E11.22 Type 2 diabetes mellitus with diabetic chronic kidney disease; N18.3 Chronic kidney disease, stage 3 (moderate); R53.1 Weakness; R53.83 Other fatigue
CPT/HCPCS: A0425; A0427

== ENCOUNTER → 2018-02-03 | Outpatient (REF) ==
[2017-10-09 07:53] VITALS: BMI 27.9
[~2018-02-03] MED LIST changes: -AMLO-111 PO; -AMLO-113 PO; +AMLO-96 PO; +AMLO-99 PO
== END ==
LOC: PT 11:42
PROVIDERS: ATTEND Surgery
DX: T81.30XS Disruption of wound, unspecified, sequela (principal); E11.40 Type 2 diabetes mellitus with diabetic neuropathy, unspecified; Z89.422 Acquired absence of other left toe(s)

== ENCOUNTER 2018-02-06 01:17 | Inpatient (IN) | payer SELFPAY ==
[2017-10-09 07:53] VITALS: Ht 177.8 cm; Wt 75.6 kg
[~2018-02-06] VITALS: Ht 177.8 cm; Wt 75.6 kg
[~2018-02-06 01:17] MED LIST changes: -ROSU10TA5 PO
--- NOTE | 2018-02-06 01:24 | ER Report ---
History and Physical Time Seen By MD: 01:24 (AMELIA DOS SANTOS MD) Time Seen By MD: 08:18 (ALEAH MANNING DO) HPI/ROS CHIEF COMPLAINT: foot ulcer HISTORY OF PRESENT ILLNESS: This is a 52 year old male who prefers a female pronoun and goes by the name of Anabel. Has a diabetic foot ulcer. Has been seeing the wound care nurse at rehab here in the hospital and Dr. Salgado. Has an appointment later today with Dr. Salgado, but was changing the dressing tonight and was worried about worsening infection. No fevers or chills, but is concerned that there is a blood infection present. Was in the ER a few days ago with dizziness and labs showed chronic renal insufficiency, mild hyponatremia, hyperglycemia, and elevated white blood cell count with a left shift. Follow-up with wound care and Dr. Salgado encouraged. (AMELIA DOS SANTOS MD) HPI/ROS Please see Dr. Dos Santos note (ALEAH MANNING DO) Allergies: Coded Allergies: No Known Allergies (Verified Allergy, Mild, 02/02/18) Home Meds Active Scripts Insulin Detemir 100 UN/ML PEN (Levemir Flextouch) 100 Unit/1 Ml Insuln.pen, 20 UNIT SUBQ BID, #5 UNIT Prov:ATTILA KNOWLES MD 02/06/18 Reported Medications Rosuvastatin Calcium (Rosuvastatin Calcium) 10 Mg Tablet, 10 MG PO HS 02/06/18 Verapamil Hcl (VERAPAMIL ER) 120 Mg Tablet.er, 120 MG PO BID 12/02/17 Insulin Lispro 100 Un/Ml Vial (HUMALOG 100 U/ML VIAL) 100 Unit/1 Ml Vial, 0 SQ per sliding scale, VIAL 1 unit for every 50 point increase in blood sugar above normal. 08/19/17 Famotidine (FAMOTIDINE) 20 Mg Tablet, 20 MG PO BID, TAB 08/19/17 Aspirin (ASPIR 81) 81 Mg Tablet.dr, 81 MG PO QDAY, TAB 08/03/16 Cholecalciferol (Vitamin D3) (VITAMIN D3) 1,000 Unit Tablet, 1000 UNIT PO QDAY, TAB 08/03/16 Discontinued Reported Medications Loperamide Hcl (ANTI-DIARRHEA) 2 Mg Tablet, 2 MG PO Y for DIARRHEA 10/08/17 Simvastatin (SIMVASTATIN) 20 Mg Tablet, 20 MG PO HS, TAB 08/19/17 Reviewed Nurses Notes: Yes (AMELIA DOS SANTOS MD) Hx Smoking: No Smoking Status: Never Smoker Exposure to Second Hand Smoke?: No Hx Substance Use Disorder: No Hx Alcohol Use: No (AMELIA DOS SANTOS MD) Constitutional Vital Sign - Last 24 Hours 02/06/18 02/06/18 02/06/18 02/06/18 01:23 01:30 02:00 03:00 Temp 100.0 Pulse 97 98 100 97 Resp 16 B/P (MAP) 187/91 Pulse Ox 96 95 94 96 02/06/18 02/06/18 02/06/18 02/06/18 04:00 04:30 05:00 05:05 Pulse 93 93 91 B/P (MAP) 159/85 (109) Pulse Ox 92 93 93 02/06/18 02/06/18 02/06/18 02/06/18 05:10 05:30 06:00 06:10 Pulse 96 90 B/P (MAP) 168/83 (111) 159/84 (109) Pulse Ox 95 91 02/06/18 02/06/18 02/06/18 02/06/18 06:30 06:40 06:45 07:00 Pulse 95 B/P (MAP) 165/83 (110) 172/85 (114) Pulse Ox 93 93 02/06/18 08:00 B/P (MAP) 166/93 (117) (ALEAH MANNING DO) Physical Exam General: Alert, very anxious. Skin: skin thickening with central ulcer under the foot 2nd through 4th metatarsal phalangeal joint area. Thickening around the wound edges. Some erythema around the edges, but no purulent drainage noted. Surrounding skin is a little red, but no warmth compared to surrounding skin. Cardiovascular: normal capillary refill in surrounding tissues. Neuro: peripheral neuropathy in the feet. (AMELIA DOS SANTOS MD) Physical Exam Please see Dr. Dos Santos note (ALEAH MANNING DO) Medical Decision Making Data Points Result Diagram: 02/06/1820702/06/18207 Laboratory Hematology Test 02/06/18 02:08 Red Blood Count 4.10 M/uL (4.00-5.60) Mean Corpuscular Volume 81.1 fL (80.0-96.0) Mean Corpuscular Hemoglobin 29.0 pg (26.0-33.0) Mean Corpuscular Hemoglobin Concent 35.8 g/dL (32.0-36.0) Red Cell Distribution Width 13.8 % (11.5-14.5) Mean Platelet Volume 8.8 fL (7.2-11.1) Neutrophils (%) (Auto) 87.5 % (39.4-72.5) Lymphocytes (%) (Auto) 4.6 % (17.6-49.6) Monocytes (%) (Auto) 6.8 % (4.1-12.4) Eosinophils (%) (Auto) 0.7 % (0.4-6.7) Basophils (%) (Auto) 0.4 % (0.3-1.4) Nucleated RBC Relative Count (auto) 0.0 /100WBC Neutrophils # (Auto) 13.7 K/uL (2.0-7.4) Lymphocytes # (Auto) 0.7 K/uL (1.3-3.6) Monocytes # (Auto) 1.1 K/uL (0.3-1.0) Eosinophils # (Auto) 0.1 K/uL (0.0-0.5) Basophils # (Auto) 0.1 K/uL (0.0-0.1) Nucleated RBC Absolute Count (auto) 0.01 K/uL Erythrocyte Sedimentation Rate 51 mm/HOUR (0-20) Sodium Level 131 mmol/L (137-145) Potassium Level 4.4 mmol/L (3.5-5.0) Chloride Level 96 mmol/L (98-107) Carbon Dioxide Level 24 mmol/L (22-30) Blood Urea Nitrogen 41 mg/dl (9-21) Creatinine 2.90 mg/dl (0.66-1.25) Glomerular Filtration Rate Calc 23.1 Random Glucose 100 mg/dl (75-110) Lactate 1.4 mmol/L (0.7-2.1) Calcium Level 8.4 mg/dl (8.4-10.2) Total Bilirubin 0.6 mg/dl (0.2-1.3) Aspartate Amino Transf (AST/SGOT) 23 U/L (0-35) Alanine Aminotransferase (ALT/SGPT) 24 U/L (0-56) Alkaline Phosphatase 173 U/L (0-126) Total Protein 7.2 g/dl (6.3-8.2) Albumin 3.4 g/dl (3.5-5.0) Chemistry Test 02/06/18 02:08 White Blood Count 15.7 k/uL (4.5-11.0) Red Blood Count 4.10 M/uL (4.00-5.60) Hemoglobin 11.9 g/dL (14.0-18.0) Hematocrit 33.3 % (42.0-52.0) Mean Corpuscular Volume 81.1 fL (80.0-96.0) Mean Corpuscular Hemoglobin 29.0 pg (26.0-33.0) Mean Corpuscular Hemoglobin Concent 35.8 g/dL (32.0-36.0) Red Cell Distribution Width 13.8 % (11.5-14.5) Platelet Count 412 K/uL (150-450) Mean Platelet Volume 8.8 fL (7.2-11.1) Neutrophils (%) (Auto) 87.5 % (39.4-72.5) Lymphocytes (%) (Auto) 4.6 % (17.6-49.6) Monocytes (%) (Auto) 6.8 % (4.1-12.4) Eosinophils (%) (Auto) 0.7 % (0.4-6.7) Basophils (%) (Auto) 0.4 % (0.3-1.4) Nucleated RBC Relative Count (auto) 0.0 /100WBC Neutrophils # (Auto) 13.7 K/uL (2.0-7.4) Lymphocytes # (Auto) 0.7 K/uL (1.3-3.6) Monocytes # (Auto) 1.1 K/uL (0.3-1.0) Eosinophils # (Auto) 0.1 K/uL (0.0-0.5) Basophils # (Auto) 0.1 K/uL (0.0-0.1) Nucleated RBC Absolute Count (auto) 0.01 K/uL Erythrocyte Sedimentation Rate 51 mm/HOUR (0-20) Glomerular Filtration Rate Calc 23.1 Lactate 1.4 mmol/L (0.7-2.1) Calcium Level 8.4 mg/dl (8.4-10.2) Total Bilirubin 0.6 mg/dl (0.2-1.3) Aspartate Amino Transf (AST/SGOT) 23 U/L (0-35) Alanine Aminotransferase (ALT/SGPT) 24 U/L (0-56) Alkaline Phosphatase 173 U/L (0-126) Total Protein 7.2 g/dl (6.3-8.2) Albumin 3.4 g/dl (3.5-5.0) (ALEAH MANNING DO) EKG/Imaging Imaging MRI left foot Indication: Soft tissue wound. Diabetic ulcer. Comparison: Plain films from earlier this morning are reviewed as well as a prior MRI dated 10/09/2017. Technique: Sagittal STIR, coronal long axis T1-weighted and T2-weighted fat saturated, short axis axial T2-weighted fat-saturated images were obtained through the left foot. Findings: Since the previous examination, there has been amputation of the great toe through the proximal shaft of the first metatarsal. There is a soft tissue ulcer seen involving the plantar soft tissues of the forefoot. This is seen along the plantar surface of the second and third metatarsal heads. There is associated skin thickening. Abnormal marrow edema is seen to involve the distal shafts, necks and heads of the second and third metatarsals. This is a new finding since the previous exam. There is marrow edema involving the proximal phalanges of the second and third toes. There is a large, lobulated collection of bright T2 and low T1 signal which appears to emanate from the second and third metatarsophalangeal joints and extends proximally along the dorsum of the forefoot to the midfoot. This extends partly along the extensor tendon sheaths. At the level of the metatarsal bases, this is deep to the tendon sheaths and overlies the second and third metatarsal bases. This extends to overlie the cuboid and extends towards the hindfoot and the edge of the [id number]. In the short axis, this measures up to 2.9 x 2.7 cm in size. This measures at least 11.9 cm in length. There are a few flecks of gas seen within this collection which were noted on this morning's plain films. Culmination of findings are compatible with osteomyelitis with a large dorsal soft tissue abscess. This may reflect an underlying septic arthropathy at the second and/or third metatarsophalangeal joints. There is evidence of new flattening of the second metatarsal head with a subchondral fracture line likely related to avascular necrosis or stress fracture. In the midfoot, there are mild changes of osteoarthritis are present. Marrow edema is seen predominantly within the base of the second metatarsal as well as intermediate cuneiform. Subtle edema also noted within the base of the third metatarsal and the lateral cuneiform. This is new when compared to the prior exam and may be related to stress and alterations in weightbearing. IMPRESSION: 1. Soft tissue ulcer along the plantar margin of the left forefoot with findings consistent with osteomyelitis centered about the second and third metatarsophalangeal joints with a large dorsally located fluid collection/ abscess which extends along the dorsum of the forefoot, the midfoot and extends beyond the edge of the [id number] to the hindfoot. Measurements as above. This is felt to contain several flecks of gas. Findings are compatible with an infection with a gas-forming organism. 2. Suspected septic arthropathy at the second and third metatarsophalangeal joints with new changes of flattening and subchondral fracture/osteonecrosis of the second metatarsal head. 3. Interval amputation of the great toe through the proximal shaft of the first metatarsal. (ALEAH MANNING DO) ED Course/Re-evaluation ED Course Patient is a 52-year-old male here with complaints of left foot pain and infection. Dr. Dos Santos had contacted Dr. Joiner regarding this patient. Patient was pending MRI completion of the left foot. MRI findings were consistent with osteomyelitis, abscess, cellulitis with possible gas-forming bacteria present. I updated Dr. Joiner to recommend admission to the hospitalist service and IV antibiotics. Zosyn and Vanco were ordered. I discussed the patient with Dr. Knowles who accepted the patient to his service. Patient remained hemodynamically stable throughout course. Decision to Disposition Date: Feb 06, 2018 Decision to Disposition Time: 09:26 (ALEAH MANNING DO) Depart Departure Latest Vital Signs Vital Signs Date Time Temp Pulse Resp B/P (MAP) Pulse Ox O2 Delivery O2 Flow Rate FiO2 02/06/18 08:00 166/93 (117) 02/06/18 06:45 95 93 02/06/18 01:23 100.0 16 (ALEAH MANNING DO) Impression: Primary Impression: Diabetic foot infection Additional Impression: Osteomyelitis Condition: Condition Unchanged Disposition: Admitted from ER Referrals: LETI DIMAS (PCP) New Scripts Insulin Detemir 100 UN/ML PEN (Levemir Flextouch) 100 Unit/1 Ml Insuln.pen 20 UNIT SUBQ BID, #5 UNIT Prov: ATTILA KNOWLES MD 02/06/18 Problem Qualifiers AMELIA DOS SANTOS MD Feb 06, 2018 01:24 ALEAH MANNING DO Feb 06, 2018 08:18
[2018-02-06 02:43] LABS: PLATELET COUNT, AUTOMATED 412 K/uL (150-450)
--- NOTE | 2018-02-06 03:43 | RADIOLOGY IMAGING REPORT ---
FACILITY: [facility] [place]IENT NAME: Leobardo Russell : 1965 MR: [id number] V: [id number] EXAM DATE: ORDERING PHYSICIAN: AMELIA DUMONT TECHNOLOGIST: Location: [facility] - [place] Patient: Leobardo Russell : 1965 Visit/Account:[id number] Date of Sevice: 02/06/2018 FOOT 3 VIEW LEFT HISTORY: Diabetic ulcer. Foot wound. COMPARISON: 10/08/2017 and studies dating to 01/17/2013. TECHNIQUE: AP, oblique, and lateral views of the left foot. FINDINGS: In the interim, the first ray has been resected. The base and proximal diaphysis of the fir st metatarsal remain. There is smooth periosteal reaction along the lateral diaphysis of the first me tatarsal. The underlying cortex has a normal appearance. There is no bony erosion or destruction. The re is no fracture or dislocation. There is dorsal soft tissue swelling. There are mild vascular calci fications. IMPRESSION: 1. Postoperative changes of the first ray and soft tissue swelling, but no convincing x-ray evidence for osteomyelitis. Report Dictated By: Aileen Gallo at 02/06/2018 3:31 AM Report E-Signed By: Aileen Gallo at 02/06/2018 3:38 AM WSN:[id number]
--- NOTE | 2018-02-06 08:43 | RADIOLOGY IMAGING REPORT ---
FACILITY: [facility] PATIENT NAME: Leobardo Russell : 1965 MR: [id number] V: [id number] EXAM DATE: ORDERING PHYSICIAN: AMELIA DUMONT TECHNOLOGIST: Location: [facility] - [place] Patient: Leobardo Russell : 1965 Visit/Account:[id number] Date of Sevice: 02/06/2018 MRI left foot Indication: Soft tissue wound. Diabetic ulcer. Comparison: Plain films from earlier this morning are reviewed as well as a prior MRI dated 10/09/2017 . Technique: Sagittal STIR, coronal long axis T1-weighted and T2-weighted fat saturated, short axis axi al T2-weighted fat-saturated images were obtained through the left foot. Findings: Since the previous examination, there has been amputation of the great toe through the proximal shaft of the first metatarsal. There is a soft tissue ulcer seen involving the plantar soft tissues of the forefoot. This is seen al danita the plantar surface of the second and third metatarsal heads. There is associated skin thickening . Abnormal marrow edema is seen to involve the distal shafts, necks and heads of the second and third metatarsals. This is a new finding since the previous exam. There is marrow edema involving the prox imal phalanges of the second and third toes. There is a large, lobulated collection of bright T2 and low T1 signal which appears to emanate from the second and third metatarsophalangeal joints and exten ds proximally along the dorsum of the forefoot to the midfoot. This extends partly along the extensor tendon sheaths. At the level of the metatarsal bases, this is deep to the tendon sheaths and overlie s the second and third metatarsal bases. This extends to overlie the cuboid and extends towards the h indfoot and the edge of the [id number]. In the short axis, this measures up to 2.9 x 2.7 cm in siz e. This measures at least 11.9 cm in length. There are a few flecks of gas seen within this collectio n which were noted on this morning's plain films. Culmination of findings are compatible with osteomy elitis with a large dorsal soft tissue abscess. This may reflect an underlying septic arthropathy at the second and/or third metatarsophalangeal joints. There is evidence of new flattening of the second metatarsal head with a subchondral fracture line likely related to avascular necrosis or stress frac ture. In the midfoot, there are mild changes of osteoarthritis are present. Marrow edema is seen predominan tly within the base of the second metatarsal as well as intermediate cuneiform. Subtle edema also not ed within the base of the third metatarsal and the lateral cuneiform. This is new when compared to th e prior exam and may be related to stress and alterations in weightbearing. IMPRESSION: 1. Soft tissue ulcer along the plantar margin of the left forefoot with findings consistent with oste omyelitis centered about the second and third metatarsophalangeal joints with a large dorsally locate d fluid collection/abscess which extends along the dorsum of the forefoot, the midfoot and extends be yond the edge of the [id number] to the hindfoot. Measurements as above. This is felt to contain se veral flecks of gas. Findings are compatible with an infection with a gas-forming organism. 2. Suspected septic arthropathy at the second and third metatarsophalangeal joints with new changes o f flattening and subchondral fracture/osteonecrosis of the second metatarsal head. 3. Interval amputation of the great toe through the proximal shaft of the first metatarsal. Report Dictated By: Jaime Kellogg at 02/06/2018 8:26 AM Report E-Signed By: Jaime Kellogg at 02/06/2018 8:39 AM WSN:[id number]
[2018-02-06] MEDS ORDERED: PIPERACILLIN/TAZO*3.375GM VIAL 3.375 GM in NS(*) 0.9% 100 ML ADDVANT BAG 100 ML IVPB ONE (09:05)
[2018-02-06] MEDS ORDERED: VANCOMYCIN 1 GM ADDVIAL 1 GM in NS(*) 0.9% 250 ML ADDVAN BAG 250 ML IVPB ONE (09:05)
[2018-02-06 09:53] VITALS: BP 165/79
[2018-02-06] MEDS ORDERED: ROSU10TA5 PO (10:15)
[2018-02-06] MEDS ORDERED: INSU100I5 SUBQ (11:10)
[2018-02-06] MEDS ORDERED: NS(*) 0.9% 1000 ML BAG 1,000 ML IV ONE (11:15)
--- NOTE | 2018-02-06 11:46 | Antimicrobial Stewardship ---
Antimicrobial Time Out Antimicrobial Stewardship MD Service: Hospitalist Indications: Other (Osteomyelitis) Antimicrobial Used Vanco and Primaxin Start Date: Feb 06, 2018 Culture Results: Yes (02/06- Blood Cx pending) Eligible for PO Conversion Eligable for PO Conversion: No Reviewed with Provider Date Reviewed w/ Provider: Feb 06, 2018 Comments Comments 52 yo patient who presented to the ED with increased erythema and pain for his L foot ulcer. Had been seeing wound care outpatient. Tmax 100F WBC 15.7 ESR 51 Blood Cx x 2 pending MRI of Foot - L foot findings of osteomyelitis 1. Osteomyelitis - Vancomycin 2g x 1, random level 02/07/18 @ 0500, would start 1.5g IV Q24H if Scr remains elevated. Zosyn x 1 given in the ED, to decrease risk of ATN with vanco/zosyn, recommend switch to primaxin for now. Renal dosing of Primaxin 500mg IV q8h. Will follow closely. Will need IV antibiotics until surgical intervention and a course following surgery. Kimberly Miller, PharmD, BCOP KIMBERLY MILLER Feb 06, 2018 11:46
[2018-02-06] MEDS ORDERED: VANCOMYCIN(*) 1 GM VIAL 2 GM in NS(*) 0.9% 250 ML BAG 250 ML IVPB ONE (12:00)
[2018-02-06] MEDS: INSULIN HUM LISPRO 100 UN/ML 3 ML VIAL SUBQ PRN ×3 (12:11→20:26)
--- NOTE | 2018-02-06 13:02 | History & Physical ---
History of Present Illness History of Present Illness 52yo male who identifies as female with T2DM that is complicated by diabetic ulcers who came to the ER because of worsening redness on foot. The patient had amputation of the left great toe and distal metatarsal 10/12/17 for osteomyelitis. He has been followed by Dr. Pires for the amputation, but also a left foot ulcer over the plantar aspect of 2nd MTP joint (since early November). The ulcer has also been followed by PT. 10 days ago, the patient noted a sore in the mouth, weakness, and tiredness. The mouth sore seems to have improved. The weakness and tiredness have progressively worsened. 4 days ago, the patient was in the ER for weakness and found to have hyperglycemia and elevated BP. 3 days ago, the patient saw physical therapy for the wound and there was some reactive redness noted around the ulcer. Last night, the patient took off his sock and noted redness on top of his foot. He went to the ER. He denies chills or pain in the foot. History Problems: (1) T2DM (type 2 diabetes mellitus) Status: Chronic (2) CKD (chronic kidney disease) stage 3, GFR 30-59 ml/min Status: Chronic (3) HTN (hypertension) Status: Chronic (4) GERD (gastroesophageal reflux disease) Status: Chronic (5) Amputated great toe of left foot Status: Chronic (6) History of appendectomy Status: Chronic (7) History of eye surgery Status: Chronic (8) Depression Home Meds Active Scripts Insulin Detemir 100 UN/ML PEN (Levemir Flextouch) 100 Unit/1 Ml Insuln.pen, 20 UNIT SUBQ BID, #5 UNIT Prov:ATTILA KNOWLES MD 02/06/18 Reported Medications Rosuvastatin Calcium (Rosuvastatin Calcium) 10 Mg Tablet, 10 MG PO HS 02/06/18 Verapamil Hcl (VERAPAMIL ER) 120 Mg Tablet.er, 120 MG PO BID 12/02/17 Insulin Lispro 100 Un/Ml Vial (HUMALOG 100 U/ML VIAL) 100 Unit/1 Ml Vial, 0 SQ per sliding scale, VIAL 1 unit for every 50 point increase in blood sugar above normal. 08/19/17 Famotidine (FAMOTIDINE) 20 Mg Tablet, 20 MG PO BID, TAB 08/19/17 Aspirin (ASPIR 81) 81 Mg Tablet.dr, 81 MG PO QDAY, TAB 2/11/17 Cholecalciferol (Vitamin D3) (VITAMIN D3) 1,000 Unit Tablet, 1000 UNIT PO QDAY, TAB 08/03/16 Discontinued Reported Medications Loperamide Hcl (ANTI-DIARRHEA) 2 Mg Tablet, 2 MG PO Y for DIARRHEA 10/08/17 Simvastatin (SIMVASTATIN) 20 Mg Tablet, 20 MG PO HS, TAB 08/19/17 Allergies: Coded Allergies: No Known Allergies (Verified Allergy, Mild, 02/02/18) Patient History: Diabetes mellitus (DM) GM FH: lung cancer GM FHx: chronic disabling diseases BROTHER OR SISTER Hx Smoking: No Smoking Status: Never Smoker Exposure to Second Hand Smoke?: No Caffeine Intake: Tea, Soda Caffeine/Cups Per Day: "a lot" Hx Alcohol Use: No Hx Substance Use Disorder: No Social Drug Use: Former Social Drugs: Marijuana Review of Systems All Systems Reviewed/Normal: Yes, Except as Noted Exam Vital Signs Vital Signs Date Time Temp Pulse Resp B/P (MAP) Pulse Ox O2 Delivery O2 Flow Rate FiO2 02/06/18 09:59 94 Room Air 02/06/18 09:53 99.7 103 16 165/79 (107) General Appearance: Alert, Awake, No Acute Distress Neuro: No Gross deficits ENT: Moist Mucous Membranes, Other (Teeth are down to the gum level with caries. Many missing teeth. No obvious swelling in the mouth or erythema) Cardiovascular: Regular Rate and Rhythm Respiratory: Clear to Auscultation Integumentary: No Jaundice, No Cyanosis, Other (R foot is without erythema or edema. L plantar aspect of foot over the 2nd MTP has 1cm full thickness ulcer to a dry base. There is no surrounding erythema. The dorsal side of foot has swelling and erythema over the 2nd MTP. No skin breakdown. Margins were marked witha marker) Medical Decision Making Data Points Result Diagram: 02/06/18 0208 02/06/18207 Item Value Date Time Lactate 1.4 mmol/L 02/06/18207 Blood Urea Nitrogen 41 mg/dl H 02/06/18 0208 Creatinine 2.90 mg/dl H 02/06/18 0208 Creatinine 2.90 mg/dl H 02/02/18 1432 Blood Urea Nitrogen 36 mg/dl H 02/02/18 1432 Blood Urea Nitrogen 30 mg/dl H 11/10/17 0737 Creatinine 2.00 mg/dl H 11/10/17 0737 Total Bilirubin 0.6 mg/dl 02/06/18 0208 Aspartate Amino Transf (AST/SGOT) 23 U/L 02/06/18 0208 Alanine Aminotransferase (ALT/SGPT) 24 U/L 02/06/18 0208 Alkaline Phosphatase 173 U/L H 02/06/18 0208 White Blood Count 15.7 k/uL H 02/06/18 0208 White Blood Count 16.3 k/uL H 02/02/18 1432 White Blood Count 5.7 k/uL 11/10/17 0737 Hemoglobin 11.9 g/dL L 02/06/18 0208 Hemoglobin 14.2 g/dL 02/02/18 1432 Hemoglobin 13.3 g/dL L 11/10/17 0737 Platelet Count 213 K/uL 11/10/17 0737 Platelet Count 303 K/uL 02/02/18 1432 Platelet Count 412 K/uL 02/06/18 0208 Neutrophils # (Auto) 13.7 K/uL H 02/06/18 0208 Neutrophils # (Auto) 14.1 K/uL H 02/02/18 1432 Neutrophils # (Auto) 4.2 K/uL 11/10/17 0737 Erythrocyte Sedimentation Rate 51 mm/HOUR H 02/06/18 0208 EKG / Imaging Imaging Foot MRI - 1. Soft tissue ulcer along the plantar margin of the left forefoot with findings consistent with osteomyelitis centered about the second and third metatarsophalangeal joints with a large dorsally located fluid collection/ abscess which extends along the dorsum of the forefoot, the midfoot and extends beyond the edge of the [id number] to the hindfoot. Measurements as above. This is felt to contain several flecks of gas. Findings are compatible with an infection with a gas-forming organism. 2. Suspected septic arthropathy at the second and third metatarsophalangeal joints with new changes of flattening and subchondral fracture/osteonecrosis of the second metatarsal head. 3. Interval amputation of the great toe through the proximal shaft of the first metatarsal. Foot Xray - 1. Postoperative changes of the first ray and soft tissue swelling, but no convincing x-ray evidence for osteomyelitis. Assessment and Plan Problems: (1) Osteomyelitis Status: Acute Assessment & Plan: The patient has had a diabetic foot ulcer over the plantar aspect of the left 2nd MTP joint since mid November. For the last 10 days, the patient has been much more tired and weak. The night before admission, he noted new erythema on top of the foot. MRI shows findings c/w 2nd and 3rd MTP joint osteomyelitis and a large dorsally located abscess which extends along the dorsum of the forefoot, the midfoot and extends to the hindfoot. Lactate is wnl. The patient has a temperature of 100 degrees, BP is stable, heart rate is 86-103. Dr. Pires is planning a BKA in a couple of days once the cellulitis is improved. The patient was given Zosyn in the ER, but will switch to Primaxin (renally dosed) and Vancomycin. The patient will be given a 2g load and then we will follow the random levels. (2) Diabetic foot infection Status: Acute Assessment & Plan: See above. (3) T2DM (type 2 diabetes mellitus) Status: Chronic Assessment & Plan: The patient admits to not checking glucose. Continue chronic Levemir and will cover with SSI level 1 because of the CKD. (4) CKD (chronic kidney disease) stage 3, GFR 30-59 ml/min Status: Chronic Assessment & Plan: Baseline creatinine is 2.3-2.6. Creatinine today is 2.9. Will give a liter of fluid and follow. (5) HTN (hypertension) Status: Chronic Assessment & Plan: Continue chronic Verapamil with parameters. (6) Hyperlipidemia associated with type 2 diabetes mellitus Status: Chronic Assessment & Plan: Continue chronic rosuvastatin. Will hold ASA for now. Copies to: [facility]; JUAN F PIRES MD Venous Thromboembolism Antithrombotics Is Pt On Any Antithrombotics?: No Exam Sepsis Risk: Severe Sepsis Risk ATTILA KNOWLES MD Feb 06, 2018 13:02
[2018-02-06] MEDS: IMIPENEM/CILASTA(*) 500MG VIAL 500 MG in NS(*) 0.9% 100 ML BAG 100 ML IVPB SCH ×2 (14:24→22:46)
[2018-02-06 15:15] VITALS: BP 176/92
--- NOTE | 2018-02-06 16:12 | Medical Nutrition Therapy ---
Nutrition Anthropometrics Height (Inches): 70.00 Height (Calculated Centimeters: 177.700223 Weight (Pounds): 166 Weight (Calculated Kilograms): 75.637 Vickey Nutrition Score: Adequate Vickey Nutrition Risk Score: 19 Dietary Referral Nutrition Risk Factors: Non-Healing Wound Nutrition Risk Comment: Nutritional Diagnosis Nutritional Risk Acuity 2: Chronic Renal Failure (calc GFR stage 4 CKD), Abcess /Non-Healing Wound Nutritional Risk Acuity 4: Good Appetite, Modified Diet Past Medical History: T2DM, CKD stage III, GERD, HTN, depression, appendectomy, [id number] transgender person Nutrition Diagnosis: Increased Nutrient Needs Nutrition Etiology: Physiological Causes (diabetic foot ulcer with osteomyyelitis) Nutrition Problem/Etiology/Sym: Increased protein needs r/t dx diabetic foot ulcer with osteomylitis AEB alb 3.4. Decreased protein needs r/t dx CKD stage 4 AEB creatinine 2.9 Energy Requirement: 2260 (M- St J X 1.3 AF X1.1 SF) Protein Requirement: 75 (1gm/kg) Fluid Requirement: 2250 (30 ml/kg) Diet Type: Diabetic Nutrition Intervention: Cont diet as ordered, Encourage intake Additional Diet Restrictions: PT PREFERS TO BE CALLED MARIA LUZ- IDENTIFIES FEMALE Nutrition Monitoring & Eval Nutrition Goals: Eat 75-100% Meal, Drink > 2 liters/day RD Patient Assessment Time: [address] Assessment Type: RD Assessment Patient Nutrition Acuity: 2-Moderate Follow Up Date: Feb 10, 2018 Nutritional Comment: 02/07 Pt admitted fordiabetic foot ulcer with osteomyelitis with BKA planned. Pt is on diabetic diet with BG elevated up to 214. BUN 41, Creatinine 2.9 with calculated GFR of 23 in CKD stage 4 range. pt has increased protein needs r/t diabetic foot ulcer but decreased r/t low GFR. Will encourage adequte but not excessive protein. Pt has been instucted on diabetic diet and cautioned to limit protein to preserve kidney function last admit in 09/2017. However at the time, pt ordered more CHO than recommended. Will cont to encourage compliance with diabetic diet. Will cont to monitor. RJ GARCIA Feb 06, 2018 16:11
[2018-02-06 20:18] VITALS: BP 211/104
[2018-02-06] MEDS: INSULIN DETEMIR 100 U/ML 3 ML PEN SUBQ SCH (20:25)
[2018-02-06] MEDS: VERAPAMIL HCL SR 120 MG TABCR PO SCH (20:25)
[2018-02-06] MEDS: ROSUVASTATIN CALCIUM 10 MG TAB PO SCH (20:25)
[2018-02-06] MEDS: FAMOTIDINE 20 MG TAB PO SCH (20:25)
[2018-02-06 21:40] VITALS: BP 210/104
[2018-02-06 21:47] VITALS: BP 204/90
[2018-02-06] MEDS ORDERED: BISACODYL 10 MG SUPP PR PRN (21:50)
[2018-02-06] MEDS ORDERED: MAGNESIUM HYDROXIDE* 30ML UDCP PO PRN (21:50)
[2018-02-06] MEDS ORDERED: ACETAMINOPHEN 500 MG TAB PO PRN (21:55)
[2018-02-06] MEDS: DOCUSATE SODIUM 100 MG CAP PO SCH (22:41)
[2018-02-06] MEDS: POLYETHYLENE GLYCOL 17 GM PKT PO SCH (22:41)
[2018-02-06] MEDS: cloNIDine HCL 0.1 MG TAB PO PRN (22:44)
[2018-02-06 22:46] VITALS: BP 182/97
--- NOTE | 2018-02-06 23:43 | General Surgery Consultation ---
History of Present Illness Requesting Physician Dr. Knowles, hospitalist service Reason for Consult Osteomyelitis with cellulitis on left foot Chief Complaint Left foot redness and swelling History of Present Illness 52-year-old diabetic male who identifies is a female presents to the emergency room with swelling and redness of his left foot. He is well known to me as on October 12 of this year, about 4 months ago, he was admitted with a deep left foot ulcer over the 1st MTP joint down to the bone with osteomyelitis and I performed a 1st toe amputation through the metatarsal shaft. His wound dehisced but ultimately healed but then he developed a plantar ulcer over the 2nd metatarsal head. Historically, he has been poorly compliant with his blood sugar control or offloading. He does not have a car and so walks most everywhere. We have tried different modalities to offload his foot without success. He noticed a couple of days ago increased redness and swelling in his left foot and so came into the emergency department early this morning where a MRI is consistent with osteomyelitis in the 2nd and 3rd distal metatarsal bones and proximal phalanges. There is also a large dorsal fluid collection consistent with an abscess that extends along the dorsum of the foot into the hindfoot. I have been consult did due to the osteomyelitis. 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), managed as type 1 Status: Chronic (2) Diabetic foot ulcer Status: Chronic (3) GERD (gastroesophageal reflux disease) Status: Chronic (4) CKD (chronic kidney disease) stage 3, GFR 30-59 ml/min Status: Chronic (5) HTN (hypertension) Status: Chronic (6) Amputated great toe of left foot Status: Chronic (7) T2DM (type 2 diabetes mellitus) Status: Chronic (8) Hyperlipidemia associated with type 2 diabetes mellitus Status: Chronic (9) History of appendectomy Status: Chronic (10) History of eye surgery Status: Chronic (11) [id number] transgender person Status: Chronic Home Meds Active Scripts Insulin Detemir 100 UN/ML PEN (Levemir Flextouch) 100 Unit/1 Ml Insuln.pen, 20 UNIT SUBQ BID, #5 UNIT Prov:ATTILA KNOWLES MD 02/06/18 Reported Medications Rosuvastatin Calcium (Rosuvastatin Calcium) 10 Mg Tablet, 10 MG PO HS 02/06/18 Verapamil Hcl (VERAPAMIL ER) 120 Mg Tablet.er, 120 MG PO BID 12/02/17 Insulin Lispro 100 Un/Ml Vial (HUMALOG 100 U/ML VIAL) 100 Unit/1 Ml Vial, 0 SQ per sliding scale, VIAL 1 unit for every 50 point increase in blood sugar above normal. 08/19/17 Famotidine (FAMOTIDINE) 20 Mg Tablet, 20 MG PO BID, TAB 08/19/17 Aspirin (ASPIR 81) 81 Mg Tablet.dr, 81 MG PO QDAY, TAB 08/03/16 Cholecalciferol (Vitamin D3) (VITAMIN D3) 1,000 Unit Tablet, 1000 UNIT PO QDAY, TAB 08/03/16 Discontinued Reported Medications Loperamide Hcl (ANTI-DIARRHEA) 2 Mg Tablet, 2 MG PO Y for DIARRHEA 10/08/17 Simvastatin (SIMVASTATIN) 20 Mg Tablet, 20 MG PO HS, TAB 08/19/17 Allergies: Coded Allergies: No Known Allergies (Verified Allergy, Mild, 02/02/18) Family History: Diabetes mellitus (DM) GM FH: lung cancer GM FHx: chronic disabling diseases BROTHER OR SISTER Review of Systems All Systems Reviewed/Normal: Yes, Except as Noted Constitutional: Fever Exam Vital Signs Vital Signs Date Time Temp Pulse Resp B/P (MAP) Pulse Ox O2 Delivery O2 Flow Rate FiO2 02/06/18 22:46 100 182/97 (125) 02/06/18 20:18 99.0 15 92 Room Air General Appearance: Alert, Awake, No Acute Distress, Afebrile Neuro: Other (he is insensate in both feet in a stocking distribution.) Eyes: PERRLA Extremities: Warm, Perfused, Other (on the plantar surface of his left foot over the 2nd MTP joint is a large full-thickness ulcer measuring about 2 cm in diameter and going down to bone. The dorsum of his foot is very erythematous and edematous. This extends up to just distal to the ankle. There is no signs of infection in the lower leg.) Medical Decision Making Data Points Result Diagram: 02/06/1820702/06/18207 Assessment and Plan Problems: (1) Osteomyelitis Status: Acute Assessment & Plan: 02/06/18: He is admitted to the hospitalist service and started on broad-spectrum antibiotics. Unfortunately, now that he has osteomyelitis, surgical debridement will be necessary. He transmetatarsal amputation is not feasible in him because of the location of his plantar ulcer as well as the dorsal infection with abscess traveling up towards his ankle. At this point, I think the quickest way to get him healed would be a below-knee amputation. I have explained the MRI findings with him as well as the need for an amputation. He doesn't seem to be surprised by this. He seems to have been anticipating it. When I rounded the morning, I will incise and drain the abscess on the dorsum of his foot to help clear the soft tissue infection. We will give him a couple of days on the IV antibiotics and I will plan on a left below-knee amputation early next week. (2) Diabetic foot ulcer Status: Chronic Condition Stable Time Spent: < 30 min Venous Thromboembolism Antithrombotics Is Pt On Any Antithrombotics?: No Problem Qualifiers (1) Osteomyelitis: Osteomyelitis type: unspecified type Osteomyelitis location: foot Laterality : left Qualified Codes: M86.9 - Osteomyelitis, unspecified (2) Diabetic foot ulcer: Diabetic foot ulcer location: midfoot Diabetes mellitus type: type 2 Laterality: left Non-pressure ulcer stage: with bone involvement without evidence of necrosis Qualified Codes: E11.621 - Type 2 diabetes mellitus with foot ulcer; L97.426 - Non-pressure chronic ulcer of left heel and midfoot with bone involvement without evidence of necrosis JUAN F PIRES MD Feb 06, 2018 23:43
[2018-02-07 01:41] VITALS: BP 182/93
[2018-02-07] MEDS: IMIPENEM/CILASTA(*) 500MG VIAL 500 MG in NS(*) 0.9% 100 ML BAG 100 ML IVPB SCH ×3 (06:22→22:15)
[2018-02-07 06:44] LABS: PLATELET COUNT, AUTOMATED 331 K/uL (150-450)
[2018-02-07 07:26] VITALS: BP 136/77
--- NOTE | 2018-02-07 08:13 | General Surgery Progress Note ---
Subjective Progress Notes Subjective No complaints this morning. Physical Exam Vital Signs Date Time Temp Pulse Resp B/P (MAP) Pulse Ox O2 Delivery O2 Flow Rate FiO2 02/07/18 07:28 92 Room Air 02/07/18 07:26 99.4 81 136/77 (96) 02/06/18 20:18 15 General Appearance: Alert, Awake, No Acute Distress, Afebrile Extremities: Warm, Perfused, Other (Abscess on dorsum of left foot I/Ded. 15cc purulent material drained. Erythema improving.) Result Diagram: 02/07/18 0540 02/07/18 0540 Assessment and Plan Problems: (1) Osteomyelitis Status: Acute Assessment & Plan: 02/06/18: He is admitted to the hospitalist service and started on broad-spectrum antibiotics. Unfortunately, now that he has osteomyelitis, surgical debridement will be necessary. He transmetatarsal amputation is not feasible in him because of the location of his plantar ulcer as well as the dorsal infection with abscess traveling up towards his ankle. At this point, I think the quickest way to get him healed would be a below-knee amputation. I have explained the MRI findings with him as well as the need for an amputation. He doesn't seem to be surprised by this. He seems to have been anticipating it. When I rounded the morning, I will incise and drain the abscess on the dorsum of his foot to help clear the soft tissue infection. We will give him a couple of days on the IV antibiotics and I will plan on a left below-knee amputation early next week. 02/07/18: Doing well. Abscess on left foot drained. Continue IV abx. Will plan on left BKA in 2-3 days after cellulitis resolves. (2) Diabetic foot ulcer Status: Chronic Assessment & Plan: See number 1 Condition Stable. Time Spent: < 30 min Exam Sepsis Risk: Severe Sepsis Risk Problem Qualifiers (1) Osteomyelitis: Osteomyelitis type: unspecified type Osteomyelitis location: foot Laterality : left Qualified Codes: M86.9 - Osteomyelitis, unspecified (2) Diabetic foot ulcer: Diabetic foot ulcer location: midfoot Diabetes mellitus type: type 2 Laterality: left Non-pressure ulcer stage: with bone involvement without evidence of necrosis Qualified Codes: E11.621 - Type 2 diabetes mellitus with foot ulcer; L97.426 - Non-pressure chronic ulcer of left heel and midfoot with bone involvement without evidence of necrosis JUAN F PIRES MD Feb 07, 2018 08:13
[2018-02-07] MEDS: FAMOTIDINE 20 MG TAB PO SCH ×2 (08:30→20:24)
[2018-02-07] MEDS: DOCUSATE SODIUM 100 MG CAP PO SCH ×2 (08:30→20:23)
[2018-02-07] MEDS: VERAPAMIL HCL SR 120 MG TABCR PO SCH ×2 (08:30→20:23)
[2018-02-07] MEDS: POLYETHYLENE GLYCOL 17 GM PKT PO SCH (08:32)
[2018-02-07] MEDS: INSULIN DETEMIR 100 U/ML 3 ML PEN SUBQ SCH ×2 (08:32→20:25)
[2018-02-07] MEDS: ENOXAPARIN 30 MG/0.3 ML SYR SC SCH (08:32)
--- NOTE | 2018-02-07 08:36 | Miscellaneous Provider Note ---
Miscellaneous Provider Note Note Procedure Note: Preop dx: Left foot abscess Postop dx: DWIGHT Procedure: I/D of left foot abscess Surgeon: Naomi Anesthesia: Local Complications: None Indications: 52yo male with a chronic left foot plantar diabetic ulcer has developed an abscess on the dorsum of his left foot along with osteomyelitis of his 2nd and 3rd distal metatarsal bones and proximal phalanges. He will require a left BKA this next week but I have recommended I/D of the abscess to facilitate resolution of the soft tissue infection in his left foot prior to his BKA. Procedure: His left dorsal foot was prepped with EtOH and the skin overlying the area of fluctuance was anesthetized with 1% lidocaine without epinephrine. I made a longitudinal incision in the dorsum of his left foot and drained about 15mL of pus. I probed the wound cavity to ensure no loculations and then packed the wound with packing strip. I then covered the dorsum of his left foot with dry 4x4 guaze which were taped in place. He tolerated the procedure without any problems. JUAN F PIRES MD Feb 07, 2018 08:36
[2018-02-07 10:50] VITALS: BP 128/78
[2018-02-07] MEDS ORDERED: VANCOMYCIN HCL(*) 0.750 GM ADD 0.75 GM in NS(*) 0.9% 250 ML ADDVAN BAG 250 ML IVPB ONE (11:00)
--- NOTE | 2018-02-07 13:13 | Hospitalist Progress Note ---
Subjective Progress Notes Subjective No new concerns. Dr. Salgado drained the foot abscess earlier today. Physical Exam Vital Signs Date Time Temp Pulse Resp B/P (MAP) Pulse Ox O2 Delivery O2 Flow Rate FiO2 02/07/18 10:50 97.9 70 20 128/78 (95) 96 Room Air Intake and Output 02/08/18 07:00 Intake Total 600 ml Balance 600 ml Intake Oral 600 ml # Voids 1 General Appearance: Alert, Awake, No Acute Distress Neuro: No Gross deficits Eyes: PERRLA Cardiovascular: Regular Rate and Rhythm Respiratory: Clear to Auscultation GI: Soft and Non-Tender Extremities: Warm, Perfused, Other (L foot wrapped with bloody drainage visible. The redness has receded from the previous lines drawn on the foot.) Integumentary: Other (See above.) Psych: Appropriate Mood & Affect Result Diagram: 02/07/1853902/07/18539 Assessment and Plan Problems: (1) Osteomyelitis Status: Acute Assessment & Plan: The patient has had a diabetic foot ulcer over the plantar aspect of the left 2nd MTP joint since mid November. For the last 10 days, the patient has been much more tired and weak. The night before admission, he noted new erythema on top of the foot. MRI showed findings c/w 2nd and 3rd MTP joint osteomyelitis and a large dorsally located abscess which extends along the dorsum of the forefoot, the midfoot and extends to the hindfoot. Lactate was wnl. The patient had a temperature of 100 degrees on admission, BP was stable, heart rate was 86-103. Dr. Salgado is planning a BKA in a couple of days once the cellulitis is improved. The patient was given Zosyn in the ER, and then switched to Primaxin (renally dosed) and Vancomycin on the medical floor. The patient was given a 2g load and we are following random levels. Dr. Salgado drained the abscess today in hopes of getting the patient's infection under better control prior to his BKA early next week. (2) Diabetic foot infection Status: Acute Assessment & Plan: See above. (3) T2DM (type 2 diabetes mellitus) Status: Chronic Assessment & Plan: The patient admits to not checking glucoses. Continue chronic Levemir and will cover with SSI level 1 because of the CKD. (4) CKD (chronic kidney disease) stage 3, GFR 30-59 ml/min Status: Chronic Assessment & Plan: Baseline creatinine is 2.3-2.6. Creatinine today is 2.9. Will give a liter of fluid and follow. (5) HTN (hypertension) Status: Chronic Assessment & Plan: Continue chronic Verapamil with parameters. (6) Hyperlipidemia associated with type 2 diabetes mellitus Status: Chronic Assessment & Plan: Continue chronic rosuvastatin. Will hold ASA for now due to planned surgery. Time Spent on Plan of Care: < 30 min Exam Sepsis Risk: Severe Sepsis Risk Problem Qualifiers (1) Osteomyelitis: Osteomyelitis type: unspecified type Osteomyelitis location: foot Laterality : left Qualified Codes: M86.9 - Osteomyelitis, unspecified MEAGAN PAK MD Feb 07, 2018 13:13
--- NOTE | 2018-02-07 14:08 | Medical Nutrition Therapy ---
Nutritional Education Nutrition Education Topic: Diabetic Nutrition Learning Readiness: Not Interested, Not Ready Teaching Recipient: Patient Nutrition Counseling: Pt states doesn't follow any diet for diabetes at home and was not interested in obtaining information. Pt had been on CHO controll last admit but on ECF she had the right to eat foods not recommended. Discussed how on medical unit, pt needs to keep CHO to no more than 60gm/meal so that BG is better controlled. Discussed imprortance of good BG control for healing and controlling infection. Informed pt that we can provide education/address concerns on diabetes when he is ready for it. Nutrition Monitoring & Eval RD Patient Assessment Time: [address] Assessment Type: RD Education Patient Nutrition Acuity: 2-Moderate Follow Up Date: Feb 12, 2018 Nutritional Comment: 02/07 Pt admitted fordiabetic foot ulcer with osteomyelitis with BKA planned. Pt is on diabetic diet with BG elevated up to 214. BUN 41, Creatinine 2.9 with calculated GFR of 23 in CKD stage 4 range. pt has increased protein needs r/t diabetic foot ulcer but decreased r/t low GFR. Will encourage adequte but not excessive protein. Pt has been instucted on diabetic diet and cautioned to limit protein to preserve kidney function last admit in 09/2017. However at the time, pt ordered more CHO than recommended. Will cont to encourage compliance with diabetic diet. Will cont to monitor. TARIK 02/06 Discussed diabetic diet with pt. Enouraged compliance with diet. RJ GARCIA Feb 07, 2018 14:08
[2018-02-07 15:09] VITALS: BP 140/77
[2018-02-07] MEDS: INSULIN HUM LISPRO 100 UN/ML 3 ML VIAL SUBQ PRN ×2 (17:01→20:27)
[2018-02-07 20:06] VITALS: BP 159/88
[2018-02-07] MEDS: ROSUVASTATIN CALCIUM 10 MG TAB PO SCH (20:24)
[2018-02-07 22:50] VITALS: BP 181/90
[2018-02-08] MEDS: IMIPENEM/CILASTA(*) 500MG VIAL 500 MG in NS(*) 0.9% 100 ML BAG 100 ML IVPB SCH ×2 (06:26→15:02)
[2018-02-08] MEDS ORDERED: NS(*) 0.9% 250 ML BAG 250 ML IV SCH (07:20)
[2018-02-08 07:47] LABS: PLATELET COUNT, AUTOMATED 340 K/uL (150-450)
[2018-02-08] MEDS ORDERED: VANCOMYCIN(*) 1 GM VIAL 1 GM in NS(*) 0.9% 250 ML BAG 250 ML IVPB SCH (08:00)
[2018-02-08 08:41] VITALS: BP 136/81
[2018-02-08] MEDS: POLYETHYLENE GLYCOL 17 GM PKT PO SCH (08:56)
[2018-02-08] MEDS: VERAPAMIL HCL SR 120 MG TABCR PO SCH ×2 (08:57→20:28)
[2018-02-08] MEDS: ENOXAPARIN 30 MG/0.3 ML SYR SC SCH (08:57)
[2018-02-08] MEDS: FAMOTIDINE 20 MG TAB PO SCH ×2 (08:57→20:29)
[2018-02-08] MEDS: DOCUSATE SODIUM 100 MG CAP PO SCH ×2 (08:57→20:29)
[2018-02-08] MEDS: INSULIN DETEMIR 100 U/ML 3 ML PEN SUBQ SCH ×2 (08:58→20:32)
[2018-02-08] MEDS: VANCOMYCIN(*) 1 GM VIAL 1 GM in NS(*) 0.9% 250 ML BAG 250 ML IVPB SCH (08:59)
[2018-02-08] MEDS: INSULIN HUM LISPRO 100 UN/ML 3 ML VIAL SUBQ PRN (11:44)
--- NOTE | 2018-02-08 11:57 | Hospitalist Progress Note ---
Subjective Progress Notes Subjective He reports doing well. We discussed what to expect after surgery and better control of his diabetes. Physical Exam Vital Signs Date Time Temp Pulse Resp B/P (MAP) Pulse Ox O2 Delivery O2 Flow Rate FiO2 02/08/18 08:41 98.5 81 16 136/81 (99) 95 Room Air Intake and Output 02/09/18 07:00 Intake Total 90 ml Balance 90 ml Intake Oral 90 ml General Appearance: Alert, Awake Cardiovascular: Regular Rate and Rhythm Respiratory: Clear to Auscultation Extremities: Other (wound dressed with some drainage visible) Result Diagram: 02/08/18 0735 02/08/18 0612 Assessment and Plan Problems: (1) Osteomyelitis Status: Acute Assessment & Plan: The patient has had a diabetic foot ulcer over the plantar aspect of the left 2nd MTP joint since mid November. For the last 10 days, the patient has been much more tired and weak. The night before admission, he noted new erythema on top of the foot. MRI showed findings consistent with 2nd and 3rd MTP joint osteomyelitis and a large dorsally located abscess which extended along the dorsum of the forefoot, the midfoot and extends to the hindfoot. Lactate was normal. The patient had a temperature of 100 degrees on admission, BP was stable, heart rate was 86-103. Dr. Salgado is planning a BKA in a couple of days once the cellulitis is improved. The patient was given Zosyn in the ER, and then switched to Primaxin (renally dosed) and Vancomycin on the medical floor. The patient was given a 2g load and we are following random levels. Dr. Salgado drained the abscess yesterday in hopes of getting the patient's infection under better control prior to his BKA early next week. (2) Diabetic foot infection Status: Acute Assessment & Plan: See above. (3) T2DM (type 2 diabetes mellitus) Status: Chronic Assessment & Plan: The patient admits to not checking glucoses. Continue chronic Levemir and will cover with SSI level 1. Encouraged him to take bigger/ more responsible role in treating his diabetes. (4) CKD (chronic kidney disease) stage 3, GFR 30-59 ml/min Status: Chronic Assessment & Plan: Baseline creatinine is 2.3-2.6. Creatinine today is 2.2. It has improved with IV fluids. (5) HTN (hypertension) Status: Chronic Assessment & Plan: Continue chronic Verapamil with parameters. (6) Hyperlipidemia associated with type 2 diabetes mellitus Status: Chronic Assessment & Plan: Continue chronic rosuvastatin. Will hold ASA for now due to planned surgery. Exam Sepsis Risk: No Definite Risk Problem Qualifiers (1) Osteomyelitis: Osteomyelitis type: unspecified type Osteomyelitis location: foot Laterality : left Qualified Codes: M86.9 - Osteomyelitis, unspecified BOBBY PAK MD Feb 08, 2018 11:57
[2018-02-08 15:04] VITALS: BP 176/83
[2018-02-08 20:23] VITALS: BP 168/92
[2018-02-08] MEDS: ROSUVASTATIN CALCIUM 10 MG TAB PO SCH (20:29)
[2018-02-08 23:43] VITALS: BP 189/100
[2018-02-09] VITALS (12 sets, daily range): BP systolic 152–197; BP diastolic 88–117
[2018-02-09 05:34] LABS: PLATELET COUNT, AUTOMATED 287 K/uL (150-450)
[2018-02-09] MEDS: IMIPENEM/CILASTA(*) 500MG VIAL 500 MG in NS(*) 0.9% 100 ML BAG 100 ML IVPB SCH ×3 (07:00→22:20)
[2018-02-09] MEDS ORDERED: NS(*) 0.9% 1000 ML BAG 1,000 ML IV SCH (08:07)
--- NOTE | 2018-02-09 08:07 | General Surgery Progress Note ---
Subjective Progress Notes Subjective No complaints. Physical Exam Vital Signs Date Time Temp Pulse Resp B/P (MAP) Pulse Ox O2 Delivery O2 Flow Rate FiO2 02/09/18 07:33 98.8 78 18 178/91 (120) 95 Room Air General Appearance: Alert, Awake, No Acute Distress, Afebrile Extremities: Warm, Perfused, Other (Left foot cellulitis resolved. Packing removed from I/D site. Still draining more serous fluid. Lower leg is without edema or erythema.) Result Diagram: 02/09/1851902/09/18519 Assessment and Plan Problems: (1) Osteomyelitis Status: Acute Assessment & Plan: 02/06/18: He is admitted to the hospitalist service and started on broad-spectrum antibiotics. Unfortunately, now that he has osteomyelitis, surgical debridement will be necessary. He transmetatarsal amputation is not feasible in him because of the location of his plantar ulcer as well as the dorsal infection with abscess traveling up towards his ankle. At this point, I think the quickest way to get him healed would be a below-knee amputation. I have explained the MRI findings with him as well as the need for an amputation. He doesn't seem to be surprised by this. He seems to have been anticipating it. When I rounded the morning, I will incise and drain the abscess on the dorsum of his foot to help clear the soft tissue infection. We will give him a couple of days on the IV antibiotics and I will plan on a left below-knee amputation early next week. 02/07/18: Doing well. Abscess on left foot drained. Continue IV abx. Will plan on left BKA in 2-3 days after cellulitis resolves. 02/09/18: Doing well. Foot is much better after I/D. Continue IV abx. To OR tonight for left BKA. Procedure explained to the patient as well as alternatives and risks and his questions have been answered. Pt agreeable with proceeding with this procedure. (2) Diabetic foot ulcer Status: Chronic Assessment & Plan: See number 1 Condition Stable. Time Spent: < 30 min Exam Sepsis Risk: No Definite Risk Problem Qualifiers (1) Osteomyelitis: Osteomyelitis type: unspecified type Osteomyelitis location: foot Laterality : left Qualified Codes: M86.9 - Osteomyelitis, unspecified (2) Diabetic foot ulcer: Diabetic foot ulcer location: midfoot Diabetes mellitus type: type 2 Laterality: left Non-pressure ulcer stage: with bone involvement without evidence of necrosis Qualified Codes: E11.621 - Type 2 diabetes mellitus with foot ulcer; L97.426 - Non-pressure chronic ulcer of left heel and midfoot with bone involvement without evidence of necrosis JUAN F PIRES MD Feb 09, 2018 08:07
[2018-02-09] MEDS: POLYETHYLENE GLYCOL 17 GM PKT PO SCH (09:00)
[2018-02-09] MEDS: INSULIN DETEMIR 100 U/ML 3 ML PEN SUBQ SCH ×2 (09:00→20:59)
[2018-02-09] MEDS ORDERED: ONDANSETRON 4 MG/2 ML VIAL IVP PRN (09:40)
[2018-02-09] MEDS ORDERED: PROMETHAZINE 25 MG/ML 1 ML AMP IVP PRN (09:40)
[2018-02-09] MEDS: VANCOMYCIN(*) 1 GM VIAL 1 GM in NS(*) 0.9% 250 ML BAG 250 ML IVPB SCH (09:41)
[2018-02-09] MEDS: VERAPAMIL HCL SR 120 MG TABCR PO SCH ×2 (09:44→21:25)
[2018-02-09] MEDS: DOCUSATE SODIUM 100 MG CAP PO SCH ×2 (09:44→21:25)
[2018-02-09] MEDS: FAMOTIDINE 20 MG TAB PO SCH ×2 (09:44→21:25)
--- NOTE | 2018-02-09 10:31 | Hospitalist Progress Note ---
Subjective Progress Notes Subjective He has no complaints this morning. He had no acute events overnight. Patient Complains of: Cardiovascular: No: Chest Pain Respiratory: No: Shortness of Breath Physical Exam Vital Signs Date Time Temp Pulse Resp B/P (MAP) Pulse Ox O2 Delivery O2 Flow Rate FiO2 02/09/18 07:33 98.8 78 18 178/91 (120) 95 Room Air Intake and Output 02/10/18 07:00 Intake Total 0 ml Balance 0 ml Intake Oral 0 ml General Appearance: Alert, Awake, No Acute Distress, Afebrile Neuro: No Gross deficits Cardiovascular: Regular Rate and Rhythm Respiratory: No Respiratory Distress, Clear to Auscultation Psych: Alert & Oriented X3, Appropriate Mood & Affect Result Diagram: 02/09/1851902/09/18519 Assessment and Plan Problems: (1) Osteomyelitis Status: Acute Assessment & Plan: The patient has had a diabetic foot ulcer over the plantar aspect of the left 2nd MTP joint since mid November. For the last 10 days, the patient has been much more tired and weak. The night before admission, he noted new erythema on top of the foot. MRI showed findings consistent with 2nd and 3rd MTP joint osteomyelitis and a large dorsally located abscess which extended along the dorsum of the forefoot, the midfoot and extends to the hindfoot. Lactate was normal. The patient had a temperature of 100 degrees on admission, BP was stable, heart rate was 86-103. Dr. Salgado is planning a BKA today. The patient was given Zosyn in the ER, and then switched to Primaxin ( renally dosed) and Vancomycin on the medical floor. The patient was given a 2g load and we are following random levels. Dr. Salgado drained the abscess 02/07 in hopes of getting the patient's infection under better control prior to his BKA. (2) Diabetic foot infection Status: Acute Assessment & Plan: See above. (3) T2DM (type 2 diabetes mellitus) Status: Chronic Assessment & Plan: The patient admits to not checking glucoses. Continue chronic Levemir and will cover with SSI level 1. Encouraged him to take bigger/ more responsible role in treating his diabetes. (4) CKD (chronic kidney disease) stage 3, GFR 30-59 ml/min Status: Chronic Assessment & Plan: Baseline creatinine is 2.3-2.6. Creatinine today is 2.2. It has improved with IV fluids. (5) HTN (hypertension) Status: Chronic Assessment & Plan: Continue chronic Verapamil with parameters. (6) Hyperlipidemia associated with type 2 diabetes mellitus Status: Chronic Assessment & Plan: Continue chronic rosuvastatin. Will hold ASA for now due to planned surgery. Exam Sepsis Risk: No Definite Risk Problem Qualifiers (1) Osteomyelitis: Osteomyelitis type: unspecified type Osteomyelitis location: foot Laterality : left Qualified Codes: M86.9 - Osteomyelitis, unspecified SHARIF [facility] [employer] Feb 09, 2018 10:31
--- NOTE | 2018-02-09 13:14 | EKG ---
FACILITY: [facility] - [place] PATIENT NAME: JUAN F MCCABE : [id number] MR: [id number] V: [id number] EXAM DATE: ORDERING PHYSICIAN: JUAN F PIRES TECHNOLOGIST: NORMA Meier Reason : PRE OP Blood Pressure : / mmHG Vent. Rate : 081 BPM Atrial Rate : 081 BPM P-R Int : 116 ms QRS Dur : 092 ms QT Int : 374 ms P-R-T Axes : 073 041 067 degrees QTc Int : 434 ms Normal sinus rhythm Normal ECG When compared with ECG of 19-AUG-2017 15:15, No significant change was found Confirmed by Jake Castorena ([id number]) on 02/09/2018 5:26:26 PM Referred By: PRANAY Confirmed By:Jake Gtz
[2018-02-09] MEDS ORDERED: BACITRACIN OINT 15 GM TUBE TP ONE (13:43)
[2018-02-09] MEDS ORDERED: NORMOSOL R SOLN(*) 1000 ML BAG 1,000 ML IV ONE ×2 (16:14→20:12)
[2018-02-09] MEDS ORDERED: DEXAMETHASONE SOD 4 MG/ML VIAL ONE (16:51)
[2018-02-09] MEDS ORDERED: ONDANSETRON 4 MG/2 ML VIAL ONE (16:51)
[2018-02-09] MEDS ORDERED: fentaNYL CITR 100 MCG/2 ML AMP ONE ×2 (16:51→18:35)
[2018-02-09] MEDS ORDERED: PROPOFOL EMUL(*) 10MG/ML 20 ML 20 ML ONE (16:51)
[2018-02-09] MEDS ORDERED: LIDOCAINE MPF 1% 5 ML VIAL ONE (16:51)
[2018-02-09] MEDS ORDERED: KETAMINE HCL-NS 50 MG/5 ML SYR ONE (16:54)
[2018-02-09] MEDS ORDERED: MIDAZOLAM 2 MG/2 ML VIAL IVP PRN (17:15)
[2018-02-09] MEDS ORDERED: LABETALOL HCL 100 MG/20ML VIAL ONE (17:34)
[2018-02-09] MEDS ORDERED: oxyCODONE HCL 5 MG CAP PO PRN (19:40)
[2018-02-09] MEDS ORDERED: HYDROmorphone HCL 2 MG/ML SDV IVP PRN (19:40)
--- NOTE | 2018-02-09 19:54 | Post Operative Progress Note ---
Post Operative Progress Note Date: Feb 09, 2018 Time: 19:42 Surgeon: Naomi Dictation number: [id number] Anesthesia: LMA by Dr. Palafox Pre-Op Diagnosis: Left foot diabetic ulcer with cellulitis and underlying 2nd and 3rd metatarsal phalangeal osteomyelitis and dorsal abscess Post-Op Diagnosis: DWIGHT Findings: C/W dx Procedure(s): Left BKA Specimen Removed:(May be N/A): Left foot, ankle, distal lower leg Complications: None Total Tourniquet Time: 22 minutes Splint: Left knee immobilizer placed Fluids: 950mL NR Estimated Blood Loss: Minimal Date OP Note Dictated: Feb 09, 2018 Time OP Note Dictated: 19:45 JUAN F PIRES MD Feb 09, 2018 19:54
[2018-02-09] MEDS: INSULIN HUM LISPRO 100 UN/ML 3 ML VIAL SUBQ PRN (21:02)
[2018-02-09] MEDS: ROSUVASTATIN CALCIUM 10 MG TAB PO SCH (21:25)
[2018-02-09] MEDS: cloNIDine HCL 0.1 MG TAB PO PRN (21:26)
[2018-02-10] VITALS (11 sets, daily range): BP systolic 149–195; BP diastolic 86–104
[2018-02-10 06:06] LABS: PLATELET COUNT, AUTOMATED 378 K/uL (150-450)
[2018-02-10] MEDS: IMIPENEM/CILASTA(*) 500MG VIAL 500 MG in NS(*) 0.9% 100 ML BAG 100 ML IVPB SCH ×3 (06:16→23:28)
[2018-02-10] MEDS ORDERED: FUROSEMIDE 20 MG/2 ML VIAL IVP ONE (06:25)
[2018-02-10] MEDS ORDERED: CALCIUM GLUC 10% 100 MG/ML VL IVP ONE (06:25)
--- NOTE | 2018-02-10 07:16 | EKG ---
FACILITY: [facility] [place] PATIENT NAME: JUAN F MCCABE : [id number] MR: [id number] V: [id number] EXAM DATE: ORDERING PHYSICIAN: LAMONT ANDERSEN TECHNOLOGIST: Test Reason : hyperkalemia Blood Pressure : / mmHG Vent. Rate : 078 BPM Atrial Rate : 078 BPM P-R Int : 120 ms QRS Dur : 094 ms QT Int : 392 ms P-R-T Axes : 068 031 058 degrees QTc Int : 446 ms Normal sinus rhythm Normal ECG When compared with ECG of 09-FEB-2018 12:54, No significant change was found Confirmed by Lamont Castorena ([id number]) on 02/10/2018 7:39:06 AM Referred By: Confirmed By:Lamont Andersen
--- NOTE | 2018-02-10 07:20 | General Surgery Progress Note ---
Subjective Progress Notes Subjective Perceives his foot is still present. "Almost pain." No other complaints. Physical Exam Vital Signs Date Time Temp Pulse Resp B/P (MAP) Pulse Ox O2 Delivery O2 Flow Rate FiO2 02/10/18 04:30 163/91 (115) 92 02/10/18 03:29 81 02/10/18 02:57 97.4 14 Room Air 02/09/18 23:00 0.5 General Appearance: Alert, Awake, No Acute Distress, Afebrile Extremities: Other (Left BKA site is dressed in stump sock which is dry. I didn't take the dressing down today.) Result Diagram: 02/10/18 0524 02/10/18 0634 Assessment and Plan Problems: (1) Osteomyelitis Status: Resolved Assessment & Plan: 02/06/18: He is admitted to the hospitalist service and started on broad-spectrum antibiotics. Unfortunately, now that he has osteomyelitis, surgical debridement will be necessary. He transmetatarsal amputation is not feasible in him because of the location of his plantar ulcer as well as the dorsal infection with abscess traveling up towards his ankle. At this point, I think the quickest way to get him healed would be a below-knee amputation. I have explained the MRI findings with him as well as the need for an amputation. He doesn't seem to be surprised by this. He seems to have been anticipating it. When I rounded the morning, I will incise and drain the abscess on the dorsum of his foot to help clear the soft tissue infection. We will give him a couple of days on the IV antibiotics and I will plan on a left below-knee amputation early next week. 02/07/18: Doing well. Abscess on left foot drained. Continue IV abx. Will plan on left BKA in 2-3 days after cellulitis resolves. 02/09/18: Doing well. Foot is much better after I/D. Continue IV abx. To OR tonight for left BKA. Procedure explained to the patient as well as alternatives and risks and his questions have been answered. Pt agreeable with proceeding with this procedure. 02/10/18: POD#1 s/p left BKA. Doing well. Will keep the dressing in place today and will remove it and inspect operative site tomorrow. Pt may start working with PT/OT today. He can ambulate starting today but should be non- weight bearing on the stump. Will need to start fitting him for stump shell and start ambulating with rigid prosthetic when able. Will discuss this with PT today. Can start thinking of transferring to [facility] in the next couple of days after he's had a chance to work with PT/OT for a day or two. (2) Diabetic foot ulcer Status: Resolved Assessment & Plan: See number 1 (3) Status post below knee amputation of left lower extremity Status: Acute Condition Stable. Time Spent: < 30 min Exam Sepsis Risk: No Definite Risk Problem Qualifiers (1) Osteomyelitis: Osteomyelitis type: unspecified type Osteomyelitis location: foot Laterality : left Qualified Codes: M86.9 - Osteomyelitis, unspecified (2) Diabetic foot ulcer: Diabetic foot ulcer location: midfoot Diabetes mellitus type: type 2 Laterality: left Non-pressure ulcer stage: with bone involvement without evidence of necrosis Qualified Codes: E11.621 - Type 2 diabetes mellitus with foot ulcer; L97.426 - Non-pressure chronic ulcer of left heel and midfoot with bone involvement without evidence of necrosis JUAN F PIRES MD Feb 10, 2018 07:20
[2018-02-10] MEDS ORDERED: CALCIUM GLUC 1 GM/NS 100 ML IVPB ONE (07:30)
[2018-02-10] MEDS: INSULIN HUM LISPRO 100 UN/ML 3 ML VIAL SUBQ PRN ×3 (07:38→20:45)
[2018-02-10] MEDS ORDERED: DEXTROSE 50% 50 ML SYR IVP ONE (07:40)
[2018-02-10] MEDS ORDERED: INSU HUM REG 100 U/ML(ER ONLY) 10 ML VIAL IVP ONE (08:00)
[2018-02-10] MEDS ORDERED: VANCOMYCIN(*) 1 GM VIAL 1 GM, VANCOMYCIN (*) 0.5 GM VIAL 0.25 GM in NS(*) 0.9% 250 ML B... IVPB SCH ×2 (09:22→09:23)
[2018-02-10] MEDS: DOCUSATE SODIUM 100 MG CAP PO SCH ×2 (09:39→20:43)
[2018-02-10] MEDS: VERAPAMIL HCL SR 120 MG TABCR PO SCH ×2 (09:39→20:43)
[2018-02-10] MEDS: FAMOTIDINE 20 MG TAB PO SCH ×2 (09:39→20:43)
[2018-02-10] MEDS: PANTOPRAZOLE SOD 40 MG TABEC PO SCH (09:39)
[2018-02-10] MEDS: VANCOMYCIN(*) 1 GM VIAL 1 GM, VANCOMYCIN (*) 0.5 GM VIAL 0.25 GM in NS(*) 0.9% 250 ML B... IVPB SCH (09:40)
[2018-02-10] MEDS: ENOXAPARIN 30 MG/0.3 ML SYR SC SCH (09:40)
[2018-02-10] MEDS: INSULIN DETEMIR 100 U/ML 3 ML PEN SUBQ SCH ×2 (09:40→20:44)
[2018-02-10] MEDS: POLYETHYLENE GLYCOL 17 GM PKT PO SCH (09:40)
--- NOTE | 2018-02-10 10:13 | OPERATIVE REPORT 1 ---
EVENT DATE: February 09, 2018 SURGEON: Leobardo Salgado MD ANESTHESIOLOGIST: Ovidio Palafox MD ANESTHESIA: LMA PREOPERATIVE DIAGNOSIS Left diabetic foot ulcer with cellulitis and underlying second and third metatarsal phalangeal osteomyelitis and a dorsal abscess. POSTOPERATIVE DIAGNOSIS Left diabetic foot ulcer with cellulitis and underlying second and third metatarsal phalangeal osteomyelitis and a dorsal abscess. PROCEDURE PERFORMED Left below knee amputation. COMPLICATIONS None CONDITION Stable. ESTIMATED BLOOD LOSS Minimal. INDICATION OF PROCEDURE This is a 52-year-old gentleman with poorly controlled diabetes who has been fairly noncompliant, who actually came in about 4 months ago with a left, first metatarsal phalangeal medial ulcer with underlying osteomyelitis, and I performed a transmetatarsal first digit amputation. He healed with little difficulty. He did have some wound dehiscence, but this ultimately healed and now is completely healed, but then he subsequently developed a plantar ulcer over the second and third MTP joints on his left foot. We had been providing wound care for this, but he continued to ambulate on it in spite of the wound care team and myself trying to encourage and provide him with alternative ambulation methods to off-load the diabetic ulcer. He ultimately came into the emergency room with a worsened, swollen and red foot, especially on the dorsum of his foot. They obtained an MRI of his foot which revealed a second and third metatarsal phalangeal joint osteomyelitis and he also had a dorsal abscess. He was admitted to the Hospitalist service, started on IV antibiotics , and I drained the dorsal abscess and then consented him for a below knee amputation, and when the cellulitis had improved, we are proceeding with surgery. DESCRIPTION OF PROCEDURE The patient was brought to the operating room and placed supine on the operating table. LMA anesthesia was administered and a tourniquet was placed on his left leg at the mid-thigh. His left leg was then prepped and draped in sterile fashion. A timeout was completed. We used and Esmarch wrap to exsanguinate his left lower extremity and the tourniquet was inflated. I had marked the skin at 10 and 12 cm distal to the tibial tuberosity and around the medial and lateral aspects of the leg and then down distally to form a posterior flap. I then used the scalpel and made an incision in the skin where I had marked it at 12 cm in the distal tibial tuberosity, and then down the medial and lateral aspects to create the posterior flap. I then used electrocautery to divide the musculature in the medial and lateral compartments , all the way down to the tibia as well as the fibula. I used the periosteal elevator, the soft tissue circumferentially from the tibia, and up proximally a couple of centimeters from the skin incision, and then used the bone saw to divide the tibia. I used the bone saw then to shave off the anterior corner to make it rounded so that it did not put any pressure on the skin. I then divided the fibula several centimeters proximal to the division point of the tibia using the Gigli saw and then used the Rongeur to remove any bone fragments and to soften the edges of the fibula. I used the rasp to soften the edges of the tibia. I then all of the muscles from the posterior aspects of the fibula and tibia, down until I got to about 10 cm distal to my proximal incision and then I went posterior to separate the remaining soft tissue of the amputated leg from the posterior flap and then this was passed off the field. I then had the tourniquet deflated and gained control of the vascular bundles in the leg and cauterized smaller little tributaries that were oozing. I then thinned out the posterior muscles as I folded the flap over the bone until it was the right thickness, and then I sewed the fascia together, the posterior fascia to the anterior fascia with interrupted 2-0 Vicryl sutures, and it laid nice with no tension, and it covered up the bone and all soft tissue defects quite nicely. I had irrigated all of this out prior to closing it. The skin was then closed with a combination of interrupted and running 2-0 Nylon sutures. As I closed it, I had purposely left the excess skin and this was cut off until it closed quite nicely. I then cleaned and dried the skin and applied copious amounts of Bacitracin antibiotic ointment to the incision and sutures, and this was covered with Xeroform strips and then 4 by 4 gauze and then his lower leg was wrapped in Kerlix and an jn wrap, and then it was placed in a knee immobilizer. He was then awakened and the LMA removed. He was transported to the recovery room in stable condition having tolerated the procedure without any apparent problems. ORLY
--- NOTE | 2018-02-10 11:07 | Hospitalist Progress Note ---
Subjective Progress Notes Subjective He is having some phantom leg pain this morning. Patient Complains of: Cardiovascular: No: Chest Pain Respiratory: No: Shortness of Breath Physical Exam Vital Signs Date Time Temp Pulse Resp B/P (MAP) Pulse Ox O2 Delivery O2 Flow Rate FiO2 02/10/18 07:18 97.8 84 20 169/99 (122) 95 Room Air 02/09/18 23:00 0.5 Intake and Output 02/11/18 07:00 Intake Total 385 ml Balance 385 ml IV Total 385 ml General Appearance: Alert, Awake, No Acute Distress, Afebrile Neuro: No Gross deficits Cardiovascular: Regular Rate and Rhythm Respiratory: No Respiratory Distress, Clear to Auscultation Extremities: No Edema Psych: Alert & Oriented X3, Appropriate Mood & Affect Result Diagram: 02/10/18 0524 02/10/18 0940 Assessment and Plan Problems: (1) Osteomyelitis Status: Resolved Assessment & Plan: The patient has had a diabetic foot ulcer over the plantar aspect of the left 2nd MTP joint since mid November. For the last 10 days, the patient has been much more tired and weak. The night before admission, he noted new erythema on top of the foot. MRI showed findings consistent with 2nd and 3rd MTP joint osteomyelitis and a large dorsally located abscess which extended along the dorsum of the forefoot, the midfoot and extends to the hindfoot. Lactate was normal. The patient had a temperature of 100 degrees on admission, BP was stable, heart rate was 86-103. Dr. Salgado performed BKA . The patient was given Zosyn in the ER, and then switched to Primaxin ( renally dosed) and Vancomycin on the medical floor. The patient was given a 2g load and we are following random levels. Dr. Salgado drained the abscess 02/07 in hopes of getting the patient's infection under better control prior to his BKA. (2) Diabetic foot infection Status: Acute Assessment & Plan: See above. (3) T2DM (type 2 diabetes mellitus) Status: Chronic Assessment & Plan: The patient admits to not checking glucoses. Continue chronic Levemir and will cover with SSI level 1. Encouraged him to take bigger/ more responsible role in treating his diabetes. (4) CKD (chronic kidney disease) stage 3, GFR 30-59 ml/min Status: Chronic Assessment & Plan: Baseline creatinine is 2.3-2.6. Creatinine today is 2.0. It has improved with IV fluids. (5) HTN (hypertension) Status: Chronic Assessment & Plan: Continue chronic Verapamil with parameters. (6) Hyperlipidemia associated with type 2 diabetes mellitus Status: Chronic Assessment & Plan: Continue chronic rosuvastatin. Will hold ASA for now due to planned surgery. (7) Hyperkalemia Status: Acute Assessment & Plan: More than likely secondary to surgery, (BKA). He was placed on dextrose and insulin, calcium, and Lasix to help decrease potassium. He will get BMP at 1300 and again in the morning. Exam Sepsis Risk: No Definite Risk Problem Qualifiers (1) Osteomyelitis: Osteomyelitis type: unspecified type Osteomyelitis location: foot Laterality : left Qualified Codes: M86.9 - Osteomyelitis, unspecified SHARIF [facility] Feb 10, 2018 11:07
[2018-02-10] MEDS ORDERED: INSULIN HUM REG 100 UN/ML 3 ML VIAL IVP ONE (11:45)
[2018-02-10] MEDS: cloNIDine HCL 0.1 MG TAB PO PRN (14:47)
[2018-02-10] MEDS ORDERED: SODIUM POLYST SULF 15 GM/60 ML PO ONE (15:30)
[2018-02-10] MEDS: ROSUVASTATIN CALCIUM 10 MG TAB PO SCH (20:43)
[2018-02-11 03:41] VITALS: BP 154/78
[2018-02-11 06:09] LABS: PLATELET COUNT, AUTOMATED 381 K/uL (150-450)
[2018-02-11] MEDS: IMIPENEM/CILASTA(*) 500MG VIAL 500 MG in NS(*) 0.9% 100 ML BAG 100 ML IVPB SCH (06:16)
[2018-02-11 07:41] VITALS: BP 176/97
[2018-02-11] MEDS: ENOXAPARIN 30 MG/0.3 ML SYR SC SCH (08:26)
[2018-02-11] MEDS: VERAPAMIL HCL SR 120 MG TABCR PO SCH (08:26)
[2018-02-11] MEDS: PANTOPRAZOLE SOD 40 MG TABEC PO SCH (08:26)
[2018-02-11] MEDS: DOCUSATE SODIUM 100 MG CAP PO SCH (08:26)
[2018-02-11] MEDS: FAMOTIDINE 20 MG TAB PO SCH (08:26)
[2018-02-11] MEDS: POLYETHYLENE GLYCOL 17 GM PKT PO SCH ×2 (08:26→08:32)
[2018-02-11] MEDS: INSULIN DETEMIR 100 U/ML 3 ML PEN SUBQ SCH (08:27)
[2018-02-11] MEDS: INSULIN HUM LISPRO 100 UN/ML 3 ML VIAL SUBQ PRN (08:30)
[2018-02-11] MEDS ORDERED: INSULIN HUM LISPRO 100 UN/ML 3 ML VIAL SUBQ PRN (09:05)
[2018-02-11] MEDS: VANCOMYCIN(*) 1 GM VIAL 1 GM, VANCOMYCIN (*) 0.5 GM VIAL 0.25 GM in NS(*) 0.9% 250 ML B... IVPB SCH (10:05)
--- NOTE | 2018-02-11 11:07 | General Surgery Progress Note ---
Subjective Progress Notes Subjective No complaints. On the phone with someone during my entire encounter with him this morning. Physical Exam Vital Signs Date Time Temp Pulse Resp B/P (MAP) Pulse Ox O2 Delivery O2 Flow Rate FiO2 02/11/18 08:00 95 Room Air 02/11/18 07:41 98.9 79 18 176/97 (123) 02/09/18 23:00 0.5 Intake and Output 02/11/18 07:00 Intake Total 488 ml Output Total 750 ml Balance -262 ml Intake Oral 0 ml IV Total 488 ml Output Urine Total 750 ml # Voids 1 # Bowel Movements 3 General Appearance: Alert, Awake, No Acute Distress, Afebrile Extremities: Other (Left BKA dressing removed and wound inspected. Surgical site looks good without erythema or drainage.) Result Diagram: 02/11/1846 02/11/18545 Assessment and Plan Problems: (1) Osteomyelitis Status: Resolved Assessment & Plan: 02/06/18: He is admitted to the hospitalist service and started on broad-spectrum antibiotics. Unfortunately, now that he has osteomyelitis, surgical debridement will be necessary. He transmetatarsal amputation is not feasible in him because of the location of his plantar ulcer as well as the dorsal infection with abscess traveling up towards his ankle. At this point, I think the quickest way to get him healed would be a below-knee amputation. I have explained the MRI findings with him as well as the need for an amputation. He doesn't seem to be surprised by this. He seems to have been a nticipating it. When I rounded the morning, I will incise and drain the abscess on the dorsum of his foot to help clear the soft tissue infection. We will give him a couple of days on the IV antibiotics and I will plan on a left below-knee amputation early next week. 02/07/18: Doing well. Abscess on left foot drained. Continue IV abx. Will plan on left BKA in 2-3 days after cellulitis resolves. 02/09/18: Doing well. Foot is much better after I/D. Continue IV abx. To OR tonight for left BKA. Procedure explained to the patient as well as alternatives and risks and his questions have been answered. Pt agreeable with proceeding with this procedure. 02/10/18: POD#1 s/p left BKA. Doing well. Will keep the dressing in place today and will remove it and inspect operative site tomorrow. Pt may start working with PT/OT today. He can ambulate starting today but should be non- weight bearing on the stump. Will need to start fitting him for stump shell and start ambulating with rigid prosthetic when able. Will discuss this with PT today. Can start thinking of transferring to ECF in the next couple of days after he's had a chance to work with PT/OT for a day or two. 02/11/18: POD#2. Doing well. Surgical site looks good. Will work on increasing mobility. OK to transfer to ECF today. Continue IV abx and can stop tomorrow if afebrile. (2) Diabetic foot ulcer Status: Resolved Assessment & Plan: See number 1 (3) Status post below knee amputation of left lower extremity Status: Acute Condition Stable. Time Spent: < 30 min Exam Sepsis Risk: No Definite Risk Problem Qualifiers (1) Osteomyelitis: Osteomyelitis type: unspecified type Osteomyelitis location: foot Laterality: left Qualified Codes: M86.9 - Osteomyelitis, unspecified (2) Diabetic foot ulcer: Diabetic foot ulcer location: midfoot Diabetes mellitus type: type 2 Laterality: left Non-pressure ulcer stage: with bone involvement without evidence of necrosis Qualified Codes: E11.621 - Type 2 diabetes mellitus with foot ulcer; L97.426 - Non-pressure chronic ulcer of left heel and midfoot with bone involvement without evidence of necrosis JUAN F PIRES MD Feb 11, 2018 11:07
[2018-02-11 12:01] VITALS: BP 137/76
--- NOTE | 2018-02-11 12:46 | Hospitalist Depart ---
Discharge Summary Reason for Hosp/Final Diag: (1) Osteomyelitis Status: Resolved Hospital Course & Plan: The patient has had a diabetic foot ulcer over the plantar aspect of the left 2nd MTP joint since mid November. For the last 10 days, the patient has been much more tired and weak. The night before admission, he noted new erythema on top of the foot. MRI showed findings consistent with 2nd and 3rd MTP joint osteomyelitis and a large dorsally located abscess which extended along the dorsum of the forefoot, the midfoot and extends to the hindfoot. Lactate was normal. The patient had a temperature of 100 degrees on admission, BP was stable, heart rate was 86-103. Dr. Salgado performed BKA 02/09. The patient was given Zosyn in the ER, and then switched to Primaxin (renally dosed) and Vancomycin on the medical floor. The patient was given a 2g load and we are following random levels. Dr. Salgado drained the abscess 02/07 in hopes of getting the patient's infection under better control prior to his BKA. We will stop antibiotics tomorrow if he remains afebrile. He will transfer to [facility] ECF unit for further rehab. (2) Diabetic foot infection Status: Acute Hospital Course & Plan: See above. (3) T2DM (type 2 diabetes mellitus) Status: Chronic Hospital Course & Plan: The patient admits to not checking glucoses. Continue chronic Levemir and will cover with SSI level 2. Increased insulin coverage today for increased blood glucoses. Encouraged him to take bigger/more respo nsible role in treating his diabetes. (4) CKD (chronic kidney disease) stage 3, GFR 30-59 ml/min Status: Chronic Hospital Course & Plan: Baseline creatinine is 2.3-2.6. Creatinine today is 2.1. It has improved with IV fluids. (5) HTN (hypertension) Status: Chronic Hospital Course & Plan: Continue chronic Verapamil with parameters. (6) Hyperlipidemia associated with type 2 diabetes mellitus Status: Chronic Hospital Course & Plan: Continue chronic rosuvastatin. Will hold ASA. (7) Hyperkalemia Status: Acute Hospital Course & Plan: More than likely secondary to surgery, (BKA). He was placed on dextrose and insulin, calcium, and Lasix to help decrease potassium. Resolved. Departure Latest Vital Signs Vital Signs 02/09/18 02/11/18 23:00 12:01 Temp 98.8 Pulse 76 Resp 14 B/P (MAP) 137/76 (96) Pulse Ox 92 O2 Delivery Room Air O2 Flow Rate 0.5 Weight (Pounds): 166 Weight (Ounces): 12.0 Result Diagram: 02/11/1846 02/11/18545 Condition: Improved Discharge: [facility] E[facility] Discharge Instructions Home Meds Active Scripts Insulin Detemir 100 UN/ML PEN (Levemir Flextouch) 100 Unit/1 Ml Insuln.pen, 20 UNIT SUBQ BID, #5 UNIT Prov:ATTILA KNOWLES MD 02/06/18 Reported Medications Rosuvastatin Calcium (Rosuvastatin Calcium) 10 Mg Tablet, 10 MG PO HS 02/06/18 Verapamil Hcl (VERAPAMIL ER) 120 Mg Tablet.er, 120 MG PO BID 12/02/17 Insulin Lispro 100 Un/Ml Vial (HUMALOG 100 U/ML VIAL) 100 Unit/1 Ml Vial, 0 SQ per sliding scale, VIAL 1 unit for every 50 point increase in blood sugar above normal. 08/19/17 Famotidine (FAMOTIDINE) 20 Mg Tablet, 20 MG PO BID, TAB 08/19/17 Aspirin (ASPIR 81) 81 Mg Tablet.dr, 81 MG PO QDAY, TAB 08/03/16 Cholecalciferol (Vitamin D3) (VITAMIN D3) 1,000 Unit Tablet, 1000 UNIT PO QDAY, TAB 08/03/16 Discontinued Reported Medications Loperamide Hcl (ANTI-DIARRHEA) 2 Mg Tablet, 2 MG PO PRN for DIARRHEA 10/08/17 Simvastatin (SIMVASTATIN) 20 Mg Tablet, 20 MG PO HS, TAB 08/19/17 Diet: Diabetic Activity: With Walker Special Instructions: Venous Thromboembolism Antithrombotics Is Pt On Any Antithrombotics?: No Problem Qualifiers (1) Osteomyelitis: Osteomyelitis type: unspecified type Osteomyelitis location: foot Laterality: left Qualified Codes: M86.9 - Osteomyelitis, unspecified SHARIF MAIN CELL POURER Feb 11, 2018 12:46
[2018-02-11] MEDS ORDERED: INSULIN DETEMIR 100 U/ML 3 ML PEN SUBQ SCH (21:00)
== END 2018-02-11 14:10 | DRG 617 ==
LOC: ER 01:23 → MED 09:30
PROVIDERS: ADMIT Internal Medicine; ATTEND Internal Medicine
PROC: 0J9R0ZZ Drainage of Left Foot Subcutaneous Tissue and Fascia, Open Approach (ICD-10-PCS; 2018-02-07)
PROC: 0Y6J0Z3 Detachment at Left Lower Leg, Low, Open Approach (ICD-10-PCS; principal; 2018-02-09 17:30)
DX: E11.69 Type 2 diabetes mellitus with other specified complication (principal); M86.8X7 Other osteomyelitis, ankle and foot; L02.612 Cutaneous abscess of left foot; L97.426 Non-pressure chronic ulcer of left heel and midfoot with bone involvement without evidence of necrosis; E78.5 Hyperlipidemia, unspecified; E87.5 Hyperkalemia; E11.22 Type 2 diabetes mellitus with diabetic chronic kidney disease; E11.65 Type 2 diabetes mellitus with hyperglycemia; I12.9 Hypertensive chronic kidney disease with stage 1 through stage 4 chronic kidney disease, or unspecified chronic kidney disease; N18.3 Chronic kidney disease, stage 3 (moderate); K21.9 Gastro-esophageal reflux disease without esophagitis; F32.9 Major depressive disorder, single episode, unspecified; Z79.4 Long term (current) use of insulin; Z91.19 Patient's noncompliance with other medical treatment and regimen; Z89.412 Acquired absence of left great toe; E11.621 Type 2 diabetes mellitus with foot ulcer
CPT/HCPCS: 36415; 36416; 80202; 82040; 82247; 82310; 82374; 82435; 82565; 82947; 82948; 83605; 84075; 84132; 84155; 84295; 84450; 84460; 84520; 85025; 85651; 86140; 87040; 87077; 87186; 88305; 93005; 96365; 97161; 97166; 99284; J0610; J0743; J1100; J1170; J1650; J1815; J1940; J2001; J2405; J2543; J2704; J3010; J3370; J3490; J7030; J7050; L1832

== ENCOUNTER → 2018-02-06 | Outpatient (CLI) | payer SELFPAY ==
[2017-10-09 07:53] VITALS: BMI 27.9
[~2018-02-06] MED LIST changes: +ROSU10TA5 PO
== END ==
LOC: AMB 01:06
PROVIDERS: ATTEND Nurse Practitioner
DX: L08.9 Local infection of the skin and subcutaneous tissue, unspecified (principal); R53.83 Other fatigue; E11.8 Type 2 diabetes mellitus with unspecified complications; Z79.4 Long term (current) use of insulin; E11.22 Type 2 diabetes mellitus with diabetic chronic kidney disease; N18.3 Chronic kidney disease, stage 3 (moderate); Z89.412 Acquired absence of left great toe
CPT/HCPCS: A0425; A0429

== ENCOUNTER 2018-02-09 07:27 | Outpatient (RCR) | payer SELFPAY ==
[2017-10-09 07:53] VITALS: BMI 27.9
[~2018-02-09 07:27] MED LIST changes: +AMLO-111 PO; +AMLO-113 PO; -AMLO-96 PO; -AMLO-99 PO; +ROSU10TA5 PO
[2018-04-04] MEDS ORDERED: VERA180T53 PO (14:45)
[2018-04-04] MEDS ORDERED: INSU100V24 SQ (14:45)
[2018-04-04] MEDS ORDERED: POLY17PO11 PO (14:45)
[2018-04-04] MEDS ORDERED: MOM PO (14:45)
[2018-04-04] MEDS ORDERED: PANT40TA65 PO (14:45)
[2018-04-04] MEDS ORDERED: HYDR-2966 PO (14:45)
[2018-04-04] MEDS ORDERED: INSU100I5 SUBQ (14:45)
[2018-04-04] MEDS ORDERED: CLON1PAT19 TD (14:45)
[2018-04-04] MEDS ORDERED: ACET-2043 PO (14:45)
[2018-04-04] MEDS ORDERED: ASPI81TA86 PO (14:45)
[2018-04-04] MEDS ORDERED: DOCU-202 PO (14:45)
--- NOTE | 2018-04-08 10:35 | Transitional Care Management ---
TCM Discharge Criteria Transitional Care Comment: 02/08 She has section 8 housing, would like to move to [place] to be near sister who has medical problems when she is better. Accepting of BKA and mobility restrictions. Identified need for walker and perhaps wheel chair. would like to be able to get into tub at home when incision healed. 04/08 Ami had been dc'd from ECF on 04/04 with HH for PT. I tried calling today but unable to contact--left message TIARRA DUARTE Apr 08, 2018 10:35
--- NOTE | 2018-04-13 14:42 | Transitional Care Management ---
Assessment Spoke with: email from Anabel GIL Comment: 04/13 states doesn't have glucose test strips from [facility] yet but has been trying to manage like in hospital Constipation?: Yes (04/13 hasn't filled RX for colace and miralax) Integumentary Comment: 04/13 has f/u with Aileen from PT for wound care Feeling of Well Being Comment: 04/13 calls being home an "adventure". Enc her to be patient and safety is priority Scheduled Follow-Up with [facility]: Yes (otr driver and Naomi) Community Resources/HHC: 04/13 Reminded her Sudha RN and Poornima MYERS from [facility] were at [facility] and that dc info was faxed to them. Enc her to keept trying to contact them for meds and f/u TCM Discharge Criteria Medication Knowledge: 04/13 hasn't filled RX. review new meds and need to resume bp meds especially Transitional Care Comment: 02/08 She has section 8 housing, would like to move to [place] to be near sister who has medical problems when she is better. Accepting of BKA and mobility restrictions. Identified need for walker and perhaps wheel chair. would like to be able to get into tub at home when incision healed. 04/08 Ami had been dc'd from ECF on 04/04 with HH for PT. I tried calling today but unable to contact--left message 04/13 responded to email about not having meds filled or getting response from [facility]. states she is in control of BS but does not have test strips. suggest she contact [facility] for meds, f/u and support. HORTENCIA WHITING Apr 13, 2018 14:42
[2018-04-18] MEDS ORDERED: METO-734 PO (11:22)
--- NOTE | 2018-04-23 12:28 | Transitional Care Management ---
Assessment GI Comment: 04/13 states doesn't have glucose test strips from [facility] yet but has been trying to manage like in hospital 04/23 To ER on 04/18 for constipation tx at home with resultant nausea abd pain dehydation and diarrhea Constipation?: Yes (04/13 hasn't filled RX for colace and miralax) Integumentary Comment: 04/13 has f/u with Aileen from PT for wound care Feeling of Well Being Comment: 04/13 calls being home an "adventure". 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 Enc her to keept trying to contact them for meds and f/u TCM Discharge Criteria Medication Knowledge: 04/13 hasn't filled RX. review new meds and need to resume bp meds especially Transitional Care Comment: 02/08 She has section 8 housing, would like to move to [place] to be near sister who has medical problems when she is better. Accepting of BKA and mobility restrictions. Identified need for walker and perhaps wheel chair. would like to be able to get into tub at home when incision healed. 04/08 Ami had been dc'd from [facility] on 04/04 with [facility] for PT. I tried calling today but unable to contact--left message 04/13 responded to email about not having meds filled or getting response from [facility]. states she is in control of BS but does not have test strips. suggest she contact [facility] for meds, f/u and support. 04/22 emailed per her previous request and awaiting response re: recent ER visit, meds, glucose testing, [facility] f/u, mobility HORTENCIA WHITING Apr 23, 2018 12:28
--- NOTE | 2018-04-30 10:53 | Transitional Care Management ---
Assessment GI Comment: 04/13 states doesn't have glucose test strips from [facility] yet but has been trying to manage like in hospital 04/23 To ER on 04/18 for constipation tx at home with resultant nausea abd pain dehydation and diarrhea Constipation?: Yes (04/13 hasn't filled RX for colace and miralax) Integumentary Comment: 04/13 has f/u with Aileen from PT for wound care Feeling of Well Being Comment: 04/13 calls being home an "adventure". Enc her to be patient and safety is priority Scheduled Follow-Up with [facility]: Yes (test administrator and [facility]omi) Community Resources/HHC: 04/13 Reminded her Sudha RN and Poornima MYERS from [facility] were at [facility] and that dc info was faxed to them. Enc her to keept trying to contact them for meds and f/u TCM Discharge Criteria Medication Knowledge: 04/13 hasn't filled RX. review new meds and need to resume bp meds especially Transitional Care Comment: 02/08 She has section 8 housing, would like to move to [place] to be near sister who has medical problems when she is better. Accepting of BKA and mobility restrictions. Identified need for walker and perhaps wheel chair. would like to be able to get into tub at home when incision healed. 04/08 Ami had been dc'd from [facility] on 04/04 with HH for PT. I tried calling today but unable to contact--left message 04/13 responded to email about not having meds filled or getting response from [facility]. states she is in control of BS but does not have test strips. suggest she contact [facility] for meds, f/u and support. 04/22 emailed per her previous request and awaiting response re: recent ER visit, meds, glucose testing, [facility] f/u, mobility 04/30 emailed her again today asking if she had her medicine/supplies, needed any resources and what she was doing to avoid complications. HORTENCIA WHITING Apr 30, 2018 10:53
--- NOTE | 2018-05-05 16:27 | Transitional Care Management ---
Assessment GI Comment: 04/13 states doesn't have glucose test strips from [facility] yet but has been trying to manage like in hospital 04/23 To ER on 04/18 for constipation tx at home with resultant nausea abd pain dehydation and diarrhea Constipation?: Yes (04/13 hasn't filled RX for colace and miralax) Integumentary Comment: 04/13 has f/u with Aileen from PT for wound care Feeling of Well Being Comment: 04/13 calls being home an "adventure". 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 Enc her to keept trying to contact them for meds and f/u TCM Discharge Criteria Medication Knowledge: 04/13 hasn't filled RX. review new meds and need to resume bp meds especially Transitional Care Comment: 02/08 She has section 8 housing, would like to move to [place] to be near sister who has medical problems when she is better. Accepting of BKA and mobility restrictions. Identified need for walker and perhaps wheel chair. would like to be able to get into tub at home when incision healed. 04/08 Ami had been dc'd from [facility] on 04/04 with HH for PT. I tried calling today but unable to contact--left message 04/13 responded to email about not having meds filled or getting response from [facility]. states she is in control of BS but does not have test strips. suggest she contact [facility] for meds, f/u and support. 04/22 emailed per her previous request and awaiting response re: recent ER visit, meds, glucose testing, [facility] f/u, mobility 04/30 emailed her again today asking if she had her medicine/supplies, needed any resources and what she was doing to avoid complications. 05/05 Have not received return email from Anabel. Gave her info on [employer] for prosthesis and other resources in community. Enc her to call me for needs. HORTENCIA WHITING May 05, 2018 16:27
--- NOTE | 2018-05-16 16:27 | Transitional Care Management ---
Assessment GI Comment: 04/13 states doesn't have glucose test strips from [facility] yet but has been trying to manage like in hospital 04/23 To ER on 04/18 for constipation tx at home with resultant nausea abd pain dehydation and diarrhea Constipation?: Yes (04/13 hasn't filled RX for colace and miralax) Integumentary Comment: 04/13 has f/u with Aileen from PT for wound care Feeling of Well Being Comment: 04/13 calls being home an "adventure". 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 Enc her to keept trying to contact them for meds and f/u TCM Discharge Criteria Medication Knowledge: 04/13 hasn't filled RX. review new meds and need to resume bp meds especially Transitional Care Comment: 02/08 She has section 8 housing, would like to move to [place] to be near sister who has medical problems when she is better. Accepting of BKA and mobility restrictions. Identified need for walker and perhaps wheel chair. would like to be able to get into tub at home when incision healed. 04/08 Ami had been dc'd from [facility] on 04/04 with HH for PT. I tried calling today but unable to contact--left message 04/13 responded to email about not having meds filled or getting response from [facility]. states she is in control of BS but does not have test strips. suggest she contact [facility] for meds, f/u and support. 04/22 emailed per her previous request and awaiting response re: recent ER visit, meds, glucose testing, [facility] f/u, mobility 04/30 emailed her again today asking if she had her medicine/supplies, needed any resources and what she was doing to avoid complications. 05/05 Have not received return email from Anabel. Gave her info on [employer] for prosthesis and other resources in community. Enc her to call me for needs. 05/16 Have not received email back from Anabel and sera from HORTENCIA Peng May 16, 2018 16:27
== END 2018-05-17 18:39 | disposition home or self-care (01) ==
LOC: TCM 07:27
PROVIDERS: ATTEND Nurse Practitioner
DX: Z02.9 Encounter for administrative examinations, unspecified (principal)

== ENCOUNTER 2018-02-11 14:10 | Inpatient (IN) | payer SELFPAY ==
[2017-10-09 07:53] VITALS: Ht 177.8 cm; Wt 77.2 kg
[~2018-02-11] VITALS: Ht 177.8 cm; Wt 77.2 kg
[2018-02-11 14:28] VITALS: BP 150/89
[2018-02-11] MEDS ORDERED: INFLUENZA VIRUS VAC 0.5ML SYR IM ONLY ONE (14:35)
[2018-02-11] MEDS ORDERED: BISACODYL 10 MG SUPP PR PRN (14:53)
[2018-02-11] MEDS ORDERED: VANCOMYCIN(*) 1 GM VIAL 1 GM, VANCOMYCIN (*) 0.5 GM VIAL 0.25 GM in NS(*) 0.9% 250 ML B... IVPB SCH (14:53)
[2018-02-11] MEDS ORDERED: ACETAMINOPHEN 500 MG TAB PO PRN (14:53)
[2018-02-11] MEDS: oxyCODONE HCL 5 MG CAP PO PRN (15:01)
[2018-02-11] MEDS ORDERED: NS 0.9% 250 ML BAG IV PRN (15:05)
[2018-02-11] MEDS: IMIPENEM/CILASTA(*) 500MG VIAL 500 MG in NS(*) 0.9% 100 ML BAG 100 ML IVPB SCH ×2 (15:17→22:30)
--- NOTE | 2018-02-11 15:27 | Consultant Pharmacy Review ---
Senior Lead Project Manager Review Medication Review Do All Mecications have a Diag: Yes Other General Cautions Lexicomp Interaction Analysis A = No known interaction C = Monitor therapy X = Avoid combination B = No action needed D = Consider therapy modification Drugs in this analysis: Acetaminophen; Bisacodyl; CloNIDine; Crestor; Docusate; Enoxaparin; Famotidine; HumaLOG; Levemir; Milk of Magnesia [OTC]; MiraLax [OTC]; Oxy.IR (CAN); Primaxin (CAN); Protonix; Vancomycin; Verapamil; Zofran ODT * Drug-Drug Interactions D Bisacodyl Milk of Magnesia [OTC] (Antacids) D CloNIDine (POLE CLASSIFIER Depressants) Oxy.IR (CAN) (OxyCODONE) C CloNIDine Verapamil (Calcium Channel Blockers (Nondihydropyridine)) C Crestor (Rosuvastatin) Milk of Magnesia [OTC] (Antacids) Depends on Duration C Famotidine (QTc-Prolonging Agents (Indeterminate Risk and Risk Modifying)) Zofran ODT (QTc-Prolonging Agents (Moderate Risk)) C HumaLOG (Hypoglycemia-Associated Agents) Levemir (Antidiabetic Agents) C HumaLOG (Hypoglycemia-Associated Agents) Levemir (Hypoglycemia-Associated Agents) C Milk of Magnesia [OTC] (Magnesium Salts) Verapamil (Calcium Channel Blockers) C Oxy.IR (CAN) (OxyCODONE) Verapamil (CY Inhibitors (Moderate)) C Verapamil (P-glycoprotein/ABCB1 Inhibitors) Zofran ODT (P-glycoprotein/ABCB1 Substrates) B Acetaminophen Oxy.IR (CAN) (Opioid Analgesics) B Acetaminophen Zofran ODT (Antiemetics (5HT3 Antagonists)) B Famotidine (Histamine H2 Receptor Antagonists) Milk of Magnesia [OTC] (Antacids) Pneumococcal Vaccine HX Pneumo Vac ([id number]): No HX Pneumo Vac (Pneumovax): No Comments Regarding the Review Due to patient's age, Beer's criteria do not apply. Please monitor for falls. Patient is a candidate for the Pneumovax 23 vaccine due to his Diabetes diagnosis. It is recommended that the patient receive the influenza vaccine this fall when it becomes available. VASQUEZ HOLT Feb 11, 2018 15:27
[2018-02-11] MEDS: INSULIN HUM LISPRO 100 UN/ML 3 ML VIAL SUBQ PRN (20:50)
[2018-02-11] MEDS: ROSUVASTATIN CALCIUM 10 MG TAB PO SCH (20:50)
[2018-02-11] MEDS: FAMOTIDINE 20 MG TAB PO SCH (20:50)
[2018-02-11] MEDS: VERAPAMIL HCL SR 120 MG TABCR PO SCH (20:50)
[2018-02-11] MEDS: DOCUSATE SODIUM 100 MG CAP PO SCH (20:50)
[2018-02-11] MEDS: INSULIN DETEMIR 100 U/ML 3 ML PEN SUBQ SCH (20:50)
[2018-02-12] MEDS: IMIPENEM/CILASTA(*) 500MG VIAL 500 MG in NS(*) 0.9% 100 ML BAG 100 ML IVPB SCH ×3 (06:38→22:20)
[2018-02-12] MEDS: ONDANSETRON 4 MG ODT TABDP SL PRN (06:41)
[2018-02-12 08:40] VITALS: BP 180/91
[2018-02-12] MEDS ORDERED: PNEUMOCOC VAC POLY 25MCG/0.5ML IM ONLY ONE (09:00)
[2018-02-12] MEDS: PANTOPRAZOLE SOD 40 MG TABEC PO SCH (09:16)
[2018-02-12] MEDS: DOCUSATE SODIUM 100 MG CAP PO SCH ×2 (09:16→20:28)
[2018-02-12] MEDS: POLYETHYLENE GLYCOL 17 GM PKT PO SCH (09:16)
[2018-02-12] MEDS: INSULIN DETEMIR 100 U/ML 3 ML PEN SUBQ SCH ×2 (09:17→20:28)
[2018-02-12] MEDS: VERAPAMIL HCL SR 120 MG TABCR PO SCH ×2 (09:17→20:28)
[2018-02-12] MEDS: ENOXAPARIN 30 MG/0.3 ML SYR SC SCH (09:17)
[2018-02-12] MEDS: FAMOTIDINE 20 MG TAB PO SCH ×2 (09:17→20:28)
--- NOTE | 2018-02-12 10:09 | ECF H&P BLANK ---
[facility] H&P UPDATE History of Present Illness History of Present Illness 52yo male who identifies as female with T2DM that is complicated by diabetic ulcers who came to the ER because of worsening redness on foot. The patient had amputation of the left great toe and distal metatarsal 10/12/17 for osteomyelitis. He has been followed by Dr. Pires for the amputation, but also a left foot ulcer over the plantar aspect of 2nd MTP joint (since early November). The ulcer has also been followed by PT. 10 days ago, the patient noted a sore in the mouth, weakness, and tiredness. The mouth sore seems to have improved. The weakness and tiredness have progressively worsened. 4 days ago, the patient was in the ER for weakness and found to have hyperglycemia and elevated BP. 3 days ago, the patient saw physical therapy for the wound and there was some reactive redness noted around the ulcer. Last night, the patient took off his sock and noted redness on top of his foot. He went to the ER. He denies chills or pain in the foot. History Problems: (1) T2DM (type 2 diabetes mellitus) Status: Chronic (2) CKD (chronic kidney disease) stage 3, GFR 30-59 ml/min Status: Chronic (3) HTN (hypertension) Status: Chronic (4) GERD (gastroesophageal reflux disease) Status: Chronic (5) Amputated great toe of left foot Status: Chronic (6) History of appendectomy Status: Chronic (7) History of eye surgery Status: Chronic (8) Depression Home Meds Active Scripts Insulin Detemir 100 UN/ML PEN (Levemir Flextouch) 100 Unit/1 Ml Insuln.pen, 20 UNIT SUBQ BID, #5 UNIT Prov:ATTILA KNOWLES MD 02/06/18 Reported Medications Rosuvastatin Calcium (Rosuvastatin Calcium) 10 Mg Tablet, 10 MG PO HS 02/06/18 Verapamil Hcl (VERAPAMIL ER) 120 Mg Tablet.er, 120 MG PO BID 12/02/17 Insulin Lispro 100 Un/Ml Vial (HUMALOG 100 U/ML VIAL) 100 Unit/1 Ml Vial, 0 SQ per sliding scale, VIAL 1 unit for every 50 point increase in blood sugar above normal. 08/19/17 Famotidine (FAMOTIDINE) 20 Mg Tablet, 20 MG PO BID, TAB 08/19/17 Aspirin (ASPIR 81) 81 Mg Tablet.dr, 81 MG PO QDAY, TAB 08/03/16 Cholecalciferol (Vitamin D3) (VITAMIN D3) 1,000 Unit Tablet, 1000 UNIT PO QDAY, TAB 08/03/16 Discontinued Reported Medications Loperamide Hcl (ANTI-DIARRHEA) 2 Mg Tablet, 2 MG PO Y for DIARRHEA 10/08/17 Simvastatin (SIMVASTATIN) 20 Mg Tablet, 20 MG PO HS, TAB 08/19/17 Allergies: Coded Allergies: No Known Allergies (Verified Allergy, Mild, 02/02/18) Patient History: Diabetes mellitus (DM) GM FH: lung cancer GM FHx: chronic disabling diseases BROTHER OR SISTER Hx Smoking: No Smoking Status: Never Smoker Exposure to Second Hand Smoke?: No Caffeine Intake: Tea, Soda Caffeine/Cups Per Day: "a lot" Hx Alcohol Use: No Hx Substance Use Disorder: No Social Drug Use: Former Social Drugs: Marijuana Review of Systems All Systems Reviewed/Normal: Yes, Except as Noted Exam Vital Signs Vital Signs Date Time Temp Pulse Resp B/P (MAP) Pulse Ox O2 Delivery O2 Flow Rate FiO2 02/06/18 09:59 94 Room Air 02/06/18 09:53 99.7 103 16 165/79 (107) General Appearance: Alert, Awake, No Acute Distress Neuro: No Gross deficits ENT: Moist Mucous Membranes, Other (Teeth are down to the gum level with caries. Many missing teeth. No obvious swelling in the mouth or erythema) Cardiovascular: Regular Rate and Rhythm Respiratory: Clear to Auscultation Integumentary: No Jaundice, No Cyanosis, Other (R foot is without erythema or edema. L plantar aspect of foot over the 2nd MTP has 1cm full thickness ulcer to a dry base. There is no surrounding erythema. The dorsal side of foot has swelling and erythema over the 2nd MTP. No skin breakdown. Margins were marked witha marker) Medical Decision Making Data Points Result Diagram: 02/06/1820702/06/18 020 Item Value Date Time Lactate 1.4 mmol/L 02/06/18 0208 Blood Urea Nitrogen 41 mg/dl H 02/06/18 0208 Creatinine 2.90 mg/dl H 02/06/18 0208 Creatinine 2.90 mg/dl H 02/02/18 1432 Blood Urea Nitrogen 36 mg/dl H 02/02/18 1432 Blood Urea Nitrogen 30 mg/dl H 11/10/17 0737 Creatinine 2.00 mg/dl H 11/10/17 0737 Total Bilirubin 0.6 mg/dl 02/06/18 0208 Aspartate Amino Transf (AST/SGOT) 23 U/L 02/06/18 0208 Alanine Aminotransferase (ALT/SGPT) 24 U/L 02/06/18 0208 Alkaline Phosphatase 173 U/L H 02/06/18 0208 White Blood Count 15.7 k/uL H 02/06/18 0208 White Blood Count 16.3 k/uL H 02/02/18 1432 White Blood Count 5.7 k/uL 11/10/17 0737 Hemoglobin 11.9 g/dL L 02/06/18 0208 Hemoglobin 14.2 g/dL 02/02/18 1432 Hemoglobin 13.3 g/dL L 11/10/17 0737 Platelet Count 213 K/uL 11/10/17 0737 Platelet Count 303 K/uL 02/02/18 1432 Platelet Count 412 K/uL 02/06/18 0208 Neutrophils # (Auto) 13.7 K/uL H 02/06/18 0208 Neutrophils # (Auto) 14.1 K/uL H 02/02/18 1432 Neutrophils # (Auto) 4.2 K/uL 11/10/17 0737 Erythrocyte Sedimentation Rate 51 mm/HOUR H 02/06/18 0208 EKG / Imaging Imaging Foot MRI - 1. Soft tissue ulcer along the plantar margin of the left forefoot with findings consistent with osteomyelitis centered about the second and third metatarsophalangeal joints with a large dorsally located fluid collection/abscess which extends along the dorsum of the forefoot, the midfoot and extends beyond the edge of the [id number] to the hindfoot. Measurements as above. This is felt to contain several flecks of gas. Findings are compatible with an infection with a gas-forming organism. 2. Suspected septic arthropathy at the second and third metatarsophalangeal joints with new changes of flattening and subchondral fracture/osteonecrosis of the second metatarsal head. 3. Interval amputation of the great toe through the proximal shaft of the first metatarsal. Foot Xray - 1. Postoperative changes of the first ray and soft tissue swelling, but no convincing x-ray evidence for osteomyelitis. Assessment and Plan Problems: (1) Osteomyelitis Status: Acute Assessment & Plan: The patient has had a diabetic foot ulcer over the plantar aspect of the left 2nd MTP joint since mid November. For the last 10 days, the patient has been much more tired and weak. The night before admission, he noted new erythema on top of the foot. MRI shows findings c/w 2nd and 3rd MTP joint osteomyelitis and a large dorsally located abscess which extends along the dorsum of the forefoot, the midfoot and extends to the hindfoot. Lactate is wn l. The patient has a temperature of 100 degrees, BP is stable, heart rate is 86-103. Dr. Pires is planning a BKA in a couple of days once the cellulitis is improved. The patient was given Zosyn in the ER, but will switch to Primaxin (renally dosed) and Vancomycin. The patient will be given a 2g load and then we will follow the random levels. (2) Diabetic foot infection Status: Acute Assessment & Plan: See above. (3) T2DM (type 2 diabetes mellitus) Status: Chronic Assessment & Plan: The patient admits to not checking glucose. Continue chronic Levemir and will cover with SSI level 1 because of the CKD. (4) CKD (chronic kidney disease) stage 3, GFR 30-59 ml/min Status: Chronic Assessment & Plan: Baseline creatinine is 2.3-2.6. Creatinine today is 2.9. Will give a liter of fluid and follow. (5) HTN (hypertension) Status: Chronic Assessment & Plan: Continue chronic Verapamil with parameters. (6) Hyperlipidemia associated with type 2 diabetes mellitus Status: Chronic Assessment & Plan: Continue chronic rosuvastatin. Will hold ASA for now. Copies to: [facility]; JUAN F PIRES MD Venous Thromboembolism Antithrombotics Is Pt On Any Antithrombotics?: No Exam Sepsis Risk: Severe Sepsis Risk ATTILA KNOWLES MD Feb 06, 2018 13:02 <Electronically signed by ATTILA KNOWLES MD> D/ 1302 1302 1302 VERN/SHARIF NOYOLAP Feb 12, 2018 10:09
[2018-02-12] MEDS: oxyCODONE HCL 5 MG CAP PO PRN (11:19)
--- NOTE | 2018-02-12 11:28 | Medical Nutrition Therapy ---
Nutrition Anthropometrics Height (Inches): 70 Weight (Pounds): 166 BMI: 28 Vickey Nutrition Score: Vickey Nutrition Risk Score: Dietary Referral Nutrition Risk Factors: Non-Healing Wound Nutrition Risk Comment: Physical Findings Physical Appearance: Overweight BMI 25-29 Skin Appearance Skin Appearance: Edema Edema Location Modifier: Edema Location: Type of Edema: Degree of Edema: Gastrointestinal Symptoms GI Symtoms: Nausea Tube Present: Bowel Sounds: Recent Bowel Pattern: Stool Characteristics: Nutritional Diagnosis Nutritional Risk Acuity 2: Chronic Renal Failure, Abcess/Non-Healing Wound Nutritional Risk Acuity 3: Nausea Nutritional Risk Acuity 4: Good Appetite, Modified Diet Past Medical History: T2DM, CKD stage III, GERD, HTN, depression, appendectomy, [id number] transgender person Nutritional Acuity: 2-Moderate Energy Requirement: 2260 (Jackson nessa jeor AF-1.3 SF- 1.1) Protein Requirement: 75 (1g/kg) Fluid Requirement: 2260 (1ml/kg) Diet Type: Diabetic Nutrition Intervention: Cont diet as ordered, Encourage intake Nutritional Education Nutrition Education Topic: Diabetic Nutrition (Pt not ready) Nutrition Monitoring & Eval RD Patient Assessment Time: [address] Assessment Type: RD Assessment Patient Nutrition Acuity: 2-Moderate Follow Up Date: Feb 17, 2018 Nutritional Comment: 02/12. Pt is an in house transfer, being treated for diabetic foot infection and osteomyelitis. Pt is also reporting nausea. Pt is on diabetic diet, consuming 75-100% of small to regular sized meals. Whole BG is currently elevated 128. Pt is receiving insulin, 2-10 units Lispro SS SUBQ and 20 untis Flextouch BID. Recommend pt conumes 2260 kcal and 75 g protein each day. Will monitor pt intake and labs. NILDA ESCAMILLAA Feb 12, 2018 10:38
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
--- NOTE | 2018-02-12 15:23 | OT ECF NOTE ---
Type of Note: Initial Note Primary Medical Diagnosis: Generalized weakness s/p L BKA. NWB L LE Occupational Therapy Evaluation Date: 02/12/18 SUBJECTIVE: Prior Hospitalization: [facility] 02/06/18 thru 02/11/18. DOS: 02/09/[address] Salgado. Prior Level of Function: (I) with ADLs/IADLs. Prior Living Status: Basement Apartment, Alone Community Services: [facility] Home Accessibility: Stairs with rails Basement in home Tub/shower combination Equipment Owned: Front wheeled walker Crutches Extended tub bench (obtained by OT to encourage safe bathing) Pt prefers to submerge in tub. Wheelchair Medical Complications/Past Medical History: Type 2 DM, CKD, HTN, Hyperlipidemia Psychosocial Support: [employer] Associate, pt reports limited supports in [place]. Reports having a sister in [place] and eventually she would like to relocate to [place] and reside in the same complex as sister. Pt reports this is not a feasible discharge option after time on EC. Pain Scale (0-10): None at time of evaluation OBJECTIVE: Strength: MMT: Right Left Shoulder Flexion WFL WFL Elbow Flexion WFL WFL Wrist Extension WFL WFL Farm Tractor Operator WFL WFL (5= normal, 4= good, 3= fair, 2= poor, 1= trace) ROM: Both upper extremities, WFL Functional Transfer: Assistive Device: Front wheeled walker, Gait belt Transfer Ability: CGA ADL: Upper body dressing: Assistive device: None Upper body dressing ability: Independent Lower body dressing: Assistive device: None Lower body dressing ability: SBA Toileting: Assistive device: Toileting ability: N/T Grooming/hygiene: Assistive device: Grooming ability: N/T Bathing: Assistive device: Bathing ability: Pt adamant that she will submerge in tub upon arrival home. Extensive discussion regarding safety concerns and advising extended tub bench. Pt adamantly refusing this suggestion, requesting to practice climbing all the way into tub to demonstrate during evaluation. This OT does not advice pt to submerge in tub at this time. Pt adamantly disagreeing with recommendation. Standardized Assessment: Ariadna Index of Activities of Daily Livin/20 upon initial evaluation (02/09/18) ASSESSMENT: "Anabel" presents to [facility] with generalized weakness s/p BKA. At OF, she was (I) with ADLs/IADLs. Currently, she requires assist for ADLs/IADLs and is unable to safely complete stairs. She will benefit from skilled OT services to optimize (I) with ADLs/IADLs. Problem List/Current Limitations: Pain Decreased WB Decreased activity tolerance Decreased balance Generalized weakness Poor safety awareness Decreased attention Lack of motivation Short Term Goals: 1) Pt will be SBA UB/LB dressing. 2) Pt will be SBA grooming/hygiene. 3) Pt will be SBA toilet task. 4) Pt will be SBA shower. 5) Pt Ariadna Index of ADLs will improve by 2 points. 6) Pt will be SBA light meal prep task seated/standing. Yarn Sizer Goals: Encouraged pt to consider relocating to a first floor or w/c accessible apartment. Pt adamantly refusing this recommendation. Patient Goals: None stated at this time Rehabilitation Prognosis: Good Barriers to Discharge: Motivation, Compliance PLAN: The patient will benefit from skilled occupational therapy services 5 times per week for 2 weeks including: Ther ex ADL training Safety training Ther act IADL training Transfer training Adaptive equip training Bed mobility Energy conservation Thank you for this referral. If you have any questions, concerns, or comments about this report or plan, please contact me at . Yohana Chisholm MS, OTR/L Occupational Therapist [facility]
[2018-02-12 15:50] VITALS: BP 127/75
--- NOTE | 2018-02-12 15:56 | PT ECF NOTE ---
Type of Note: Initial Note Primary Medical Diagnosis: s/p L BKA 02/09/2018 Physical Therapy Evaluation Date: 02/11/2018 SUBJECTIVE: Prior Hospitalization: Extensive, please see [facility] for details. Prior Level of Function: Independent with functional mobility and ADLs Prior Living Status: Apartment, Alone Community Services: extensive social work case manager such as [facility] Home Accessibility: 1 step + 2 steps into apartment building, 6 stairs with rail into basement apartment. Equipment Owned: Front wheeled walker, Crutches, Extended tub bench, Wheelchair Medical Complications/Past Medical History: Diabetes with previous L toe [facility] Psychosocial Support: Please see social work case manager notes for details. Pain Scale (0-10): Pt reporting phantom limb pain at time of eval. OBJECTIVE: Strength: Right Lower Extremity: WFL Left Lower Extremity: WFL for remaining musculature ROM: (please note any abnormalities) WFL Sensation: (please note any abnormalities) phantom limb pain L LE Other Neuro findings: none Bed Mobility: Independent Transfers: Minimum assistance Assistive Device: Front wheeled walker Gait: CGA x 5' Assistive device: Front wheeled walker Stairs: note tested at this time. ASSESSMENT: Pt presents with decreased independence with functional mobility s/p L BKA 02/09/18. Pt will benefit from skilled PT for functional mobility training in order to increase independence and safety with functional mobility. Please see below "barriers for discharge" for additional assessment information. Problem List/Current Limitations: Pain, Decreased WB, Decreased activity tolerance, Decreased strength, Decreased balance, Generalized weakness, Poor safety awareness, Decreased problem solving Short Term Goals: 1. Independent bed mobility. 2. Mod I transfers from a variety of surfaces. 3. Mod I gait x 150' with appropriate assistive device. 4. Ascend/descend set of 2 stairs without rail with appropriate assistive device at SBA level. 5. Ascend/descend set of 6 stairs using safest technique and appropriate assistive device at SBA level. Usp Goals: Return to least restrictive environment. Patient Goals: Return home Rehabilitation Prognosis: Fair Barriers for Discharge: Pt currently does not have a pay source for obtaining prosthesis s/p BKA. This poses difficulty with discharge planing as Pt will be required to be Modified Independent with functional mobility using adaptive equipment/assistive devices only to negotiate multiple stairs and perform ADLs and IADLs as Pt does live alone and reports little social support for assisting at home. Will need to work closely with social work case manager for discharge planning. PLAN: The patient will benefit from skilled physical therapy services 5 times per week for 2 weeks including: Therapeutic Exercise, Therapeutic Activities, Transfer Training, Gait Training, Stair Training, Manual Therapy, ADL's, Safety Training, Neuromuscular Re-educ., Wound Care, Pt/Caregiver Training, Bed Mobility Thank you for this referral. If you have any questions, concerns, or comments about this report or plan, please contact me at . Lianna Haynes, PT, DPT, GCS MTDD
[2018-02-12] MEDS: ROSUVASTATIN CALCIUM 10 MG TAB PO SCH (20:28)
[2018-02-12] MEDS: INSULIN HUM LISPRO 100 UN/ML 3 ML VIAL SUBQ PRN (20:28)
[2018-02-13 07:50] VITALS: BP 167/87
[2018-02-13] MEDS: ENOXAPARIN 30 MG/0.3 ML SYR SC SCH (08:45)
[2018-02-13] MEDS: INSULIN DETEMIR 100 U/ML 3 ML PEN SUBQ SCH ×2 (08:45→20:45)
[2018-02-13] MEDS: POLYETHYLENE GLYCOL 17 GM PKT PO SCH (08:45)
[2018-02-13] MEDS: DOCUSATE SODIUM 100 MG CAP PO SCH ×2 (08:46→20:45)
[2018-02-13] MEDS: FAMOTIDINE 20 MG TAB PO SCH ×2 (08:46→20:45)
[2018-02-13] MEDS: VERAPAMIL HCL SR 120 MG TABCR PO SCH ×2 (08:46→20:45)
[2018-02-13] MEDS: PANTOPRAZOLE SOD 40 MG TABEC PO SCH (08:46)
[2018-02-13] MEDS: oxyCODONE HCL 5 MG CAP PO PRN (09:39)
--- NOTE | 2018-02-13 11:47 | Antimicrobial Stewardship ---
Antimicrobial Stewardship MD Service: Other (General Surgery) Indications: Other (L BKA due to L foot infection; rehab.) Weight (Calculated Kilograms): 78.018 Culture Results: Yes (02/06/18 BC Staph Hominis while on Medical Surgical Unit) Patient Improving Clinically: Yes Tolerating Oral Fluids: Yes Able to Absorb PO Meds: Yes Taking Other Meds PO: Yes Received >24 hr of IV Abx: Yes Afebrile > 24 hrs: Yes RR < or = 20 bpm: Yes SBP > or = 90 mm Hg: Yes Improving Signs and Symptoms: Yes Hemodynamically Stable: Yes Comments Completed IV antibiotics course on 02/12/18. No need for PO treatment; see Provider Progress Note. GOVIND RECIO Feb 13, 2018 11:47
[2018-02-13 15:20] VITALS: BP 139/84
[2018-02-13] MEDS: ROSUVASTATIN CALCIUM 10 MG TAB PO SCH (20:45)
[2018-02-13] MEDS: INSULIN HUM LISPRO 100 UN/ML 3 ML VIAL SUBQ PRN (20:45)
[2018-02-14 07:30] VITALS: BP 200/101
[2018-02-14] MEDS: POLYETHYLENE GLYCOL 17 GM PKT PO SCH (08:20)
[2018-02-14] MEDS: VERAPAMIL HCL SR 120 MG TABCR PO SCH ×2 (08:21→21:18)
[2018-02-14] MEDS: INSULIN DETEMIR 100 U/ML 3 ML PEN SUBQ SCH ×2 (08:21→21:18)
[2018-02-14] MEDS: ENOXAPARIN 30 MG/0.3 ML SYR SC SCH (08:21)
[2018-02-14] MEDS: FAMOTIDINE 20 MG TAB PO SCH ×2 (08:21→21:18)
[2018-02-14] MEDS: DOCUSATE SODIUM 100 MG CAP PO SCH ×2 (08:21→21:18)
[2018-02-14] MEDS: PANTOPRAZOLE SOD 40 MG TABEC PO SCH (08:21)
[2018-02-14 09:57] VITALS: BP 182/93
[2018-02-14 11:14] VITALS: BP 172/100
[2018-02-14 11:30] VITALS: BP 185/102
[2018-02-14] MEDS: cloNIDine HCL 0.1 MG TAB PO PRN (11:44)
[2018-02-14] MEDS: oxyCODONE HCL 5 MG CAP PO PRN (14:33)
--- NOTE | 2018-02-14 15:03 | BHS Progress Note ---
[facility] - Subjective Progress Notes Subjective "Generally speaking I try to stay away from psychiatric medication." Patient reports he had "fleeting thoughts" of hopelessness regarding amputation. Denies specific plan to end life, denies current suicidal ideation Depression improving, states he has been going through stages of grief related t o partial loss of leg Denies specific anxieties or anger Reports appetite and sleep sufficient. Currently seeing therapist @ [facility] every 2 weeks Declines option of medication management, agrees to report worsening symptoms Suicidal Ideation: None Homicidal Ideation: None [facility] - Objective Physical Exam Vital Signs Vital Signs Date Time Temp Pulse Resp B/P (MAP) Pulse Ox O2 Delivery O2 Flow Rate FiO2 02/14/18 11:30 185/102 (129) 02/14/18 10:08 93 Room Air 02/14/18 07:30 97.9 82 12 Muscle Strength and Tone: Other (Ongoing physical therapy encouraged) Gait and Station: Other (recent BKA) [facility] Medications Reviewed: Side Effects, Benefits of Medication, Risks Allergies Reviewed: Yes Mental Status Exam General Appearance: Casual, Good Eye Contact, Cooperative, Polite, Good Interaction Speech: Clear, Spontaneous, Normal Rate, Normal Rhythm, Normal Volume, Normal Tone Mood: Euthymic Affect: Full and Appropriate, Calm; No Sad, No Neutral, No Flat, No Withdrawn, No Tearful, No Anxious, No Agitated Thought Process: Organized, Logical, Goal Directed; No Loose Associations, No Flight of Ideas Thought Content: No Suicidal Ideation, No Homicidal Ideation, No Delusions, No Auditory Halllucinations, No Visual Hallucinations, No Thought Broadcasting, No Ideas of Reference, No Obsessions, No Compulsions Sensorium: Clear Cognition: Alert & Oriented-Person, Alert & Oriented-Place, Alert & Oriented- Time, Slrjy-Okijbyrv-Adbplzvrd Memory: Recent, Remote Intelligence: Average Insight Judgment: Intact, Appropriate, Good Microbiology Hematology Test 02/14/18 12:19 Whole Blood Glucose 83 mg/DL (75-110) Chemistry Test 02/14/18 12:19 Whole Blood Glucose 83 mg/DL (75-110) Laboratory Tests 02/14/18 12:19: Whole Blood Glucose 83 [facility] Assessment and Plan [id number] Encounter Date: Feb 14, 2018 Ejoa-eg-Pque Encounter Time: 11:45 [facility] Plan: Educate Patient Multpiple Antipsychotics Used: No Problems: (1) Acute adjustment disorder with depressed mood Status: Acute (2) T2DM (type 2 diabetes mellitus) Status: Chronic (3) Status post below knee amputation of left lower extremity Status: Acute Condition Review medication options, declines medication management Encourage ongoing individual psychotherapy upon discharge Will remain available for MH needs Ongoing care through F staff RJ LUTHER NP Feb 14, 2018 15:03
[2018-02-14 17:35] VITALS: BP 159/92
[2018-02-14] MEDS: INSULIN HUM LISPRO 100 UN/ML 3 ML VIAL SUBQ PRN ×2 (17:48→21:19)
[2018-02-14 20:45] VITALS: BP 183/44
[2018-02-14] MEDS: ROSUVASTATIN CALCIUM 10 MG TAB PO SCH (21:18)
[2018-02-15] MEDS: PANTOPRAZOLE SOD 40 MG TABEC PO SCH (09:06)
[2018-02-15] MEDS: DOCUSATE SODIUM 100 MG CAP PO SCH ×2 (09:06→20:36)
[2018-02-15] MEDS: POLYETHYLENE GLYCOL 17 GM PKT PO SCH (09:06)
[2018-02-15] MEDS: ENOXAPARIN 30 MG/0.3 ML SYR SC SCH (09:06)
[2018-02-15] MEDS: VERAPAMIL HCL SR 120 MG TABCR PO SCH ×2 (09:06→20:35)
[2018-02-15] MEDS: INSULIN DETEMIR 100 U/ML 3 ML PEN SUBQ SCH ×2 (09:06→20:37)
[2018-02-15] MEDS: FAMOTIDINE 20 MG TAB PO SCH ×2 (09:06→20:35)
[2018-02-15 09:39] VITALS: BP 154/83
[2018-02-15 16:25] VITALS: BP 199/101
[2018-02-15 16:26] VITALS: BP 196/103
[2018-02-15] MEDS: INSULIN HUM LISPRO 100 UN/ML 3 ML VIAL SUBQ PRN ×2 (17:02→20:37)
[2018-02-15] MEDS: oxyCODONE HCL 5 MG CAP PO PRN (17:07)
[2018-02-15] MEDS: cloNIDine HCL 0.1 MG TAB PO PRN (17:29)
[2018-02-15 20:20] VITALS: BP 172/91
[2018-02-15] MEDS: ROSUVASTATIN CALCIUM 10 MG TAB PO SCH (20:35)
[2018-02-16 07:45] VITALS: BP 133/76
--- NOTE | 2018-02-16 08:34 | General Surgery Progress Note ---
Subjective Progress Notes Subjective Patient without complaints. Physical Exam Vital Signs Date Time Temp Pulse Resp B/P (MAP) Pulse Ox O2 Delivery O2 Flow Rate FiO2 02/16/18 08:20 94 Room Air 02/16/18 07:45 97.5 16 133/76 (95) 02/15/18 20:20 66 Intake and Output 02/16/18 07:00 Intake Total 650 ml Output Total 2425 ml Balance -1775 ml Intake Oral 650 ml Output Urine Total 2425 ml # Voids 4 # Bowel Movements 3 General Appearance: Alert, Awake, No Acute Distress, Afebrile Extremities: Other (left BKA surgical site is healing well without erythema and minimal drainage. Skin edges are well approximated.) Assessment and Plan Problems: (1) Status post below knee amputation of left lower extremity Status: Acute Assessment & Plan: 02/16/18: Patient seems to be healing well. No issues currently. Continue physical therapy, occupational therapy, wound care, etc. Condition Stable Time Spent: < 30 min JUAN F PIRES MD Feb 16, 2018 08:34
[2018-02-16] MEDS: ENOXAPARIN 30 MG/0.3 ML SYR SC SCH (09:06)
[2018-02-16] MEDS: VERAPAMIL HCL SR 120 MG TABCR PO SCH ×2 (09:06→21:04)
[2018-02-16] MEDS: DOCUSATE SODIUM 100 MG CAP PO SCH ×2 (09:06→21:04)
[2018-02-16] MEDS: FAMOTIDINE 20 MG TAB PO SCH ×2 (09:06→21:04)
[2018-02-16] MEDS: PANTOPRAZOLE SOD 40 MG TABEC PO SCH (09:06)
[2018-02-16] MEDS: POLYETHYLENE GLYCOL 17 GM PKT PO SCH (09:06)
[2018-02-16] MEDS: INSULIN DETEMIR 100 U/ML 3 ML PEN SUBQ SCH ×2 (09:07→21:05)
--- NOTE | 2018-02-16 12:09 | Medical Nutrition Therapy ---
Nutrition Anthropometrics Height (Inches): 70 Weight (Pounds): 172 Weight (Calculated Kilograms): 78.018 BMI: 24.7 Vickey Nutrition Score: Vickey Nutrition Risk Score: Dietary Referral Nutrition Risk Factors: Non-Healing Wound Nutrition Risk Comment: Physical Findings Physical Appearance: 24.7 Normal Skin Appearance Skin Appearance: Edema Edema Location Modifier: Edema Location: Type of Edema: Degree of Edema: Gastrointestinal Symptoms GI Symtoms: Nausea Tube Present: Bowel Sounds: Recent Bowel Pattern: Stool Characteristics: Nutritional Diagnosis Nutritional Risk Acuity 2: Chronic Renal Failure Nutritional Risk Acuity 4: Good Appetite, Modified Diet Past Medical History: T2DM, CKD stage III, GERD, HTN, depression, appendectomy, [id number] transgender person Nutritional Acuity: 2-Moderate Nutrition Diagnosis: Increased Nutrient Needs Nutrition Etiology: Physiological Causes Nutrition Problem/Etiology/Sym: Increased nutritent needs as related to physiological causes as evidenced by recent lower extremity amputation. Energy Requirement: 2260 (Ida nessa jeor AF-1.3 SF- 1.1) Protein Requirement: 75 (1g/kg) Fluid Requirement: 2260 (1ml/kg) Diet Type: Diabetic Nutrition Intervention: Cont diet as ordered, Encourage intake Diet Comment To RSA: Recommend soft foods due to broken and missing teeth. Nutrition Monitoring & Eval RD Patient Assessment Time: [address] Assessment Type: RD Re-Assessment Patient Nutrition Acuity: 2-Moderate Follow Up Date: Feb 24, 2018 Nutritional Comment: 02/12. Pt is an in house transfer, being treated for diabetic foot infection and osteomyelitis. Pt is also reporting nausea. Pt is on diabetic diet, consuming 75-100% of small to regular sized meals. Whole BG is currently elevated 128. Pt is receiving insulin, 2-10 units Lispro SS SUBQ and 20 units Flextouch BID. Recommend pt conumes 2260 kcal and 75 g protein each day. Will monitor pt intake and labs. MR 02/16. Pt seems to be healing well post amputation of left lower extremity. Pt cont on diabetic diet, consuming 75-100% of small and regular meals. Pt cont to receive 20 units flextouch BID and Lispro SS 2-10 units SUBQ. Whole BG glucose is elevated, 137, but improved in the last couple of days. Pt has broken and missing teeth, recommend softer foods. Consider increase in nutrient needs post amputation. Will cont to monitor pt intake and labs. MR ALFAROHARPER Feb 16, 2018 09:09
--- NOTE | 2018-02-16 15:20 | OT ECF NOTE ---
Type of Note: Discharge Note (02-16-18) Primary Medical Diagnosis: Generalized weakness s/p L BKA. NWB L LE Occupational Therapy Evaluation Date: 02/12/18 SUBJECTIVE: Prior Hospitalization: H 02/06/18 thru 02/11/18. DOS: 02/09/[address] Salgado. Prior Level of Function: (I) with ADLs/IADLs. Prior Living Status: Basement Apartment, Alone Community Services: [facility] Accessibility: Stairs with rails Basement in home Tub/shower combination Equipment Owned: Front wheeled walker Crutches *Extended tub bench (obtained by OT to encourage safe bathing) Pt prefers to submerge in tub. Pt. refusing to take Extended bath bench home. 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 Reports having a sister in [place] and eventually she would like to relocate to [place] and reside in the same complex as sister. Pt reports this is not a feasible discharge option after time on ECF. Pain Scale (0-10): None at time of evaluation OBJECTIVE: Strength: MMT: Right Left Shoulder Flexion WFL WFL Elbow Flexion WFL WFL Wrist Extension WFL WFL Outside Sales Manager WFL WFL (5= normal, 4= good, 3= fair, 2= poor, 1= trace) ROM: Both upper extremities, WFL Functional Transfer: Assistive Device: Front wheeled walker, Gait belt Transfer Ability: CGA ADL: Upper body dressing: Assistive device: None Upper body dressing ability: Independent Lower body dressing: Assistive device: None Lower body dressing ability: Independent Toileting: Assistive device: Grab bars Toileting ability: Mod I Grooming/hygiene: Assistive device: Grooming ability: SBA Bathing: Assistive device: Bathing ability: Pt adamant that she will submerge in tub upon arrival home. Extensive discussion regarding safety concerns and advising extended tub bench. Pt adamantly refusing this suggestion, requesting to practice climbing all the way into tub to demonstrate during evaluation. This OT does not advice pt to submerge in tub at this time. Pt adamantly disagreeing with recommendation. Pt. refusing to take home and utilize extended bath bench that was acquired for her from [facility]. Standardized Assessment: Ariadna Index of Activities of Daily Livin/20 upon initial evaluation (02/09/18). on 02/16/18. ASSESSMENT: "Anabel" presents to [facility] with generalized weakness s/p BKA. At [facility], she was (I) with ADLs/IADLs. Currently, she requires assist for ADLs/IADLs and is unable to safely complete stairs. She will benefit from skilled OT services to optimize (I) with ADLs/IADLs. Problem List/Current Limitations: Pain Decreased WB Decreased activity tolerance Decreased balance Generalized weakness Poor safety awareness Decreased attention Lack of motivation Short Term Goals: 1) Pt will be SBA UB/LB dressing. Met. 2) Pt will be SBA grooming/hygiene. Met. 3) Pt will be SBA toilet task. Met. 4) Pt will be SBA shower. (Not met, see note below) 5) Pt Ariadna Index of ADLs will improve by 2 points. Not met. 6) Pt will be SBA light meal prep task seated/standing.Met. [facility] Goals: Encouraged pt to consider relocating to a first floor or w/c accessible apartment. Pt adamantly refusing this recommendation. Patient Goals: None stated at this time Rehabilitation Prognosis: Good Barriers to Discharge: Motivation, Compliance PLAN: The patient plans to d/c to home. Pt. refusing to find alternative living arrangements (ie. handicap accessible apartment). Pt. has refused to follow OT suggestions regarding how to safely perform showering activities at home (OT has acquired an extended bath bench for patient, however pt. insisting that she will take baths at home). OT recommends that pt. sit in w/c to complete all meal prep. activities. Pt. refusing to utilize a back pack to carry laundry up/down steps of apartment and insists upon pulling laundry bag behind her (while using crutches) and states that she will "throw" laundry up/down stairs. OT does not agree with performing these activities in pt.'s suggested manner, therefore, will not practice completing activities in this way with the patient. Thank you for this referral. If you have any questions, concerns, or comments about this report or plan, please contact me at . Tiffani Bolivar, OTR/L Occupational Therapist [facility]
[2018-02-16 15:25] VITALS: BP 153/88
[2018-02-16] MEDS: INSULIN HUM LISPRO 100 UN/ML 3 ML VIAL SUBQ PRN ×2 (17:28→21:05)
[2018-02-16 20:51] VITALS: BP 185/92
[2018-02-16] MEDS: ROSUVASTATIN CALCIUM 10 MG TAB PO SCH (21:04)
[2018-02-16] MEDS: oxyCODONE HCL 5 MG CAP PO PRN (22:42)
[2018-02-17 07:35] VITALS: BP 170/86
[2018-02-17] MEDS: FAMOTIDINE 20 MG TAB PO SCH ×2 (08:26→21:00)
[2018-02-17] MEDS: VERAPAMIL HCL SR 120 MG TABCR PO SCH ×2 (08:26→21:00)
[2018-02-17] MEDS: PANTOPRAZOLE SOD 40 MG TABEC PO SCH (08:26)
[2018-02-17] MEDS: POLYETHYLENE GLYCOL 17 GM PKT PO SCH (08:26)
[2018-02-17] MEDS: DOCUSATE SODIUM 100 MG CAP PO SCH ×2 (08:26→21:00)
[2018-02-17] MEDS: INSULIN DETEMIR 100 U/ML 3 ML PEN SUBQ SCH ×2 (08:26→21:00)
[2018-02-17] MEDS: ENOXAPARIN 30 MG/0.3 ML SYR SC SCH (08:30)
[2018-02-17 16:20] VITALS: BP 212/102
[2018-02-17 16:22] VITALS: BP 198/102
[2018-02-17] MEDS: cloNIDine HCL 0.1 MG TAB PO PRN (16:35)
[2018-02-17 18:00] VITALS: BP 168/88
[2018-02-17] MEDS: oxyCODONE HCL 5 MG CAP PO PRN (20:32)
[2018-02-17] MEDS: INSULIN HUM LISPRO 100 UN/ML 3 ML VIAL SUBQ PRN (20:32)
[2018-02-17] MEDS: ROSUVASTATIN CALCIUM 10 MG TAB PO SCH (21:00)
[2018-02-18] MEDS: oxyCODONE HCL 5 MG CAP PO PRN (03:13)
[2018-02-18 08:00] VITALS: BP 140/79
[2018-02-18] MEDS: ENOXAPARIN 30 MG/0.3 ML SYR SC SCH (08:49)
[2018-02-18] MEDS: POLYETHYLENE GLYCOL 17 GM PKT PO SCH (08:49)
[2018-02-18] MEDS: DOCUSATE SODIUM 100 MG CAP PO SCH ×2 (08:49→20:38)
[2018-02-18] MEDS: FAMOTIDINE 20 MG TAB PO SCH ×2 (08:50→20:38)
[2018-02-18] MEDS: VERAPAMIL HCL SR 120 MG TABCR PO SCH ×2 (08:50→20:38)
[2018-02-18] MEDS: PANTOPRAZOLE SOD 40 MG TABEC PO SCH (08:50)
[2018-02-18] MEDS: INSULIN DETEMIR 100 U/ML 3 ML PEN SUBQ SCH ×2 (08:50→20:38)
--- NOTE | 2018-02-18 15:12 | Hospitalist Progress Note ---
Subjective Progress Notes Subjective No new complaints. Physical Exam Vital Signs Date Time Temp Pulse Resp B/P (MAP) Pulse Ox O2 Delivery O2 Flow Rate FiO2 02/18/18 10:00 94 Room Air 02/18/18 08:00 98.8 82 16 140/79 (99) Intake and Output 02/18/18 06:59 Intake Total 1160 ml Output Total 2775 ml Balance -1615 ml Intake Oral 1160 ml Output Urine Total 2775 ml # Voids 3 # Bowel Movements 1 General Appearance: Alert, Awake, No Acute Distress Neuro: No Gross deficits Eyes: PERRLA Cardiovascular: Regular Rate and Rhythm Respiratory: Clear to Auscultation GI: Soft and Non-Tender Extremities: Warm, Perfused, Other (L lower leg surgically absent.) Psych: Appropriate Mood & Affect Assessment and Plan Problems: (1) Osteomyelitis Status: Resolved Assessment & Plan: The patient has had a diabetic foot ulcer over the plantar aspect of the left 2nd MTP joint since mid November. For 10 days prior to admission, the patient had been much more tired and weak. The night before admission, he noted new erythema on top of the foot. MRI showed findings consistent with 2nd and 3rd MTP joint osteomyelitis and a large dorsally located abscess which extended along the dorsum of the forefoot, the midfoot and extends to the hindfoot. Lactate was normal. The patient had a temperature of 100 degrees on admission, BP was stable, heart rate was 86-103. Dr. Salgado performed BKA 02/09. The patient was given Zosyn in the ER, and then switched to Primaxin (renally dosed) and Vancomycin on the medical floor. Dr. Salgado drained the abscess 02/07 in hopes of getting the patient's infection under better control prior to his BKA. He completed a course of antibiotics He was transferred to [facility] ECF unit for further rehab. (2) Diabetic foot ulcer Status: Resolved Assessment & Plan: See above. (3) T2DM (type 2 diabetes mellitus) Status: Chronic Assessment & Plan: The patient admits to not checking glucoses. Continue chronic Levemir and will cover with SSI level 2. Encouraged him to take bigger/more responsible role in treating his diabetes. (4) CKD (chronic kidney disease) stage 3, GFR 30-59 ml/min Status: Chronic Assessment & Plan: Baseline creatinine is 2.3-2.6. It has improved with IV fluids. (5) HTN (hypertension) Status: Chronic Assessment & Plan: Continue chronic Verapamil with parameters. (6) Hyperlipidemia associated with type 2 diabetes mellitus Status: Chronic Assessment & Plan: Continue chronic rosuvastatin. Will hold ASA. (7) Hyperkalemia Status: Acute Assessment & Plan: More than likely secondary to surgery, (BKA). He was placed on dextrose and insulin, calcium, and Lasix to help decrease potassium. Resolved. Time Spent on Plan of Care: < 30 min Problem Qualifiers (1) Osteomyelitis: Osteomyelitis type: other acute MEAGAN PAK MD Feb 18, 2018 15:12
[2018-02-18] MEDS: INSULIN HUM LISPRO 100 UN/ML 3 ML VIAL SUBQ PRN ×2 (16:34→20:39)
[2018-02-18 17:35] VITALS: BP 135/82
[2018-02-18] MEDS: ROSUVASTATIN CALCIUM 10 MG TAB PO SCH (20:38)
[2018-02-19 08:00] VITALS: BP 158/89
[2018-02-19] MEDS: POLYETHYLENE GLYCOL 17 GM PKT PO SCH (08:44)
[2018-02-19] MEDS: ENOXAPARIN 30 MG/0.3 ML SYR SC SCH (08:44)
[2018-02-19] MEDS: PANTOPRAZOLE SOD 40 MG TABEC PO SCH (08:45)
[2018-02-19] MEDS: FAMOTIDINE 20 MG TAB PO SCH ×2 (08:45→20:25)
[2018-02-19] MEDS: VERAPAMIL HCL SR 120 MG TABCR PO SCH ×2 (08:45→20:25)
[2018-02-19] MEDS: INSULIN DETEMIR 100 U/ML 3 ML PEN SUBQ SCH ×2 (08:45→20:22)
[2018-02-19] MEDS: DOCUSATE SODIUM 100 MG CAP PO SCH ×2 (08:45→20:25)
[2018-02-19 16:00] VITALS: BP 155/87
[2018-02-19] MEDS: oxyCODONE HCL 5 MG CAP PO PRN (16:19)
[2018-02-19] MEDS: INSULIN HUM LISPRO 100 UN/ML 3 ML VIAL SUBQ PRN ×2 (16:24→20:24)
[2018-02-19] MEDS: ROSUVASTATIN CALCIUM 10 MG TAB PO SCH (20:25)
[2018-02-20 08:00] VITALS: BP 174/89
[2018-02-20] MEDS: POLYETHYLENE GLYCOL 17 GM PKT PO SCH (08:51)
[2018-02-20] MEDS: ENOXAPARIN 30 MG/0.3 ML SYR SC SCH (08:51)
[2018-02-20] MEDS: INSULIN DETEMIR 100 U/ML 3 ML PEN SUBQ SCH ×2 (08:52→20:45)
[2018-02-20] MEDS: DOCUSATE SODIUM 100 MG CAP PO SCH ×2 (08:52→20:42)
[2018-02-20] MEDS: FAMOTIDINE 20 MG TAB PO SCH ×2 (08:52→20:42)
[2018-02-20] MEDS: PANTOPRAZOLE SOD 40 MG TABEC PO SCH (08:52)
[2018-02-20] MEDS: VERAPAMIL HCL SR 120 MG TABCR PO SCH ×2 (08:52→20:42)
[2018-02-20] MEDS: INSULIN HUM LISPRO 100 UN/ML 3 ML VIAL SUBQ PRN ×3 (08:53→20:45)
--- NOTE | 2018-02-20 08:58 | General Surgery Progress Note ---
Subjective Progress Notes Subjective Patient without complaints today. No pain in his leg. Some phantom foot symptoms but these don't seem to be particularly bothersome to him. Physical Exam Vital Signs Date Time Temp Pulse Resp B/P (MAP) Pulse Ox O2 Delivery O2 Flow Rate FiO2 02/20/18 08:00 97.7 80 16 174/89 (117) 94 Room Air Intake and Output 02/20/18 06:59 Intake Total 480 ml Output Total 1000 ml Balance -520 ml Intake Oral 480 ml Output Urine Total 1000 ml # Voids 3 # Bowel Movements 1 General Appearance: Alert, Awake, No Acute Distress, Afebrile Extremities: Other (the incision appears to be healing well. There is just a tiny spot of drainage in the middle of the incision on the dressing. There is no erythema. The skin edges are well approximated.) Assessment and Plan Problems: (1) Status post below knee amputation of left lower extremity Status: Acute Assessment & Plan: 02/16/18: Patient seems to be healing well. No issues currently. Continue physical therapy, occupational therapy, wound care, etc. 02/20/18: The BKA surgical site appears to be healing well. There is no overt signs of infection today. We will continue wound care and mobility exercises/straining. He is continuing to work on getting Medicaid. Condition Stable Time Spent: < 30 min JUAN F PIRES MD Feb 20, 2018 08:58
[2018-02-20] MEDS: ROSUVASTATIN CALCIUM 10 MG TAB PO SCH (20:42)
[2018-02-21 08:13] VITALS: BP 201/95
[2018-02-21] MEDS: POLYETHYLENE GLYCOL 17 GM PKT PO SCH (08:57)
[2018-02-21] MEDS: FAMOTIDINE 20 MG TAB PO SCH ×2 (08:58→20:47)
[2018-02-21] MEDS: VERAPAMIL HCL SR 120 MG TABCR PO SCH ×2 (08:58→20:47)
[2018-02-21] MEDS: PANTOPRAZOLE SOD 40 MG TABEC PO SCH (08:58)
[2018-02-21] MEDS: ENOXAPARIN 30 MG/0.3 ML SYR SC SCH (08:58)
[2018-02-21] MEDS: DOCUSATE SODIUM 100 MG CAP PO SCH ×2 (08:58→20:47)
[2018-02-21] MEDS: INSULIN DETEMIR 100 U/ML 3 ML PEN SUBQ SCH ×2 (09:00→20:47)
[2018-02-21] MEDS: INSULIN HUM LISPRO 100 UN/ML 3 ML VIAL SUBQ PRN ×3 (09:00→20:47)
[2018-02-21 20:03] VITALS: BP 198/98
[2018-02-21] MEDS: ROSUVASTATIN CALCIUM 10 MG TAB PO SCH (20:47)
[2018-02-22 08:15] VITALS: BP 197/98
[2018-02-22] MEDS: DOCUSATE SODIUM 100 MG CAP PO SCH ×2 (08:44→20:41)
[2018-02-22] MEDS: ENOXAPARIN 30 MG/0.3 ML SYR SC SCH (08:44)
[2018-02-22] MEDS: POLYETHYLENE GLYCOL 17 GM PKT PO SCH (08:45)
[2018-02-22] MEDS: VERAPAMIL HCL SR 120 MG TABCR PO SCH ×2 (08:45→20:40)
[2018-02-22] MEDS: PANTOPRAZOLE SOD 40 MG TABEC PO SCH (08:45)
[2018-02-22] MEDS: FAMOTIDINE 20 MG TAB PO SCH ×2 (08:45→20:41)
[2018-02-22] MEDS: INSULIN DETEMIR 100 U/ML 3 ML PEN SUBQ SCH ×2 (08:45→20:41)
[2018-02-22 16:23] VITALS: BP 169/90
[2018-02-22] MEDS: ROSUVASTATIN CALCIUM 10 MG TAB PO SCH (20:41)
[2018-02-22] MEDS: INSULIN HUM LISPRO 100 UN/ML 3 ML VIAL SUBQ PRN (20:41)
[2018-02-22] MEDS: cloNIDine HCL 0.1 MG TAB PO PRN (20:41)
[2018-02-22 20:50] VITALS: BP 205/100
[2018-02-23 07:51] VITALS: BP 160/92
[2018-02-23] MEDS: FAMOTIDINE 20 MG TAB PO SCH ×2 (08:27→20:45)
[2018-02-23] MEDS: POLYETHYLENE GLYCOL 17 GM PKT PO SCH (08:27)
[2018-02-23] MEDS: VERAPAMIL HCL SR 120 MG TABCR PO SCH ×2 (08:27→20:45)
[2018-02-23] MEDS: ENOXAPARIN 30 MG/0.3 ML SYR SC SCH (08:27)
[2018-02-23] MEDS: DOCUSATE SODIUM 100 MG CAP PO SCH ×2 (08:27→20:48)
[2018-02-23] MEDS: PANTOPRAZOLE SOD 40 MG TABEC PO SCH (08:27)
[2018-02-23] MEDS: INSULIN DETEMIR 100 U/ML 3 ML PEN SUBQ SCH ×2 (08:28→20:46)
[2018-02-23] MEDS: INSULIN HUM LISPRO 100 UN/ML 3 ML VIAL SUBQ PRN ×3 (12:07→20:45)
[2018-02-23 16:30] VITALS: BP 156/85
[2018-02-23] MEDS: ROSUVASTATIN CALCIUM 10 MG TAB PO SCH (20:45)
[2018-02-24] MEDS: oxyCODONE HCL 5 MG CAP PO PRN ×2 (03:03→08:34)
[2018-02-24 07:30] VITALS: BP 172/83
[2018-02-24] MEDS: FAMOTIDINE 20 MG TAB PO SCH ×2 (08:34→21:00)
[2018-02-24] MEDS: POLYETHYLENE GLYCOL 17 GM PKT PO SCH (08:34)
[2018-02-24] MEDS: PANTOPRAZOLE SOD 40 MG TABEC PO SCH (08:34)
[2018-02-24] MEDS: DOCUSATE SODIUM 100 MG CAP PO SCH ×2 (08:34→21:00)
[2018-02-24] MEDS: VERAPAMIL HCL SR 120 MG TABCR PO SCH ×2 (08:34→21:00)
[2018-02-24] MEDS: INSULIN DETEMIR 100 U/ML 3 ML PEN SUBQ SCH ×2 (08:35→20:59)
[2018-02-24] MEDS: ENOXAPARIN 30 MG/0.3 ML SYR SC SCH (08:35)
--- NOTE | 2018-02-24 13:04 | Medical Nutrition Therapy ---
Nutrition Anthropometrics Height (Inches): 70 Weight (Pounds): 168 Weight (Calculated Kilograms): 76.204 BMI: 24.7 Vickey Nutrition Score: Vickey Nutrition Risk Score: Dietary Referral Nutrition Risk Factors: Non-Healing Wound Nutrition Risk Comment: Physical Findings Physical Appearance: 24.7 Normal Skin Appearance Skin Appearance: Edema Edema Location Modifier: Edema Location: Type of Edema: Degree of Edema: Gastrointestinal Symptoms GI Symtoms: Nausea Tube Present: Bowel Sounds: Recent Bowel Pattern: Stool Characteristics: Nutritional Diagnosis Nutritional Risk Acuity 2: Chronic Renal Failure Nutritional Risk Acuity 4: Good Appetite, Modified Diet Past Medical History: T2DM, CKD stage III, GERD, HTN, depression, appendectomy, [id number] transgender person Nutritional Acuity: 2-Moderate Nutrition Diagnosis: Increased Nutrient Needs Nutrition Etiology: Physiological Causes Nutrition Problem/Etiology/Sym: Increased nutritent needs as related to physiological causes as evidenced by recent lower extremity amputation. Energy Requirement: 2260 (Dubois nessa jeor AF-1.3 SF- 1.1) Protein Requirement: 75 (1g/kg) Fluid Requirement: 2260 (1ml/kg) Diet Type: Diabetic Nutrition Intervention: Cont diet as ordered, Encourage intake Diet Comment To RSA: Recommend soft foods due to broken and missing teeth. Nutrition Monitoring & Eval RD Patient Assessment Time: [address] Assessment Type: RD Re-Assessment Patient Nutrition Acuity: 2-Moderate Follow Up Date: Mar 03, 2018 Nutritional Comment: 02/12. Pt is an in house transfer, being treated for diabetic foot infection and osteomyelitis. Pt is also reporting nausea. Pt is on diabetic diet, consuming 75-100% of small to regular sized meals. Whole BG is currently elevated 128. Pt is receiving insulin, 2-10 units Lispro SS SUBQ and 20 units Flextouch BID. Recommend pt conumes 2260 kcal and 75 g protein each day. Will monitor pt intake and labs. MR 02/16. Pt seems to be healing well post amputation of left lower extremity. Pt cont on diabetic diet, consuming 75-100% of small and regular meals. Pt cont to receive 20 units flextouch BID and Lispro SS 2-10 units SUBQ. Whole BG glucose is elevated, 137, but improved in the last couple of days. Pt has broken and missing teeth, recommend softer foods. Consider increase in nutrient needs post amputation. Will cont to monitor pt intake and labs. MR 8/. Pt cont to have elevated whole BG, 136 and is still receiving 20 units Levimer and 2-10 units Lispro SS insulin. Pt is conuming 100% of regular sized meals each day. Encourage intake of high protein foods for healing, post amputation. Will cont to monitor BG levels. MR ALFAROHARPER Feb 24, 2018 08:50
[2018-02-24] MEDS: ONDANSETRON 4 MG ODT TABDP SL PRN (13:37)
[2018-02-24] MEDS: INSULIN HUM LISPRO 100 UN/ML 3 ML VIAL SUBQ PRN ×2 (17:04→21:00)
--- NOTE | 2018-02-24 18:27 | General Surgery Progress Note ---
Subjective Progress Notes Subjective No complaints. Physical Exam Vital Signs Date Time Temp Pulse Resp B/P (MAP) Pulse Ox O2 Delivery O2 Flow Rate FiO2 02/24/18 07:30 95 Room Air 02/24/18 07:30 97.5 74 16 172/83 (112) Intake and Output 02/24/18 06:59 Output Total 2075 ml Balance -2075 ml Output Urine Total 2075 ml # Voids 5 # Bowel Movements 4 General Appearance: Alert, Awake, No Acute Distress, Afebrile Extremities: Other (sutures removed from his BKA incision. A centimeter and a half section of the anterior-most, middle portion of the incision is slightly dehisced. No erythema and minimal drainage. Steri-Strips applied to the incision.) Assessment and Plan Problems: (1) Status post below knee amputation of left lower extremity Status: Acute Assessment & Plan: 02/16/18: Patient seems to be healing well. No issues currently. Continue physical therapy, occupational therapy, wound care, etc. 02/20/18: The BKA surgical site appears to be healing well. There is no overt signs of infection today. We will continue wound care and mobility exercises/straining. He is continuing to work on getting Medicaid. 02/24/18: The surgical site looks pretty good for the most part except for a small area of dehiscence. No evidence of infection. Sutures removed today. We'll keep a close eye on this. Continue wound care. Continue physical therapy and occupational therapy. Condition Stable Time Spent: < 30 min JUAN F PIRES MD Feb 24, 2018 18:27
[2018-02-24] MEDS: ROSUVASTATIN CALCIUM 10 MG TAB PO SCH (21:00)
[2018-02-24 21:30] VITALS: BP 200/95
[2018-02-24 21:35] VITALS: BP 186/94
[2018-02-25] VITALS (11 sets, daily range): BP systolic 124–193; BP diastolic 55–92
[2018-02-25] MEDS: ENOXAPARIN 30 MG/0.3 ML SYR SC SCH (07:54)
[2018-02-25] MEDS ORDERED: PROPOFOL EMUL(*) 10MG/ML 20 ML 20 ML ONE ×3 (08:51→09:53)
[2018-02-25] MEDS: PANTOPRAZOLE SOD 40 MG TABEC PO SCH (09:00)
[2018-02-25] MEDS: DOCUSATE SODIUM 100 MG CAP PO SCH ×2 (09:00→21:15)
[2018-02-25] MEDS: VERAPAMIL HCL SR 120 MG TABCR PO SCH ×2 (09:00→21:15)
[2018-02-25] MEDS: POLYETHYLENE GLYCOL 17 GM PKT PO SCH (09:00)
[2018-02-25] MEDS: INSULIN DETEMIR 100 U/ML 3 ML PEN SUBQ SCH ×2 (09:00→21:15)
[2018-02-25] MEDS: FAMOTIDINE 20 MG TAB PO SCH ×2 (09:00→21:15)
[2018-02-25] MEDS ORDERED: fentaNYL CITR 100 MCG/2 ML AMP ONE (09:52)
--- NOTE | 2018-02-25 10:42 | General Surgery Progress Note ---
Subjective Progress Notes Subjective Pt with bloody drainage from left BKA stump. I removed the sutures last evening and this morning he noticed a lot of blood saturating his dressing. Physical Exam Vital Signs Date Time Temp Pulse Resp B/P (MAP) Pulse Ox O2 Delivery O2 Flow Rate FiO2 02/25/18 07:56 98.0 84 16 169/91 (117) 96 Room Air Intake and Output 02/25/18 06:59 Intake Total 1180 ml Output Total 2225 ml Balance -1045 ml Intake Oral 1180 ml Output Urine Total 2100 ml Emesis 125 ml # Voids 2 # Bowel Movements 1 # Emeses 1 General Appearance: Alert, Awake, No Acute Distress, Afebrile Extremities: Other (The dressings were removed, the middle 2/3 of the incision is dehisced with visible blood clots. Clots removed with my finger and there appears to be oozing. Wound packed, pressure applied.) Assessment and Plan Problems: (1) Status post below knee amputation of left lower extremity Status: Acute Assessment & Plan: 02/16/18: Patient seems to be healing well. No issues currently. Continue physical therapy, occupational therapy, wound care, etc. 02/20/18: The BKA surgical site appears to be healing well. There is no overt signs of infection today. We will continue wound care and mobility exercises/straining. He is continuing to work on getting Medicaid. 02/24/18: The surgical site looks pretty good for the most part except for a small area of dehiscence. No evidence of infection. Sutures removed today. We'll keep a close eye on this. Continue wound care. Continue physical therapy and occupational therapy. 02/25/18: To OR for wound exploration and hematoma evacuation. Will look for active bleeding and control it and will reapproximate muscles over the bone and place a wound vac in the open wound. Pt seems to understand and seems agreeable with this plan. (2) Hematoma following procedure Status: Acute (3) BKA stump complication Status: Acute Condition Stable Time Spent: < 30 min JUAN F PIRES MD Feb 25, 2018 10:42
--- NOTE | 2018-02-25 14:56 | Hospitalist Progress Note ---
Subjective Progress Notes Subjective Dizzy today when standing. Had wound dehiscence this am and went back to OR for repair. Now has wound vac. Physical Exam Vital Signs Date Time Temp Pulse Resp B/P (MAP) Pulse Ox O2 Delivery O2 Flow Rate FiO2 02/25/18 13:00 98 Room Air 02/25/18 12:30 77 16 126/55 (78) 02/25/18 11:40 98.6 Intake and Output 02/25/18 06:59 Intake Total 1180 ml Output Total 2225 ml Balance -1045 ml Intake Oral 1180 ml Output Urine Total 2100 ml Emesis 125 ml # Voids 2 # Bowel Movements 1 # Emeses 1 General Appearance: Alert, Awake, No Acute Distress, Other (Pale.) Neuro: No Gross deficits Eyes: Other (Conjunctiva pale.) Cardiovascular: Regular Rate and Rhythm Extremities: Warm, Perfused, Other (L LE wrapped. S/P BKA.) Integumentary: Other (Wound L leg wrapped.) Psych: Alert & Oriented X3, Appropriate Mood & Affect Assessment and Plan Problems: (1) Wound dehiscence Status: Acute Assessment & Plan: Dr. Salgado took him back to OR and repaired. Wound vac in place now. Patient with significant blood loss. Will check CBC now. (2) Osteomyelitis Status: Resolved Assessment & Plan: The patient has had a diabetic foot ulcer over the plantar aspect of the left 2nd MTP joint since mid November. For 10 days prior to admission, the patient had been much more tired and weak. The night before admission, he noted new erythema on top of the foot. MRI showed findings consistent with 2nd and 3rd MTP joint osteomyelitis and a large dorsally located abscess which extended along the dorsum of the forefoot, the midfoot and extends to the hindfoot. Lactate was normal. The patient had a temperature of 100 degrees on admission, BP was stable, heart rate was 86-103. Dr. Salgado performed BKA 02/09. The patient was given Zosyn in the ER, and then switched to Primaxin (renally dosed) and Vancomycin on the medical floor. Dr. Salgado drained the abscess 02/07 in hopes of getting the patient's infection under better control prior to his BKA. He completed a course of antibiotics [facility]. (3) Diabetic foot ulcer Status: Resolved Assessment & Plan: See above. (4) T2DM (type 2 diabetes mellitus) Status: Chronic Assessment & Plan: The patient admits to not checking glucoses. Continue chronic Levemir and will cover with SSI level 2. Encouraged him to take bigger/more responsible role in treating his diabetes. (5) CKD (chronic kidney disease) stage 3, GFR 30-59 ml/min Status: Chronic Assessment & Plan: Baseline creatinine is 2.3-2.6. It has improved with IV fluids. Will repeat a BMP today. (6) HTN (hypertension) Status: Chronic Assessment & Plan: Continue chronic Verapamil with parameters. (7) Hyperlipidemia associated with type 2 diabetes mellitus Status: Chronic Assessment & Plan: Continue chronic rosuvastatin. Will hold ASA. (8) Hyperkalemia Status: Acute Assessment & Plan: More than likely secondary to surgery, (BKA). He was placed on dextrose and insulin, calcium, and Lasix to help decrease potassium. Resolved. Time Spent on Plan of Care: < 30 min Problem Qualifiers (1) Osteomyelitis: Osteomyelitis type: other acute MEAGAN PAK MD Feb 25, 2018 14:56
[2018-02-25 15:13] LABS: PLATELET COUNT, AUTOMATED 335 K/uL (150-450)
[2018-02-25] MEDS: AMOX/CLAV 875 MG TAB PO SCH (16:45)
[2018-02-25] MEDS: INSULIN HUM LISPRO 100 UN/ML 3 ML VIAL SUBQ PRN ×2 (16:45→21:15)
[2018-02-25] MEDS: ROSUVASTATIN CALCIUM 10 MG TAB PO SCH (21:15)
[2018-02-26 01:09] VITALS: BP 200/82
[2018-02-26 01:11] VITALS: BP 200/82
[2018-02-26] MEDS: cloNIDine HCL 0.1 MG TAB PO PRN (01:20)
[2018-02-26 06:03] LABS: PLATELET COUNT, AUTOMATED 250 K/uL (150-450)
[2018-02-26 08:00] VITALS: BP 180/100
[2018-02-26] MEDS: DOCUSATE SODIUM 100 MG CAP PO SCH ×2 (09:00→21:04)
[2018-02-26] MEDS: PANTOPRAZOLE SOD 40 MG TABEC PO SCH (09:00)
[2018-02-26] MEDS: VERAPAMIL HCL SR 120 MG TABCR PO SCH ×2 (09:00→21:04)
[2018-02-26] MEDS: POLYETHYLENE GLYCOL 17 GM PKT PO SCH (09:00)
[2018-02-26] MEDS: FAMOTIDINE 20 MG TAB PO SCH ×2 (09:01→21:04)
[2018-02-26] MEDS: AMOX/CLAV 875 MG TAB PO SCH ×2 (09:01→16:56)
[2018-02-26] MEDS: INSULIN DETEMIR 100 U/ML 3 ML PEN SUBQ SCH ×2 (09:01→21:00)
[2018-02-26] MEDS: INSULIN HUM LISPRO 100 UN/ML 3 ML VIAL SUBQ PRN ×4 (09:02→21:03)
[2018-02-26 18:20] VITALS: BP 144/64
[2018-02-26] MEDS: ROSUVASTATIN CALCIUM 10 MG TAB PO SCH (21:04)
[2018-02-27 08:00] VITALS: BP 176/95
[2018-02-27] MEDS: FAMOTIDINE 20 MG TAB PO SCH ×2 (08:17→20:40)
[2018-02-27] MEDS: AMOX/CLAV 875 MG TAB PO SCH ×2 (08:17→16:34)
[2018-02-27] MEDS: INSULIN DETEMIR 100 U/ML 3 ML PEN SUBQ SCH ×2 (08:17→20:45)
[2018-02-27] MEDS: POLYETHYLENE GLYCOL 17 GM PKT PO SCH (08:17)
[2018-02-27] MEDS: DOCUSATE SODIUM 100 MG CAP PO SCH ×2 (08:17→20:40)
[2018-02-27] MEDS: VERAPAMIL HCL SR 120 MG TABCR PO SCH ×2 (08:17→20:40)
[2018-02-27] MEDS: PANTOPRAZOLE SOD 40 MG TABEC PO SCH (08:17)
[2018-02-27] MEDS: INSULIN HUM LISPRO 100 UN/ML 3 ML VIAL SUBQ PRN ×3 (12:41→20:46)
[2018-02-27 16:24] VITALS: BP 200/100
[2018-02-27] MEDS: ROSUVASTATIN CALCIUM 10 MG TAB PO SCH (20:40)
[2018-02-27] MEDS: oxyCODONE HCL 5 MG CAP PO PRN (20:51)
[2018-02-27 21:53] VITALS: BP 150/105
[2018-02-28 07:55] VITALS: BP 180/110
[2018-02-28] MEDS: POLYETHYLENE GLYCOL 17 GM PKT PO SCH (08:21)
[2018-02-28] MEDS: VERAPAMIL HCL SR 120 MG TABCR PO SCH ×2 (08:21→20:21)
[2018-02-28] MEDS: DOCUSATE SODIUM 100 MG CAP PO SCH ×2 (08:22→20:21)
[2018-02-28] MEDS: FAMOTIDINE 20 MG TAB PO SCH ×2 (08:22→20:21)
[2018-02-28] MEDS: PANTOPRAZOLE SOD 40 MG TABEC PO SCH (08:22)
[2018-02-28] MEDS: AMOX/CLAV 875 MG TAB PO SCH ×2 (08:22→17:18)
[2018-02-28] MEDS: INSULIN DETEMIR 100 U/ML 3 ML PEN SUBQ SCH ×2 (08:23→20:20)
[2018-02-28 10:58] VITALS: BP 180/100
[2018-02-28 11:08] VITALS: BP 191/107
[2018-02-28] MEDS: cloNIDine HCL 0.1 MG TAB PO PRN (11:14)
[2018-02-28] MEDS: INSULIN HUM LISPRO 100 UN/ML 3 ML VIAL SUBQ PRN ×3 (12:38→20:21)
--- NOTE | 2018-02-28 14:13 | PT ECF NOTE ---
Type of Note: Progress Note 02/25/18 Primary Medical Diagnosis: s/p L BKA 02/09/2018; s/p incisional I&D for hematoma evacuation 02/25/18 Physical Therapy Evaluation Date: 02/11/2018 SUBJECTIVE: Prior Hospitalization: Extensive, please see [facility] for details. Prior Level of Function: Independent with functional mobility and ADLs Prior Living Status: Apartment, Alone Community Services: extensive social services manager such as [employer]UD Home Accessibility: 1 step + 2 steps into apartment building both without railing, 6 stairs with rail into basement apartment. Equipment Owned: Front wheeled walker, Crutches, Extended tub bench (Pt declines to use and has opted not to take it home), Wheelchair Medical Complications/Past Medical History: Diabetes with previous recent L toe amputation, please see [facility] for additional details. Psychosocial Support: Please see social services manager notes for details. Pain Scale (0-10): Pt reporting phantom limb pain at time of eval and minimal pain reports since. OBJECTIVE: Strength: Right Lower Extremity: WFL Left Lower Extremity: WFL for remaining musculature ROM: (please note any abnormalities) WFL Sensation: (please note any abnormalities) phantom limb pain L LE Other Neuro findings: none Bed Mobility: Independent Transfers: Independent Assistive Device: Front wheeled walker Gait: Mod I with use of RW x 50' and Mod I with wheelchair mobility x>1000'. Stairs: Min A for ascending 1 step with RW using backward ascend technique. Mod A for ascending 2 steps with RW using backward ascend technique. Pt has opted for "bump" technique to ascend/descend set of 6 stairs which this PT agrees is safest considering Pt is unable to maintain R LE single leg stance for >3 seconds and Pt will be carrying objects up/down the stairs. Pt has been progressing this technique, but is currently unable to perform floor<>stand transfer via sitting<>tall kneeling<>standing technique due to complications with incisional healing and wanting to protect this incision from any pressure/weightbearing that transferring from tall kneeling<>standing would cause. ASSESSMENT: Pt presents with decreased independence with functional mobility s/p L BKA 02/09/18. Pt will benefit from skilled PT for functional mobility training in order to increase independence and safety with functional mobility, specifically ascending/descending stairs. Please see below "barriers for discharge" for additional assessment information. Problem List/Current Limitations: Pain, Decreased WB, Decreased activity tolerance, Decreased strength, Decreased balance, Generalized weakness, Poor safety awareness, Decreased problem solving Short Term Goals: 1. Independent bed mobility. 2. Mod I transfers from a variety of surfaces. 3. Mod I gait x 150' with appropriate assistive device. 4. Ascend/descend set of 2 stairs without rail with appropriate assistive device at SBA level. 5. Ascend/descend set of 6 stairs using safest technique and appropriate assistive device at SBA level. Tobacco Grader Goals: Return to least restrictive environment. Patient Goals: Return home Rehabilitation Prognosis: Fair Barriers for Discharge: Pt currently does not have a pay source for obtaining prosthesis s/p BKA. This poses difficulty with discharge planing as Pt will be required to be Modified Independent with functional mobility using adaptive equipment/assistive devices only to negotiate multiple stairs and perform ADLs and IADLs as Pt does live alone and reports little social support for assisting at home. Will need to work closely with social services manager for discharge planning. PLAN: The patient will benefit from skilled physical therapy services 5 times per week for 2 weeks including: Therapeutic Exercise, Therapeutic Activities, Transfer Training, Gait Training, Stair Training, Manual Therapy, ADL's, Safety Training, Neuromuscular Re-educ., Wound Care, Pt/Caregiver Training, Bed Mobility Thank you for this referral. If you have any questions, concerns, or comments about this report or plan, please contact me at . Lianna Haynes, PT, DPT, GCS MTDD
[2018-02-28 16:45] VITALS: BP 140/64
[2018-02-28 19:45] VITALS: BP 150/80
[2018-02-28] MEDS: ROSUVASTATIN CALCIUM 10 MG TAB PO SCH (20:21)
[2018-03-01] MEDS: AMOX/CLAV 875 MG TAB PO SCH ×2 (07:42→17:24)
[2018-03-01 08:20] VITALS: BP 180/95
[2018-03-01] MEDS: POLYETHYLENE GLYCOL 17 GM PKT PO SCH (08:33)
[2018-03-01] MEDS: DOCUSATE SODIUM 100 MG CAP PO SCH ×2 (08:34→20:54)
[2018-03-01] MEDS: INSULIN DETEMIR 100 U/ML 3 ML PEN SUBQ SCH ×2 (08:34→20:54)
[2018-03-01] MEDS: PANTOPRAZOLE SOD 40 MG TABEC PO SCH (08:34)
[2018-03-01] MEDS: VERAPAMIL HCL SR 120 MG TABCR PO SCH ×2 (08:34→20:54)
[2018-03-01] MEDS: FAMOTIDINE 20 MG TAB PO SCH ×2 (08:34→20:54)
[2018-03-01] MEDS: INSULIN HUM LISPRO 100 UN/ML 3 ML VIAL SUBQ PRN ×3 (08:35→20:55)
[2018-03-01] MEDS: oxyCODONE HCL 5 MG CAP PO PRN (16:08)
[2018-03-01 16:40] VITALS: BP 160/90
[2018-03-01 20:30] VITALS: BP 188/92
[2018-03-01] MEDS: cloNIDine HCL 0.1 MG TAB PO PRN (20:53)
[2018-03-01] MEDS: ROSUVASTATIN CALCIUM 10 MG TAB PO SCH (20:53)
[2018-03-01 22:13] VITALS: BP 168/84
[2018-03-02 08:05] VITALS: BP 162/92
[2018-03-02] MEDS: PANTOPRAZOLE SOD 40 MG TABEC PO SCH (08:30)
[2018-03-02] MEDS: VERAPAMIL HCL SR 120 MG TABCR PO SCH ×2 (08:30→20:15)
[2018-03-02] MEDS: DOCUSATE SODIUM 100 MG CAP PO SCH ×2 (08:30→20:15)
[2018-03-02] MEDS: AMOX/CLAV 875 MG TAB PO SCH ×2 (08:30→16:59)
[2018-03-02] MEDS: INSULIN DETEMIR 100 U/ML 3 ML PEN SUBQ SCH ×2 (08:30→20:16)
[2018-03-02] MEDS: POLYETHYLENE GLYCOL 17 GM PKT PO SCH (08:30)
[2018-03-02] MEDS: FAMOTIDINE 20 MG TAB PO SCH ×2 (08:30→20:15)
[2018-03-02] MEDS: INSULIN HUM LISPRO 100 UN/ML 3 ML VIAL SUBQ PRN ×4 (08:31→20:16)
[2018-03-02] MEDS: ONDANSETRON 4 MG ODT TABDP SL PRN (09:25)
--- NOTE | 2018-03-02 13:29 | Medical Nutrition Therapy ---
Nutrition Anthropometrics Height (Inches): 70 Weight (Pounds): 168 Weight (Calculated Kilograms): 76.204 BMI: 24.7 Vickey Nutrition Score: Vickey Nutrition Risk Score: Dietary Referral Nutrition Risk Factors: Non-Healing Wound Nutrition Risk Comment: Physical Findings Physical Appearance: 24.7 Normal Skin Appearance Skin Appearance: Edema Edema Location Modifier: Right Edema Location: Foot Type of Edema: Degree of Edema: Gastrointestinal Symptoms GI Symtoms: Nausea, Vomiting Tube Present: Bowel Sounds: Recent Bowel Pattern: Stool Characteristics: Nutritional Diagnosis Nutritional Risk Acuity 2: Chronic Renal Failure Nutritional Risk Acuity 4: Good Appetite, Modified Diet Past Medical History: T2DM, CKD stage III, GERD, HTN, depression, appendectomy, [id number] transgender person Nutritional Acuity: 2-Moderate Nutrition Diagnosis: Increased Nutrient Needs Nutrition Etiology: Physiological Causes Nutrition Problem/Etiology/Sym: Increased nutritent needs as related to physiological causes as evidenced by recent lower extremity amputation. Energy Requirement: 2260 (Lyman nessa jeor AF-1.3 SF- 1.1) Protein Requirement: 75 (1g/kg) Fluid Requirement: 2260 (1ml/kg) Diet Type: Diabetic Nutrition Intervention: Cont diet as ordered, Encourage intake Diet Comment To RSA: Recommend soft foods due to broken and missing teeth. Nutrition Monitoring & Eval RD Patient Assessment Time: [address] Assessment Type: RD Re-Assessment Patient Nutrition Acuity: 2-Moderate Follow Up Date: Mar 10, 2018 Nutritional Comment: 02/12. Pt is an in house transfer, being treated for diabetic foot infection and osteomyelitis. Pt is also reporting nausea. Pt is on diabetic diet, consuming 75-100% of small to regular sized meals. Whole BG is currently elevated 128. Pt is receiving insulin, 2-10 units Lispro SS SUBQ and 20 units Flextouch BID. Recommend pt conumes 2260 kcal and 75 g protein each day. Will monitor pt intake and labs. MR 02/16. Pt seems to be healing well post amputation of left lower extremity. Pt cont on diabetic diet, consuming 75-100% of small and regular meals. Pt cont to receive 20 units flextouch BID and Lispro SS 2-10 units SUBQ. Whole BG glucose is elevated, 137, but improved in the last couple of days. Pt has broken and missing teeth, recommend softer foods. Consider increase in nutrient needs post amputation. Will cont to monitor pt intake and labs. MR 9/4. Pt cont to have elevated whole BG, 136 and is still receiving 20 units Levimer and 2-10 units Lispro SS insulin. Pt is conuming 100% of regular sized meals each day. Encourage intake of high protein foods for healing, post amputation. Will cont to monitor BG levels. MR 9/10. Pt cont to have elevated BG levels, greater than 170 into the 200 range. Pt is on 20 units Levemir BID and 2-10 units Humalog SUBQ. Pt went back to the OR for reapir after wound dehisence and has attained hematoma post procedure. Pt cont to consume 100% of diabetic meals. Pt generally orders pitchers of lemonade, is given diabetic lemonade. Reported/observed pt has come down to cafeteria to retreive their own pitcher of regular lemonade. We spoke to the pt and although they have the right to do this, we recommend still sugar free lemonade rather than regular because it will elevate BG, and limiting regular to assist with healing. Will cont to monitor BG levels. MR ALFAROHARPER Mar 02, 2018 08:43
[2018-03-02 16:30] VITALS: BP 122/63
[2018-03-02 19:42] VITALS: BP 144/73
[2018-03-02] MEDS: ROSUVASTATIN CALCIUM 10 MG TAB PO SCH (20:15)
[2018-03-03] MEDS: oxyCODONE HCL 5 MG CAP PO PRN (05:39)
[2018-03-03 08:01] VITALS: BP 173/87
[2018-03-03] MEDS: AMOX/CLAV 875 MG TAB PO SCH ×2 (08:09→16:52)
[2018-03-03] MEDS: INSULIN DETEMIR 100 U/ML 3 ML PEN SUBQ SCH ×3 (08:38→21:07)
[2018-03-03] MEDS: POLYETHYLENE GLYCOL 17 GM PKT PO SCH (08:39)
[2018-03-03] MEDS: DOCUSATE SODIUM 100 MG CAP PO SCH ×2 (08:39→21:06)
[2018-03-03] MEDS: PANTOPRAZOLE SOD 40 MG TABEC PO SCH (08:39)
[2018-03-03] MEDS: FAMOTIDINE 20 MG TAB PO SCH ×2 (08:39→21:06)
[2018-03-03] MEDS: VERAPAMIL HCL SR 120 MG TABCR PO SCH ×2 (08:39→21:06)
[2018-03-03] MEDS: INSULIN HUM LISPRO 100 UN/ML 3 ML VIAL SUBQ PRN ×3 (12:35→21:06)
[2018-03-03 15:35] VITALS: BP 196/90
[2018-03-03] MEDS: cloNIDine HCL 0.1 MG TAB PO PRN (15:42)
[2018-03-03] MEDS: ROSUVASTATIN CALCIUM 10 MG TAB PO SCH (21:06)
[2018-03-04 08:10] VITALS: BP 147/84
[2018-03-04] MEDS: FAMOTIDINE 20 MG TAB PO SCH ×2 (09:12→21:14)
[2018-03-04] MEDS: AMOX/CLAV 875 MG TAB PO SCH ×2 (09:12→16:29)
[2018-03-04] MEDS: VERAPAMIL HCL SR 120 MG TABCR PO SCH ×2 (09:12→21:14)
[2018-03-04] MEDS: POLYETHYLENE GLYCOL 17 GM PKT PO SCH (09:12)
[2018-03-04] MEDS: DOCUSATE SODIUM 100 MG CAP PO SCH ×2 (09:12→21:14)
[2018-03-04] MEDS: PANTOPRAZOLE SOD 40 MG TABEC PO SCH (09:12)
[2018-03-04] MEDS: INSULIN DETEMIR 100 U/ML 3 ML PEN SUBQ SCH ×2 (09:13→21:14)
--- NOTE | 2018-03-04 14:25 | Hospitalist Progress Note ---
Subjective Progress Notes Subjective No new complaints. Physical Exam Vital Signs Date Time Temp Pulse Resp B/P (MAP) Pulse Ox O2 Delivery O2 Flow Rate FiO2 03/04/18 10:26 94 Room Air 03/04/18 08:10 98.1 82 14 147/84 (105) Intake and Output 03/04/18 07:00 Intake Total 0 ml Output Total 1575 ml Balance -1575 ml Intake Oral 0 ml Output Urine Total 1575 ml # Voids 3 General Appearance: Alert, Awake, No Acute Distress, Afebrile Neuro: No Gross deficits Eyes: PERRLA Cardiovascular: Regular Rate and Rhythm Respiratory: Clear to Auscultation GI: Soft and Non-Tender Extremities: Warm, Perfused Psych: Appropriate Mood & Affect Assessment and Plan Problems: (1) Wound dehiscence Status: Acute Assessment & Plan: Dr. Salgado took him back to OR and repaired. Wound vac in place now. Wound is healing well now. (2) Osteomyelitis Status: Resolved Assessment & Plan: The patient has had a diabetic foot ulcer over the plantar aspect of the left 2nd MTP joint since mid November. For 10 days prior to admission, the patient had been much more tired and weak. The night before admission, he noted new erythema on top of the foot. MRI showed findings consistent with 2nd and 3rd MTP joint osteomyelitis and a large dorsally located abscess which extended along the dorsum of the forefoot, the midfoot and extends to the hindfoot. Lactate was normal. The patient had a temperature of 100 degrees on admission, BP was stable, heart rate was 86-103. Dr. Salgado performed BKA 02/09. The patient was given Zosyn in the ER, and then switched to Primaxin (renally dosed) and Vancomycin on the medical floor. Dr. Salgado drained the abscess 02/07 in hopes of getting the patient's infection under better control prior to his BKA. He completed a course of antibiotics He was transferred to [facility] unit for further rehab. He had dehiscence of his his wound and was taken back to OR. Now has wound vac in place. Is on Augmentin. (3) Diabetic foot ulcer Status: Resolved Assessment & Plan: See above. (4) T2DM (type 2 diabetes mellitus) Status: Chronic Assessment & Plan: The patient admits to not checking glucoses. Continue chronic Levemir and will cover with SSI level 2. Encouraged him to take bigger/more responsible role in treating his diabetes. (5) CKD (chronic kidney disease) stage 3, GFR 30-59 ml/min Status: Chronic Assessment & Plan: Baseline creatinine is 2.3-2.6. It has improved with IV fluids. Will repeat a BMP tomorrow. (6) HTN (hypertension) Status: Chronic Assessment & Plan: Continue chronic Verapamil with parameters. (7) Hyperlipidemia associated with type 2 diabetes mellitus Status: Chronic Assessment & Plan: Continue chronic rosuvastatin. Will hold ASA. (8) Hyperkalemia Status: Acute Assessment & Plan: More than likely secondary to surgery, (BKA). He was placed on dextrose and insulin, calcium, and Lasix to help decrease potassium. Resolved. Time Spent on Plan of Care: < 30 min Problem Qualifiers (1) Osteomyelitis: Osteomyelitis type: other acute MEAGAN PAK MD Mar 04, 2018 14:25
[2018-03-04] MEDS: INSULIN HUM LISPRO 100 UN/ML 3 ML VIAL SUBQ PRN ×2 (16:29→21:14)
[2018-03-04] MEDS: ROSUVASTATIN CALCIUM 10 MG TAB PO SCH (21:14)
[2018-03-05 05:58] LABS: PLATELET COUNT, AUTOMATED 260 K/uL (150-450)
[2018-03-05 07:15] VITALS: BP 178/94
[2018-03-05] MEDS: VERAPAMIL HCL SR 120 MG TABCR PO SCH ×2 (08:29→20:52)
[2018-03-05] MEDS: FAMOTIDINE 20 MG TAB PO SCH ×2 (08:29→20:52)
[2018-03-05] MEDS: PANTOPRAZOLE SOD 40 MG TABEC PO SCH (08:29)
[2018-03-05] MEDS: DOCUSATE SODIUM 100 MG CAP PO SCH ×2 (08:29→20:52)
[2018-03-05] MEDS: POLYETHYLENE GLYCOL 17 GM PKT PO SCH (08:29)
[2018-03-05] MEDS: INSULIN DETEMIR 100 U/ML 3 ML PEN SUBQ SCH ×2 (08:29→20:53)
[2018-03-05] MEDS: AMOX/CLAV 875 MG TAB PO SCH ×2 (08:29→17:31)
[2018-03-05] MEDS: INSULIN HUM LISPRO 100 UN/ML 3 ML VIAL SUBQ PRN ×4 (08:30→20:52)
[2018-03-05 20:25] VITALS: BP 189/90
[2018-03-05] MEDS: ROSUVASTATIN CALCIUM 10 MG TAB PO SCH (20:52)
[2018-03-06 07:40] VITALS: BP 188/93
[2018-03-06] MEDS: FAMOTIDINE 20 MG TAB PO SCH ×2 (08:34→20:18)
[2018-03-06] MEDS: DOCUSATE SODIUM 100 MG CAP PO SCH ×2 (08:34→20:18)
[2018-03-06] MEDS: VERAPAMIL HCL SR 120 MG TABCR PO SCH ×2 (08:34→20:18)
[2018-03-06] MEDS: PANTOPRAZOLE SOD 40 MG TABEC PO SCH (08:34)
[2018-03-06] MEDS: POLYETHYLENE GLYCOL 17 GM PKT PO SCH (08:34)
[2018-03-06] MEDS: AMOX/CLAV 875 MG TAB PO SCH ×2 (08:34→17:30)
[2018-03-06] MEDS: INSULIN DETEMIR 100 U/ML 3 ML PEN SUBQ SCH ×2 (08:35→20:19)
[2018-03-06 09:55] VITALS: BP 200/100
[2018-03-06] MEDS: cloNIDine HCL 0.1 MG TAB PO PRN (09:55)
[2018-03-06 11:17] VITALS: BP 178/98
[2018-03-06] MEDS: INSULIN HUM LISPRO 100 UN/ML 3 ML VIAL SUBQ PRN ×3 (12:17→20:17)
--- NOTE | 2018-03-06 19:06 | General Surgery Progress Note ---
Subjective Progress Notes Subjective Patient without complaints. Physical Exam Vital Signs Date Time Temp Pulse Resp B/P (MAP) Pulse Ox O2 Delivery O2 Flow Rate FiO2 03/06/18 11:17 178/98 (124) 03/06/18 08:56 96 Room Air 03/06/18 07:40 98.1 72 12 Intake and Output 03/06/18 07:00 Intake Total 300 ml Output Total 1450 ml Balance -1150 ml Intake Oral 300 ml Output Urine Total 1450 ml # Voids 1 # Bowel Movements 1 General Appearance: Alert, Awake, No Acute Distress, Afebrile Extremities: Other (wound VAC removed by [facility] with wound care/PT, the wound is clean and granulating in. No signs of infection. The muscle closure is well approximated without dehiscence.) Result Diagram: 03/05/18 0550 03/05/18 0550 Assessment and Plan Problems: (1) Status post below knee amputation of left lower extremity Status: Chronic Assessment & Plan: 02/16/18: Patient seems to be healing well. No issues currently. Continue physical therapy, occupational therapy, wound care, etc. 02/20/18: The BKA surgical site appears to be healing well. There is no overt signs of infection today. We will continue wound care and mobility exercises/straining. He is continuing to work on getting Medicaid. 02/24/18: The surgical site looks pretty good for the most part except for a small area of dehiscence. No evidence of infection. Sutures removed today. We'll keep a close eye on this. Continue wound care. Continue physical therapy and occupational therapy. 02/25/18: To OR for wound exploration and hematoma evacuation. Will look for active bleeding and control it and will reapproximate muscles over the bone and place a wound vac in the open wound. Pt seems to understand and seems agreeable with this plan. 03/06/18: Patient is doing well. The wound is clean and healing. We'll continue wound VAC as it is making good progress. Anticipate he will be able to go home in the next couple of weeks after the wound is granulated in and wound care requirements are minimal. (2) Hematoma following procedure Status: Resolved (3) BKA stump complication Status: Resolved Condition Stable Time Spent: < 30 min JUAN F PIRES MD Mar 06, 2018 19:06
[2018-03-06 20:15] VITALS: BP 182/92
[2018-03-06] MEDS: cloNIDine HCL 0.1 MG TAB PO SCH (20:18)
[2018-03-06] MEDS: ROSUVASTATIN CALCIUM 10 MG TAB PO SCH (20:18)
[2018-03-07] MEDS: POLYETHYLENE GLYCOL 17 GM PKT PO SCH (08:32)
[2018-03-07] MEDS: VERAPAMIL HCL SR 120 MG TABCR PO SCH ×2 (08:33→20:54)
[2018-03-07] MEDS: PANTOPRAZOLE SOD 40 MG TABEC PO SCH (08:33)
[2018-03-07] MEDS: DOCUSATE SODIUM 100 MG CAP PO SCH ×2 (08:33→20:54)
[2018-03-07] MEDS: AMOX/CLAV 875 MG TAB PO SCH ×2 (08:33→17:27)
[2018-03-07] MEDS: FAMOTIDINE 20 MG TAB PO SCH ×2 (08:33→20:54)
[2018-03-07] MEDS: cloNIDine HCL 0.1 MG TAB PO SCH ×2 (08:33→20:54)
[2018-03-07 08:34] VITALS: BP 154/85
[2018-03-07] MEDS: INSULIN DETEMIR 100 U/ML 3 ML PEN SUBQ SCH ×2 (08:35→20:54)
[2018-03-07] MEDS: oxyCODONE HCL 5 MG CAP PO PRN (09:45)
[2018-03-07] MEDS: ENOXAPARIN 30 MG/0.3 ML SYR SC SCH (10:16)
[2018-03-07] MEDS: ONDANSETRON 4 MG ODT TABDP SL PRN (14:51)
[2018-03-07 15:10] VITALS: BP 186/90
[2018-03-07] MEDS: INSULIN HUM LISPRO 100 UN/ML 3 ML VIAL SUBQ PRN ×2 (17:31→20:53)
[2018-03-07 19:22] VITALS: BP 162/90
[2018-03-07] MEDS: ROSUVASTATIN CALCIUM 10 MG TAB PO SCH (20:54)
[2018-03-08 08:15] VITALS: BP 140/72
[2018-03-08] MEDS: VERAPAMIL HCL SR 120 MG TABCR PO SCH ×2 (09:10→20:34)
[2018-03-08] MEDS: FAMOTIDINE 20 MG TAB PO SCH ×2 (09:10→20:34)
[2018-03-08] MEDS: AMOX/CLAV 875 MG TAB PO SCH ×2 (09:10→17:33)
[2018-03-08] MEDS: POLYETHYLENE GLYCOL 17 GM PKT PO SCH (09:10)
[2018-03-08] MEDS: PANTOPRAZOLE SOD 40 MG TABEC PO SCH (09:11)
[2018-03-08] MEDS: cloNIDine HCL 0.1 MG TAB PO SCH ×2 (09:11→20:34)
[2018-03-08] MEDS: DOCUSATE SODIUM 100 MG CAP PO SCH ×2 (09:11→20:34)
[2018-03-08] MEDS: ENOXAPARIN 30 MG/0.3 ML SYR SC SCH (09:11)
[2018-03-08] MEDS: INSULIN DETEMIR 100 U/ML 3 ML PEN SUBQ SCH ×2 (09:12→20:32)
[2018-03-08] MEDS: INSULIN HUM LISPRO 100 UN/ML 3 ML VIAL SUBQ PRN ×3 (12:20→20:34)
[2018-03-08] MEDS: oxyCODONE HCL 5 MG CAP PO PRN (14:51)
[2018-03-08 17:00] VITALS: BP 128/81
[2018-03-08] MEDS: ROSUVASTATIN CALCIUM 10 MG TAB PO SCH (20:34)
[2018-03-08 20:45] VITALS: BP 146/80
[2018-03-09 08:23] VITALS: BP 170/82
[2018-03-09] MEDS: AMOX/CLAV 875 MG TAB PO SCH ×2 (08:35→17:18)
[2018-03-09] MEDS: VERAPAMIL HCL SR 120 MG TABCR PO SCH ×2 (09:00→21:02)
[2018-03-09] MEDS: PANTOPRAZOLE SOD 40 MG TABEC PO SCH (09:01)
[2018-03-09] MEDS: DOCUSATE SODIUM 100 MG CAP PO SCH ×2 (09:01→21:02)
[2018-03-09] MEDS: ENOXAPARIN 30 MG/0.3 ML SYR SC SCH (09:01)
[2018-03-09] MEDS: cloNIDine HCL 0.1 MG TAB PO SCH ×2 (09:01→21:02)
[2018-03-09] MEDS: POLYETHYLENE GLYCOL 17 GM PKT PO SCH (09:01)
[2018-03-09] MEDS: FAMOTIDINE 20 MG TAB PO SCH ×2 (09:01→21:02)
[2018-03-09] MEDS: INSULIN DETEMIR 100 U/ML 3 ML PEN SUBQ SCH ×2 (09:02→21:03)
--- NOTE | 2018-03-09 13:09 | Medical Nutrition Therapy ---
Nutrition Anthropometrics Height (Inches): 70.00 Height (Calculated Centimeters: 177.711180 Weight (Pounds): 173 Weight (Calculated Kilograms): 78.812 BMI: 24.9 Vickey Nutrition Score: Vickey Nutrition Risk Score: Dietary Referral Nutrition Risk Factors: Non-Healing Wound Nutrition Risk Comment: Physical Findings Physical Appearance: 24.9 Skin Appearance Skin Appearance: Edema Edema Location Modifier: Right Edema Location: Lower Extremity Type of Edema: Degree of Edema: 2+ Gastrointestinal Symptoms GI Symtoms: Nausea, Vomiting Tube Present: Bowel Sounds: Recent Bowel Pattern: Stool Characteristics: Nutritional Diagnosis Nutritional Risk Acuity 2: Chronic Renal Failure Nutritional Risk Acuity 4: Good Appetite, Modified Diet Past Medical History: T2DM, CKD stage III, GERD, HTN, depression, appendectomy, [id number] transgender person Nutritional Acuity: 2-Moderate Nutrition Diagnosis: Increased Nutrient Needs Nutrition Etiology: Physiological Causes Nutrition Problem/Etiology/Sym: Increased nutritent needs as related to physiological causes as evidenced by recent lower extremity amputation. Energy Requirement: 2260 ([place] nessa jeor AF-1.3 SF- 1.1) Protein Requirement: 75 (1g/kg) Fluid Requirement: 2260 (1ml/kg) Diet Type: Diabetic Nutrition Intervention: Cont diet as ordered, Encourage intake Diet Comment To RSA: Recommend soft foods due to broken and missing teeth. Nutrition Monitoring & Eval RD Patient Assessment Time: [address] Assessment Type: RD Re-Assessment Patient Nutrition Acuity: 2-Moderate Follow Up Date: Mar 17, 2018 Nutritional Comment: 02/12. Pt is an in house transfer, being treated for diabetic foot infection and osteomyelitis. Pt is also reporting nausea. Pt is on diabetic diet, consuming 75-100% of small to regular sized meals. Whole BG is currently elevated 128. Pt is receiving insulin, 2-10 units Lispro SS SUBQ and 20 units Flextouch BID. Recommend pt conumes 2260 kcal and 75 g protein each day. Will monitor pt intake and labs. MR 02/16. Pt seems to be healing well post amputation of left lower extremity. Pt cont on diabetic diet, consuming 75-100% of small and regular meals. Pt cont to receive 20 units flextouch BID and Lispro SS 2-10 units SUBQ. Whole BG glucose is elevated, 137, but improved in the last couple of days. Pt has broken and missing teeth, recommend softer foods. Consider increase in nutrient needs post amputation. Will cont to monitor pt intake and labs. MR 9/. Pt cont to have elevated whole BG, 136 and is still receiving 20 units Levimer and 2-10 units Lispro SS insulin. Pt is conuming 100% of regular sized meals each day. Encourage intake of high protein foods for healing, post amputation. Will cont to monitor BG levels. MR 03/02. Pt cont to have elevated BG levels, greater than 170 into the 200 range. Pt is on 20 units Levemir BID and 2-10 units Humalog SUBQ. Pt went back to the OR for reapir after wound dehisence and has attained hematoma post procedure. Pt cont to consume 100% of diabetic meals. Pt generally orders pitchers of lemonade, is given diabetic lemonade. Reported/observed pt has come down to cafeteria to retreive their own pitcher of regular lemonade. We spoke to the pt and although they have the right to do this, we recommend still sugar free lemonade rather than regular because it will elevate BG, and limiting regular to assist with healing. Will cont to monitor BG levels. MR 03/09. Noted by MD on 03/06, wound is healing well post wound dehisence. Pt cont on NOEMY, consuming on average 100% of small and regular sized meals. Whole BG cont to fluctuate above normal limits. High 100s and somtimes high 200s. Pt cont on perscribed insulin doses. Other notable labs include low RBC 3.56, Hgb 10.3, and Hct 29.8, reported on 03/05. Oberved 8lb weight gain since admission. Pt weighed 165lbs on 02/12 and on 03/04 reported weight was 173lbs. Will cont to monitor. HARPER ESCAMILLA Mar 09, 2018 09:41
[2018-03-09] MEDS: ROSUVASTATIN CALCIUM 10 MG TAB PO SCH (21:02)
[2018-03-09] MEDS: INSULIN HUM LISPRO 100 UN/ML 3 ML VIAL SUBQ PRN (21:03)
[2018-03-10 08:30] VITALS: BP 151/87
[2018-03-10] MEDS: FAMOTIDINE 20 MG TAB PO SCH ×2 (08:34→20:23)
[2018-03-10] MEDS: cloNIDine HCL 0.1 MG TAB PO SCH ×2 (08:34→20:23)
[2018-03-10] MEDS: AMOX/CLAV 875 MG TAB PO SCH ×2 (08:34→17:45)
[2018-03-10] MEDS: PANTOPRAZOLE SOD 40 MG TABEC PO SCH (08:34)
[2018-03-10] MEDS: DOCUSATE SODIUM 100 MG CAP PO SCH ×2 (08:35→20:23)
[2018-03-10] MEDS: POLYETHYLENE GLYCOL 17 GM PKT PO SCH (08:35)
[2018-03-10] MEDS: VERAPAMIL HCL SR 120 MG TABCR PO SCH ×2 (08:35→20:23)
[2018-03-10] MEDS: ENOXAPARIN 30 MG/0.3 ML SYR SC SCH (08:35)
[2018-03-10] MEDS: INSULIN DETEMIR 100 U/ML 3 ML PEN SUBQ SCH ×2 (08:35→20:22)
[2018-03-10 20:15] VITALS: BP 172/92
[2018-03-10] MEDS: INSULIN HUM LISPRO 100 UN/ML 3 ML VIAL SUBQ PRN (20:21)
[2018-03-10] MEDS: ROSUVASTATIN CALCIUM 10 MG TAB PO SCH (20:23)
[2018-03-11] MEDS: oxyCODONE HCL 5 MG CAP PO PRN ×2 (01:44→11:11)
[2018-03-11 08:20] VITALS: BP 157/87
[2018-03-11] MEDS: POLYETHYLENE GLYCOL 17 GM PKT PO SCH (08:25)
[2018-03-11] MEDS: AMOX/CLAV 875 MG TAB PO SCH ×2 (08:25→16:40)
[2018-03-11] MEDS: INSULIN DETEMIR 100 U/ML 3 ML PEN SUBQ SCH ×2 (08:25→20:23)
[2018-03-11] MEDS: ENOXAPARIN 30 MG/0.3 ML SYR SC SCH (08:25)
[2018-03-11] MEDS: DOCUSATE SODIUM 100 MG CAP PO SCH ×2 (08:25→20:24)
[2018-03-11] MEDS: cloNIDine HCL 0.1 MG TAB PO SCH ×2 (08:25→20:24)
[2018-03-11] MEDS: VERAPAMIL HCL SR 120 MG TABCR PO SCH (08:25)
[2018-03-11] MEDS: PANTOPRAZOLE SOD 40 MG TABEC PO SCH (08:25)
[2018-03-11] MEDS: FAMOTIDINE 20 MG TAB PO SCH ×2 (08:25→20:24)
--- NOTE | 2018-03-11 14:36 | Hospitalist Progress Note ---
Subjective Progress Notes Subjective Nursing notes that the patient has felt dizzy and nauseous after taking his last 2 pain pills on an empty stomach. Physical Exam Vital Signs Date Time Temp Pulse Resp B/P (MAP) Pulse Ox O2 Delivery O2 Flow Rate FiO2 03/11/18 09:00 91 Room Air 03/11/18 08:20 97.6 65 16 157/87 (110) Intake and Output 03/11/18 07:00 Intake Total 680 ml Output Total 1200 ml Balance -520 ml Intake Oral 680 ml Output Urine Total 1200 ml # Voids 2 General Appearance: Alert, Awake, No Acute Distress Neuro: No Gross deficits Eyes: PERRLA Cardiovascular: Regular Rate and Rhythm Respiratory: Clear to Auscultation GI: Soft and Non-Tender Extremities: Warm, Edema (R lower leg to mid-smith.), Other (L lower leg surgically absent.) Integumentary: Other (L lower leg bandaged with wound vac in place.) Psych: Alert & Oriented X3 Assessment and Plan Problems: (1) Wound dehiscence Status: Acute Assessment & Plan: Dr. Salgado took him back to OR and repaired. Wound vac in place now. Wound is healing well now. Recommend giving pain meds with a snack. (2) Osteomyelitis Status: Resolved Assessment & Plan: The patient has had a diabetic foot ulcer over the plantar aspect of the left 2nd MTP joint since mid November. For 10 days prior to admission, the patient had been much more tired and weak. The night before admission, he noted new erythema on top of the foot. MRI showed findings consistent with 2nd and 3rd MTP joint osteomyelitis and a large dorsally located abscess which extended along the dorsum of the forefoot, the midfoot and extends to the hindfoot. Lactate was normal. The patient had a temperature of 100 degrees on admission, BP was stable, heart rate was 86-103. Dr. Salgado performed BKA 02/09. The patient was given Zosyn in the ER, and then switched to Primaxin (renally dosed) and Vancomycin on the medical floor. Dr. Salgado drained the abscess 02/07 in hopes of getting the patient's infection under better control prior to his BKA. He completed a course of antibiotics He was transferred to [facility] unit for further rehab. He had dehiscence of his his wound and was taken back to OR. Now has wound vac in place. Is on Augmentin. (3) Diabetic foot ulcer Status: Resolved Assessment & Plan: See above. (4) T2DM (type 2 diabetes mellitus) Status: Chronic Assessment & Plan: The patient admits to not checking glucoses. Continue chronic Levemir and will cover with SSI level 2. Encouraged him to take bigger/more responsible role in treating his diabetes. (5) CKD (chronic kidney disease) stage 3, GFR 30-59 ml/min Status: Chronic Assessment & Plan: Baseline creatinine is 2.3-2.6. It has improved with IV fluids. Will repeat a BMP tomorrow. (6) HTN (hypertension) Status: Chronic Assessment & Plan: Will increase verapamil to 180mg daily. On clonidine 0.1mg bid also. Continue to monitor and adjust meds as needed. (7) Hyperlipidemia associated with type 2 diabetes mellitus Status: Chronic Assessment & Plan: Continue chronic rosuvastatin. Will hold ASA. (8) Hyperkalemia Status: Acute Assessment & Plan: More than likely secondary to surgery, (BKA). He was placed on dextrose and insulin, calcium, and Lasix to help decrease potassium. Resolved. Time Spent on Plan of Care: < 30 min Problem Qualifiers (1) Osteomyelitis: Osteomyelitis type: other acute MEAGAN PAK MD Mar 11, 2018 14:36
[2018-03-11] MEDS: INSULIN HUM LISPRO 100 UN/ML 3 ML VIAL SUBQ PRN ×2 (16:40→20:24)
[2018-03-11 20:00] VITALS: BP 182/88
[2018-03-11] MEDS: VERAPAMIL HCL SR 180 MG TABCR PO SCH (20:24)
[2018-03-11] MEDS: ROSUVASTATIN CALCIUM 10 MG TAB PO SCH (20:24)
[2018-03-12 08:00] VITALS: BP 160/78
[2018-03-12] MEDS: POLYETHYLENE GLYCOL 17 GM PKT PO SCH (08:40)
[2018-03-12] MEDS: ENOXAPARIN 30 MG/0.3 ML SYR SC SCH (08:40)
[2018-03-12] MEDS: INSULIN DETEMIR 100 U/ML 3 ML PEN SUBQ SCH ×2 (08:41→21:27)
[2018-03-12] MEDS: VERAPAMIL HCL SR 180 MG TABCR PO SCH ×2 (08:42→21:27)
[2018-03-12] MEDS: INSULIN HUM LISPRO 100 UN/ML 3 ML VIAL SUBQ PRN (08:42)
[2018-03-12] MEDS: FAMOTIDINE 20 MG TAB PO SCH ×2 (08:43→21:26)
[2018-03-12] MEDS: DOCUSATE SODIUM 100 MG CAP PO SCH ×2 (08:43→21:27)
[2018-03-12] MEDS: cloNIDine HCL 0.1 MG TAB PO SCH ×2 (08:43→21:26)
[2018-03-12] MEDS: PANTOPRAZOLE SOD 40 MG TABEC PO SCH (08:43)
[2018-03-12 20:11] VITALS: BP 190/98
[2018-03-12] MEDS: ROSUVASTATIN CALCIUM 10 MG TAB PO SCH (21:27)
[2018-03-13 08:00] VITALS: BP 162/85
[2018-03-13] MEDS: POLYETHYLENE GLYCOL 17 GM PKT PO SCH (08:54)
[2018-03-13] MEDS: DOCUSATE SODIUM 100 MG CAP PO SCH ×2 (08:54→21:00)
[2018-03-13] MEDS: FAMOTIDINE 20 MG TAB PO SCH ×2 (08:54→21:00)
[2018-03-13] MEDS: VERAPAMIL HCL SR 180 MG TABCR PO SCH ×2 (08:54→21:00)
[2018-03-13] MEDS: ENOXAPARIN 30 MG/0.3 ML SYR SC SCH (08:54)
[2018-03-13] MEDS: INSULIN DETEMIR 100 U/ML 3 ML PEN SUBQ SCH ×2 (08:55→21:00)
[2018-03-13] MEDS: PANTOPRAZOLE SOD 40 MG TABEC PO SCH (08:55)
[2018-03-13] MEDS: cloNIDine HCL 0.1 MG TAB PO SCH ×2 (08:55→21:00)
--- NOTE | 2018-03-13 14:35 | PT ECF NOTE ---
Type of Note: Progress Note 03/13/18 Primary Medical Diagnosis: s/p L BKA 02/09/2018; s/p incisional I&D for hematoma evacuation 02/25/18 Physical Therapy Evaluation Date: 02/11/2018 SUBJECTIVE: Prior Hospitalization: Extensive, please see internetstores for details. Prior Level of Function: Independent with functional mobility and ADLs Prior Living Status: Apartment, Alone Community Services: extensive hospital social worker such as BUD, please see social work notes. Home Accessibility: 1 step + 2 steps into apartment building both without railing, 6 stairs with rail into basement apartment. Equipment Owned: Front wheeled walker, Crutches, Extended tub bench (Pt declines to use and has opted not to take it home), Wheelchair Medical Complications/Past Medical History: Diabetes with previous recent L toe amputation, please see internetstores for additional details. Psychosocial Support: Please see hospital social worker notes for details. Pain Scale (0-10): Pt reporting phantom limb pain at time of eval and minimal pain reports since. OBJECTIVE: Strength: Right Lower Extremity: WFL Left Lower Extremity: WFL for remaining musculature ROM: (please note any abnormalities) WFL Sensation: (please note any abnormalities) phantom limb pain L LE Other Neuro findings: none Bed Mobility: Independent Transfers: Independent Assistive Device: Front wheeled walker Gait: Mod I with use of RW x 50' and Mod I with wheelchair mobility x>1000'. Stairs: CGA for ascending 1 step with RW using backward ascend technique. Mod A for ascending 2 steps with RW using backward ascend technique. Pt has opted for "bump" technique to ascend/descend set of 6 stairs which this PT agrees is safest considering Pt is unable to maintain R LE single leg stance for >3 seconds and Pt will be carrying objects up/down the stairs. Pt has been progressing this technique, but is currently unable to perform floor<>stand transfer via sitting<>tall kneeling<>standing technique due to complications with incisional healing and wanting to protect this incision from any pressure/weightbearing that transferring from tall kneeling<>standing would cause. Pt is able to perform a standing>sit on 2nd stair using rail with SBA and floor/3rd step from bottom(1 step from top)>standing pulling on rail with SBA/CGA. Pt able to perform this transfer consecutive 8 times. Will attempt tall kneeling>standing in following week as incision as demonstrated good healing. ASSESSMENT: Pt has progressed with stair negotiation, however, will require additional functional strengthening, stair training, and floor<>standing transfer training in order to promote safest possible discharge. Pt presents with decreased independence with functional mobility s/p L BKA 02/09/18. Pt will benefit from skilled PT for functional mobility training in order to increase independence and safety with functional mobility, specifically ascending/descending stairs. Please see below "barriers for discharge" for additional assessment information. Problem List/Current Limitations: Pain, Decreased WB, Decreased activity tolerance, Decreased strength, Decreased balance, Generalized weakness, Poor safety awareness, Decreased problem solving Short Term Goals: 1. Independent bed mobility. 2. Mod I transfers from a variety of surfaces. 3. Mod I gait x 150' with appropriate assistive device. 4. Ascend/descend set of 2 stairs without rail with appropriate assistive device at SBA level. 5. Ascend/descend set of 6 stairs using safest technique and appropriate assistive device at SBA level. Structural Engineering Drafting Officer Goals: Return to least restrictive environment. Patient Goals: Return home Rehabilitation Prognosis: Fair Barriers for Discharge: Pt currently does not have a pay source for obtaining prosthesis s/p BKA. This poses difficulty with discharge planing as Pt will be required to be Modified Independent with functional mobility using adaptive equipment/assistive devices only to negotiate multiple stairs and perform ADLs and IADLs as Pt does live alone and reports little social support for assisting at home. Will need to work closely with hospital social worker for discharge planning. Please see treatment note from 03/11/18 for details of a conversations regarding an available ADA/wheelchair accessible apartment. PLAN: The patient will benefit from skilled physical therapy services 5 times per week for 2 weeks including: Therapeutic Exercise, Therapeutic Activities, Transfer Training, Gait Training, Stair Training, Manual Therapy, ADL's, Safety Training, Neuromuscular Re-educ., Wound Care, Pt/Caregiver Training, Bed Mobility Thank you for this referral. If you have any questions, concerns, or comments about this report or plan, please contact me at . Lianna Haynes, PT, DPT, GCS MTDD
[2018-03-13 20:15] VITALS: BP 189/92
[2018-03-13] MEDS: ROSUVASTATIN CALCIUM 10 MG TAB PO SCH (21:00)
[2018-03-13] MEDS: INSULIN HUM LISPRO 100 UN/ML 3 ML VIAL SUBQ PRN (21:00)
[2018-03-14 08:44] VITALS: BP 182/92
[2018-03-14] MEDS: FAMOTIDINE 20 MG TAB PO SCH ×2 (09:00→20:59)
[2018-03-14] MEDS: DOCUSATE SODIUM 100 MG CAP PO SCH ×2 (09:00→20:59)
[2018-03-14] MEDS: VERAPAMIL HCL SR 180 MG TABCR PO SCH ×2 (09:00→20:59)
[2018-03-14] MEDS: PANTOPRAZOLE SOD 40 MG TABEC PO SCH (09:00)
[2018-03-14] MEDS: POLYETHYLENE GLYCOL 17 GM PKT PO SCH (09:01)
[2018-03-14] MEDS: INSULIN DETEMIR 100 U/ML 3 ML PEN SUBQ SCH ×2 (09:01→21:00)
[2018-03-14] MEDS: ENOXAPARIN 30 MG/0.3 ML SYR SC SCH (09:01)
[2018-03-14] MEDS: cloNIDine HCL 0.1 MG TAB PO SCH ×2 (09:01→20:59)
[2018-03-14] MEDS: INSULIN HUM LISPRO 100 UN/ML 3 ML VIAL SUBQ PRN ×2 (12:55→21:00)
[2018-03-14] MEDS: oxyCODONE HCL 5 MG CAP PO PRN (17:53)
[2018-03-14 20:35] VITALS: BP 191/98
[2018-03-14] MEDS: ROSUVASTATIN CALCIUM 10 MG TAB PO SCH (20:59)
[2018-03-15 08:03] VITALS: BP 168/90
[2018-03-15] MEDS: FAMOTIDINE 20 MG TAB PO SCH ×2 (09:10→21:04)
[2018-03-15] MEDS: ENOXAPARIN 30 MG/0.3 ML SYR SC SCH (09:10)
[2018-03-15] MEDS: cloNIDine HCL 0.1 MG TAB PO SCH ×2 (09:10→21:04)
[2018-03-15] MEDS: POLYETHYLENE GLYCOL 17 GM PKT PO SCH (09:10)
[2018-03-15] MEDS: PANTOPRAZOLE SOD 40 MG TABEC PO SCH (09:10)
[2018-03-15] MEDS: DOCUSATE SODIUM 100 MG CAP PO SCH ×2 (09:11→21:04)
[2018-03-15] MEDS: INSULIN DETEMIR 100 U/ML 3 ML PEN SUBQ SCH ×2 (09:11→21:05)
[2018-03-15] MEDS: VERAPAMIL HCL SR 180 MG TABCR PO SCH ×2 (09:11→21:04)
[2018-03-15] MEDS: INSULIN HUM LISPRO 100 UN/ML 3 ML VIAL SUBQ PRN ×2 (12:05→17:13)
[2018-03-15 20:00] VITALS: BP 198/98
[2018-03-15] MEDS: ROSUVASTATIN CALCIUM 10 MG TAB PO SCH (21:04)
[2018-03-16 07:41] VITALS: BP 160/80
[2018-03-16] MEDS: POLYETHYLENE GLYCOL 17 GM PKT PO SCH (08:27)
[2018-03-16] MEDS: ENOXAPARIN 30 MG/0.3 ML SYR SC SCH (08:28)
[2018-03-16] MEDS: INSULIN DETEMIR 100 U/ML 3 ML PEN SUBQ SCH ×2 (08:28→21:10)
[2018-03-16] MEDS: FAMOTIDINE 20 MG TAB PO SCH ×2 (08:30→21:10)
[2018-03-16] MEDS: cloNIDine HCL 0.1 MG TAB PO SCH ×2 (08:30→21:10)
[2018-03-16] MEDS: DOCUSATE SODIUM 100 MG CAP PO SCH ×2 (08:30→21:10)
[2018-03-16] MEDS: VERAPAMIL HCL SR 180 MG TABCR PO SCH ×2 (08:30→21:10)
[2018-03-16] MEDS: PANTOPRAZOLE SOD 40 MG TABEC PO SCH (08:30)
[2018-03-16] MEDS: INSULIN HUM LISPRO 100 UN/ML 3 ML VIAL SUBQ PRN (12:13)
--- NOTE | 2018-03-16 13:17 | Medical Nutrition Therapy ---
Nutrition Anthropometrics Height (Inches): 70.00 Height (Calculated Centimeters: 177.873246 Weight (Pounds): 175 Weight (Calculated Kilograms): 79.605 BMI: 25.2 Vickey Nutrition Score: Vickey Nutrition Risk Score: Dietary Referral Nutrition Risk Factors: Non-Healing Wound Nutrition Risk Comment: Physical Findings Physical Appearance: Overweight BMI 25-29 Skin Appearance Skin Appearance: Edema Edema Location Modifier: Right Edema Location: Lower Extremity Type of Edema: Degree of Edema: 2+ Gastrointestinal Symptoms GI Symtoms: Nausea, Vomiting Tube Present: Bowel Sounds: Recent Bowel Pattern: Stool Characteristics: Nutritional Diagnosis Nutritional Risk Acuity 2: Chronic Renal Failure Nutritional Risk Acuity 4: Good Appetite, Modified Diet Past Medical History: T2DM, CKD stage III, GERD, HTN, depression, appendectomy, [id number] transgender person Nutritional Acuity: 2-Moderate Nutrition Diagnosis: Increased Nutrient Needs Nutrition Etiology: Physiological Causes Nutrition Problem/Etiology/Sym: Increased nutritent needs as related to physiological causes as evidenced by recent lower extremity amputation. Energy Requirement: 2260 ([place] nessa jeor AF-1.3 SF- 1.1) Protein Requirement: 75 (1g/kg) Fluid Requirement: 2260 (1ml/kg) Diet Type: Diabetic Nutrition Intervention: Cont diet as ordered, Encourage intake Diet Comment To RSA: Recommend soft foods due to broken and missing teeth. Nutrition Monitoring & Eval RD Patient Assessment Time: [address] Assessment Type: RD Re-Assessment Patient Nutrition Acuity: 2-Moderate Follow Up Date: Mar 24, 2018 Nutritional Comment: 02/12. Pt is an in house transfer, being treated for diabetic foot infection and osteomyelitis. Pt is also reporting nausea. Pt is on diabetic diet, consuming 75-100% of small to regular sized meals. Whole BG is currently elevated 128. Pt is receiving insulin, 2-10 units Lispro SS SUBQ and 20 units Flextouch BID. Recommend pt conumes 2260 kcal and 75 g protein each day. Will monitor pt intake and labs. MR 02/16. Pt seems to be healing well post amputation of left lower extremity. Pt cont on diabetic diet, consuming 75-100% of small and regular meals. Pt cont to receive 20 units flextouch BID and Lispro SS 2-10 units SUBQ. Whole BG glucose is elevated, 137, but improved in the last couple of days. Pt has broken and missing teeth, recommend softer foods. Consider increase in nutrient needs post amputation. Will cont to monitor pt intake and labs. MR 9/. Pt cont to have elevated whole BG, 136 and is still receiving 20 units Levimer and 2-10 units Lispro SS insulin. Pt is conuming 100% of regular sized meals each day. Encourage intake of high protein foods for healing, post amputation. Will cont to monitor BG levels. MR 03/02. Pt cont to have elevated BG levels, greater than 170 into the 200 range. Pt is on 20 units Levemir BID and 2-10 units Humalog SUBQ. Pt went back to the OR for reapir after wound dehisence and has attained hematoma post procedure. Pt cont to consume 100% of diabetic meals. Pt generally orders pitchers of lemonade, is given diabetic lemonade. Reported/observed pt has come down to cafeteria to retreive their own pitcher of regular lemonade. We spoke to the pt and although they have the right to do this, we recommend still sugar free lemonade rather than regular because it will elevate BG, and limiting regular to assist with healing. Will cont to monitor BG levels. MR 03/09. Noted by MD on 03/06, wound is healing well post wound dehisence. Pt cont on NOEMY, consuming on average 100% of small and regular sized meals. Whole BG cont to fluctuate above normal limits. High 100s and somtimes high 200s. Pt cont on perscribed insulin doses. Other notable labs include low RBC 3.56, Hgb 10.3, and Hct 29.8, reported on 03/05. Oberved 8lb weight gain since admission. Pt weighed 165lbs on 02/12 and on 03/04 reported weight was 173lbs. Will cont to monitor. MR 03/16. Pt whole BG was WNL at 90 this morning. Yesterday BG readings cont to be elevated in the upper 100s-200s. Pt cont to receive 20 units levemir and 2-10 units humalog. Pt is consuming 100% of meals on diabetic diet, and it was noted pt goes down to cafeteria to purchase additional foods. This may be another factor in terms of the high BG readings. Will cont to monitor. HARPER ESCAMILLA Mar 16, 2018 08:39
[2018-03-16 15:40] VITALS: BP 116/70
[2018-03-16] MEDS: oxyCODONE HCL 5 MG CAP PO PRN (18:37)
[2018-03-16 20:00] VITALS: BP 195/99
[2018-03-16] MEDS: ROSUVASTATIN CALCIUM 10 MG TAB PO SCH (21:10)
[2018-03-17 08:10] VITALS: BP 159/83
[2018-03-17] MEDS: cloNIDine HCL 0.1 MG TAB PO SCH ×2 (08:50→20:16)
[2018-03-17] MEDS: FAMOTIDINE 20 MG TAB PO SCH ×2 (08:50→20:16)
[2018-03-17] MEDS: VERAPAMIL HCL SR 180 MG TABCR PO SCH ×2 (08:50→20:16)
[2018-03-17] MEDS: DOCUSATE SODIUM 100 MG CAP PO SCH ×2 (08:50→20:16)
[2018-03-17] MEDS: POLYETHYLENE GLYCOL 17 GM PKT PO SCH (08:51)
[2018-03-17] MEDS: ENOXAPARIN 30 MG/0.3 ML SYR SC SCH (08:51)
[2018-03-17] MEDS: PANTOPRAZOLE SOD 40 MG TABEC PO SCH (08:51)
[2018-03-17] MEDS: INSULIN DETEMIR 100 U/ML 3 ML PEN SUBQ SCH ×2 (08:52→20:16)
[2018-03-17] MEDS: ROSUVASTATIN CALCIUM 10 MG TAB PO SCH (20:15)
[2018-03-17 21:30] VITALS: BP 180/90
[2018-03-18 08:20] VITALS: BP 181/94
[2018-03-18] MEDS: POLYETHYLENE GLYCOL 17 GM PKT PO SCH (09:12)
[2018-03-18] MEDS: DOCUSATE SODIUM 100 MG CAP PO SCH ×2 (09:12→20:22)
[2018-03-18] MEDS: PANTOPRAZOLE SOD 40 MG TABEC PO SCH (09:12)
[2018-03-18] MEDS: cloNIDine HCL 0.1 MG TAB PO SCH ×2 (09:12→20:22)
[2018-03-18] MEDS: ENOXAPARIN 30 MG/0.3 ML SYR SC SCH (09:13)
[2018-03-18] MEDS: FAMOTIDINE 20 MG TAB PO SCH ×2 (09:13→20:22)
[2018-03-18] MEDS: VERAPAMIL HCL SR 180 MG TABCR PO SCH ×2 (09:13→20:22)
[2018-03-18] MEDS: INSULIN DETEMIR 100 U/ML 3 ML PEN SUBQ SCH ×2 (09:14→20:23)
[2018-03-18 14:04] VITALS: BP 99/57
[2018-03-18 14:28] VITALS: BP 94/62
--- NOTE | 2018-03-18 14:57 | Hospitalist Progress Note ---
Subjective Progress Notes Subjective No new complaints. Physical Exam Vital Signs Date Time Temp Pulse Resp B/P (MAP) Pulse Ox O2 Delivery O2 Flow Rate FiO2 03/18/18 14:28 94/62 (73) 03/18/18 10:36 94 Room Air 03/18/18 08:20 98.8 66 10 Intake and Output 03/18/18 07:00 Intake Total 840 ml Output Total 1550 ml Balance -710 ml Intake Oral 840 ml Output Urine Total 1550 ml # Voids 3 # Bowel Movements 1 General Appearance: Alert, Awake, No Acute Distress Neuro: No Gross deficits Eyes: PERRLA Cardiovascular: Regular Rate and Rhythm Respiratory: Clear to Auscultation GI: Soft and Non-Tender Extremities: Warm, Other (R leg with 1+ pitting edema. L leg surgically absent.) Psych: Appropriate Mood & Affect Assessment and Plan Problems: (1) Wound dehiscence Status: Acute Assessment & Plan: Dr. Salgado took him back to OR and repaired. Wound vac in place now. Wound is healing well now. Recommend giving pain meds with a snack. (2) Osteomyelitis Status: Resolved Assessment & Plan: The patient has had a diabetic foot ulcer over the plantar aspect of the left 2nd MTP joint since mid November. For 10 days prior to admission, the patient had been much more tired and weak. The night before admission, he noted new erythema on top of the foot. MRI showed findings consistent with 2nd and 3rd MTP joint osteomyelitis and a large dorsally located abscess which extended along the dorsum of the forefoot, the midfoot and extends to the hindfoot. Lactate was normal. The patient had a temperature of 100 degrees on admission, BP was stable, heart rate was 86-103. Dr. Salgado performed BKA 02/09. The patient was given Zosyn in the ER, and then switched to Primaxin (renally dosed) and Vancomycin on the medical floor. Dr. Salgado drained the abscess 02/07 in hopes of getting the patient's infection under better control prior to his BKA. He completed a course of antibiotics He was transferred to [facility] ECF unit for further rehab. He had dehiscence of his his wound and was taken back to OR. Now has wound vac in place. Is was placed back on Augmentin and has finished his course. (3) Diabetic foot ulcer Status: Resolved Assessment & Plan: See above. (4) T2DM (type 2 diabetes mellitus) Status: Chronic Assessment & Plan: The patient admits to not checking glucoses. Continue chronic Levemir and will cover with SSI level 2. Encouraged him to take bigger/more responsible role in treating his diabetes. (5) CKD (chronic kidney disease) stage 3, GFR 30-59 ml/min Status: Chronic Assessment & Plan: Baseline creatinine is 2.3-2.6. It has improved with IV fluids. Will repeat a BMP tomorrow. (6) HTN (hypertension) Status: Chronic Assessment & Plan: Will increase verapamil to 180mg daily. On clonidine 0.1mg bid also. Continue to monitor and adjust meds as needed. (7) Hyperlipidemia associated with type 2 diabetes mellitus Status: Chronic Assessment & Plan: Continue chronic rosuvastatin. Will hold ASA. (8) Hyperkalemia Status: Acute Assessment & Plan: More than likely secondary to surgery, (BKA). He was placed on dextrose and insulin, calcium, and Lasix to help decrease potassium. Resolved. Time Spent on Plan of Care: < 30 min Problem Qualifiers (1) Osteomyelitis: Osteomyelitis type: other acute MEAGAN PAK MD Mar 18, 2018 14:57
[2018-03-18 17:00] VITALS: BP 170/90
[2018-03-18] MEDS: ROSUVASTATIN CALCIUM 10 MG TAB PO SCH (20:22)
[2018-03-19 06:05] LABS: PLATELET COUNT, AUTOMATED 248 K/uL (150-450)
[2018-03-19 08:00] VITALS: BP 180/72
[2018-03-19] MEDS: POLYETHYLENE GLYCOL 17 GM PKT PO SCH (09:03)
[2018-03-19] MEDS: PANTOPRAZOLE SOD 40 MG TABEC PO SCH (09:04)
[2018-03-19] MEDS: cloNIDine HCL 0.1 MG TAB PO SCH ×2 (09:04→20:30)
[2018-03-19] MEDS: VERAPAMIL HCL SR 180 MG TABCR PO SCH ×2 (09:04→20:30)
[2018-03-19] MEDS: ASPIRIN 81 MG ENTERIC COATED PO SCH (09:04)
[2018-03-19] MEDS: FAMOTIDINE 20 MG TAB PO SCH ×2 (09:04→20:30)
[2018-03-19] MEDS: DOCUSATE SODIUM 100 MG CAP PO SCH ×2 (09:04→20:30)
[2018-03-19] MEDS: INSULIN DETEMIR 100 U/ML 3 ML PEN SUBQ SCH ×2 (09:05→20:30)
[2018-03-19] MEDS: ENOXAPARIN 30 MG/0.3 ML SYR SC SCH (09:05)
[2018-03-19 14:57] VITALS: BP 140/72
[2018-03-19 16:30] VITALS: BP 175/85
[2018-03-19] MEDS: INSULIN HUM LISPRO 100 UN/ML 3 ML VIAL SUBQ PRN (20:30)
[2018-03-19] MEDS: ROSUVASTATIN CALCIUM 10 MG TAB PO SCH (20:30)
[2018-03-20 07:44] VITALS: BP 196/115
[2018-03-20] MEDS: PANTOPRAZOLE SOD 40 MG TABEC PO SCH (08:20)
[2018-03-20] MEDS: cloNIDine HCL 0.1 MG TAB PO SCH ×2 (08:20→20:39)
[2018-03-20] MEDS: VERAPAMIL HCL SR 180 MG TABCR PO SCH ×2 (08:20→20:39)
[2018-03-20] MEDS: ASPIRIN 81 MG ENTERIC COATED PO SCH (08:20)
[2018-03-20] MEDS: FAMOTIDINE 20 MG TAB PO SCH ×2 (08:20→20:39)
[2018-03-20] MEDS: POLYETHYLENE GLYCOL 17 GM PKT PO SCH (08:20)
[2018-03-20] MEDS: INSULIN DETEMIR 100 U/ML 3 ML PEN SUBQ SCH ×2 (08:21→20:40)
[2018-03-20] MEDS: ENOXAPARIN 30 MG/0.3 ML SYR SC SCH (08:21)
[2018-03-20] MEDS: DOCUSATE SODIUM 100 MG CAP PO SCH ×2 (08:21→20:39)
--- NOTE | 2018-03-20 09:00 | General Surgery Progress Note ---
Subjective Progress Notes Subjective Patient without complaints. Physical Exam Vital Signs Date Time Temp Pulse Resp B/P (MAP) Pulse Ox O2 Delivery O2 Flow Rate FiO2 03/20/18 07:44 98.0 76 12 196/115 (142) 94 Room Air Intake and Output 03/20/18 07:00 Intake Total 840 ml Output Total 2150 ml Balance -1310 ml Intake Oral 840 ml Output Urine Total 2150 ml # Voids 1 General Appearance: Alert, Awake, No Acute Distress, Afebrile Extremities: Other (acute with wound care has taken out of the wound VAC. His l eft BKA stump wound is healing well. It is filling in and completely covered with granulation tissue. The skin edges are about 2 cm apart and it is approximately 7 cm long. No erythema and minimal drainage. It looks much better than when I last saw it.) Result Diagram: 03/19/18 0540 03/19/18 0540 Assessment and Plan Problems: (1) Status post below knee amputation of left lower extremity Status: Chronic Assessment & Plan: 02/16/18: Patient seems to be healing well. No issues currently. Continue physical therapy, occupational therapy, wound care, etc. 02/20/18: The BKA surgical site appears to be healing well. There is no overt signs of infection today. We will continue wound care and mobility exercises/straining. He is continuing to work on getting Medicaid. 02/24/18: The surgical site looks pretty good for the most part except for a small area of dehiscence. No evidence of infection. Sutures removed today. We'll keep a close eye on this. Continue wound care. Continue physical therapy and occupational therapy. 02/25/18: To OR for wound exploration and hematoma evacuation. Will look for active bleeding and control it and will reapproximate muscles over the bone and place a wound vac in the open wound. Pt seems to understand and seems agreeable with this plan. 03/06/18: Patient is doing well. The wound is clean and healing. We'll continue wound VAC as it is making good progress. Anticipate he will be able to go home in the next couple of weeks after the wound is granulated in and wound care requirements are minimal. 03/20/18: Patient is doing well. The wound continues to heal and is getting much smaller. No other issues. We'll continue wound VAC dressing changes area I am hopeful that it'll close enough that he can do minimal dressing changes at home and still have grade expectation of healing in the next week or 2. (2) Hematoma following procedure Status: Resolved (3) BKA stump complication Status: Resolved Condition Stable Time Spent: < 30 min JUAN F PIRES MD Mar 20, 2018 09:00
[2018-03-20 10:42] VITALS: BP 196/102
[2018-03-20 14:11] VITALS: BP 154/98
[2018-03-20] MEDS: INSULIN HUM LISPRO 100 UN/ML 3 ML VIAL SUBQ PRN ×2 (17:00→20:37)
[2018-03-20] MEDS: ROSUVASTATIN CALCIUM 10 MG TAB PO SCH (20:39)
[2018-03-21 07:34] VITALS: BP 149/81
[2018-03-21] MEDS: VERAPAMIL HCL SR 180 MG TABCR PO SCH ×2 (09:17→20:43)
[2018-03-21] MEDS: DOCUSATE SODIUM 100 MG CAP PO SCH ×2 (09:18→20:43)
[2018-03-21] MEDS: ASPIRIN 81 MG ENTERIC COATED PO SCH (09:18)
[2018-03-21] MEDS: cloNIDine HCL 0.1 MG TAB PO SCH ×2 (09:18→20:44)
[2018-03-21] MEDS: FAMOTIDINE 20 MG TAB PO SCH ×2 (09:18→20:43)
[2018-03-21] MEDS: POLYETHYLENE GLYCOL 17 GM PKT PO SCH (09:18)
[2018-03-21] MEDS: INSULIN DETEMIR 100 U/ML 3 ML PEN SUBQ SCH ×2 (09:19→20:42)
[2018-03-21] MEDS: PANTOPRAZOLE SOD 40 MG TABEC PO SCH (09:19)
[2018-03-21] MEDS: ENOXAPARIN 30 MG/0.3 ML SYR SC SCH (09:19)
[2018-03-21 15:10] VITALS: BP 154/82
[2018-03-21] MEDS: oxyCODONE HCL 5 MG CAP PO PRN (16:32)
[2018-03-21] MEDS: ROSUVASTATIN CALCIUM 10 MG TAB PO SCH (20:43)
[2018-03-21] MEDS: INSULIN HUM LISPRO 100 UN/ML 3 ML VIAL SUBQ PRN (20:43)
[2018-03-22 07:27] VITALS: BP 147/86
[2018-03-22] MEDS: cloNIDine HCL 0.1 MG TAB PO SCH ×2 (08:18→21:35)
[2018-03-22] MEDS: DOCUSATE SODIUM 100 MG CAP PO SCH ×2 (08:18→21:35)
[2018-03-22] MEDS: VERAPAMIL HCL SR 180 MG TABCR PO SCH ×2 (08:18→21:34)
[2018-03-22] MEDS: PANTOPRAZOLE SOD 40 MG TABEC PO SCH (08:18)
[2018-03-22] MEDS: ASPIRIN 81 MG ENTERIC COATED PO SCH (08:18)
[2018-03-22] MEDS: FAMOTIDINE 20 MG TAB PO SCH ×2 (08:18→21:34)
[2018-03-22] MEDS: POLYETHYLENE GLYCOL 17 GM PKT PO SCH (08:18)
[2018-03-22] MEDS: ENOXAPARIN 30 MG/0.3 ML SYR SC SCH (08:19)
[2018-03-22] MEDS: INSULIN DETEMIR 100 U/ML 3 ML PEN SUBQ SCH ×2 (08:21→21:35)
[2018-03-22 16:30] VITALS: BP 150/87
[2018-03-22] MEDS: INSULIN HUM LISPRO 100 UN/ML 3 ML VIAL SUBQ PRN ×2 (17:24→21:34)
[2018-03-22 20:30] VITALS: BP 184/88
[2018-03-22] MEDS: ROSUVASTATIN CALCIUM 10 MG TAB PO SCH (21:34)
[2018-03-23 08:10] VITALS: BP 198/90
[2018-03-23] MEDS: VERAPAMIL HCL SR 180 MG TABCR PO SCH ×2 (08:22→20:38)
[2018-03-23] MEDS: DOCUSATE SODIUM 100 MG CAP PO SCH ×2 (08:22→20:38)
[2018-03-23] MEDS: cloNIDine HCL 0.1 MG TAB PO SCH ×2 (08:22→20:38)
[2018-03-23] MEDS: ASPIRIN 81 MG ENTERIC COATED PO SCH (08:22)
[2018-03-23] MEDS: PANTOPRAZOLE SOD 40 MG TABEC PO SCH (08:23)
[2018-03-23] MEDS: ENOXAPARIN 30 MG/0.3 ML SYR SC SCH (08:23)
[2018-03-23] MEDS: POLYETHYLENE GLYCOL 17 GM PKT PO SCH (08:23)
[2018-03-23] MEDS: FAMOTIDINE 20 MG TAB PO SCH ×2 (08:23→20:38)
[2018-03-23] MEDS: INSULIN DETEMIR 100 U/ML 3 ML PEN SUBQ SCH ×2 (08:23→20:38)
[2018-03-23 11:22] VITALS: BP 122/60
--- NOTE | 2018-03-23 16:45 | Medical Nutrition Therapy ---
Nutrition Anthropometrics Height (Inches): 70.00 Height (Calculated Centimeters: 177.779701 Weight (Pounds): 175 Weight (Calculated Kilograms): 79.379 BMI: 26.8 (adjusted for BKA) Vickey Nutrition Score: Vickey Nutrition Risk Score: Dietary Referral Nutrition Risk Factors: Non-Healing Wound Nutrition Risk Comment: Physical Findings Physical Appearance: Overweight BMI 25-29 Skin Appearance Skin Appearance: Edema Edema Location Modifier: Right Edema Location: Foot Type of Edema: Degree of Edema: 3+ Gastrointestinal Symptoms GI Symtoms: Nausea, Vomiting Tube Present: Bowel Sounds: Recent Bowel Pattern: Stool Characteristics: Nutritional Diagnosis Nutritional Risk Acuity 2: Chronic Renal Failure Nutritional Risk Acuity 4: Good Appetite, Modified Diet Past Medical History: T2DM, CKD stage III, GERD, HTN, depression, appendectomy, [id number] transgender person Nutritional Acuity: 2-Moderate Nutrition Diagnosis: Increased Nutrient Needs Nutrition Etiology: Physiological Causes Nutrition Problem/Etiology/Sym: Increased nutritent needs as related to physiological causes as evidenced by recent lower extremity amputation. Energy Requirement: 2260 ([place] nessa jeor AF-1.3 SF- 1.1) Protein Requirement: 75 (1g/kg) Fluid Requirement: 2260 (1ml/kg) Diet Type: Diabetic, Low Potassium (Low K) Nutrition Intervention: Cont diet as ordered, Encourage intake, HS snack Diet Comment To RSA: Recommend soft foods due to broken and missing teeth. Nutritional Education Nutrition Education Topic: Diabetic Nutrition Learning Readiness: Not Ready Teaching Methods: Discussion Response to Teaching: Patient Refused Teaching Recipient: Patient Nutrition Monitoring & Eval Nutrition Goals: Eat 75-100% Meal Nutrition Follow-Up: Good Intake RD Patient Assessment Time: [address] Assessment Type: RD Re-Assessment Patient Nutrition Acuity: 2-Moderate Follow Up Date: Mar 31, 2018 Nutritional Comment: 02/12. Pt is an in house transfer, being treated for diabetic foot infection and osteomyelitis. Pt is also reporting nausea. Pt is on diabetic diet, consuming 75-100% of small to regular sized meals. Whole BG is currently elevated 128. Pt is receiving insulin, 2-10 units Lispro SS SUBQ and 20 units Flextouch BID. Recommend pt conumes 2260 kcal and 75 g protein each day. Will monitor pt intake and labs. MR 02/16. Pt seems to be healing well post amputation of left lower extremity. Pt cont on diabetic diet, consuming 75-100% of small and regular meals. Pt cont to receive 20 units flextouch BID and Lispro SS 2-10 units SUBQ. Whole BG glucose is elevated, 137, but improved in the last couple of days. Pt has broken and missing teeth, recommend softer foods. Consider increase in nutrient needs post amputation. Will cont to monitor pt intake and labs. MR 02/24. Pt cont to have elevated whole BG, 136 and is still receiving 20 units Levimer and 2-10 units Lispro SS insulin. Pt is conuming 100% of regular sized meals each day. Encourage intake of high protein foods for healing, post amputation. Will cont to monitor BG levels. MR 03/02. Pt cont to have elevated BG levels, greater than 170 into the 200 range. Pt is on 20 units Levemir BID and 2-10 units Humalog SUBQ. Pt went back to the OR for reapir after wound dehisence and has attained hematoma post procedure. Pt cont to consume 100% of diabetic meals. Pt generally orders pitchers of lemonade, is given diabetic lemonade. Reported/observed pt has come down to cafeteria to retreive their own pitcher of regular lemonade. We spoke to the pt and although they have the right to do this, we recommend still sugar free lemonade rather than regular because it will elevate BG, and limiting regular to assist with healing. Will cont to monitor BG levels. MR 03/09. Noted by MD on 03/06, wound is healing well post wound dehisence. Pt cont on NOEMY, consuming on average 100% of small and regular sized meals. Whole BG cont to fluctuate above normal limits. High 100s and somtimes high 200s. Pt cont on perscribed insulin doses. Other notable labs include low RBC 3.56, Hgb 10.3, and Hct 29.8, reported on 03/05. Oberved 8lb weight gain since admission. Pt weighed 165lbs on 02/12 and on 03/04 reported weight was 173lbs. Will cont to monitor. MR 03/16. Pt whole BG was WNL at 90 this morning. Yesterday BG readings cont to be elevated in the upper 100s-200s. Pt cont to receive 20 units levemir and 2-10 units humalog. Pt is consuming 100% of meals on diabetic diet, and it was noted pt goes down to cafeteria to purchase additional foods. This may be another factor in terms of the high BG readings. Will cont to monitor. MR 10/2 Pt cont diabetic diet. Intake average 88#. Pt has been observed getting beverages from cafeteria. BG range 81- 268 past week however only 1X was above 200. Pt cont prednisone which can elevated BG. BUN cont elevated at 63, creatinine cont elevated at 2.3. K+ is elevated at 5.1 and low K+ diet was added. Alb 3.2. Will cont to monitor and encourage intake in compliance to dietary recommendations. RJ GARCIA Mar 23, 2018 16:45
[2018-03-23] MEDS: INSULIN HUM LISPRO 100 UN/ML 3 ML VIAL SUBQ PRN (20:38)
[2018-03-23] MEDS: ROSUVASTATIN CALCIUM 10 MG TAB PO SCH (20:38)
[2018-03-23 21:25] VITALS: BP 188/86
[2018-03-24 08:15] VITALS: BP 180/66
[2018-03-24] MEDS: DOCUSATE SODIUM 100 MG CAP PO SCH ×2 (09:00→20:44)
[2018-03-24] MEDS: POLYETHYLENE GLYCOL 17 GM PKT PO SCH (09:00)
[2018-03-24] MEDS: PANTOPRAZOLE SOD 40 MG TABEC PO SCH (09:25)
[2018-03-24] MEDS: ENOXAPARIN 30 MG/0.3 ML SYR SC SCH (09:25)
[2018-03-24] MEDS: FAMOTIDINE 20 MG TAB PO SCH ×2 (09:25→20:36)
[2018-03-24] MEDS: ASPIRIN 81 MG ENTERIC COATED PO SCH (09:25)
[2018-03-24] MEDS: VERAPAMIL HCL SR 180 MG TABCR PO SCH ×2 (09:25→20:36)
[2018-03-24] MEDS: INSULIN DETEMIR 100 U/ML 3 ML PEN SUBQ SCH ×2 (09:26→20:36)
[2018-03-24 09:32] VITALS: BP 192/100
[2018-03-24] MEDS: cloNIDine HCL 0.1 MG TAB PO SCH ×2 (10:25→20:36)
[2018-03-24] MEDS: INSULIN HUM LISPRO 100 UN/ML 3 ML VIAL SUBQ PRN ×2 (17:08→20:42)
[2018-03-24 20:10] VITALS: BP 182/90
[2018-03-24] MEDS: ROSUVASTATIN CALCIUM 10 MG TAB PO SCH (20:36)
[2018-03-25 08:15] VITALS: BP 178/101
[2018-03-25] MEDS: DOCUSATE SODIUM 100 MG CAP PO SCH ×2 (09:00→21:31)
[2018-03-25] MEDS: POLYETHYLENE GLYCOL 17 GM PKT PO SCH (09:00)
[2018-03-25] MEDS: cloNIDine HCL 0.1 MG TAB PO SCH (09:13)
[2018-03-25] MEDS: VERAPAMIL HCL SR 180 MG TABCR PO SCH ×2 (09:13→21:31)
[2018-03-25] MEDS: ENOXAPARIN 30 MG/0.3 ML SYR SC SCH (09:13)
[2018-03-25] MEDS: PANTOPRAZOLE SOD 40 MG TABEC PO SCH (09:13)
[2018-03-25] MEDS: ASPIRIN 81 MG ENTERIC COATED PO SCH (09:13)
[2018-03-25] MEDS: FAMOTIDINE 20 MG TAB PO SCH ×2 (09:13→21:31)
[2018-03-25] MEDS: INSULIN DETEMIR 100 U/ML 3 ML PEN SUBQ SCH ×2 (09:19→21:31)
[2018-03-25] MEDS: INSULIN HUM LISPRO 100 UN/ML 3 ML VIAL SUBQ PRN ×2 (12:39→21:30)
[2018-03-25 13:49] VITALS: BP 146/76
--- NOTE | 2018-03-25 16:18 | Hospitalist Progress Note ---
Subjective Progress Notes Subjective Stopped constipation protocol. Bowels okay. Clonidine makes her dizzy. Refusing at times. Physical Exam Vital Signs Date Time Temp Pulse Resp B/P (MAP) Pulse Ox O2 Delivery O2 Flow Rate FiO2 03/25/18 13:49 146/76 (99) 03/25/18 09:26 94 Room Air 03/25/18 08:15 98.0 76 10 Intake and Output 03/25/18 06:59 Intake Total 840 ml Output Total 3000 ml Balance -2160 ml Intake Oral 840 ml Output Urine Total 3000 ml # Voids 4 # Bowel Movements 0 General Appearance: Alert, Awake, No Acute Distress Neuro: No Gross deficits ENT: Other (Poor dentition.) Cardiovascular: Other (Trace edema R leg.) Extremities: Warm, Other (L leg s/p BKA) Psych: Appropriate Mood & Affect Assessment and Plan Problems: (1) Wound dehiscence Status: Acute Assessment & Plan: Dr. Salgado took him back to OR and repaired. Wound vac in place now. Wound is healing well now. Recommend giving pain meds with a snack. Wound vac in place. (2) Osteomyelitis Status: Resolved Assessment & Plan: The patient has had a diabetic foot ulcer over the plantar aspect of the left 2nd MTP joint since mid November. For 10 days prior to admission, the patient had been much more tired and weak. The night before admission, he noted new erythema on top of the foot. MRI showed findings consistent with 2nd and 3rd MTP joint osteomyelitis and a large dorsally located abscess which extended along the dorsum of the forefoot, the midfoot and extends to the hindfoot. Lactate was normal. The patient had a temperature of 100 degrees on admission, BP was stable, heart rate was 86-103. Dr. Salgado performed BKA 02/09. The patient was given Zosyn in the ER, and then switched to Primaxin (renally dosed) and Vancomycin on the medical floor. Dr. Salgado drained the abscess 02/07 in hopes of getting the patient's infection under better control prior to his BKA. He completed a course of antibiotics He was transferred to [facility] unit for further rehab. He had dehiscence of his his wound and was taken back to OR. Now has wound vac in place. Is was placed back on Augmentin and has finished his course. (3) Diabetic foot ulcer Status: Resolved Assessment & Plan: See above. (4) T2DM (type 2 diabetes mellitus) Status: Chronic Assessment & Plan: The patient admits to not checking glucoses. Continue chronic Levemir and will cover with SSI level 2. Encouraged him to take bigger /more responsible role in treating his diabetes. (5) CKD (chronic kidney disease) stage 3, GFR 30-59 ml/min Status: Chronic Assessment & Plan: Baseline creatinine is 2.3-2.6. It has improved with IV fluids. Will repeat a BMP tomorrow. (6) HTN (hypertension) Status: Chronic Assessment & Plan: Verapamil increased to 180mg daily. On clonidine 0.1mg bid also but this is causing dizziness. Will stop clonidine and add metoprolol which does not need to be renally dosed. Recheck labs in am. (7) Hyperlipidemia associated with type 2 diabetes mellitus Status: Chronic Assessment & Plan: Continue chronic rosuvastatin. Will hold ASA. (8) Hyperkalemia Status: Acute Assessment & Plan: More than likely secondary to surgery, (BKA). He was placed on dextrose and insulin, calcium, and Lasix to help decrease potassium. Resolved. Time Spent on Plan of Care: < 30 min Problem Qualifiers (1) Osteomyelitis: Osteomyelitis type: other acute MEAGAN PAK MD Mar 25, 2018 16:18
[2018-03-25 16:30] VITALS: BP 176/86
[2018-03-25] MEDS: METOPROLOL TART 50 MG TAB PO SCH (21:31)
[2018-03-25] MEDS: ROSUVASTATIN CALCIUM 10 MG TAB PO SCH (21:31)
[2018-03-26 06:17] LABS: PLATELET COUNT, AUTOMATED 186 K/uL (150-450)
[2018-03-26 08:09] VITALS: BP 180/90
[2018-03-26] MEDS: ENOXAPARIN 30 MG/0.3 ML SYR SC SCH (08:50)
[2018-03-26] MEDS: INSULIN DETEMIR 100 U/ML 3 ML PEN SUBQ SCH ×2 (08:51→20:23)
[2018-03-26] MEDS: METOPROLOL TART 50 MG TAB PO SCH ×2 (08:52→20:23)
[2018-03-26] MEDS: VERAPAMIL HCL SR 180 MG TABCR PO SCH ×2 (08:52→20:23)
[2018-03-26] MEDS: PANTOPRAZOLE SOD 40 MG TABEC PO SCH (08:52)
[2018-03-26] MEDS: ASPIRIN 81 MG ENTERIC COATED PO SCH (08:52)
[2018-03-26] MEDS: FAMOTIDINE 20 MG TAB PO SCH ×2 (08:52→20:23)
[2018-03-26] MEDS: POLYETHYLENE GLYCOL 17 GM PKT PO SCH (08:54)
[2018-03-26] MEDS: DOCUSATE SODIUM 100 MG CAP PO SCH ×2 (08:54→21:00)
[2018-03-26] MEDS: ROSUVASTATIN CALCIUM 10 MG TAB PO SCH (20:23)
[2018-03-26 22:00] VITALS: BP 160/90
[2018-03-27 08:00] VITALS: BP 170/80
[2018-03-27] MEDS: POLYETHYLENE GLYCOL 17 GM PKT PO SCH (09:00)
[2018-03-27] MEDS: DOCUSATE SODIUM 100 MG CAP PO SCH ×2 (09:00→21:00)
--- NOTE | 2018-03-27 09:24 | General Surgery Progress Note ---
Subjective Progress Notes Subjective Patient without complaints today. Physical Exam Vital Signs Date Time Temp Pulse Resp B/P (MAP) Pulse Ox O2 Delivery O2 Flow Rate FiO2 03/27/18 03:46 Room Air 03/26/18 22:00 99.0 73 20 160/90 (113) 96 Intake and Output 03/27/18 07:00 Intake Total 960 ml Output Total 1100 ml Balance -140 ml Intake Oral 960 ml Output Urine Total 1100 ml # Voids 1 # Bowel Movements 1 General Appearance: Alert, Awake, No Acute Distress, Afebrile Extremities: Other (left BKA stump and wound evaluated. It looks good, no evidence of infection. The open portion continues to get smaller and smaller and is granulating in. There are no exposed bones or tendons.) Result Diagram: 03/26/18 0603/26/18 06 Assessment and Plan Problems: (1) Status post below knee amputation of left lower extremity Status: Chronic Assessment & Plan: 02/16/18: Patient seems to be healing well. No issues cur[place]. Continue physical therapy, occupational therapy, wound care, etc. 02/20/18: The BKA surgical site appears to be healing well. There is no overt signs of infection today. We will continue wound care and mobility exercises/straining. He is continuing to work on getting Medicaid. 02/24/18: The surgical site looks pretty good for the most part except for a small area of dehiscence. No evidence of infection. Sutures removed today. We'll keep a close eye on this. Continue wound care. Continue physical therapy and occupational therapy. 02/25/18: To OR for wound exploration and hematoma evacuation. Will look for active bleeding and control it and will reapproximate muscles over the bone and place a wound vac in the open wound. Pt seems to understand and seems agreeable with this plan. 03/06/18: Patient is doing well. The wound is clean and healing. We'll continue wound VAC as it is making good progress. Anticipate he will be able to go home in the next couple of weeks after the wound is granulated in and wound care requirements are minimal. 03/20/18: Patient is doing well. The wound continues to heal and is getting much smaller. No other issues. We'll continue wound VAC dressing changes area I am hopeful that it'll close enough that he can do minimal dressing changes at home and still have grade expectation of healing in the next week or 2. 03/27/18: Patient continues to do well. Wound continues to granulate enemas continuing to get much smaller. We'll continue wound VAC dressing changes and we'll reevaluate next week. He is almost to the point where negative pressure wo und therapy will no longer be required and then he can just perform local wound care and can go home to do this area and it is possible that he could go home next week. (2) Hematoma following procedure Status: Resolved (3) BKA stump complication Status: Resolved Condition Stable Time Spent: < 30 min JUAN F PIRES MD Mar 27, 2018 09:24
[2018-03-27] MEDS: ASPIRIN 81 MG ENTERIC COATED PO SCH (09:41)
[2018-03-27] MEDS: FAMOTIDINE 20 MG TAB PO SCH ×2 (09:42→20:10)
[2018-03-27] MEDS: PANTOPRAZOLE SOD 40 MG TABEC PO SCH (09:42)
[2018-03-27] MEDS: METOPROLOL TART 50 MG TAB PO SCH ×2 (09:42→21:15)
[2018-03-27] MEDS: VERAPAMIL HCL SR 180 MG TABCR PO SCH ×2 (09:42→21:15)
[2018-03-27] MEDS: ENOXAPARIN 30 MG/0.3 ML SYR SC SCH (09:43)
[2018-03-27] MEDS: INSULIN DETEMIR 100 U/ML 3 ML PEN SUBQ SCH ×2 (09:43→21:16)
[2018-03-27 16:18] VITALS: BP 199/103
--- NOTE | 2018-03-27 16:18 | PT ECF NOTE ---
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 for details. Prior Level of Function: Independent with functional mobility and ADLs Prior Living Status: Apartment, Alone Community Services: extensive social insurance analyst such as [employer]UD, please see social work notes. Home Accessibility: 1 step + 2 steps into apartment building both without railing, 6 stairs with rail into basement apartment. Equipment Owned: Front wheeled walker, Crutches, Extended tub bench (Pt declines to use and has opted not to take it home), Wheelchair Medical Complications/Past Medical History: Diabetes with previous recent L toe amputation, please see [facility] for additional details. Psychosocial Support: Please see social insurance analyst notes for details. Pain Scale (0-10): Pt reporting phantom limb pain at time of eval and minimal pain reports since. OBJECTIVE: Strength: Right Lower Extremity: WFL Left Lower Extremity: WFL for remaining musculature ROM: (please note any abnormalities) WFL Sensation: (please note any abnormalities) phantom limb pain L LE Other Neuro findings: none Bed Mobility: Independent Transfers: Independent Assistive Device: Front wheeled walker Gait: Mod I with use of RW x >150' and Mod I with wheelchair mobility x>1000'. Stairs: Pt has opted for "bump" technique to ascend/descend set of 6 stairs which this PT agrees is safest considering Pt is unable to maintain R LE single leg stance for sufficient time and Pt will be carrying objects up/down the stairs. Pt demonstrates Mod I for bumping technique including standing>sit on 2nd or 3rd stair. In Pt's apartment building, she can bump past the landing up additional stairs and stand from a sitting position. Pt to have wound VAC change tomorrow and will address floor<>standing transfer if Dr. Salgado is agreeable. ASSESSMENT: Pt has progressed with stair negotiation, however, will require additional functional strengthening, stair training, and floor<>standing transfer training in order to promote safest possible discharge. Pt presents with decreased independence with functional mobility s/p L BKA 02/09/18. Pt will benefit from skilled PT for functional mobility training in order to increase independence and safety with functional mobility, specifically ascending/descending stairs. Please see below "barriers for discharge" for additional assessment information. Problem List/Current Limitations: Pain, Decreased WB, Decreased activity tolerance, Decreased strength, Decreased balance, Generalized weakness, Poor safety awareness, Decreased problem solving Short Term Goals: Goals Met 1. Independent bed mobility. 2. Mod I transfers from a variety of surfaces. 3. Mod I gait x 150' with appropriate assistive device. 4. Ascend/descend set of 2 stairs without rail with appropriate assistive device at SBA level. - Modified - see below 5. Ascend/descend set of 6 stairs using safest technique and appropriate assistive device at SBA level. UPDATED GOAL (03/26/18): 1. Pt has opted to ascend the 1 and 2 stairs leading to her apartment building via a ground<>stand transfer and "bump" up those stairs as well. Mod I floor<>stand transfer with use of RW. Railroad Car Checker Goals: Return to least restrictive environment. Patient Goals: Return home Rehabilitation Prognosis: Fair Barriers for Discharge: Pt currently does not have a pay source for obtaining prosthesis s/p BKA. This poses difficulty with discharge planing as Pt will be required to be Modified Independent with functional mobility using adaptive equipment/assistive devices only to negotiate multiple stairs and perform ADLs and IADLs as Pt does live alone and reports little social support for assisting at home. Will need to work closely with social insurance analyst for discharge planning. PLAN: The patient will benefit from skilled physical therapy services 5 times per week for 2 weeks including: Therapeutic Exercise, Therapeutic Activities, Transfer Training, Gait Training, Stair Training, Manual Therapy, ADL's, Safety Training, Neuromuscular Re-educ., Wound Care, Pt/Caregiver Training, Bed Mobility Thank you for this referral. If you have any questions, concerns, or comments about this report or plan, please contact me at . Lianna Haynes, PT, DPT, GCS MTDD
[2018-03-27] MEDS: ONDANSETRON 4 MG ODT TABDP SL PRN (20:05)
[2018-03-27] MEDS: INSULIN HUM LISPRO 100 UN/ML 3 ML VIAL SUBQ PRN (20:59)
[2018-03-27] MEDS: ROSUVASTATIN CALCIUM 10 MG TAB PO SCH (21:15)
[2018-03-27] MEDS: PROMETHAZINE HCL 25 MG TAB PO PRN (22:12)
[2018-03-28] MEDS: ENOXAPARIN 30 MG/0.3 ML SYR SC SCH (08:57)
[2018-03-28] MEDS: METOPROLOL TART 50 MG TAB PO SCH ×2 (08:58→22:15)
[2018-03-28] MEDS: PANTOPRAZOLE SOD 40 MG TABEC PO SCH (08:58)
[2018-03-28] MEDS: FAMOTIDINE 20 MG TAB PO SCH ×2 (08:58→22:15)
[2018-03-28] MEDS: VERAPAMIL HCL SR 180 MG TABCR PO SCH ×2 (08:58→22:15)
[2018-03-28] MEDS: ASPIRIN 81 MG ENTERIC COATED PO SCH (08:58)
[2018-03-28] MEDS: DOCUSATE SODIUM 100 MG CAP PO SCH ×2 (08:58→10:15)
[2018-03-28] MEDS: INSULIN DETEMIR 100 U/ML 3 ML PEN SUBQ SCH ×2 (09:00→22:16)
[2018-03-28] MEDS: POLYETHYLENE GLYCOL 17 GM PKT PO SCH (09:00)
[2018-03-28 09:42] VITALS: BP 178/98
[2018-03-28] MEDS: PROMETHAZINE HCL 25 MG TAB PO PRN ×2 (12:00→18:08)
[2018-03-28 17:50] VITALS: BP 220/106
[2018-03-28 18:00] VITALS: BP 210/104
[2018-03-28 18:53] LABS: PLATELET COUNT, AUTOMATED 271 K/uL (150-450)
--- NOTE | 2018-03-28 20:15 | Miscellaneous Provider Note ---
Miscellaneous Provider Note Note Patient has had nausea with emesis for past 24-36hrs. He also reports some epigastric discomfort. No diarrhea. Last BM was yesterday and reported as normal. No fever. WBC count normal. Vitals are notable for significant elevation of his BP today. Exam is unremarkable - abdomen is soft/NT/BS present/healed RLQ appendectomy scar. Will place IV and give gentle IV fluids as well as IV antiemetics as needed. Hopefully this will allow him to take his BP meds. BOBBY PAK MD Mar 28, 2018 20:15
[2018-03-28] MEDS: ONDANSETRON 4 MG ODT TABDP SL PRN (21:39)
[2018-03-28] MEDS: NS(*) 0.9% 1000 ML BAG 1,000 ML IV PRN (22:15)
[2018-03-28] MEDS: ROSUVASTATIN CALCIUM 10 MG TAB PO SCH (22:15)
[2018-03-28] MEDS: INSULIN HUM LISPRO 100 UN/ML 3 ML VIAL SUBQ PRN (22:16)
[2018-03-29] MEDS: PROMETHAZINE 25 MG/ML 1 ML AMP IVP PRN ×2 (06:39→17:26)
[2018-03-29 06:44] LABS: PLATELET COUNT, AUTOMATED 249 K/uL (150-450)
[2018-03-29] MEDS: NS(*) 0.9% 1000 ML BAG 1,000 ML IV PRN ×2 (07:40→17:20)
[2018-03-29 08:12] VITALS: BP 218/110
[2018-03-29] MEDS: DOCUSATE SODIUM 100 MG CAP PO SCH ×2 (09:00→21:00)
[2018-03-29] MEDS: POLYETHYLENE GLYCOL 17 GM PKT PO SCH (09:00)
[2018-03-29] MEDS: ASPIRIN 81 MG ENTERIC COATED PO SCH (09:09)
[2018-03-29] MEDS: FAMOTIDINE 20 MG TAB PO SCH ×2 (09:10→21:08)
[2018-03-29] MEDS: METOPROLOL TART 50 MG TAB PO SCH (09:10)
[2018-03-29] MEDS: VERAPAMIL HCL SR 180 MG TABCR PO SCH (09:10)
[2018-03-29] MEDS: PANTOPRAZOLE SOD 40 MG TABEC PO SCH (09:10)
[2018-03-29] MEDS: ENOXAPARIN 30 MG/0.3 ML SYR SC SCH (09:10)
[2018-03-29] MEDS: INSULIN DETEMIR 100 U/ML 3 ML PEN SUBQ SCH ×2 (09:12→21:09)
[2018-03-29] MEDS: INSULIN HUM LISPRO 100 UN/ML 3 ML VIAL SUBQ PRN (11:51)
[2018-03-29 17:00] VITALS: BP 240/100
[2018-03-29] MEDS ORDERED: METOCLOPRAMIDE 10 MG/2 ML SDV IVP PRN (18:00)
[2018-03-29] MEDS ORDERED: amLODIPine BESYL(*) 5 MG TAB PO ONE (18:00)
[2018-03-29] MEDS ORDERED: hydrALAZINE HCL 20 MG/ML VIAL IVP PRN ×2 (18:00→18:05)
[2018-03-29 21:00] VITALS: BP 240/100
[2018-03-29] MEDS: ROSUVASTATIN CALCIUM 10 MG TAB PO SCH (21:08)
[2018-03-29] MEDS: ONDANSETRON 4 MG ODT TABDP SL PRN (22:09)
[2018-03-30] MEDS ORDERED: hydrALAZINE HCL 25 MG TAB PO SCH
[2018-03-30 00:49] VITALS: BP 232/82
[2018-03-30] MEDS: MECLIZINE HCL 12.5 MG TAB PO PRN ×2 (01:27→19:46)
[2018-03-30 08:03] VITALS: BP 206/94
[2018-03-30] MEDS: POLYETHYLENE GLYCOL 17 GM PKT PO SCH (09:00)
[2018-03-30] MEDS: DOCUSATE SODIUM 100 MG CAP PO SCH ×3 (09:00→21:12)
[2018-03-30] MEDS: INSULIN DETEMIR 100 U/ML 3 ML PEN SUBQ SCH ×2 (09:00→21:13)
[2018-03-30] MEDS ORDERED: cloNIDine HCL 0.1 MG TDSY TD SCH (09:00)
[2018-03-30] MEDS: ENOXAPARIN 30 MG/0.3 ML SYR SC SCH (09:10)
[2018-03-30] MEDS: PANTOPRAZOLE SOD 40 MG TABEC PO SCH (09:10)
[2018-03-30] MEDS: amLODIPine BESYL(*) 5 MG TAB PO SCH (09:11)
[2018-03-30] MEDS: HYDROCHLOROTHIAZIDE 25 MG TAB PO SCH (09:11)
[2018-03-30] MEDS: hydrALAZINE HCL 25 MG TAB PO PRN ×2 (09:11→21:12)
[2018-03-30] MEDS: FAMOTIDINE 20 MG TAB PO SCH ×2 (09:12→21:12)
[2018-03-30] MEDS: ASPIRIN 81 MG ENTERIC COATED PO SCH (09:12)
[2018-03-30] MEDS: ONDANSETRON 4 MG ODT TABDP SL PRN (10:52)
[2018-03-30 13:28] VITALS: BP 178/84
[2018-03-30 15:00] VITALS: BP 192/92
[2018-03-30 21:01] VITALS: BP 212/90
[2018-03-30] MEDS: ROSUVASTATIN CALCIUM 10 MG TAB PO SCH (21:12)
[2018-03-31] MEDS: ONDANSETRON 4 MG ODT TABDP SL PRN (01:58)
[2018-03-31 07:45] VITALS: BP 202/95
[2018-03-31] MEDS: PANTOPRAZOLE SOD 40 MG TABEC PO SCH (08:46)
[2018-03-31] MEDS: FAMOTIDINE 20 MG TAB PO SCH ×2 (08:46→20:24)
[2018-03-31] MEDS: ASPIRIN 81 MG ENTERIC COATED PO SCH (08:46)
[2018-03-31] MEDS: HYDROCHLOROTHIAZIDE 25 MG TAB PO SCH (08:46)
[2018-03-31] MEDS: DOCUSATE SODIUM 100 MG CAP PO SCH ×2 (08:47→20:24)
[2018-03-31] MEDS: ENOXAPARIN 30 MG/0.3 ML SYR SC SCH (08:47)
[2018-03-31] MEDS: POLYETHYLENE GLYCOL 17 GM PKT PO SCH (08:47)
[2018-03-31] MEDS: amLODIPine BESYL(*) 5 MG TAB PO SCH (08:47)
[2018-03-31] MEDS: INSULIN DETEMIR 100 U/ML 3 ML PEN SUBQ SCH ×2 (08:48→20:26)
--- NOTE | 2018-03-31 08:50 | Medical Nutrition Therapy ---
Nutrition Anthropometrics Height (Inches): 70.00 Height (Calculated Centimeters: 177.939451 Weight (Pounds): 170 Weight (Calculated Kilograms): 77.167 BMI: 26 (adjusted for BKA) Vickey Nutrition Score: Vickey Nutrition Risk Score: Dietary Referral Nutrition Risk Factors: Non-Healing Wound Nutrition Risk Comment: Nutritional Diagnosis Nutritional Risk Acuity 2: Chronic Renal Failure Nutritional Risk Acuity 4: Good Appetite, Modified Diet Past Medical History: T2DM, CKD stage III, GERD, HTN, depression, appendectomy, [id number] transgender person Nutritional Acuity: 2-Moderate Nutrition Diagnosis: Increased Nutrient Needs Nutrition Etiology: Physiological Causes Nutrition Problem/Etiology/Sym: Increased nutritent needs as related to physiological causes as evidenced by recent lower extremity amputation. Energy Requirement: 2260 (Jerauld nessa jeor AF-1.3 SF- 1.1) Protein Requirement: 75 (1g/kg) Fluid Requirement: 2260 (1ml/kg) Diet Type: Clear Liquids Nutrition Intervention: Encourage intake, HS snack, Incr diet as tolerated Additional Diet Restrictions: OFFER ENSURE CLEAR WHILE ON CLEAR LIQ DIET Diet Comment To RSA: Recommend soft foods due to broken and missing teeth. Nutrition Monitoring & Eval Nutrition Goals: Eat 75-100% Meal Nutrition Follow-Up: Poor Intake RD Patient Assessment Time: [address] Assessment Type: RD Re-Assessment Patient Nutrition Acuity: 2-Moderate Follow Up Date: Apr 07, 2018 Nutritional Comment: 02/12. Pt is an in house transfer, being treated for diabetic foot infection and osteomyelitis. Pt is also reporting nausea. Pt is on diabetic diet, consuming 75-100% of small to regular sized meals. Whole BG is currently elevated 128. Pt is receiving insulin, 2-10 units Lispro SS SUBQ and 20 units Flextouch BID. Recommend pt conumes 2260 kcal and 75 g protein each day. Will monitor pt intake and labs. MR 02/16. Pt seems to be healing well post amputation of left lower extremity. Pt cont on diabetic diet, consuming 75-100% of small and regular meals. Pt cont to receive 20 units flextouch BID and Lispro SS 2-10 units SUBQ. Whole BG glucose is elevated, 137, but improved in the last couple of days. Pt has broken and missing teeth, recommend softer foods. Consider increase in nutrient needs post amputation. Will cont to monitor pt intake and labs. MR 02/24. Pt cont to have elevated whole BG, 136 and is still receiving 20 units Levimer and 2-10 units Lispro SS insulin. Pt is conuming 100% of regular sized meals each day. Encourage intake of high protein foods for healing, post amputation. Will cont to monitor BG levels. MR 03/02. Pt cont to have elevated BG levels, greater than 170 into the 200 range. Pt is on 20 units Levemir BID and 2-10 units Humalog SUBQ. Pt went back to the OR for reapir after wound dehisence and has attained hematoma post procedure. Pt cont to consume 100% of diabetic meals. Pt generally orders pitchers of lemonade, is given diabetic lemonade. Reported/observed pt has come down to cafeteria to retreive their own pitcher of regular lemonade. We spoke to the pt and although they have the right to do this, we recommend still sugar free lemonade rather than regular because it will elevate BG, and limiting regular to assist with healing. Will cont to monitor BG levels. MR 03/09. Noted by MD on 03/06, wound is healing well post wound dehisence. Pt cont on NOEMY, consuming on average 100% of small and regular sized meals. Whole BG cont to fluctuate above normal limits. High 100s and somtimes high 200s. Pt cont on perscribed insulin doses. Other notable labs include low RBC 3.56, Hgb 10.3, and Hct 29.8, reported on 03/05. Oberved 8lb weight gain since admission. Pt weighed 165lbs on 02/12 and on 03/04 reported weight was 173lbs. Will cont to monitor. MR 03/16. Pt whole BG was WNL at 90 this morning. Yesterday BG readings cont to be elevated in the upper 100s-200s. Pt cont to receive 20 units levemir and 2-10 units humalog. Pt is consuming 100% of meals on diabetic diet, and it was noted pt goes down to cafeteria to purchase additional foods. This may be another factor in terms of the high BG readings. Will cont to monitor. MR 10/ Pt cont diabetic diet. Intake average 88#. Pt has been observed getting beverages from cafeteria. BG range 81- 268 past week however only 1X was above 200. Pt cont prednisone which can elevated BG. BUN cont elevated at 63, creatinine cont elevated at 2.3. K+ is elevated at 5.1 and low K+ diet was added. Alb 3.2. Will cont to monitor and encourage intake in compliance to dietary recommendations. BK 03/31 Pt reported N/V 03/28 with diet changed to clear liquid. Pt had been eating 75-100% prior to his illness. Pt eating 0-5% past 3 days. Will offer clear liquid nutr supplement while on clears to increase kcal and protein. Wt is down 5# from last week but only 2# from admitting wt. Wt loss may be d/t fluild fluctuation and N/V. Will cont to monitor. RJ RIVERO Mar 31, 2018 08:50
--- NOTE | 2018-03-31 11:45 | RADIOLOGY IMAGING REPORT ---
FACILITY: [facility] [place] PATIENT NAME: Leobardo Russell : 1965 MR: [id number] V: [id number] EXAM DATE: ORDERING PHYSICIAN: SHARIF MAIN TECHNOLOGIST: Location: [facility] [place] Patient: Leobardo Russell : 1965 Visit/Account:[id number] Date of Sevice: 03/31/2018 Exam type: KUB SINGLE VIEW ABDOMEN History: vomiting, constipation Comparison: None. Findings: There is a moderate amount of fecal material seen in the right-sided the colon which can be seen with constipation. There is no gross evidence of organomegaly. No pathologic intra-abdominal calcificat ions are seen. There are sclerotic changes seen at the SI joints bilaterally IMPRESSION: 1. Moderate amount of fecal material seen throughout the right-sided the colon which can be seen wit h constipation Sclerotic changes of the SI joints bilaterally which may represent arthritic change Report Dictated By: Keily Burch MD at 03/31/2018 11:38 AM Report E-Signed By: Keily Burch MD at 03/31/2018 11:40 AM WSN:[id number]
[2018-03-31] MEDS: VERAPAMIL HCL SR 180 MG TABCR PO SCH (11:49)
[2018-03-31 13:42] VITALS: BP 160/82
[2018-03-31] MEDS ORDERED: BISACODYL 10 MG SUPP PR PRN (14:10)
--- NOTE | 2018-03-31 15:37 | Miscellaneous Provider Note ---
Miscellaneous Provider Note Note Nausea- The patient had complaints of nausea, decreased appetite. Abdomen soft, slightly tender to palpation. Last BM 03/27. X-ray performed of abdomen, shows increased constipation. Patient has been refusing Miralax and Colace. Encouraged patient to take his bowel regimen to increase motility for increased comfort. Ordered Dulcolax suppository. Hypertension- He also had high blood pressures and swelling to bilateral hands and face. Denies any allergy symptoms. Believe swelling was related to recent adding of Amlodipine. Restarted the patient on Verapamil, stop amlodipine. Continue clonidine patch. SHARIF MAIN CONE EXAMINER Mar 31, 2018 15:37
[2018-03-31 20:20] VITALS: BP 202/92
[2018-03-31] MEDS: ROSUVASTATIN CALCIUM 10 MG TAB PO SCH (20:24)
[2018-03-31] MEDS: MAGNESIUM HYDROXIDE* 30ML UDCP PO PRN (20:24)
[2018-03-31] MEDS: hydrALAZINE HCL 25 MG TAB PO PRN (20:24)
[2018-04-01] MEDS: ONDANSETRON 4 MG ODT TABDP SL PRN (02:53)
[2018-04-01 07:15] LABS: PLATELET COUNT, AUTOMATED 263 K/uL (150-450)
[2018-04-01 07:45] VITALS: BP 189/97
[2018-04-01] MEDS: MAGNESIUM HYDROXIDE* 30ML UDCP PO PRN ×2 (08:52→14:50)
[2018-04-01] MEDS: POLYETHYLENE GLYCOL 17 GM PKT PO SCH (08:52)
[2018-04-01] MEDS: ENOXAPARIN 30 MG/0.3 ML SYR SC SCH (08:53)
[2018-04-01] MEDS: DOCUSATE SODIUM 100 MG CAP PO SCH ×2 (08:53→20:56)
[2018-04-01] MEDS: ASPIRIN 81 MG ENTERIC COATED PO SCH (08:53)
[2018-04-01] MEDS: HYDROCHLOROTHIAZIDE 25 MG TAB PO SCH (08:53)
[2018-04-01] MEDS: VERAPAMIL HCL SR 180 MG TABCR PO SCH (08:53)
[2018-04-01] MEDS: PANTOPRAZOLE SOD 40 MG TABEC PO SCH (08:53)
[2018-04-01] MEDS: FAMOTIDINE 20 MG TAB PO SCH ×2 (08:53→20:56)
[2018-04-01] MEDS: INSULIN DETEMIR 100 U/ML 3 ML PEN SUBQ SCH ×2 (09:00→20:57)
[2018-04-01 11:20] VITALS: BP 166/79
[2018-04-01] MEDS ORDERED: MAGNESIUM CITRATE 300 ML BTL PO ONE (14:10)
--- NOTE | 2018-04-01 14:18 | Hospitalist Progress Note ---
Subjective Progress Notes Subjective The patient remains constipated. Physical Exam Vital Signs Date Time Temp Pulse Resp B/P (MAP) Pulse Ox O2 Delivery O2 Flow Rate FiO2 04/01/18 11:20 166/79 (108) 04/01/18 09:31 93 Room Air 04/01/18 07:45 98.8 86 8 Intake and Output 04/01/18 07:00 Intake Total 90 ml Output Total 375 ml Balance -285 ml Intake Oral 90 ml Output Urine Total 375 ml # Voids 3 # Bowel Movements 1 General Appearance: Alert, Awake, No Acute Distress, Afebrile Neuro: No Gross deficits Cardiovascular: Regular Rate and Rhythm Respiratory: Clear to Auscultation GI: Soft and Non-Tender, Other (BS+.) Extremities: Warm, Perfused, Other (No edema R foot. L leg with BKA and is wrapped. Wound vac has been discontinued.) Result Diagram: 04/01/1870904/01/18709 Assessment and Plan Problems: (1) Wound dehiscence Status: Acute Assessment & Plan: Dr. Salgado took him back to OR and repaired. Wound vac in place now. Wound is healing well now. Wound vac has been discontinued. (2) Osteomyelitis Status: Acute Assessment & Plan: The patient has had a diabetic foot ulcer over the plantar aspect of the left 2nd MTP joint since mid November. For 10 days prior to admission, the patient had been much more tired and weak. The night before admission, he noted new erythema on top of the foot. MRI showed findings consistent with 2nd and 3rd MTP joint osteomyelitis and a large dorsally located abscess which extended along the dorsum of the forefoot, the midfoot and extends to the hindfoot. Lactate was normal. The patient had a temperature of 100 degrees on admission, BP was stable, heart rate was 86-103. Dr. Salgado performed BKA 02/09. The patient was given Zosyn in the ER, and then switched to Primaxin (renally dosed) and Vancomycin on the medical floor. Dr. Salgado drained the abscess 02/07 in hopes of getting the patient's infection under better control prior to his BKA. He completed a course of antibiotics He was transferred to [facility] ECF unit for further rehab. He had dehiscence of his his wound and was taken back to OR. Now has wound vac in place. Is was placed back on Augmentin and has finished his course. (3) Diabetic foot ulcer Status: Resolved Assessment & Plan: See above. (4) T2DM (type 2 diabetes mellitus) Status: Chronic Assessment & Plan: The patient admits to not checking glucoses. Continue chronic Levemir and will cover with SSI level 2. Encouraged him to take bigger/more responsible role in treating his diabetes. (5) CKD (chronic kidney disease) stage 3, GFR 30-59 ml/min Status: Chronic Assessment & Plan: Baseline creatinine is 2.3-2.6. It has improved with IV fluids. Will repeat a BMP tomorrow. (6) HTN (hypertension) Status: Chronic Assessment & Plan: Patient had high BPs and meds were changed. He received amlodipine and developed facial swelling. His BP did not improve. He is now on a clonidine patch, verapamil 180mg daily and HCTZ. His systolic has improved to the 160s. Will continue to monitor. (7) Hyperlipidemia associated with type 2 diabetes mellitus Status: Chronic Assessment & Plan: Continue chronic rosuvastatin. Will hold ASA. (8) Hyperkalemia Status: Acute Assessment & Plan: Mild. Resolved. Potassium is 4.4 today. (9) Constipation Status: Acute Assessment & Plan: The patient has had some nausea and vomiting. A KUB shows large stool load. The usual constipation treatments per the protocol have not been successful. He states he had a "brown cow" in the past which was helpful. Will order mag citrate prn if the brown cow is unsuccessful. Time Spent on Plan of Care: < 30 min Problem Qualifiers (1) Osteomyelitis: Osteomyelitis type: other acute MEAGAN PAK MD Apr 01, 2018 14:18
[2018-04-01] MEDS ORDERED: POLYETHYLENE GLYCOL 17 GM PKT PO PRN (14:40)
--- NOTE | 2018-04-01 16:16 | General Surgery Progress Note ---
Subjective Progress Notes Subjective No complaints. Physical Exam Vital Signs Date Time Temp Pulse Resp B/P (MAP) Pulse Ox O2 Delivery O2 Flow Rate FiO2 04/01/18 11:20 166/79 (108) 04/01/18 09:31 93 Room Air 04/01/18 07:45 98.8 86 8 Intake and Output 04/01/18 07:00 Intake Total 90 ml Output Total 375 ml Balance -285 ml Intake Oral 90 ml Output Urine Total 375 ml # Voids 3 # Bowel Movements 1 General Appearance: Alert, Awake, No Acute Distress, Afebrile Extremities: Other (Left LE brace, sock, dressing removed. The wound is clean and dry without erythema. Getting much smaller.) Result Diagram: 04/01/1870904/01/18709 Assessment and Plan Problems: (1) Status post below knee amputation of left lower extremity Status: Chronic Assessment & Plan: 02/16/18: Patient seems to be healing well. No issues currently. Continue physical therapy, occupational therapy, wound care, etc. 02/20/18: The BKA surgical site appears to be healing well. There is no overt signs of infection today. We will continue wound care and mobility exercises/straining. He is continuing to work on getting Medicaid. 02/24/18: The surgical site looks pretty good for the most part except for a small area of dehiscence. No evidence of infection. Sutures removed today. We'll keep a close eye on this. Continue wound care. Continue physical therapy and occupational therapy. 02/25/18: To OR for wound exploration and hematoma evacuation. Will look for active bleeding and control it and will reapproximate muscles over the bone and place a wound vac in the open wound. Pt seems to understand and seems agreeable with this plan. 03/06/18: Patient is doing well. The wound is clean and healing. We'll continue wound VAC as it is making good progress. Anticipate he will be able to go home in the next couple of weeks after the wound is granulated in and wound care requirements are minimal. 03/20/18: Patient is doing well. The wound continues to heal and is getting much smaller. No other issues. We'll continue wound VAC dressing changes area I am hopeful that it'll close enough that he can do minimal dressing changes at home and still have grade expectation of healing in the next week or 2. 03/27/18: Patient continues to do well. Wound continues to granulate enemas continuing to get much smaller. We'll continue wound VAC dressing changes and we'll reevaluate next week. He is almost to the point where negative pressure wound therapy will no longer be required and then he can just perform local wound care and can go home to do this area and it is possible that he could go home next week. 04/01/18: Wound continues to heal without problems. Wound vac removed yesterday. Will continue wound care by covering it with dry 4x4 gauze only. Will follow it; if it becomes dessicated and dries out then will switch to Mepilex dressings. He will likely be ready to go home in the next 2 days from a wound and BKA standpoint. (2) Hematoma following procedure Status: Resolved (3) BKA stump complication Status: Resolved Condition Stable. Time Spent: < 30 min JUAN F PIRES MD Apr 01, 2018 16:15
[2018-04-01] MEDS ORDERED: MAGNESIUM CITRATE 300 ML BTL PO PRN (18:15)
[2018-04-01] MEDS: ROSUVASTATIN CALCIUM 10 MG TAB PO SCH (20:56)
[2018-04-02 02:35] VITALS: BP 160/74
[2018-04-02 07:35] VITALS: BP 133/68
[2018-04-02] MEDS: DOCUSATE SODIUM 100 MG CAP PO SCH ×2 (09:00→20:48)
[2018-04-02] MEDS: POLYETHYLENE GLYCOL 17 GM PKT PO SCH (09:00)
[2018-04-02] MEDS: ENOXAPARIN 30 MG/0.3 ML SYR SC SCH (09:08)
[2018-04-02] MEDS: ASPIRIN 81 MG ENTERIC COATED PO SCH (09:09)
[2018-04-02] MEDS: VERAPAMIL HCL SR 180 MG TABCR PO SCH (09:09)
[2018-04-02] MEDS: PANTOPRAZOLE SOD 40 MG TABEC PO SCH (09:09)
[2018-04-02] MEDS: HYDROCHLOROTHIAZIDE 25 MG TAB PO SCH (09:09)
[2018-04-02] MEDS: INSULIN DETEMIR 100 U/ML 3 ML PEN SUBQ SCH ×2 (09:09→20:49)
[2018-04-02] MEDS: FAMOTIDINE 20 MG TAB PO SCH ×2 (09:09→20:48)
[2018-04-02] MEDS: INSULIN HUM LISPRO 100 UN/ML 3 ML VIAL SUBQ PRN ×2 (12:33→20:49)
[2018-04-02] MEDS: ROSUVASTATIN CALCIUM 10 MG TAB PO SCH (20:48)
[2018-04-02 21:00] VITALS: BP 189/96
[2018-04-02] MEDS: hydrALAZINE HCL 25 MG TAB PO PRN (21:11)
[2018-04-03 07:50] VITALS: BP 147/71
[2018-04-03] MEDS: DOCUSATE SODIUM 100 MG CAP PO SCH ×2 (08:56→20:20)
[2018-04-03] MEDS: VERAPAMIL HCL SR 180 MG TABCR PO SCH (08:57)
[2018-04-03] MEDS: HYDROCHLOROTHIAZIDE 25 MG TAB PO SCH (08:57)
[2018-04-03] MEDS: INSULIN DETEMIR 100 U/ML 3 ML PEN SUBQ SCH ×2 (08:57→20:21)
[2018-04-03] MEDS: PANTOPRAZOLE SOD 40 MG TABEC PO SCH (08:57)
[2018-04-03] MEDS: FAMOTIDINE 20 MG TAB PO SCH ×2 (08:57→20:20)
[2018-04-03] MEDS: ASPIRIN 81 MG ENTERIC COATED PO SCH (08:57)
[2018-04-03] MEDS: ENOXAPARIN 30 MG/0.3 ML SYR SC SCH (08:58)
[2018-04-03] MEDS: POLYETHYLENE GLYCOL 17 GM PKT PO SCH (08:58)
[2018-04-03] MEDS ORDERED: INFLUENZA VIRUS VAC 0.5ML SYR IM ONLY ONE (14:25)
[2018-04-03] MEDS: ROSUVASTATIN CALCIUM 10 MG TAB PO SCH (20:20)
[2018-04-03] MEDS: INSULIN HUM LISPRO 100 UN/ML 3 ML VIAL SUBQ PRN (20:21)
[2018-04-03 20:30] VITALS: BP 166/90
[2018-04-03] MEDS: MAGNESIUM HYDROXIDE* 30ML UDCP PO PRN (22:42)
[2018-04-04 08:47] VITALS: BP 178/90
[2018-04-04] MEDS: POLYETHYLENE GLYCOL 17 GM PKT PO SCH (08:52)
[2018-04-04] MEDS: FAMOTIDINE 20 MG TAB PO SCH (08:53)
[2018-04-04] MEDS: HYDROCHLOROTHIAZIDE 25 MG TAB PO SCH (08:53)
[2018-04-04] MEDS: ENOXAPARIN 30 MG/0.3 ML SYR SC SCH (08:53)
[2018-04-04] MEDS: ASPIRIN 81 MG ENTERIC COATED PO SCH (08:53)
[2018-04-04] MEDS: VERAPAMIL HCL SR 180 MG TABCR PO SCH (08:53)
[2018-04-04] MEDS: DOCUSATE SODIUM 100 MG CAP PO SCH (08:53)
[2018-04-04] MEDS: INSULIN HUM LISPRO 100 UN/ML 3 ML VIAL SUBQ PRN (08:54)
[2018-04-04] MEDS: PANTOPRAZOLE SOD 40 MG TABEC PO SCH (08:54)
[2018-04-04] MEDS: INSULIN DETEMIR 100 U/ML 3 ML PEN SUBQ SCH (09:01)
[2018-04-04] MEDS: MAGNESIUM HYDROXIDE* 30ML UDCP PO PRN (14:21)
[2018-04-04 14:37] VITALS: BP 198/101
[2018-04-04 14:40] VITALS: BP 202/98
[2018-04-04] MEDS: hydrALAZINE HCL 25 MG TAB PO PRN (14:41)
[2018-04-04] MEDS ORDERED: POLY17PO21 PO (14:45)
[2018-04-04] MEDS ORDERED: CLON1PAT19 TD (14:45)
[2018-04-04] MEDS ORDERED: MOM PO (14:45)
[2018-04-04] MEDS ORDERED: ASPI81TA86 PO (14:45)
[2018-04-04] MEDS ORDERED: INSU100I5 SUBQ (14:45)
[2018-04-04] MEDS ORDERED: HYDR-2966 PO (14:45)
[2018-04-04] MEDS ORDERED: VERA180T53 PO (14:45)
[2018-04-04] MEDS ORDERED: PANT40TA65 PO (14:45)
[2018-04-04] MEDS ORDERED: DOCU-202 PO (14:45)
[2018-04-04] MEDS ORDERED: ACET-2043 PO (14:45)
[2018-04-04] MEDS ORDERED: INSU100V24 SQ (14:45)
--- NOTE | 2018-04-04 15:00 | Hospitalist Depart ---
Discharge Summary Reason for Hosp/Final Diag: (1) Wound dehiscence Status: Acute Hospital Course & Plan: The patient had dehiscence of her wound while on ECF. Dr. Pires took her back to OR and repaired the wound. A wound vac was placed for a period of time and then removed. (2) Osteomyelitis Status: Acute Hospital Course & Plan: The patient had a diabetic foot ulcer over the plantar aspect of the left 2nd MTP joint since mid November of 2017. For 10 days prior to admission, the patient had been much more tired and weak. The night before admission, she noted new erythema on top of the foot. MRI showed findings consistent with 2nd and 3rd MTP joint osteomyelitis and a large dorsally located abscess which extended along the dorsum of the forefoot, the midfoot and extends to the hindfoot. Lactate was normal on admission. The patient had a tem perature of 100 degrees on admission, BP was stable, heart rate was 86-103. The patient was given Zosyn in the ER, and then switched to Primaxin (renally dosed) and Vancomycin on the medical floor. Dr. Pires drained the abscess 02/07 in hopes of getting the patient's infection under better control prior to his BKA. Dr. Pires performed a BKA 02/09. The patient completed a course of antibiotics She was transferred to [facility] ECF unit for further rehab. She had dehiscence of his his wound and was taken back to OR. See above. (3) Diabetic foot ulcer Status: Resolved Hospital Course & Plan: See above. (4) T2DM (type 2 diabetes mellitus) Status: Chronic Hospital Course & Plan: The patient admits to not checking glucoses. She was continued on chronic Levemir and will covered with SSI level 2. She was encouraged to take a bigger/more responsible role in treating her diabetes. She was disinterested and is at risk for noncompliance once again at discharge. (5) CKD (chronic kidney disease) stage 3, GFR 30-59 ml/min Status: Chronic Hospital Course & Plan: Baseline creatinine is 2.3-2.6. Her creatinine improved with IV fluids and was 2.2 at discharge. (6) HTN (hypertension) Status: Chronic Hospital Course & Plan: Patient had high BP readings and medications were adjusted during his stay. She received amlodipine at one point and developed facial swelling. This was discontinued. She was then placed on a clonidine patch, verapamil 180mg daily and HCTZ. Her systolic BP improved. She will need further monitoring and medication adjustment as an outpatient. (7) Hyperlipidemia associated with type 2 diabetes mellitus Status: Chronic Hospital Course & Plan: She was continued on chronic rosuvastatin and aspirin. (8) Hyperkalemia Status: Acute Hospital Course & Plan: Mild. Resolved. (9) Constipation Status: Acute Hospital Course & Plan: The patient developed nausea and vomiting. A KUB showed large stool load. The usual constipation treatments per the protocol were not successful. She was given a "brown cow" in which was helpful. Departure Weight (Pounds): 170 Weight (Ounces): 2.0 Result Diagram: 04/01/1870904/01/18709 Item Value Date Time Urine Color Yellow 03/28/181839 Urine Clarity Cloudy 03/28/181839 Urine pH 5.0 pH 03/28/181839 Urine Specific [place] 1.018 03/28/18 184 Urine Protein 500 mg/dL 03/28/18 184 Urine Glucose (UA) 150 mg/dL H 03/28/18 184 Urine Ketones Trace mg/dL 03/28/18 184 Urine Blood Moderate 03/28/18 184 Urine Nitrite Negative 03/28/18 184 Urine Bilirubin Negative 03/28/18 184 Urine Urobilinogen Negative mg/dL 03/28/18 184 Urine Leukocyte Esterase Negative 03/28/18 184 Urine RBC 6 /HPF 03/28/18 184 Urine WBC 1 /HPF 03/28/18 184 Urine Squamous Epithelial Cells None /LPF 03/28/18 1840 Urine Amorphous Crystals Few /HPF 03/28/18 184 Urine Bacteria Negative /HPF 03/28/18 184 Urine Hyaline Casts Many /LPF H 03/28/18 1840 Urine Granular Casts Few /LPF H 03/28/18 1840 Urine Mucus Few /HPF 03/28/18 184 Sodium Level 131 mmol/L L 04/01/18 07 Potassium Level 4.4 mmol/L 04/01/18 07 Chloride Level 103 mmol/L 04/01/18 07 Carbon Dioxide Level 21 mmol/L L 04/01/18 07 Blood Urea Nitrogen 42 mg/dl H 04/01/18 0710 Creatinine 2.20 mg/dl H 04/01/18 0710 Glomerular Filtration Rate Calc 31.8 04/01/18 0710 Random Glucose 117 mg/dl H 04/01/18 0710 Calcium Level 8.3 mg/dl L 04/01/18 0710 Whole Blood Glucose 151 mg/DL H 04/01/18 2055 Whole Blood Glucose 134 mg/DL H 04/01/18 1642 Whole Blood Glucose 136 mg/DL H 04/01/18 1209 Whole Blood Glucose 117 mg/DL H 04/01/18 0749 Whole Blood Glucose 95 mg/DL 03/31/18 2008 Whole Blood Glucose 109 mg/DL 03/31/18 1619 Whole Blood Glucose 101 mg/DL 03/31/18 1151 Whole Blood Glucose 99 mg/DL 03/31/18 0740 Whole Blood Glucose 146 mg/DL H 03/30/18 2111 Whole Blood Glucose 127 mg/DL H 03/30/18 1655 Whole Blood Glucose 116 mg/DL H 03/30/18 1127 Whole Blood Glucose 100 mg/DL 03/30/18 0801 Whole Blood Glucose 116 mg/DL H 03/29/18 2107 Whole Blood Glucose 140 mg/DL H 03/29/18 1704 Whole Blood Glucose 155 mg/DL H 03/29/18 1149 Whole Blood Glucose 129 mg/DL H 03/29/18 0737 Whole Blood Glucose 197 mg/DL H 03/28/18 2214 Imaging FACILITY: [facility] PATIENT NAME: Juan F Russell : 1965 MR: [id number] V: [id number] EXAM DATE: ORDERING PHYSICIAN: SHARIF MAIN TECHNOLOGIST: Location: [facility] Patient: Juan F Russell : 1965 Visit/Account:[id number] Date of Sevice: 03/31/2018 Exam type: KUB SINGLE VIEW ABDOMEN History: vomiting, constipation Comparison: None. Findings: There is a moderate amount of fecal material seen in the right-sided the colon which can be seen with constipation. There is no gross evidence of organomegaly. No pathologic intra-abdominal calcifications are seen. There are sclerotic changes seen at the SI joints bilaterally IMPRESSION: 1. Moderate amount of fecal material seen throughout the right-sided the colon which can be seen with constipation Sclerotic changes of the SI joints bilaterally which may represent arthritic change Report Dictated By: Keily Burch MD at 03/31/2018 11:38 AM Report E-Signed By: Keily Burch MD at 03/31/2018 11:40 AM WSN:AMIMABELVDean Condition: Improved Discharge: Home, Self Care Time Spent: < 30 min Discharge Instructions Home Meds Active Scripts Verapamil Hcl (VERAPAMIL ER) 180 Mg Tablet.er, 180 MG PO QDAY, #30 TAB Prov:MEAGAN PAK MD 04/04/18 Polyethylene Glycol 3350 (POLYETHYLENE GLYCOL 3350) 17 Gm Powd.pack, 17 GM PO PRN PRN for CONSTIPATION, #1 BOTTLE Prov:MEAGAN PAK MD 04/04/18 Pantoprazole Sodium (PANTOPRAZOLE SODIUM) 40 Mg Tablet.dr, 40 MG PO QDAY, #30 TAB Prov:MEAGAN PAK MD 04/04/18 Magnesium Hydroxide (MILK OF MAGNESIA) 400 Mg/5 Ml Oral.susp, 30 ML PO QDAY PRN for CONSTIPATION, #1 BOTTLE Prov:MEAGAN PAK MD 04/04/18 Hydrochlorothiazide (HYDROCHLOROTHIAZIDE) 25 Mg Tablet, 25 MG PO QDAY, #30 TAB Prov:MEAGAN PAK MD 04/04/18 Docusate Sodium (DOCUSATE SODIUM) 100 Mg Capsule, 100 MG PO BID, #60 CAPSULE Prov:MEAGAN PAK MD 04/04/18 Clonidine (CLONIDINE 0.1 MG/DAY) 1 Each Patch.tdwk, 0.1 MG TD Q7D, #4 PATCH.WK Prov:MEAGAN PAK MD 04/04/18 Aspirin (ASPIRIN EC) 81 Mg Tablet.dr, 81 MG PO QDAY, #100 TAB Prov:MEAGAN PAK MD 04/04/18 Acetaminophen (ACETAMINOPHEN) 500 Mg Tablet, 1000 MG PO Q8H PRN for PAIN, #100 TAB Prov:MEAGAN PAK MD 04/04/18 Insulin Detemir 100 UN/ML PEN (Levemir Flextouch) 100 Unit/1 Ml Insuln.pen, 20 UNIT SUBQ BID, #5 UNIT Prov:MEAGAN PAK MD 04/04/18 Insulin Lispro 100 Un/Ml Vial (HUMALOG 100 U/ML VIAL) 100 Unit/1 Ml Vial, 0 SQ per sliding scale, #1 VIAL 1 unit for every 50 point increase in blood sugar above normal. Prov:MEAGAN PAK MD 04/04/18 Reported Medications Rosuvastatin Calcium (Rosuvastatin Calcium) 10 Mg Tablet, 10 MG PO HS 02/06/18 Famotidine (FAMOTIDINE) 20 Mg Tablet, 20 MG PO BID, TAB 08/19/17 Aspirin (ASPIR 81) 81 Mg Tablet.dr, 81 MG PO QDAY, TAB 08/03/16 Cholecalciferol (Vitamin D3) (VITAMIN D3) 1,000 Unit Tablet, 1000 UNIT PO QDAY, TAB 08/03/16 Discontinued Reported Medications Verapamil Hcl (VERAPAMIL ER) 120 Mg Tablet.er, 120 MG PO BID 12/02/17 Diet: Diabetic Activity: As Tolerated Special Instructions: Follow up with Dr. Pires scheduled. Follow up with PCP in one week. Copies to: LETI DIMAS; JUAN F PIRES MD ; Venous Thromboembolism Antithrombotics Is Pt On Any Antithrombotics?: Yes Problem Qualifiers (1) Osteomyelitis: Osteomyelitis type: other acute MEAGAN PAK MD Apr 04, 2018 15:00
[2018-04-04 17:07] VITALS: BP 148/72
[2018-04-06] MEDS ORDERED: PATCH REMOVAL 1 EA TP SCH (09:00)
--- NOTE | 2018-04-06 13:23 | PT ECF NOTE ---
Type of Note: Discharge Summary 04/04/2018 (last visit 04/03/18) Primary Medical Diagnosis: s/p L BKA 02/09/2018; s/p incisional I&D for hematoma evacuation 02/25/18 Physical Therapy Evaluation Date: 02/11/2018 SUBJECTIVE: Prior Hospitalization: Extensive, please see Renrendai for details. Prior Level of Function: Independent with functional mobility and ADLs Prior Living Status: Apartment, Alone Community Services: extensive bilingual social worker such as BUD, please see social work notes. Home Accessibility: 1 step + 2 steps into apartment building both without railing, 6 stairs with rail into basement apartment. Equipment Owned: Front wheeled walker, Crutches, Extended tub bench (Pt declines to use and has opted not to take it home), Wheelchair Medical Complications/Past Medical History: Diabetes with previous recent L toe amputation, please see Renrendai for additional details. Psychosocial Support: Please see bilingual social worker notes for details. Pain Scale (0-10): Pt reporting phantom limb pain at time of eval and minimal pain reports since. OBJECTIVE: Strength: Right Lower Extremity: WFL Left Lower Extremity: WFL for remaining musculature ROM: (please note any abnormalities) WFL Sensation: (please note any abnormalities) phantom limb pain L LE Other Neuro findings: none Bed Mobility: Independent Transfers: Independent Assistive Device: Front wheeled walker Floor<>standing transfer using RW at Mod I Level. Gait: Mod I with use of RW x >150' and Mod I with wheelchair mobility x>1000'. Stairs: Pt has opted for "bump" technique to ascend/descend set of 6 stairs which this PT agrees is safest considering Pt is unable to maintain R LE single leg stance for sufficient time and Pt will be carrying objects up/down the stairs. Pt demonstrates Mod I for bumping technique including standing>sit on 2nd or 3rd stair. In Pt's apartment building, she can bump past the landing up additional stairs and stand from a sitting position. ASSESSMENT: Pt has progressed with stair negotiation, however, will require additional functional strengthening, stair training, and floor<>standing transfer training in order to promote safest possible discharge. Pt presents with decreased independence with functional mobility s/p L BKA 02/09/18. Pt will benefit from skilled PT for functional mobility training in order to increase independence and safety with functional mobility, specifically ascending/descending stairs. Please see below "barriers for discharge" for additional assessment information. Problem List/Current Limitations: Pain, Decreased WB, Decreased activity tolerance, Decreased strength, Decreased balance, Generalized weakness, Poor safety awareness, Decreased problem solving Short Term Goals: Goals Met 1. Independent bed mobility. 2. Mod I transfers from a variety of surfaces. 3. Mod I gait x 150' with appropriate assistive device. 4. Ascend/descend set of 2 stairs without rail with appropriate assistive device at SBA level. - Modified - see below 5. Ascend/descend set of 6 stairs using safest technique and appropriate assistive device at SBA level. UPDATED GOAL (03/26/18): Goal Met 1. Pt has opted to ascend the 1 and 2 stairs leading to her apartment building via a ground<>stand transfer and "bump" up those stairs as well. Mod I floor<>stand transfer with use of RW. Chcf Goals: Return to least restrictive environment. Patient Goals: Return home Rehabilitation Prognosis: Fair Barriers for Discharge: Pt currently does not have a pay source for obtaining prosthesis s/p BKA. This poses difficulty with discharge planing as Pt will be required to be Modified Independent with functional mobility using adaptive equipment/assistive devices only to negotiate multiple stairs and perform ADLs and IADLs as Pt does live alone and reports little social support for assisting at home. Will need to work closely with bilingual social worker for discharge planning. PLAN: Pt has met PT goals and is wishing to DC home at this time. This PT has discussed safety concerns and concerns for overall success with managing in current home environment. Pt wishes to DC to current living environment with plans to more to a more accessible apartment in the near future. Thank you for this referral. If you have any questions, concerns, or comments about this report or plan, please contact me at . Lianna Haynes, PT, DPT, GCS MTDD
== END 2018-04-04 17:28 | disposition home or self-care (01) | DRG 561 ==
LOC: SWB 14:10
PROVIDERS: ADMIT Family Medicine; ATTEND Family Medicine
PROC: 30233N1 Transfusion of Nonautologous Red Blood Cells into Peripheral Vein, Percutaneous Approach (ICD-10-PCS; 2018-02-25)
PROC: 0JDP3ZZ Extraction of Left Lower Leg Subcutaneous Tissue and Fascia, Percutaneous Approach (ICD-10-PCS; principal; 2018-03-09)
PROC: 0JDP3ZZ Extraction of Left Lower Leg Subcutaneous Tissue and Fascia, Percutaneous Approach (ICD-10-PCS; 2018-04-03)
DX: Z47.81 Encounter for orthopedic aftercare following surgical amputation (principal); E11.22 Type 2 diabetes mellitus with diabetic chronic kidney disease; I12.9 Hypertensive chronic kidney disease with stage 1 through stage 4 chronic kidney disease, or unspecified chronic kidney disease; N18.3 Chronic kidney disease, stage 3 (moderate); K21.9 Gastro-esophageal reflux disease without esophagitis; T87.81 Dehiscence of amputation stump; T87.89 Other complications of amputation stump; F32.9 Major depressive disorder, single episode, unspecified; E78.5 Hyperlipidemia, unspecified; T46.1X5A Adverse effect of calcium-channel blockers, initial encounter; E87.5 Hyperkalemia; K59.00 Constipation, unspecified; Z89.512 Acquired absence of left leg below knee; Y92.230 Patient room in hospital as the place of occurrence of the external cause; Z79.4 Long term (current) use of insulin; Z91.19 Patient's noncompliance with other medical treatment and regimen; Z23 Encounter for immunization
CPT/HCPCS: 36415; 36416; 36430; 74018; 81001; 82040; 82247; 82310; 82374; 82435; 82565; 82947; 82948; 83690; 84075; 84132; 84155; 84295; 84450; 84460; 84520; 85025; 86850; 86900; 86901; 86920; 90471; 90674; 97161; 97163; 97165; 97605; J0360; J0743; J1650; J1815; J2550; J2704; J2765; J3010; J3370; J7030; J7050; J8597; P9016; Q0169; S0119

== ENCOUNTER → 2018-02-25 | Day surgery (SDC) | payer SELFPAY ==
[2017-10-09 07:53] VITALS: BMI 27.9
[~2018-02-25] MED LIST changes: +AMPICILLIN/SULBACT (*) 3 GM VL 3 GM in NS(*) 0.9% 100 ML BAG 100 ML IVPB ONE; +FAMOTIDINE 20 MG/50 ML PREMIX IVPB ONE; +LIDOCAINE/SOD BICARB 8.4% SYR ID ONE; +MIDAZOLAM 2 MG/2 ML VIAL IVP PRN; +NORMOSOL R SOLN(*) 1000 ML BAG 1,000 ML IV PRN; +ROPIVACAINE 0.5% 20 ML VIAL ONE; +fentaNYL CITR 100 MCG/2 ML AMP ONE
[2018-02-25 08:50] VITALS: BP 155/93
[2018-02-25 09:08] LABS: PLATELET COUNT, AUTOMATED 357 K/uL (150-450)
--- NOTE | 2018-02-25 10:38 | Short(Outpt) Discharge Summary ---
Discharge Summary Reason for Hosp/Final Diag: (1) Hematoma following procedure Status: Acute Hospital Course & Plan: Left BKA hematoma evacuated and anterior/posterior muscles reapproximated to cover bone. Wound vac placed. Pt tolerated the procedure without issues. (2) BKA stump complication Status: Acute (3) History of left below knee amputation Status: Chronic Departure Discharge to: [facility] ECF Discharge Instructions Home Meds Active Scripts Insulin Detemir 100 UN/ML PEN (Levemir Flextouch) 100 Unit/1 Ml Insuln.pen, 20 UNIT SUBQ BID, #5 UNIT Prov:ATTILA KNOWLES MD 02/06/18 Reported Medications Rosuvastatin Calcium (Rosuvastatin Calcium) 10 Mg Tablet, 10 MG PO HS 02/06/18 Verapamil Hcl (VERAPAMIL ER) 120 Mg Tablet.er, 120 MG PO BID 12/02/17 Insulin Lispro 100 Un/Ml Vial (HUMALOG 100 U/ML VIAL) 100 Unit/1 Ml Vial, 0 SQ per sliding scale, VIAL 1 unit for every 50 point increase in blood sugar above normal. 08/19/17 Famotidine (FAMOTIDINE) 20 Mg Tablet, 20 MG PO BID, TAB 08/19/17 Aspirin (ASPIR 81) 81 Mg Tablet.dr, 81 MG PO QDAY, TAB 08/03/16 Cholecalciferol (Vitamin D3) (VITAMIN D3) 1,000 Unit Tablet, 1000 UNIT PO QDAY, TAB 08/03/16 Diet: Diabetic JUAN F PIRES MD Feb 25, 2018 10:38
--- NOTE | 2018-02-25 10:48 | Gen Surgery History & Physical ---
History of Present Illness Chief Complaint Bleeding at left BKA surgical site History of Present Illness 52yo male, 2 weeks s/p left BKA for diabetic foot ulcer with osteomyelitis, doing well in ECF, sutures removed last evening. This morning, dressings saturated with blood. Dressings removed and incision found to be dehisced and blood clot evacuated but there was persistent oozing from the wound so pt prepared for surgical exploration. 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), managed as type 1 Status: Chronic (3) T2DM (type 2 diabetes mellitus) Status: Chronic (4) HTN (hypertension) Status: Chronic (5) CKD (chronic kidney disease) stage 3, GFR 30-59 ml/min Status: Chronic (6) Hyperlipidemia associated with type 2 diabetes mellitus Status: Chronic (7) History of left below knee amputation Status: Chronic (8) History of appendectomy Status: Chronic (9) History of eye surgery Status: Chronic (10) Status post below knee amputation of left lower extremity Status: Chronic (11) [id number] transgender person Status: Chronic Home Meds Active Scripts Insulin Detemir 100 UN/ML PEN (Levemir Flextouch) 100 Unit/1 Ml Insuln.pen, 20 UNIT SUBQ BID, #5 UNIT Prov:ATTILA KNOWLES MD 02/06/18 Reported Medications Rosuvastatin Calcium (Rosuvastatin Calcium) 10 Mg Tablet, 10 MG PO HS 02/06/18 Verapamil Hcl (VERAPAMIL ER) 120 Mg Tablet.er, 120 MG PO BID 12/02/17 Insulin Lispro 100 Un/Ml Vial (HUMALOG 100 U/ML VIAL) 100 Unit/1 Ml Vial, 0 SQ per sliding scale, VIAL 1 unit for every 50 point increase in blood sugar above normal. 08/19/17 Famotidine (FAMOTIDINE) 20 Mg Tablet, 20 MG PO BID, TAB 08/19/17 Aspirin (ASPIR 81) 81 Mg Tablet.dr, 81 MG PO QDAY, TAB 08/03/16 Cholecalciferol (Vitamin D3) (VITAMIN D3) 1,000 Unit Tablet, 1000 UNIT PO QDAY, TAB 08/03/16 Allergies: Coded Allergies: No Known Allergies (Verified Allergy, Mild, 02/02/18) Patient History: Diabetes mellitus (DM) GM FH: COPD (chronic obstructive pulmonary disease) FH: lung cancer GM FHx: chronic disabling diseases MOTHER ( from COPD complications), BROTHER OR SISTER (Arthritis, Gout....Attempting to get on disability), Age:47 Review of Systems All Systems Reviewed/Normal: Yes, Except as Noted Exam General Appearance: Alert, Awake, No Acute Distress, Afebrile Neuro: No Gross deficits Eyes: PERRLA GI: Abd Soft and Non-Tender Extremities: Warm, Perfused, Other (Left BKA wound dehisced with clot and venous oozing.) Medical Decision Making Data Points Result Diagram: 02/25/18 0904 Assessment and Plan Problems: (1) Hematoma following procedure Status: Acute Assessment & Plan: 02/25/18: To OR for wound exploration, evacuation of hematoma, stop any active bleeding, provide soft tissue coverage over the bone, and place a wound vac. (2) BKA stump complication Status: Acute (3) Status post below knee amputation of left lower extremity Status: Chronic Condition Stable. Time Spent: < 30 min Venous Thromboembolism VTE Risk Physician Assess for VTE Risk: Yes Patient's VTE Risk: Low VTE Diagnostic Test 2 Days Prior to Admit: No Antithrombotics Is Pt On Any Antithrombotics?: Yes JUAN F PIRES MD Feb 25, 2018 10:48
--- NOTE | 2018-02-25 10:56 | Post Operative Progress Note ---
Post Operative Progress Note Date: Feb 25, 2018 Time: 10:50 Surgeon: Naomi Dictation number: [id number] Anesthesia: LMA by Dr. Gould Pre-Op Diagnosis: Left BKA hematoma with bleeding and wound dehiscence Post-Op Diagnosis: DWIGHT Findings: C/W dx, no active bleeding after wound exploration, just oozing of liquefying blood clot Procedure(s): Left BKA wound exploration, washout, evacuation of hematoma, muscle/fascia closure, wound vac placement Specimen Removed:(May be N/A): None Complications: None Splint: Left knee immobilizer Fluids: See anesthesia record Estimated Blood Loss: 50cc of old blood clot and liquified clot, no active bleeding Date OP Note Dictated: Feb 25, 2018 Time OP Note Dictated: 10:52 JUAN F PIRES MD Feb 25, 2018 10:56
--- NOTE | 2018-02-25 11:17 | OPERATIVE REPORT 1 ---
EVENT DATE: February 25, 2018 SURGEON: Leobardo Salgado MD ANESTHESIOLOGIST: Jose Gould M.D. ANESTHESIA: LMA. PREOPERATIVE DIAGNOSIS Left below-knee amputation postoperative hematoma with wound dehiscence. POSTOPERATIVE DIAGNOSIS Left below-knee amputation postoperative hematoma with wound dehiscence. PROCEDURE PERFORMED Left below-knee amputation wound exploration, hematoma evacuation, washout, reapproximation of muscle and fascia and wound VAC placement. COMPLICATIONS None. CONDITION Stable. ESTIMATED BLOOD LOSS 50 mL of old clot and liquified clot but no active or acute bleeding. INDICATIONS Patient is a 52-year-old gentleman who two weeks ago I performed a left BKA for a diabetic left foot ulcer with osteomyelitis. He had seemed to be recovering without any issues but I removed his sutures last evening and this morning he reported increasing blood covering his wound dressing. I took everything down this morning and used my finger and removed clot from the dehisced wound and palpated the distal tibia and there was some continuous oozing so he was consented for surgical exploration with evacuation of clot, to look for any active bleeding and to get things closed up and place a wound VAC on the open skin. DESCRIPTION OF PROCEDURE The patient was brought to the operating room and placed supine on the operating table. LMA anesthesia was administered and his left BKA stump and leg were prepped and draped in sterile fashion. Time-out was completed. I used my finger to remove all of the clot. I explored the wound but there was no active bleeding. I used copious irrigation to look for any bleeding and there was none. I used 3-liters of normal saline through the pulse lavage to irrigate out the wound. I then continued exploring the wound but, again, no bleeding and no other obvious problems. There were no signs of infection. I then used interrupted 3-0 Vicryl sutures to reapproximate the extensor and flexor muscles to cover the tibia. I then placed a wound VAC in the open wound on top of the reapproximated muscles but with the dehisced skin left open. There was a good seal and it worked good and there was no bleeding when this was done. The patient was then awakened and the LMA removed and he was transported to the recovery room in stable condition, having tolerated the procedure without any apparent problems. [facility]
== END ==
LOC: OR 09:12 → EDSTATUS 09:30
PROVIDERS: ATTEND Surgery
DX: L76.32 Postprocedural hematoma of skin and subcutaneous tissue following other procedure (principal); E11.9 Type 2 diabetes mellitus without complications
CPT/HCPCS: 10140; 36415; 36416; 82948; 85025; A6550; J2795; J3010

== ENCOUNTER → 2018-04-07 | Outpatient (REF) ==
[2017-10-09 07:53] VITALS: BMI 27.9
[~2018-04-07] MED LIST changes: +ACET-2043 PO; -AMPICILLIN/SULBACT (*) 3 GM VL 3 GM in NS(*) 0.9% 100 ML BAG 100 ML IVPB ONE; +ASPI81TA86 PO; +CLON1PAT19 TD; +DOCU-202 PO; -FAMOTIDINE 20 MG/50 ML PREMIX IVPB ONE; -LIDOCAINE/SOD BICARB 8.4% SYR ID ONE; -MIDAZOLAM 2 MG/2 ML VIAL IVP PRN; +MOM PO; -NORMOSOL R SOLN(*) 1000 ML BAG 1,000 ML IV PRN; +PANT40TA65 PO; +POLY17PO21 PO; -ROPIVACAINE 0.5% 20 ML VIAL ONE; +VERA180T53 PO; -fentaNYL CITR 100 MCG/2 ML AMP ONE
--- NOTE | 2018-04-08 13:37 | PT INITIAL EVALUATION ---
MEDICAL DIAGNOSIS: L) distal end of BKA residual limb; dehisced surgical incision TREATMENT DIAGNOSIS: same DATE OF ONSET: L) BKA 02/09/18 SUBJECTIVE: Pt seen initially for neuropathic wound at L) great toe. Pt with poorly controlled DM and high blood sugars, non-compliant with off loading or proper foot wear selection. Wound progressed to a great toe amputation. Pt then followed up again for out pt wound care and was non-compliant with off loading using crutches and knee scooter provided. This resulted in a new area of breakdown at plantar surface of 2nd MTP joint and gradual worsening again. Pt admitted most recently due to abscess at dorsum of L) foot and required L) BKA. While admitted to F pt's wound dehisced and another surgery was required to evacuate a hematoma. Surgical incision line was then left open for delayed primary closure with application of negative pressure wound therapy. Once 100% granulation base was accomplished, this device was discontinued and pt was discharged home with dressings to complete every other day dressing changes after showers. Pt now arrives to out pt eval visit after discharge on Friday from [facility], with new area of skin excoriation and epidermal loss at L) knee from reported scooting on the floor in her apartment. Pt arrives for initial eval with dressing intact on distal end of residual limb, and stockinette placed only over distal end not covering knee or thigh as instructed on ECF. REHAB PROBLEM LIST: Impaired Transfers, Decreased Endurance, Decreased Balance, Decreased Mobility. Pt does not have funding or insurance to qualify for prosthesis at this time, but notes that she is in the process of applying for medicaid in order to address this for more functional mobility. While on ECF pt was provided with significant support through SW and discharge planning. Pt was offered and apartment that would accept her funding assistance, allow her cats with a small pet deposit and would be W/C accessible. Pt declined this option for improved safety, choosing instead to return to her previous garden level apartment. PREVIOUS MEDICAL HISTORY: Long-standing difficulty with blood sugar management, HTN and kidney disease. Pt coordinates care through [facility] typically for medication management but today indicates that she has no follow up visit planned with their physician. OCCUPATION: Pt works at a [employer] and with the [employer]. 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 OBJECTIVE: Dehisced surgical incision at distal end of L) BKA residual limb measures: 1.2cm L x 4cm W x 0.3cm D. Loss of epidermis; Open area at patella measures: 1.2cm L x 1.5cm W x 0.1cm D and area of irritated redness extends 5.5cm L x 3.5cm W around this. Girth of distal end of BKA measures 39cm and is fairly edematous as compared to appearance upon d/c from ECF on Friday04/04/18. ASSESSMENT: Non-excisional debridement completed with the use of tweezers to a depth of subcutaneous tissue in order to remove yellow slough at lateral wound bed and dried scabbed areas along medial end of incision line. Wound cleansed with sterile saline and treated with silver collagen matrix product, covered with sterile 4x4 gauze and secured with hypafix tape. Mepilex 4x4 dressing to excoriated skin at L) knee from "rug burn" and pt instructed to leave this intact until follow up with Dr. Salgado. Pt also encouraged to obtain knee pads if scooting on floor is to continue. PT applied new and longer stockinette to extend to mid thigh with first layer and then to just above knee with second layer, in order to provide some protection to L) knee as well. Pt provided with tape and gauze to change dressing every other day at home and is scheduled to follow up with Dr. Salgado's office next Friday04/15/18. Short Term Goals 1. Pt to maintain a clean, dry and intact dressing between wound care visits 2. Wound base to gradually epithelialize with no further signs or symptoms of infection 3. Pt to apply stockinette and knee pads appropriately for edema management and skin protection. 4. Pt to be compliant with BS management and medication administration as prescribed to facilitate improved wound healing. 5. Pt to verbalize understanding of importance of diet for wound healing as well. Patient's Goals Wound to heal and to obtain medicaid coverage to allow for prosthetic fitting. PLAN: Patient to be seen for selective debridement and dressing change product selection to optimize efficient wound healing and reduce risk of infection. PT every other week; shared with Dr. Salgado for up to 3 months. Thank you for this referral. If you have any questions, comments, or concerns about this report or plan, please contact me at . H. Nancy Platt, PT, MPT, OMS RUTHD
== END ==
LOC: PT 10:11
PROVIDERS: ATTEND Surgery
DX: Z89.512 Acquired absence of left leg below knee (principal)
CPT/HCPCS: 97161

== ENCOUNTER 2018-04-18 06:08 | Emergency (ER) | payer SELFPAY ==
[2017-10-09 07:53] VITALS: BMI 27.9
[~2018-04-18 06:08] MED LIST changes: -METO-734 PO
--- NOTE | 2018-04-18 06:15 | ER Report ---
History and Physical Time Seen By MD: 06:15 (CECILIO HAYNES DO) HPI/ROS CHIEF COMPLAINT: Nausea, vomiting, abdominal pain HISTORY OF PRESENT ILLNESS: 52-year-old male type I diabetic with a history of a recent left lower extremity BKA with a 2nd surgery due to a complication secondary to a large hematoma and dehiscence of the wound. Patient states she's been sick with constipation for one week. He drank a large quantity of mag nesium citrate to induce a bowel movement. He had diarrhea this morning and crampy abdominal pain. He's had intractable vomiting for several days. He's been trying to use a clear liquid diet to control his symptoms. He states his sugars have been gotten higher. He doesn't think he is in DKA. Patient was recently followed up by Dr. Joiner, who did his surgery on 04/15/18. Apparently the wound looks good. REVIEW OF SYSTEMS: Respiratory: No cough, no dyspnea. Cardiovascular: No chest pain, no palpitations. Gastrointestinal: As above Musculoskeletal: No back pain. (CECILIO HAYNES DO) Allergies: Coded Allergies: amlodipine (Verified Allergy, Severe, Facial swelling., 04/01/18) No Known Allergies (Verified Allergy, Mild, 02/02/18) Home Meds Active Scripts Metoclopramide Hcl (REGLAN) 10 Mg Tablet, 10 MG PO Q8H PRN for NAUSEA/VOMITING, #30 TAB 0 Refills Prov:AMELIA DOS SANTOS MD 04/18/18 Verapamil Hcl (VERAPAMIL ER) 180 Mg Tablet.er, 180 MG PO QDAY, #30 TAB Prov:MEAGAN PAK MD 04/04/18 Polyethylene Glycol 3350 (POLYETHYLENE GLYCOL 3350) 17 Gm Powd.pack, 17 GM PO TX N PRN for CONSTIPATION, #1 BOTTLE Prov:MEAGAN PAK MD 04/04/18 Pantoprazole Sodium (PANTOPRAZOLE SODIUM) 40 Mg Tablet.dr, 40 MG PO QDAY, #30 TAB Prov:MEAGAN PAK MD 04/04/18 Magnesium Hydroxide (MILK OF MAGNESIA) 400 Mg/5 Ml Oral.susp, 30 ML PO QDAY PRN for CONSTIPATION, #1 BOTTLE Prov:MEAGAN PAK MD 04/04/18 Hydrochlorothiazide (HYDROCHLOROTHIAZIDE) 25 Mg Tablet, 25 MG PO QDAY, #30 TAB Prov:MEAGAN PAK MD 04/04/18 Docusate Sodium (DOCUSATE SODIUM) 100 Mg Capsule, 100 MG PO BID, #60 CAPSULE Prov:MEAGAN PAK MD 04/04/18 Clonidine (CLONIDINE 0.1 MG/DAY) 1 Each Patch.tdwk, 0.1 MG TD Q7D, #4 PATCH.WK Prov:MEAGAN PAK MD 04/04/18 Aspirin (ASPIRIN EC) 81 Mg Tablet.dr, 81 MG PO QDAY, #100 TAB Prov:MEAGAN PAK MD 04/04/18 Acetaminophen (ACETAMINOPHEN) 500 Mg Tablet, 1000 MG PO Q8H PRN for PAIN, #100 T AB Prov:MEAGAN PAK MD 04/04/18 Insulin Detemir 100 UN/ML PEN (Levemir Flextouch) 100 Unit/1 Ml Insuln.pen, 20 UNIT SUBQ BID, #5 UNIT Prov:MEAGAN PAK MD 04/04/18 Insulin Lispro 100 Un/Ml Vial (HUMALOG 100 U/ML VIAL) 100 Unit/1 Ml Vial, 0 SQ per sliding scale, #1 VIAL 1 unit for every 50 point increase in blood sugar above normal. Prov:MEAGAN PAK MD 04/04/18 Reported Medications Rosuvastatin Calcium (Rosuvastatin Calcium) 10 Mg Tablet, 10 MG PO HS 02/06/18 Famotidine (FAMOTIDINE) 20 Mg Tablet, 20 MG PO BID, TAB 08/19/17 Aspirin (ASPIR 81) 81 Mg Tablet.dr, 81 MG PO QDAY, TAB 08/03/16 Cholecalciferol (Vitamin D3) (VITAMIN D3) 1,000 Unit Tablet, 1000 UNIT PO QDAY, TAB 08/03/16 Past Medical/Surgical History Past Medical History Cardiovascular: Reports hx of: hyperlipidemia hypertension Gastrointestinal: Reports hx of: peptic ulcer disease Psychiatric: Reports hx of: depression Endocrine: Reports hx of: diabetes type 1 Past Surgical History HEENT: Reports hx of: other eye surgery (Eye surgery x2) Gastrointestinal: Reports hx of: appendectomy (CECILIO HAYNES DO) Reviewed Nurses Notes: Yes Old Medical Records Reviewed: Yes (CECILIO HAYNES DO) Hx Smoking: No Smoking Status: Never Smoker Exposure to Second Hand Smoke?: No Hx Substance Use Disorder: No Hx Alcohol Use: No (CECILIO HAYNES DO) Constitutional Vital Sign - Last 24 Hours 04/18/18 04/18/18 04/18/18 04/18/18 06:08 06:13 06:13 07:06 Temp 97.8 Pulse 88 92 Resp 18 B/P (MAP) 192/111 192/111 (138) 217/112 (147) Pulse Ox 97 O2 Delivery Room Air 04/18/18 04/18/18 04/18/18 04/18/18 07:08 07:28 08:00 08:03 Pulse 84 82 B/P (MAP) 224/111 (148) 217/97 (137) Pulse Ox 92 88 O2 Delivery Room Air Room Air 04/18/18 04/18/18 04/18/18 04/18/18 08:30 08:33 08:38 09:00 Pulse 82 85 B/P (MAP) 210/93 (132) 217/122 (153) Pulse Ox 91 87 O2 Delivery Room Air Room Air 04/18/18 04/18/18 04/18/18 04/18/18 09:08 09:13 09:30 09:43 Pulse 91 92 85 B/P (MAP) 188/82 (117) Pulse Ox 86 95 91 O2 Delivery Room Air Room Air Room Air 04/18/18 04/18/18 04/18/18 10:00 10:13 10:30 Pulse 76 B/P (MAP) 167/82 (110) 143/70 (94) Pulse Ox 92 O2 Delivery Room Air (AMELIA DOS SANTOS MD) Physical Exam Vital signs stable, grossly hypertensive, afebrile, mildly tachycardic General Appearance: The patient is alert, has no immediate need for airway protection and no current signs of toxicity. Slightly pale appearing, skin warm and dry, HEENT: Pupils equal and round no injection.oropharynx with dry mucous membranes, no erythema Respiratory: Chest is non tender, lungs are clear to auscultation. Cardiac: regular rate and rhythm Gastrointestinal: Abdomen is soft and non tender, no masses, bowel sounds normal. Musculoskeletal: Neck: Neck is supple and non tender. Extremities have full range of motion and are non tender. Skin: No rashes or lesions. DIFFERENTIAL DIAGNOSIS: After history and physical exam differential diagnosis was considered for abdominal pain including but not limited to appendicitis, cholecystitis, gastritis , as the patient, DKA, gastroenteritis and urinary tract infection. (CECILIO HAYNES DO) Medical Decision Making Data Points Result Diagram: 04/18/18 0659 04/18/18 0659 Laboratory Hematology Test 04/18/18 00:00 04/18/18 06:59 Red Blood Count 4.01 M/uL (4.00-5.60) Mean Corpuscular Volume 83.9 fL (80.0-96.0) Mean Corpuscular Hemoglobin 28.5 pg (26.0-33.0) Mean Corpuscular Hemoglobin Concent 34.0 g/dL (32.0-36.0) Red Cell Distribution Width 15.7 % (11.5-14.5) Mean Platelet Volume 7.8 fL (7.2-11.1) Neutrophils (%) (Auto) 76.0 % (39.4-72.5) Lymphocytes (%) (Auto) 14.4 % (17.6-49.6) Monocytes (%) (Auto) 7.6 % (4.1-12.4) Eosinophils (%) (Auto) 0.7 % (0.4-6.7) Basophils (%) (Auto) 1.3 % (0.3-1.4) Nucleated RBC Relative Count (auto) 0.0 /100WBC Neutrophils # (Auto) 4.7 K/uL (2.0-7.4) Lymphocytes # (Auto) 0.9 K/uL (1.3-3.6) Monocytes # (Auto) 0.5 K/uL (0.3-1.0) Eosinophils # (Auto) 0.0 K/uL (0.0-0.5) Basophils # (Auto) 0.1 K/uL (0.0-0.1) Nucleated RBC Absolute Count (auto) 0.00 K/uL Sodium Level 133 mmol/L (137-145) Potassium Level 4.8 mmol/L (3.5-5.0) Chloride Level 100 mmol/L (98-107) Carbon Dioxide Level 25 mmol/L (22-30) Blood Urea Nitrogen 30 mg/dl (9-21) Creatinine 2.40 mg/dl (0.66-1.25) Glomerular Filtration Rate Calc 28.8 Random Glucose 187 mg/dl (75-110) Lactate 1.1 mmol/L (0.7-2.1) Calcium Level 8.6 mg/dl (8.4-10.2) Total Bilirubin 0.7 mg/dl (0.2-1.3) Aspartate Amino Transf (AST/SGOT) 29 U/L (0-35) Alanine Aminotransferase (ALT/SGPT) 36 U/L (0-56) Alkaline Phosphatase 114 U/L (0-126) Total Protein 5.8 g/dl (6.3-8.2) Albumin 2.8 g/dl (3.5-5.0) Amylase Level < 30 U/L (0-110) Lipase 84 U/L (23-300) Chemistry Test 04/18/18 00:00 04/18/18 06:59 White Blood Count 6.3 k/uL (4.5-11.0) Red Blood Count 4.01 M/uL (4.00-5.60) Hemoglobin 11.4 g/dL (14.0-18.0) Hematocrit 33.7 % (42.0-52.0) Mean Corpuscular Volume 83.9 fL (80.0-96.0) Mean Corpuscular Hemoglobin 28.5 pg (26.0-33.0) Mean Corpuscular Hemoglobin Concent 34.0 g/dL (32.0-36.0) Red Cell Distribution Width 15.7 % (11.5-14.5) Platelet Count 240 K/uL (150-450) Mean Platelet Volume 7.8 fL (7.2-11.1) Neutrophils (%) (Auto) 76.0 % (39.4-72.5) Lymphocytes (%) (Auto) 14.4 % (17.6-49.6) Monocytes (%) (Auto) 7.6 % (4.1-12.4) Eosinophils (%) (Auto) 0.7 % (0.4-6.7) Basophils (%) (Auto) 1.3 % (0.3-1.4) Nucleated RBC Relative Count (auto) 0.0 /100WBC Neutrophils # (Auto) 4.7 K/uL (2.0-7.4) Lymphocytes # (Auto) 0.9 K/uL (1.3-3.6) Monocytes # (Auto) 0.5 K/uL (0.3-1.0) Eosinophils # (Auto) 0.0 K/uL (0.0-0.5) Basophils # (Auto) 0.1 K/uL (0.0-0.1) Nucleated RBC Absolute Count (auto) 0.00 K/uL Glomerular Filtration Rate Calc 28.8 Lactate 1.1 mmol/L (0.7-2.1) Calcium Level 8.6 mg/dl (8.4-10.2) Total Bilirubin 0.7 mg/dl (0.2-1.3) Aspartate Amino Transf (AST/SGOT) 29 U/L (0-35) Alanine Aminotransferase (ALT/SGPT) 36 U/L (0-56) Alkaline Phosphatase 114 U/L (0-126) Total Protein 5.8 g/dl (6.3-8.2) Albumin 2.8 g/dl (3.5-5.0) Amylase Level < 30 U/L (0-110) Lipase 84 U/L (23-300) Coagulation Test 04/18/18 00:00 (AMELIA DOS SANTOS MD) EKG/Imaging EKG Interpretation 12 lead EK Rhythm: normal sinus rhythm Harshaw: normal QRS: normal ST segments: normal, no evidence of ischemia or dysrhythmia (CECILIO HAYNES DO) Imaging INDICATION: Abdominal pain. EXAM DATE: 04/18/2018 7:15 AM COMPARISON: 03/31/2018 and previous. FINDINGS: PA view the pelvis with upright and supine AP views of the abdomen. The lungs are well-expanded and clear. No pleural effusion or pneumothorax. Heart size is normal. Bowel gas pattern is nonobstructive. No pneumatosis, pneumoperitoneum or portal venous gas. No evidence of large volume ascites or mass. No acute osseous abnormality. IMPRESSION: No apparent acute abnormality. Report Dictated By: Javi Luna MD at 04/18/2018 7:30 AM (AMELIA DOS SANTOS MD) ED Course/Re-evaluation Clinical Indication for ER IV: Hydration, IV Access Turned Over The care of the patient was turned over to Dr. Dos Santos. Dr. Haynes I authorize my typed signature that I authenticated this report. (CECILIO HAYNES DO) ED Course I assumed care of this patient from Dr. Haynes at shift change. Imaging is negative for acute problem. Labs with no sign of elevated anion gap and a normal lactate and a glucose that was 187. He is still nauseated after the Zofran and a liter of normal saline. Renal function shows his stable acute kidney disease with slight dehydration. His blood pressure remains significantly elevated and it sounds like he has not been able to take his verapamil due to the vomiting. He has no history of gastroparesis, but does have diabetic neuropathy and amputation as well as the chronic kidney disease, so a gastroparesis is very likely to be present although mild so far. No history of sick contacts and nothing that he can think of that would represent a bad food or water exposure. Given Reglan IV and a second liter of normal saline. He felt much better after the Reglan and 2nd liter of fluids. Discharge to home and recommended follow-up with the [facility]. Decision to Disposition Date: Apr 18, 2018 Decision to Disposition Time: 09:02 (AMELIA DOS SANTOS MD) Depart Departure Latest Vital Signs Vital Signs Date Time Temp Pulse Resp B/P (MAP) Pulse Ox O2 Delivery O2 Flow Rate FiO2 04/18/18 10:30 143/70 (94) 04/18/18 10:13 76 92 Room Air 04/18/18 06:13 97.8 18 (AMELIA DOS SANTOS MD) Impression: Primary Impression: Nausea and vomiting Additional Impression: Type 2 diabetes mellitus Condition: Improved Disposition: HOME OR SELF-CARE Referrals: LETI DIMAS (PCP) New Scripts Metoclopramide Hcl (REGLAN) 10 Mg Tablet 10 MG PO Q8H PRN for NAUSEA/VOMITING, #30 TAB 0 Refills Prov: AMELIA DOS SANTOS MD 04/18/18 Patient Instructions: Diabetic Gastroparesis (DC) Additional Instructions: We did not find any major problems on evaluation. You still having the chronic kidney disease from you diabetes and will need to continue to follow-up with the [facility] for this. The nausea and vomiting without other major findings could mean that you have a complication from diabetes that slows down transit in the stomach and intestines that we call gastroparesis. Take Reglan 10mg, one every 8 hours for nausea and vomiting and follow-up with the [facility] for further evaluation of this. 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
[2018-04-18] MEDS ORDERED: NS(*) 0.9% 1000 ML BAG 1,000 ML IV ONE ×2 (06:19→08:55)
[2018-04-18] MEDS ORDERED: fentaNYL CITR 100 MCG/2 ML AMP IVP ONE (06:20)
[2018-04-18] MEDS ORDERED: ONDANSETRON 4 MG/2 ML VIAL IVP ONE (06:20)
--- NOTE | 2018-04-18 06:39 | EKG ---
FACILITY: [facility] [place] PATIENT NAME: JUAN F MCCABE : [id number] MR: [id number] V: [id number] EXAM DATE: ORDERING PHYSICIAN: CECILIO BLANCO TECHNOLOGIST: JOSE ARMANDO Meier Reason : Blood Pressure : / mmHG Vent. Rate : 087 BPM Atrial Rate : 087 BPM P-R Int : 130 ms QRS Dur : 092 ms QT Int : 366 ms P-R-T Axes : 071 023 065 degrees QTc Int : 440 ms Normal sinus rhythm Normal ECG When compared with ECG of 10-FEB-2018 07:04, No significant change was found Confirmed by ATTILA KNOWLES ([id number]) on 04/18/2018 6:49:21 AM Referred By: Confirmed By:ATTILA KNOWLES
[2018-04-18 07:10] LABS: PLATELET COUNT, AUTOMATED 240 K/uL (150-450)
--- NOTE | 2018-04-18 07:36 | RADIOLOGY IMAGING REPORT ---
FACILITY: [facility] PATIENT NAME: Leobardo Russell : 1965 MR: [id number] V: [id number] EXAM DATE: [id number] ORDERING PHYSICIAN: CECILIO BLANCO TECHNOLOGIST: Location: [facility] [place] Patient: Leobardo Russell : 1965 Visit/Account:[id number] Date of Sevice: 04/18/2018 INDICATION: Abdominal pain. EXAM DATE: 04/18/2018 7:15 AM COMPARISON: 03/31/2018 and previous. FINDINGS: PA view the pelvis with upright and supine AP views of the abdomen. The lungs are well-expanded and clear. No pleural effusion or pneumothorax. Heart size is normal. Bowel gas pattern is nonobstructive. No pneumatosis, pneumoperitoneum or portal venous gas. No eviden ce of large volume ascites or mass. No acute osseous abnormality. IMPRESSION: No apparent acute abnormality. Report Dictated By: Javi Luna MD at 04/18/2018 7:30 AM Report E-Signed By: Javi Luna MD at 04/18/2018 7:32 AM WSN:[id number]
[2018-04-18] MEDS ORDERED: METOCLOPRAMIDE 10 MG/2 ML SDV IVP ONE (08:55)
[2018-04-18] MEDS ORDERED: LABETALOL HCL 100 MG/20ML VIAL IVP ONE (09:25)
[2018-04-18 10:30] VITALS: BP 143/70
[2018-04-18] MEDS ORDERED: METO-734 PO (11:22)
== END 2018-04-18 11:37 | disposition home or self-care (01) ==
LOC: ER 06:20
DX: R11.2 Nausea with vomiting, unspecified (principal); E11.9 Type 2 diabetes mellitus without complications
CPT/HCPCS: 74022; 82150; 83605; 83690; 85025; 93005; 96361; 96374; 96375; 99284; J2405; J2765; J3490; J7030; 82040; 82247; 82310; 82374; 82435; 82565; 82947; 84075; 84132; 84155; 84295; 84450; 84460; 84520

== ENCOUNTER → 2018-04-18 | Outpatient (CLI) | payer SELFPAY ==
[2017-10-09 07:53] VITALS: BMI 27.9
[~2018-04-18] MED LIST changes: +METO-734 PO
== END ==
LOC: AMB 05:48
PROVIDERS: ATTEND Nurse Practitioner
DX: R10.11 Right upper quadrant pain (principal)
CPT/HCPCS: A0425; A0429

== ENCOUNTER → 2018-04-21 | Outpatient (REF) ==
[2017-10-09 07:53] VITALS: BMI 27.9
[~2018-04-21] MED LIST changes: +METO-734 PO
== END ==
LOC: PT 09:55
PROVIDERS: ATTEND Surgery
DX: Z89.512 Acquired absence of left leg below knee (principal)

== ENCOUNTER → 2018-05-26 | Outpatient (REF) ==
[2017-10-09 07:53] VITALS: BMI 27.9
[~2018-05-26] MED LIST changes: +POLY17PO11 PO; -POLY17PO21 PO
--- NOTE | 2018-05-26 10:58 | PT PLAN OF CARE ---
Physician: Dr. Salgado/ [facility] Patient is being seen: Leobardo Russell Therapist: Abigail Platt PT, MPT, OMS Medical Diagnosis: L) distal end of BKA residual limb; dehisced surgical incision Treatment Diagnosis: same Date of Onset: L) BKA 02/09/18 Date of Initial Evaluation: 04/07/18 Date patient was last seen: 05/26/18 Number of treatments: 3 Number of cancellations/No shows: 0 INTERVENTIONS: Selective debridement and dressing change product selection to optimize efficient wound healing and reduce risk of infection. GOALS: 1. Pt to maintain a clean, dry and intact dressing between wound care visits 2. Wound base to gradually epithelialize with no further signs or symptoms of infection 3. Pt to apply stockinette and knee pads appropriately for edema management and skin protection. 4. Pt to be compliant with BS management and medication administration as prescribed to facilitate improved wound healing. 5. Pt to verbalize understanding of importance of diet for wound healing as well. PATIENT'S GOAL: Wound to heal and to obtain medicaid coverage to allow for prosthetic fitting. Status of Patient's Goals: partially met; wound is healed, however, Medicaid coverage has been denied. Pt is in the process of appealing this ruling. Patient Compliance: Poor Prognosis: Fair Reasons for continuing therapy: None at this time; Dehisced surgical incision is fully healed and epithelialized. No further skilled PT intervention required for debridement. Pt admits to continued non-compliance with medication management and states that typical diet includes mountain dew as her drink of choice with meals. Pt has been discharged from [facility] due to non-compliance as well. Pt states that she plans to follow up with [facility] and has a meeting scheduled with dept of vocational rehab to assist with funding for other needs. Thank you for this referral. If you have any questions, comments, or concerns about this report or plan, please contact me at . Abigail Platt, PT, MPT, OMS [facility]
== END ==
LOC: PT 10:26
PROVIDERS: ATTEND Surgery
DX: Z89.512 Acquired absence of left leg below knee (principal)